=== PATIENT | female | born 1975 | race Caucasian/White ===

== ENCOUNTER → 2017-02-21 | Outpatient (CLI) | payer BC, OTHER ==
[~2017-02-21] MED LIST: ACYC800T57 PO; FLUO40CA PO; LORA10CA PO; OMEP-10 PO; SIMV40TA4 PO
== END ==
LOC: RAD 09:31
PROVIDERS: ATTEND Obstetrics & Gynecology
DX: Z12.31 Encounter for screening mammogram for malignant neoplasm of breast (principal)
CPT/HCPCS: 77067

== ENCOUNTER 2017-12-18 00:42 | Emergency (ER) | payer OTHER ==
[~2017-12-18] VITALS: Ht 152.4 cm; Wt 88.5 kg
--- OUTSIDE RECORDS SUMMARY | 2017-12-18 00:49 | XMS REPORT | CCD ---
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 Name Role Phone PP Unavailable CCM Unavailable Summary Purpose Interface Exchange Insurance Providers Payer name Policy type / Coverage type Covered libertarian ID Effective Begin Date Effective End Date [facility] [id number] Unknown Family History Family History data not found Social History Social History Element Codes Description Effective Dates Marital status Unknown 08/08/2014 Living arrangements Unknown House 08/08/2014 Education level Unknown College Graduate 08/08/2014 Employment Unknown 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 [employer] 08/08/2014 Allergies, Adverse Reactions, Alerts Substance Reaction Codes Entered Date Inactivated Date Status Erythromycin emesis RxNorm: 4053 08/08/2014 No Inactive Date Active PENICILLINS rash Unknown 08/08/2014 No Inactive Date Active Past Medical History Illness Codes Condition Status Onset Date Resolved Date Encounter for general adult medical examination without abnormal findings ICD-9: V70.0 ICD-10: Z00.00 Active 04/25/2017 Unknown Other obesity due to excess calories ICD-9: 278.00 ICD-10: E66.09 Active 04/25/2017 Unknown Acute laryngopharyngitis ICD-9: 465.0 ICD-10: J06.0 Active 10/20/2016 Unknown Otalgia, left ear ICD- 9: 388.70 ICD-10: H92.02 Active 10/20/2016 Unknown Other allergic rhinitis ICD-9: 477.8 ICD-10: J30.89 Active 10/16/2016 Unknown Otalgia, right ear ICD -9: 388.70 ICD-10: H92.01 Active 10/16/2016 Unknown Cough ICD-9: 786.2 ICD-10: R05 Active 07/10/2016 Unknown Mixed hyperlipidemia ICD-9: 272.2 ICD-10: E78.2 Active 07/10/2016 Unknown ELEV BL PRES W/O HYPERTN ICD-9: 796.2 Active 01/06/2015 Unknown Inflamed skin tag ICD- 9: 701.9 Active 01/01/2015 Unknown Abnormal menstrual periods ICD-9: 626.2 Active 08/08/2014 Unknown ESOPHAGEAL REFLUX ICD- 9: 530.81 Active 08/08/2014 Unknown Hiatal hernia ICD-9: 553.3 Active 08/08/2014 Unknown Missed periods ICD-9: 626.4 Active 08/08/2014 Unknown Problems Condition Codes Effective Dates Condition Status Encounter for general adult medical examination without abnormal findings ICD-9: V70.0 ICD-10: Z00.00 04/25/2017 Active Other obesity due to excess calories ICD-9: 278.00 ICD-10: E66.09 04/25/2017 Active Acute laryngopharyngitis ICD-9: 465.0 ICD-10: J06.0 10/20/2016 Active Otalgia, left ear ICD- 9: 388.70 ICD-10: H92.02 10/20/2016 Active Other allergic rhinitis ICD-9: 477.8 ICD-10: J30.89 10/16/2016 Active Otalgia, right ear ICD -9: 388.70 ICD-10: H92.01 10/16/2016 Active Cough ICD-9: 786.2 ICD-10: R05 07/10/2016 Active Mixed hyperlipidemia ICD-9: 272.2 ICD-10: E78.2 07/10/2016 Active ELEV BL PRES W/O HYPERTN ICD-9: 796.2 01/06/2015 Active Inflamed skin tag ICD- 9: 701.9 01/01/2015 Active Abnormal menstrual periods ICD-9: 626.2 08/08/2014 Active ESOPHAGEAL REFLUX ICD- 9: 530.81 08/08/2014 Active Hiatal hernia ICD-9: 553.3 08/08/2014 Active Missed periods ICD-9: 626.4 08/08/2014 Active Medications Medication Codes Instructions Start Date Stop Date Status Fill Instructions Prilosec 20 mg capsule,delayed release RxNorm: 468180 TAKE ONE CAPSULE BY MOUTH TWICE A DAY 10/06/2017 05/03/2018 Active Prilosec 20 mg capsule,delayed release RxNorm: 360007 TAKE ONE CAPSULE BY MOUTH TWICE A DAY 08/07/2017 09/05/2017 Inactive Prozac 40 mg capsule RxNorm: 944059 TAKE ONE CAPSULE BY MOUTH DAILY 06/12/2017 11/08/2017 Active Contrave 8 mg-90 mg tablet,extended release RxNorm: 8536642 2 Tablet(s) PO BID 04/25/2017 05/07/2017 Inactive simvastatin 40 mg tablet RxNorm: 850838 1 Tablet(s) PO QHS 01/201703/23/2018 Active [SAVINGS FOR NON-COVERED DRUGS -- BIN:[id number], PCN: ASPROD1, Group: XXXXX, ID # [id number], Questions: . THIS IS NOT INSURANCE.] Prozac 40 mg capsule RxNorm: 224586 TAKE ONE CAPSULE BY MOUTH DAILY 11/08/2016 05/06/2017 Inactive prednisone 10 mg tablet RxNorm: 896181 Tablet(s) PO 10/20/2016 04/24/2017 Inactive 6, 5,4,3,2,1 Flonase Allergy Relief 50 mcg/actuation nasal spray, suspension RxNorm: 8521691 1 [place] NASAL BID 10/17/2016 No Stop Date Active Kenalog 40 mg/mL suspension for injection RxNorm: 5745631 1 Milliliter(s) Inj 10/17/2016 10/17/2016 Inactive Zithromax Z-Kristofer 250 mg tablet RxNorm: 363722 1 Tablet(s) PO UD 10/12/2016 10/16/2016 Inactive zpack Prilosec 20 mg capsule,delayed release RxNorm: 790538 TAKE ONE CAPSULE BY MOUTH TWICE A DAY 08/30/2016 02/25/2017 Inactive Prozac 40 mg capsule RxNorm: 996936 TAKE ONE CAPSULE BY MOUTH DAILY 08/08/2016 11/05/2016 Inactive Zithromax Z-Kristofer 250 mg tablet RxNorm: 141131 1 Tablet(s) PO UD 07/11/2016 07/15/2016 Inactive zpack Prilosec 20 mg capsule,delayed release RxNorm: 435569 Capsule(s) TAKE ONE CAPSULE BY MOUTH TWICE A DAY 07/04/20162015 Inactive Prozac 40 mg capsule RxNorm: 989307 1 Capsule(s) PO daily 07/0408/02/2016 Inactive Prilosec 20 mg capsule,delayed release RxNorm: 079376 TAKE ONE CAPSULE BY MOUTH TWICE A DAY 01/11/2016 04/09/2016 Inactive simvastatin 40 mg tablet RxNorm: 797600 TAKE ONE TABLET BY MOUTH AT BEDTIME 12/23/2015 05/06/2016 Inactive Request already responded to by other means (e.g. phone or fax) simvastatin 40 mg tablet RxNorm: 041753 1 Tablet(s) PO QHS 06/17/2016 Inactive [SAVINGS FOR NON-COVERED DRUGS -- BIN:[id number], PCN: ASPROD1, Group: XXXXX, ID# [id number], Questions: . THIS IS NOT INSURANCE.] Prozac 40 mg capsule RxNorm: 233288 1 Capsule(s) PO daily 06/1906/12/2016 Inactive simvastatin 40 mg tablet RxNorm: 863355 1 Tablet(s) PO QHS 07/201507/31/2015 Inactive [SAVINGS FOR NON-COVERED DRUGS -- BIN:[id number], PCN: ASPROD1, Group: XXXXX, ID# [id number], Questions: . THIS IS NOT INSURANCE.] Prilosec 20 mg capsule,delayed release RxNorm: 876951 TAKE ONE CAPSULE BY MOUTH TWICE A DAY 12/04/2014 04/02/2015 Inactive Prilosec 20 mg capsule,delayed release RxNorm: 473876 1 Capsule(s) PO BID 12/02/2014 07/03/2016 Inactive [SAVINGS FOR NON-COVERED DRUGS -- BIN:[id number], PCN: ASPROD1, Group: XXXXX, ID# [id number], Questions: . THIS IS NOT INSURANCE.] Tamiflu 75 mg capsule RxNorm: 611098 Capsule(s) PO daily 201411/05/2014 Inactive Seasonale contraceptive 0.15 mg-30 mcg tablets,3 month dose pack RxNorm: 562528 1 Tablet(s) PO daily 08/11/20142015 Inactive Seasonale contraceptive 0.15 mg-30 mcg tablets,3 month dose pack RxNorm: 080816 1 Tablet(s) PO daily 08/11/20142013 Inactive Prilosec 20 mg capsule,delayed release RxNorm: 708202 1 Capsule(s) PO BID 08/08/2014 10/06/2014 Inactive [SAVINGS FOR UNINSURED PATIENTS -- BIN:[id number], PCN: ASPROD1, Group: [id number], ID# [id number], Process claim through [employer], for questions: . THIS IS NOT INSURANCE.] Victoza 2-Kristofer 0.6 mg/0.1 mL (18 mg/3 mL) subcutaneous pen injector RxNorm: 846217 0.6 Milligram(s) SQ daily No Start Date Active Centrum Complete oral RxNorm: 57249 oral No Start Date Active Xanax 0.25 mg tablet RxNorm: 704051 1/2 Tablet(s) PO daily No Start Date Active Phenergan 12.5 mg tablet RxNorm: 524221 1/2 Tablet(s) PO PRN No Start Date Active Prozac 40 mg capsule RxNorm: 396268 1 Capsule(s) PO daily No Start Date 06/18/2015 Inactive Fish Oil 1,000 mg capsule RxNorm: 3 Capsule(s) PO daily No Start Date 04/24/2017 Inactive simvastatin 40 mg tablet RxNorm: 356262 1 Tablet(s) PO QHS No Start Date 02/01/2015 Inactive Prilosec 20 mg capsule,delayed release RxNorm: 851283 1 Capsule(s) PO daily No Start Date 08/07/2014 Inactive Medication Administered Medication Codes Instructions Start Date Status Kenalog 40 mg/mL suspension for injection RxNorm: 3140302 1Milliliter 10/17/2016 No longer Active Immunizations Vaccine Codes Date Status Influenza CVX: 141 08/14/2016 completed PPD Unknown 01/08/2015 completed PPD Unknown 01/06/2015 completed Assessments Condition Codes Effective Dates Other obesity due to excess calories ICD-10: E66.09 ICD-9: 278.00 04/25/2017 Encounter for general adult medical examination without abnormal findings ICD-10: Z00.00 ICD-9: V70.0 04/25/2017 Otalgia, left ear ICD-10: H92.02 ICD-9: 388.70 10/20/2016 Acute laryngopharyngitis ICD-10: J06.0 ICD-9: 465.0 10/20/2016 Other allergic rhinitis ICD-10: J30.89 ICD-9: 477.8 10/20/2016 Otalgia, right ear ICD-10: H92.01 ICD-9: 388.70 10/17/2016 Cough ICD-10: R05 ICD-9: 786.2 07/11/2016 Mixed hyperlipidemia ICD-10: E78.2 ICD-9: 272.2 07/11/2016 ELEV BL PRES W/O HYPERTN ICD-9: 796.2 Inflamed skin tag ICD-9: 701.9 2014 ESOPHAGEAL REFLUX ICD-9: 530.81 2013 Missed periods ICD-9: 626.4 08/08/2014 Hiatal hernia ICD-9: 553.3 08/08/2014 Abnormal menstrual periods ICD-9: 626.2 08/08/2014 Reason For Visit Reason For Visit Effective Dates Notes weight gain/obesity 04/25/2017 sinus congestion 10/20/2016 earache 10/17/2016 cough 07/11/2016 skin lesion 01/01/2015 anxiety 08/08/2014 causes her chest discomfort, nausea, vomiting and diarrhea Results Observation Observation Code Item Item Code Result Date Comp Metabolic Bda132 NA 140 mEq/L 04/25/2017 Comp Metabolic Xyz656 K 3.9 mEq/L 04/25/2017 Comp Metabolic Rsl985 CL 107 mEq/L 04/25/2017 Comp Metabolic Frt238 CO2 22.0 mEq/L 04/25/2017 Comp Metabolic Wgv217 ANION GAP 15 04/25/2017 Comp Metabolic Ubp837 GLUCOSE 82 mg/dL 04/25/2017 Comp Metabolic Lbc723 Creat 0.7 mg/dL 04/25/2017 Comp Metabolic Tll842 eGFR 107 ml/min/1.73m2 04/25/2017 Comp Metabolic Pax351 BUN 10 mg/dL 04/25/2017 Comp Metabolic Pha001 B/C Ratio 15.4 Ratio 04/25/2017 Comp Metabolic Kjg176 CALCIUM 8.9 mg/dL 04/25/2017 Comp Metabolic Oxr155 ALK PHOS 73 U/L 04/25/2017 Comp Metabolic Jmg085 AST(SGOT) 16 U/L 04/25/2017 Comp Metabolic Imk308 ALT(SGPT) 12 U/L 04/25/2017 Comp Metabolic Rgw320 BILI T 0.3 mg/dL 04/25/2017 Comp Metabolic Mkc961 ALBUMIN 3.8 g/dL 04/25/2017 Comp Metabolic Jle623 TPRO 6.7 g/dL 04/25/2017 Comp Metabolic Gwg343 GLOB 2.9 g/dL 04/25/2017 Comp Metabolic Bwm431 A/G Ratio 1.3 Ratio 04/25/2017 Comp Metabolic Vnj220 Osmo 278 mOsmo 04/25/2017 Cbc With Differential Ord2 WBC 7.89 K/ul 04/25/2017 Cbc With Differential Ord2 RBC 4.73 M/ul 04/25/2017 Cbc With Differential Ord2 HGB 12.7 g/dl 04/25/2017 Cbc With Differential Ord2 Neut% 71.6 % 04/25/2017 Cbc With Differential Ord2 HCT 38.6 % 04/25/2017 Cbc With Differential Ord2 MCV 81.6 fl 04/25/2017 Cbc With Differential Ord2 Lymph% 20.0 % 04/25/2017 Cbc With Differential Ord2 MCH 26.8 pg 04/25/2017 Cbc With Differential Ord2 [place]% 5.7 % 04/25/2017 Cbc With Differential Ord2 MCHC 32.9 pg 04/25/2017 Cbc With Differential Ord2 Eos% 2.3 % 04/25/2017 Cbc With Differential Ord2 PLT 400 K/ul 04/25/2017 Cbc With Differential Ord2 Baso% 0.4 % 04/25/2017 Cbc With Differential Ord2 RDW 14.4 % 04/25/2017 Cbc With Differential Ord2 Neut ABS# 5.65 K/ul 04/25/2017 Cbc With Differential Ord2 Lymph ABS# 1.58 K/ul 04/25/2017 Cbc With Differential Ord2 [place] ABS# 0.5 K/ul 04/25/2017 Cbc With Differential Ord2 Eos ABS# 0.2 K/ul 04/25/2017 Cbc With Differential Ord2 Baso ABS# 0.0 K/ul 04/25/2017 Lipid Ord30 CHOL 183 mg/dL 04/25/2017 Lipid Ord30 HDL 53.0 mg/dl 04/25/2017 Lipid Ord30 TRIG 167 mg/dL 04/25/2017 Lipid Ord30 LDL 97 mg/dL 04/25/2017 Lipid Ord30 C/HDL 3.5 Ratio 04/25/2017 Tsh Ord6 hTSH II 2.40 uIU/mL 04/25/2017 Tsh Ord6 hTSH II 1.98 uIU/mL 07/11/2016 Lipid Ord30 CHOL 232 mg/dL 07/11/2016 Lipid Ord30 HDL 53.0 mg/dl 07/11/2016 Lipid Ord30 TRIG 157 mg/dL 07/11/2016 Lipid Ord30 LDL 148 mg/dL 07/11/2016 Lipid Ord30 C/HDL 4.4 Ratio 07/11/2016 Cbc With Differential Ord2 WBC 12.04 K/ul 07/11/2016 Cbc With Differential Ord2 RBC 5.05 M/ul 07/11/2016 Cbc With Differential Ord2 HGB 13.6 g/dl 07/11/2016 Cbc With Differential Ord2 Neut% 79.7 % 07/11/2016 Cbc With Differential Ord2 HCT 41.0 % 07/11/2016 Cbc With Differential Ord2 MCV 81.2 fl 07/11/2016 Cbc With Differential Ord2 Lymph% 12.5 % 07/11/2016 Cbc With Differential Ord2 MCH 26.9 pg 07/11/2016 Cbc With Differential Ord2 [place]% 6.9 % 07/11/2016 Cbc With Differential Ord2 MCHC 33.2 pg 07/11/2016 Cbc With Differential Ord2 Eos% 0.7 % 07/11/2016 Cbc With Differential Ord2 Baso% 0.2 % 07/11/2016 Cbc With Differential Ord2 PLT 372 K/ul 07/11/2016 Cbc With Differential Ord2 RDW 14.3 % 07/11/2016 Cbc With Differential Ord2 Neut ABS# 9.59 K/ul 07/11/2016 Cbc With Differential Ord2 Lymph ABS# 1.51 K/ul 07/11/2016 Cbc With Differential Ord2 [place] ABS# 0.8 K/ul 07/11/2016 Cbc With Differential Ord2 Eos ABS# 0.1 K/ul 07/11/2016 Cbc With Differential Ord2 Baso ABS# 0.0 K/ul 07/11/2016 Comp Metabolic Rhb415 NA 136 mEq/L 07/11/2016 Comp Metabolic Msr314 K 4.2 mEq/L 07/11/2016 Comp Metabolic Dya295 CL 104 mEq/L 07/11/2016 Comp Metabolic Xev996 CO2 20.0 mEq/L 07/11/2016 Comp Metabolic Amd968 ANION GAP 16 07/11/2016 Comp Metabolic Frs084 GLUCOSE 86 mg/dL 07/11/2016 Comp Metabolic Liw051 Creat 0.7 mg/dL 07/11/2016 Comp Metabolic Rpt270 eGFR 106 ml/min/1.73m2 07/11/2016 Comp Metabolic Lkr710 BUN 12 mg/dL 07/11/2016 Comp Metabolic Gdb883 B/C Ratio 18.2 Ratio 07/11/2016 Comp Metabolic Byn033 CALCIUM 9.3 mg/dL 07/11/2016 Comp Metabolic Erp194 ALK PHOS 79 U/L 07/11/2016 Comp Metabolic Sjk284 AST(SGOT) 19 U/L 07/11/2016 Comp Metabolic Vbk478 ALT(SGPT) 13 U/L 07/11/2016 Comp Metabolic Zil342 BILI T 0.3 mg/dL 07/11/2016 Comp Metabolic Mmo436 ALBUMIN 4.1 g/dL 07/11/2016 Comp Metabolic Rsy003 TPRO 7.5 g/dL 07/11/2016 Comp Metabolic Ggw984 GLOB 3.4 g/dL 07/11/2016 Comp Metabolic Cww146 A/G Ratio 1.2 Ratio 07/11/2016 Comp Metabolic Nqd807 Osmo 271 mOsmo 07/11/2016 PREG U 1153362 PREG U NEG 08/08/2014 Review of Systems System Result Effective Dates Constitutional No fatigue 04/25/2017 Constitutional No fever 04/25/2017 Constitutional No insomnia 04/25/2017 Eyes No eye discharge 04/25/2017 Eyes No eye erythema 04/25/2017 Ears/Nose/Throat/Neck No headache 2016 Cardiovascular No chest pain/pressure 09/2016 Cardiovascular No edema 04/25/2017 Cardiovascular No near-syncope/dizziness 04/25/2017 Cardiovascular No syncope 04/25/2017 Respiratory No productive sputum 2016 Respiratory No chest congestion 2016 Respiratory No chest tightness 2016 Respiratory No cough 04/25/2017 Respiratory No dyspnea 04/25/2017 Gastrointestinal No abdominal pain 2016 Gastrointestinal No constipation 2016 Gastrointestinal No diarrhea 04/25/2017 Genitourinary/Nephrology No breast complaint 04/25/2017 Genitourinary/Nephrology No dysuria 04/25 Genitourinary/Nephrology No hematuria 09/2016 Genitourinary/Nephrology No urinary urgency 04/25/2017 Genitourinary/Nephrology No vaginal discharge 04/25/2017 Musculoskeletal No joint complaint 2016 Neurologic No alteration of consciousness 04/25/2017 Constitutional recent illness 10/20/2016 Constitutional No chills 10/20/2016 Constitutional No diaphoresis 10/20/2016 Constitutional No fever 10/20/2016 Eyes No eye erythema 10/20/2016 Ears/Nose/Throat/Neck nasal allergies Ears/Nose/Throat/Neck nasal discharge Ears/Nose/Throat/Neck postnasal drip Ears/Nose/Throat/Neck sinus congestion Ears/Nose/Throat/Neck sore throat 2016 Cardiovascular No chest pain/pressure Cardiovascular No dyspnea 10/20/2016 Respiratory No dyspnea 10/20/2016 Dermatologic No rash 10/20/2016 Neurologic No alteration of consciousness 10/20/2016 Neurologic No mental status change 2016 Ears/Nose/Throat/Neck otalgia 10/20/2016 Constitutional recent illness 07/11/2016 Constitutional No anorexia 07/11/2016 Constitutional night sweats 07/11/2016 Constitutional No chills 07/11/2016 Constitutional diaphoresis 07/11/2016 Constitutional fatigue 07/11/2016 Constitutional No fever 07/11/2016 Constitutional No insomnia 07/11/2016 Constitutional No malaise 07/11/2016 Constitutional No weight loss 07/11/2016 Constitutional weight gain 07/11/2016 Eyes No eye discharge 07/11/2016 Eyes No eye erythema 07/11/2016 Ears/Nose/Throat/Neck No dizziness 2015 Ears/Nose/Throat/Neck headache 2015 Ears/Nose/Throat/Neck nasal discharge Ears/Nose/Throat/Neck No otalgia 2015 Ears/Nose/Throat/Neck sinus congestion Ears/Nose/Throat/Neck No sore throat Cardiovascular No chest pain/pressure Respiratory cough 07/11/2016 Gastrointestinal No abdominal pain 2015 Gastrointestinal No constipation 2015 Gastrointestinal No diarrhea 07/11/2016 Genitourinary/Nephrology No dysuria 07/11 Musculoskeletal No joint complaint 2015 Dermatologic No sores 07/11/2016 Neurologic No alteration of consciousness 07/11/2016 Psychiatric No anxiety 07/11/2016 Constitutional No recent illness 2014 Constitutional No anorexia 01/01/2015 Constitutional No night sweats 2014 Constitutional No chills 01/01/2015 Constitutional No diaphoresis 01/01/2015 Constitutional No fatigue 01/01/2015 Constitutional No fever 01/01/2015 Constitutional No insomnia 01/01/2015 Constitutional No malaise 01/01/2015 Constitutional weight loss 01/01/2015 Constitutional No weight gain 01/01/2015 Constitutional No fatigue 08/08/2014 Constitutional No fever 08/08/2014 Constitutional No insomnia 08/08/2014 Eyes No eye discharge 08/08/2014 Eyes No eye erythema 08/08/2014 Ears/Nose/Throat/Neck No headache 2013 Cardiovascular No chest pain/pressure Cardiovascular No edema 08/08/2014 Cardiovascular No near-syncope/dizziness 08/08/2014 Cardiovascular No syncope 08/08/2014 Respiratory No productive sputum 2013 Respiratory No chest congestion 2013 Respiratory No chest tightness 2013 Respiratory No cough 08/08/2014 Respiratory No dyspnea 08/08/2014 Gastrointestinal No abdominal pain 2013 Gastrointestinal No constipation 2013 Gastrointestinal No diarrhea 08/08/2014 Genitourinary/Nephrology No breast complaint 08/08/2014 Genitourinary/Nephrology No dysuria 08/08 Genitourinary/Nephrology No hematuria Genitourinary/Nephrology No urinary urgency 08/08/2014 Genitourinary/Nephrology No vaginal discharge 08/08/2014 Musculoskeletal No joint complaint 2013 Neurologic No alteration of consciousness 08/08/2014 Physical Exam Exam Name System Name Item Name Status Result Effective Dates Notes Full Exam - General 1994 Constitutional general appearance Development: well developed 04/25/2017 None Full Exam - General 1994 Constitutional general appearance Development: appears stated age 0804/25/2017 None Full Exam - General 1994 Constitutional general appearance Nourishment: obese 04/25/2017 None Full Exam - General 1994 Constitutional general appearance Hygiene/Attention to Grooming: good hygiene 04/25/2017 None Full Exam - General 1994 Eyes conjunctiva /eyelids Overall: conjunctiva clear 04/25/2017 None Full Exam - General 1994 Eyes conjunctiva /eyelids Overall: cornea clear 04/25/2017 None Full Exam - General 1994 Eyes conjunctiva /eyelids Overall: eyelids normal 04/25/2017 None Full Exam - General 1994 Eyes pupils and irises Overall: pupils equal, round, reactive to light and accomodation 04/25/2017 None Full Exam - General 1994 Ears/Nose/Throat otoscopic exam Overall: external auditory canals clear 04/25/2017 None Full Exam - General 1994 Ears/Nose/Throat otoscopic exam Overall: tympanic membranes clear 04/25/2017 None Full Exam - General 1995 Ears/Nose/Throat lips/teeth/gingiva Overall: benign lips 04/25/2017 None Full Exam - General 1994 Ears/Nose/Throat lips/teeth/gingiva Overall: normal dentition 04/25/2017 None Full Exam - General 1994 Ears/Nose/Throat oral cavity/pharynx/larynx Overall: oral mucosa clear 04/25/2017 None Full Exam - General 1994 Ears/Nose/Throat oral cavity/pharynx/larynx Overall: oropharyngeal mucosa clear 04/25/2017 None Full Exam - General 1994 Ears/Nose/Throat oral cavity/pharynx/larynx Overall: hypopharynx benign 04/25/2017 None Full Exam - General 1994 Ears/Nose/Throat oral cavity/pharynx/larynx Overall: no masses 04/25/2017 None Full Exam - General 1994 Respiratory auscultation Overall: breath sounds clear bilaterally 04/25/2017 None Full Exam - General 1994 Respiratory respiratory effort/rhythm Overall: no retractions 04/25/2017 None Full Exam - General 1994 Respiratory respiratory effort/rhythm Overall: normal rate 04/25/2017 None Full Exam - General 1994 Cardiovascular extremities Overall: no clubbing 04/25/2017 None Full Exam - General 1994 Cardiovascular auscultation of heart Overall: regular rate 04/25/2017 None Full Exam - General 1994 Cardiovascular auscultation of heart Overall: normal heart sounds 04/25/2017 None Full Exam - General 1994 Abdomen abdominal exam Overall: no tenderness 04/25/2017 None Full Exam - General 1994 Abdomen abdominal exam Overall: normal bowel sounds 04/25/2017 None Full Exam - General 1994 Lymphatic neck nodes Overall: anterior cervical chain benign 04/25/2017 None Full Exam - General 1994 Lymphatic neck nodes Overall: posterior cervical chain benign 04/25/2017 None Full Exam - General 1994 Musculoskeletal spine, ribs and pelvis Overall: spine benign 04/25/2017 None Full Exam - General 1994 Musculoskeletal spine, ribs and pelvis Overall: sacroiliac joint benign 04/25/2017 None Full Exam - General 1994 Musculoskeletal spine, ribs and pelvis Overall: good posture 04/25/2017 None Full Exam - General 1994 Musculoskeletal head and neck Overall: head atraumatic 04/25/2017 None Full Exam - General 1994 Musculoskeletal head and neck Overall: cervical spine benign 04/25/2017 None Full Exam - General 1994 Integument inspection of skin Overall: few scattered moles, no gross abnormalities 04/25/2017 None Full Exam - General 1994 Neurologic deep tendon reflexes Overall: deep tendon reflexes intact 04/25/2017 None Full Exam - General 1994 Neurologic cranial nerves Overall: crainial nerves 2 - 12 grossly intact 04/25/2017 None Full Exam - General 1994 Psychiatric orientation/consciousness Overall: oriented to person, place and time 04/25/2017 None Full Exam - General 1994 Psychiatric mood and affect Overall: normal mood and affect 04/25/2017 None Full Exam - ENT Constitutional general appearance Overall: well nourished 10/20/2016 None Full Exam - ENT Constitutional general appearance Overall: well developed 10/20/2016 None Full Exam - ENT Constitutional general appearance Overall: in no acute distress 10/20/2016 None Full Exam - ENT Ears/Nose/Throat otoscopic exam Overall: external auditory canals normal 10/20/2016 None Full Exam - ENT Ears/Nose/Throat otoscopic exam Left tympanic membrane: air -fluid level 10/20/2016 None Full Exam - ENT Ears/Nose/Throat otoscopic exam Right tympanic membrane: air-fluid level 10/20/2016 None Full Exam - ENT Ears/Nose/Throat lips/ teeth/gingiva Overall: benign lips 10/20/2016 None Full Exam - ENT Ears/Nose/Throat oropharynx Posterior Pharynx: clear post nasal drainage 10/20/2016 None Full Exam - ENT Respiratory inspection Overall: no retractions 10/20/2016 None Full Exam - ENT Respiratory inspection Overall: normal rate None Full Exam - ENT Respiratory auscultation Overall: breath sounds clear bilaterally 10/20/2016 None Full Exam - ENT Cardiovascular auscultation of heart Overall: regular rate 10/20/2016 None Full Exam - ENT Cardiovascular auscultation of heart Overall: normal heart sounds 10/20/2016 None Full Exam - ENT Lymphatic palpation of lymph nodes Overall: anterior cervical chain benign 10/20/2016 None Full Exam - ENT Lymphatic palpation of lymph nodes Overall: posterior cervical chain benign 10/20/2016 None Full Exam - ENT Neurologic mood and affect Overall: normal mood 10/20/2016 None Full Exam - ENT Neurologic mood and affect Overall: normal affect 10/20/2016 None Full Exam - ENT Neurologic orientation Overall: oriented to person, place and time 10/20/2016 None Full Exam - ENT Ears/Nose/Throat otoscopic exam Overall: external auditory canals normal 10/17/2016 None Full Exam - ENT Ears/Nose/Throat otoscopic exam Left tympanic membrane: air -fluid level 10/17/2016 None Full Exam - ENT Ears/Nose/Throat otoscopic exam Right tympanic membrane: air-fluid level 10/17/2016 None Full Exam - ENT Ears/Nose/Throat lips/ teeth/gingiva Overall: benign lips 10/17/2016 None Full Exam - ENT Ears/Nose/Throat oropharynx Overall: oral mucosa clear 10/17/2016 None Full Exam - ENT Ears/Nose/Throat oropharynx Posterior Pharynx: clear post nasal drainage 10/17/2016 None Full Exam - ENT Constitutional general appearance Overall: well nourished 07/11/2016 None Full Exam - ENT Constitutional general appearance Overall: well developed 07/11/2016 None Full Exam - ENT Constitutional general appearance Overall: in no acute distress 07/11/2016 None Full Exam - ENT Neurologic orientation Overall: oriented to person, place and time 07/11/2016 None Full Exam - ENT Lymphatic palpation of lymph nodes Overall: anterior cervical chain benign 07/11/2016 None Full Exam - ENT Lymphatic palpation of lymph nodes Overall: posterior cervical chain benign 07/11/2016 None Full Exam - ENT Cardiovascular auscultation of heart Overall: regular rate 07/11/2016 None Full Exam - ENT Cardiovascular auscultation of heart Overall: normal heart sounds 07/11/2016 None Full Exam - ENT Respiratory auscultation Overall: breath sounds clear bilaterally 07/11/2016 None Full Exam - ENT Respiratory inspection Overall: no retractions 07/11/2016 None Full Exam - ENT Respiratory inspection Overall: normal rate None Full Exam - ENT Ears/Nose/Throat otoscopic exam Overall: external auditory canals normal 07/11/2016 None Full Exam - ENT Ears/Nose/Throat otoscopic exam Overall: tympanic membranes normal 07/11/2016 None Full Exam - ENT Ears/Nose/Throat oropharynx Overall: oral mucosa clear 07/11/2016 None Full Exam - ENT Face and Head palpation Left maxillary sinus: nontender 07/11/2016 None Full Exam - ENT Face and Head palpation Right maxillary sinus: nontender 07/11/2016 None Full Exam - ENT Abdomen abdominal exam Overall: normal bowel sounds 07/11/2016 None Full Exam - Dermatology Constitutional general appearance Overall: well nourished 01/01/2015 None Full Exam - Dermatology Constitutional general appearance Overall: well developed 01/01/2015 None Full Exam - Dermatology Constitutional general appearance Overall: in no acute distress 01/01/2015 None Full Exam - Dermatology Constitutional general appearance Overall: of normal body habitus 01/01/2015 None Full Exam - Dermatology Constitutional general appearance Overall: well groomed 01/01/2015 None Full Exam - Dermatology Psychiatric orientation Overall: oriented to person, place and time 01/01/2015 None Full Exam - Dermatology Integument insp & palp - neck Location: on the right neck 01/01/2015 irritated skin tag x 3 Full Exam - Dermatology Integument insp & palp - neck Location: on the left neck 01/01/2015 irritated skin tag x 1 Full Exam - General 1994 Constitutional general appearance Development: appears stated age 1108/08/2014 None Full Exam - General 1994 Constitutional general appearance Development: well developed 08/08/2014 None Full Exam - General 1994 Constitutional general appearance Hygiene/Attention to Grooming: good hygiene 08/08/2014 None Full Exam - General 1994 Eyes conjunctiva /eyelids Overall: conjunctiva clear 08/08/2014 None Full Exam - General 1994 Eyes conjunctiva /eyelids Overall: cornea clear 08/08/2014 None Full Exam - General 1994 Eyes conjunctiva /eyelids Overall: eyelids normal 08/08/2014 None Full Exam - General 1994 Eyes pupils and irises Overall: pupils equal, round, reactive to light and accomodation 08/08/2014 None Full Exam - General 1994 Ears/Nose/Throat otoscopic exam Overall: external auditory canals clear 08/08/2014 None Full Exam - General 1994 Ears/Nose/Throat otoscopic exam Overall: tympanic membranes clear 08/08/2014 None Full Exam - General 1994 Ears/Nose/Throat lips/teeth/gingiva Overall: benign lips 08/08/2014 None Full Exam - General 1994 Ears/Nose/Throat lips/teeth/gingiva Overall: normal dentition 08/08/2014 None Full Exam - General 1994 Ears/Nose/Throat oral cavity/pharynx/larynx Overall: hypopharynx benign 08/08/2014 None Full Exam - General 1994 Ears/Nose/Throat oral cavity/pharynx/larynx Overall: no masses 08/08/2014 None Full Exam - General 1994 Ears/Nose/Throat oral cavity/pharynx/larynx Overall: oral mucosa clear 08/08/2014 None Full Exam - General 1994 Ears/Nose/Throat oral cavity/pharynx/larynx Overall: oropharyngeal mucosa clear 08/08/2014 None Full Exam - General 1994 Respiratory auscultation Overall: breath sounds clear bilaterally 08/08/2014 None Full Exam - General 1994 Respiratory respiratory effort/rhythm Overall: no retractions 08/08/2014 None Full Exam - General 1994 Respiratory respiratory effort/rhythm Overall: normal rate 08/08/2014 None Full Exam - General 1994 Cardiovascular extremities Overall: no clubbing 08/08/2014 None Full Exam - General 1994 Cardiovascular auscultation of heart Overall: normal heart sounds 08/08/2014 None Full Exam - General 1994 Cardiovascular auscultation of heart Overall: regular rate 08/08/2014 None Full Exam - General 1994 Abdomen abdominal exam Overall: no tenderness 08/08/2014 None Full Exam - General 1994 Abdomen abdominal exam Overall: normal bowel sounds 08/08/2014 None Full Exam - General 1994 Integument inspection of skin Overall: few scattered moles, no gross abnormalities 08/08/2014 None Full Exam - General 1994 Neurologic deep tendon reflexes Overall: deep tendon reflexes intact 08/08/2014 None Full Exam - General 1994 Neurologic cranial nerves Overall: crainial nerves 2 - 12 grossly intact 08/08/2014 None Full Exam - General 1994 Psychiatric orientation/consciousness Overall: oriented to person, place and time 08/08/2014 None Full Exam - General 1994 Psychiatric mood and affect Overall: normal mood and affect 08/08/2014 None Full Exam - General 1994 Constitutional general appearance Nourishment: obese 08/08/2014 None Full Exam - General 1994 Lymphatic neck nodes Overall: anterior cervical chain benign 08/08/2014 None Full Exam - General 1994 Lymphatic neck nodes Overall: posterior cervical chain benign 08/08/2014 None Full Exam - General 1994 Musculoskeletal head and neck Overall: cervical spine benign 08/08/2014 None Full Exam - General 1994 Musculoskeletal head and neck Overall: head atraumatic 08/08/2014 None Full Exam - General 1994 Musculoskeletal spine, ribs and pelvis Overall: good posture 08/08/2014 None Full Exam - General 1994 Musculoskeletal spine, ribs and pelvis Overall: sacroiliac joint benign 08/08/2014 None Full Exam - General 1994 Musculoskeletal spine, ribs and pelvis Overall: spine benign 08/08/2014 None Procedures Procedure Codes Date THER/PROPH/DIAG INJ SC/IM CPT-4: 66278 10/17/2016 TRIAMCINOLONE ACET INJ NOS CPT-4: J3301 10/17/2016 REMOVAL OF SKIN TAGS <W/15 CPT-4: 10023 01/01/2015 Vital Signs Date Vital 04/25/2017 Blood Pressure 1: 138/90 Code : 8480-6 BMI: 40.2 Code : 81427-1 Heart Rate 1 : 84 bpm Height: 5' SpO2: 98% Weight: 206 lbs 10/20/2016 Blood Pressure 1: 140/82 Code : 8480-6 BMI: 39.1 Code : 99516-6 Heart Rate 1 : 87 bpm Height: 5' SpO2: 97% Temperature: 37.2 (C) / 98.9 (F) Weight: 200 lbs 07/11/2016 Blood Pressure 1: 142/88 Code : 8480-6 BMI: 38.7 Code : 01493-5 Heart Rate 1 : 104 bpm Height: 5' SpO2: 96% Temperature: 36.7 (C) / 98.0 (F) Weight: 198 lbs 01/08/2015 Blood Pressure 1: 118/78 Code : 8480-6 01/06/2015 Blood Pressure 1: 132/80 Code : 8480-6 01/01/2015 Blood Pressure 1: 150/102 Code: 8480-6 Blood Pressure 2: 150/96 Code: 8480-6 BMI: 33.4 Code: 71612-6 Heart Rate 1: 71 bpm Height: 5' SpO2: 99% Weight: 171 lbs 08/08/2014 Blood Pressure 1: 136/70 Code : 8480-6 BMI: 40.8 Code : 67274-1 Heart Rate 1 : 84 bpm Height: 5' Weight: 209 lbs Functional Status No Functional Status data History of Present Illness Symptom Name Status Result Effective Date Notes weight gain/obesity Location globally 04/25/2017 None weight gain/obesity Quality chronic 04/25/2017 None weight gain/obesity Onset and Resolution ongoing 04/25/2017 None weight gain/obesity Onset of Symptom _ years ago 04/25/2017 None weight gain/obesity Weight Status has gained _ pounds in _weeks 04/25/2017 None weight gain/obesity Frequency of Episodes increasing 04/25/2017 None weight gain/obesity Diet is unchanged 04/25/2017 None weight gain/obesity Triggers unintentional weight gain 04/25/2017 None weight gain/obesity Pertinent Findings Denies dysphagia 04/25/2017 None weight gain/obesity Pertinent Findings Denies dyspnea 04/25/2017 None weight gain/obesity Pertinent Findings Denies edema 04/25/2017 None weight gain/obesity Pertinent Findings Denies vomiting 04/25/2017 None sinus congestion Location on both sides 10/20/2016 None sinus congestion Quality fullness 10/20/2016 None earache Location both ears 10/20/2016 None earache Onset and Resolution ongoing 10/20/2016 None earache Onset of Symptom _ weeks ago 10/20/2016 None earache Location right ear 10/17/2016 None earache Quality acute 10/17/2016 None earache Onset and Resolution ongoing 10/17/2016 None cough Location in the throat 07/11/2016 None cough Quality productive 07/11/2016 GREEN cough Onset and Resolution sudden in onset 07/11/2016 None cough Onset of Symptom 3 days ago 07/11/2016 None cough Frequency of Episodes hourly 07/11/2016 None cough Pertinent Findings chest discomfort 07/11/2016 None cough Pertinent Findings Denies fever 07/11/2016 None cough Pertinent Findings Denies dyspnea 07/11/2016 None cough Limitation on Activities does not limit activities 07/11/2016 None cough Triggers no known associated factors 07/11/2016 None skin lesion Location in the upper neck area 01/01/2015 right side of neck-skin tags and 1 on left neck skin lesion Pertinent Findings weight loss 01/01/2015 had gastric sleve- September 10, 2014 office procedure Procedure to be performed _ 01/01/2015 remove skin tags skin lesion Onset and Resolution ongoing 01/01/2015 None skin lesion Onset of Symptom during adulthood 01/01/2015 None skin lesion Frequency of Episodes increasing 01/01/2015 irritated skin tags x 3 right neck and x1 left neck skin lesion Triggers no known associated factors 01/01/2015 None anxiety Onset of Symptom _ weeks ago 08/08/2014 after EGD panic attacks- started on xanax nausea Onset and Resolution sudden in onset 08/08/2014 None nausea Significant Medical Conditions acid reflux 08/08/2014 None nausea Pertinent Findings Denies fever 08/08/2014 None nausea Pertinent Findings emesis 08/08/2014 at times with anxiety nausea Pertinent Findings Denies edema 08/08/2014 None depression Quality chronic 08/08/2014 None depression Onset and Resolution ongoing 08/08/2014 None depression Onset of Symptom during adulthood 08/08/2014 None depression Triggers no known associated factors 08/08/2014 None insomnia Quality chronic 08/08/2014 None Advance Directives No Advance Directive data Encounters Encounter Performer Location Codes Date ([id number]) PREV VISIT EST AGE 40-64 Diagnosis: Encounter for general adult medical examination without abnormal findings[ICD10: Z00.00] Diagnosis: Other obesity due to excess calories[ICD10: E66.09] Jeanine Dale MD, [facility] CPT-4: 21827 04/25/2017 [id number] EST. PATIENT, LEVEL III Diagnosis: Acute laryngopharyngitis[ICD10: J06.0] Diagnosis: Other allergic rhinitis[ICD10: J30.89] Diagnosis: Otalgia, left ear[ICD10: H92.02] Tere Dale MD, [facility] CPT- 4: 60234 10/20/2016 ([id number]) 16220 EST. PATIENT, LEVEL III Diagnosis: Mixed hyperlipidemia[ICD10: E78.2] Diagnosis: Cough[ICD10: R05] Jeanine Dale MD, [facility] CPT-4: 49649 07/11/2016 ([id number]) Miscellaneous no charge Diagnosis: ELEV BL PRES W/O HYPERTN[ICD9: 796.2] [facility] CPT-4: 72944 01/08/2015 ([id number]) Miscellaneous no charge Diagnosis: ELEV BL PRES W/O HYPERTN[ICD9: 796.2] [facility] CPT-4: 56770 01/06/2015 ([id number]) OFFICE VISIT, NEW - LEVEL 4 Diagnosis: Abnormal menstrual periods[ICD9: 626.2] Diagnosis: Hiatal hernia[ICD9: 553.3] Diagnosis: ESOPHAGEAL REFLUX[ICD9: 530.81] Diagnosis: Missed periods[ICD9: 626.4] [facility] CPT- 4: 13757 08/08/2014 Plan of Care Planned Activity Notes Codes Status Date Visit Plan: Well Adult - pt was counseled about diet, exercise, and encouraged to follow a heart healthy diet and increase activity level. The patient was instructed to RTC yearly for well adult exams and PRN for acute illnesses. The pt was also instructed to have yearly labs for check of cholesterol, thyroid, chem panel, CBC, and renal functioning. Obesity - chronic issue with this patient. The pt has been counseled about diet changes, calorie restriction, and need to exercise. Pt will RTC in one month for weight check. RX for contrave provided and instructed on use 04/25/2017 Appointment: Jeanine Cunningham WPtel: [phone] [phone] (15 min) Moderate 04/25/2017 Patient Education: Patient Medication Summary Completed 04/25/2017 Patient Education: Obesity Completed 04/25/2017 Visit Plan: URI - Pt advised to increase fluids, vitamin C. Discussed natural and expected course of this diagnosis and need to alert me if symptoms do not follow expected course, or if any worse. RX sent to patient' s pharmacy. Allergies - chronic - recommended pt to use allergy medication as prescribed. Pt has been counseled as to the appropriate use of the medication. Pt to call if allergy symptoms are not controlled with the medication. If using nasal spray, instructions as follows: Nasal spray- use twice daily, one spray per nostril twice daily, after 30 minutes, rinse out nose with saline spray.. Use opposite hand per nostril to spray in the nasal steroid allergy spray. 10/20/2016 Appointment: Tere Coello WPtel: [phone] [facility] (30 min) Complex 10/20/2016 Patient Education: Patient Medication Summary Completed 10/20/2016 Visit Plan: Allergies - chronic - recommended pt to use allergy medication as prescribed. Pt has been counseled as to the appropriate use of the medication. Pt to call if allergy symptoms are not controlled with the medication. If using nasal spray, instructions as follows: Nasal spray- use twice daily, one spray per nostril twice daily, after 30 minutes, rinse out nose with saline spray.. Use opposite hand per nostril to spray in the nasal steroid allergy spray. 10/17/2016 Appointment: Nurse Visit 10/17/2016 Patient Education: Patient Medication Summary Completed 10/17/2016 Visit Plan: Hyperlipidemia - pt has been counseled about appropriate diet, exercise, and need for low fat food choices. I have discussed the need for the patient to take medications as prescribed. If the patient has negative side effects from the medication, they are to CALL the office and not abruptly discontinue the medication without discussion with a practitioner in the office. We will check labs in 3-6 months for follow up on the patient's chronic medical problem and to assure normal liver response to medications. URI/ cough - Pt advised to increase fluids, vitamin C. Discussed natural and expected course of this diagnosis and need to alert me if symptoms do not follow expected course, or if any worse. RX sent to patient's pharmacy. 07/11/2016 Appointment: Jeanine Cunningham WPtel: [address] [place], [place] [phone] (30 min) [facility] 07/11/2016 Patient Education: Patient Medication Summary Completed 07/11/2016 Patient Education: Obesity Completed 07/11/2016 Appointment: Nurse Visit 01/08/2015 Patient Education: Patient Medication Summary Completed 01/08/2015 Appointment: Nurse Visit 01/06/2015 Patient Education: Patient Medication Summary Completed 01/06/2015 Visit Plan: Wound Instructions - Pt was instructed to keep the wound clean, wash with antibacterial soap, use triple antibiotic ointment, call if redness, pustular drainage, or any other acute concerns. 01/01/2015 Appointment: Surgical Procedure 01/01/2015 Patient Education: Patient Medication Summary Completed 01/01/2015 Appointment: Surgical Procedure 12/30/2014 Appointment: Lab Draw 12/24/2014 Visit Plan: Esophageal Reflux - the patient has been counseled against excessive intake of caffeine, spicy foods, peppermint, and cinnamon - all of which can exacerbate esophageal reflux. The patient is to take medications as prescribed and call the office if the symptoms are not improving. need release of information will do a urine test if test is negative, doctor will send out script for 3 month control. pt to increase prilosec to 20mg twice daily. I have recommended that the patient needs to make the appt with the surgeon for surgical fixation of the hiatal hernia and needs weight loss surgery as well. 08/08/2014 Appointment: Yeni Dale [facility]el: [phone] [facility] [id number] New Patient 08/08/2014 Patient Education: Patient Medication Summary Completed 08/08/2014 Instructions Comment . Hyperlipidemia - pt has been counseled about appropriate diet, exercise, and need for low fat food choices. I have discussed the need for the patient to take medications as prescribed. If the patient has negative side effects from the medication, they are to CALL the office and not abruptly discontinue the medication without discussion with a practitioner in the office. We will check labs in 3-6 months for follow up on the patient's chronic medical problem and to assure normal liver response to medications. URI/cough - Pt advised to increase fluids, vitamin C. Discussed natural and expected course of this diagnosis and need to alert me if symptoms do not follow expected course, or if any worse. RX sent to patient's pharmacy. . Well Adult - pt was counseled about diet, exercise, and encouraged to follow a heart healthy diet and increase activity level. The patient was instructed to RTC yearly for well adult exams and PRN for acute illnesses. The pt was also instructed to have yearly labs for check of cholesterol, thyroid, chem panel, CBC, and renal functioning. Obesity - chronic issue with this patient. The pt has been counseled about diet changes, calorie restriction, and need to exercise. Pt will RTC in one month for weight check. RX for contrave provided and instructed on use . Allergies - chronic - recommended pt to use allergy medication as prescribed. Pt has been counseled as to the appropriate use of the medication. Pt to call if allergy symptoms are not controlled with the medication. If using nasal spray, instructions as follows: Nasal spray- use twice daily, one spray per nostril twice daily, after 30 minutes, rinse out nose with saline spray.. Use opposite hand per nostril to spray in the nasal steroid allergy spray. . Wound Instructions - Pt was instructed to keep the wound clean, wash with antibacterial soap, use triple antibiotic ointment, call if redness, pustular drainage, or any other acute concerns. . URI - Pt advised to increase fluids, vitamin C. Discussed natural and expected course of this diagnosis and need to alert me if symptoms do not follow expected course, or if any worse. RX sent to patient's pharmacy. Allergies - chronic - recommended pt to use allergy medication as prescribed. Pt has been counseled as to the appropriate use of the medication. Pt to call if allergy symptoms are not controlled with the medication. If using nasal spray, instructions as follows: Nasal spray- use twice daily, one spray per nostril twice daily, after 30 minutes, rinse out nose with saline spray.. Use opposite hand per nostril to spray in the nasal steroid allergy spray. need release of information will do a urine test if test is negative, doctor will send out script for 3 month control. pt to increase prilosec to 20mg twice daily. . Esophageal Reflux - the patient has been counseled against excessive intake of caffeine, spicy foods, peppermint, and cinnamon - all of which can exacerbate esophageal reflux. The patient is to take medications as prescribed and call the office if the symptoms are not improving. need release of information will do a urine test if test is negative, doctor will send out script for 3 month control. pt to increase prilosec to 20mg twice daily. I have recommended that the patient needs to make the appt with the surgeon for surgical fixation of the hiatal hernia and needs weight loss surgery as well.
[2017-12-18] MEDS ORDERED: NS IV 1000 ML 1,000 ML IV SCH (01:23)
[2017-12-18] MEDS ORDERED: ONDANSETRON 4 MG/2 ML (SDV) Z0FRAN IVP ONE (01:30)
[2017-12-18] MEDS ORDERED: HYOSCYAMINE 0.125 MG (LEVSIN) TAB SL ONE (01:30)
[2017-12-18 01:37] LABS: BASOPHILS % (AUTO) 0 % (0-10); EOSINOPHILS # (AUTO) 0.1 10^3/uL (0.0-0.3); EOSINOPHILS % (AUTO) 1 % (0-10); HEMATOCRIT 43 % (35-52); HEMOGLOBIN 14.4 G/DL (11.5-16.0); LYMPHOCYTES % (AUTO) 11 % (12-44); MEAN CORPUSCULAR HEMOGLOBIN 27 PG (25-34); MEAN CORPUSCULAR HGB CONC 34 G/DL (32-36); MEAN CORPUSCULAR VOLUME 81 FL (80-99); MEAN PLATELET VOLUME 9.9 FL (7.4-10.4); MONOCYTES # (AUTO) 0.7 X 10^3 (0.0-1.0); MONOCYTES % (AUTO) 4 % (0-12); NEUTROPHILS # (AUTO) 15.2 X 10^3 (1.8-7.8); NEUTROPHILS % (AUTO) 85 % (42-75); PLATELET COUNT 462 10^3/uL (130-400); RED BLOOD COUNT 5.28 10^6/uL (4.35-5.85); RED CELL DISTRIBUTION WIDTH 14.3 % (10.0-14.5)
[2017-12-18 01:46] LABS: CLARITY,URINE CLEAR; COLOR,URINE YELLOW; GLUCOSE, URINE (UA) NEGATIVE (NEGATIVE); KETONES,URINE 1+ (NEGATIVE); LEUKOCYTE ESTERASE ,URINE 1+ (NEGATIVE); NITRITE,URINE NEGATIVE (NEGATIVE); PH,URINE 6 (5-9); PROTEIN,URINE 2+ (NEGATIVE); UROBILINOGEN,URINE 4 MG/DL (NORMAL)
[2017-12-18 01:47] LABS: BACTERIA,URINE LARGE /HPF; BILIRUBIN,URINE 1+ (NEGATIVE); WBC,URINE 0-2 /HPF
[2017-12-18 01:50] LABS: ALANINE AMINOTRANSFERASE 12 U/L (0-55); ALKALINE PHOSPHATASE 78 U/L (40-136); BILIRUBIN,TOTAL 0.4 MG/DL (0.1-1.0); BUN/CREATININE RATIO 13; CALCIUM 9.3 MG/DL (8.5-10.1); CARBON DIOXIDE 22 MMOL/L (21-32); CHLORIDE 106 MMOL/L (98-107); CREATININE SERUM 0.89 MG/DL (0.60-1.30); GFR ESTIMATED > 60; GLUCOSE 219 MG/DL (70-105); LIPASE 12 U/L (8-78); MAGNESIUM 2.1 MG/DL (1.8-2.4); POTASSIUM 3.4 MMOL/L (3.6-5.0); SODIUM 139 MMOL/L (135-145); TOTAL PROTEIN 7.5 GM/DL (6.4-8.2)
[2017-12-18 02:10] LABS: BAND NEUTROPHILS 1 %; LYMPHOCYTES % (MANUAL) 11 %; MONOCYTES % (MANUAL) 3 %; NEUTROPHILS % (MANUAL) 85 %; RBC MORPH NORMAL
[2017-12-18] MEDS ORDERED: KETOROLAC 30 MG/ML VIAL IVP ONE (02:15)
[2017-12-18] MEDS ORDERED: TETANUS,DIPTH,PERTUSS P/F (BOOSTRIX) 0.5 ML VIAL IM ONE (02:15)
[2017-12-18] MEDS ORDERED: RX-ONDANSETRON 4 MG ODT (ZOFRAN) PPK #4 SL STA (02:15)
[2017-12-18] MEDS ORDERED: CIPR-225 PO (02:26)
[2017-12-18] MEDS ORDERED: CLIN300C11 PO (02:26)
--- NOTE | 2017-12-18 02:26 | ED Abdominal Pain ---
General Chief Complaint: Abdominal/GI Problems Stated Complaint: N/V/D/ AB PAIN Nursing Triage Note: INTERMITTANT SHARP ABDOMINAL PAIN, NAUSEA/DIARRHEA Sepsis Screen: No Definite Risk Source of Information: Patient Exam Limitations: No Limitations History of Present Illness Date Seen by Provider: Dec 18, 2017 Time Seen by Provider: 01:13 Initial Comments Patient presents with recurrent diarrhea over the past several hours and nausea. She is concerned about her hydration status. She has had intermittent sharp abdominal pains in the lower abdomen as well. She is afebrile. She has not been vomiting. She is noted to be mildly tachycardic on assessment. Patient also has a dog bite on her middle left finger. This occurred yesterday when she was trying to break up a scuffle between 2 dogs. The dogs have been vaccinated. Allergies and Home Medications Allergies Coded Allergies: Penicillins (Verified Allergy, Mild, 01/26/13) Home Medications Ciprofloxacin HCl 500 Mg Tablet, 500 MG PO BID Prescribed by: IRAJ BATISTA on 12/18/17225 Clindamycin HCl 300 Mg Capsule, 300 MG PO TID Prescribed by: IRAJ BATISTA on 12/18/17225 Fluoxetine Hcl 40 Mg Capsule, 1 EACH PO DAILY, (Reported) Hyoscyamine Sulfate 0.125 Mg Tab.subl, 0.125 MG SL Q4H Prescribed by: IRAJ BATISTA on 12/18/17226 Omeprazole 20 Mg Capsule.dr, 20 MG PO DAILY, (Reported) Patient Home Medication List Home Medication List Reviewed: Yes Review of Systems Constitutional: no symptoms reported EENTM: No Symptoms Reported Respiratory: No Symptoms Reported Cardiovascular: No Symptoms Reported Gastrointestinal: See HPI Genitourinary: No Symptoms Reported Musculoskeletal: no symptoms reported Skin: see HPI Psychiatric/Neurological: No Symptoms Reported Endocrine: No Symptoms Reported Past Czzuokb-Deekib-Cxexqw Hx Patient Social History Alcohol Use: Denies Use Recreational Drug Use: No Smoking Status: Never a Smoker 2nd Hand Smoke Exposure: No Recent Foreign Travel: No Contact w/Someone Who Travel: No Recent Infectious Disease Expo: No Recent Hopitalizations: No Seasonal Allergies Seasonal Allergies: Yes Surgeries History of Surgeries: Yes (EAR TUBES, GASTRIC SLEEVE) Respiratory History of Respiratory Disorde: No Cardiovascular History of Cardiac Disorders: Yes Cardiac Disorders: High Cholesterol, Hypertension Neurological History of Neurological Disord: No Reproductive System : No ( CONTROL) Last Menstrual Period: Nov 03, 2017 Genitourinary History of Genitourinary Disor: No Gastrointestinal History of Gastrointestinal Di: Yes Gastrointestinal Disorders: Gastroesophageal Reflux Musculoskeletal History of Musculoskeletal Dis: No Endocrine History of Endocrine Disorders: No HEENT History of HEENT Disorders: No Cancer History of Cancer: No Psychosocial History of Psychiatric Problem: Yes Behavioral Health Disorders: Anxiety, Depression Integumentary History of Skin or Integumenta: Yes Skin/Integumentary Disorders: Eczema Blood Transfusions History of Blood Disorders: No Physical Exam Vital Signs VS - Last 72 Hours, by Label 12/18/17 12/18/17 12/18/17 00:50 02:47 02:54 Temp 98.1 98.1 98.1 Pulse 107 98 Resp 18 16 B/P (MAP) 154/86 (108) 162/94 (108) Pulse Ox 100 O2 Delivery Room Air Capillary Refill : Less Than 3 Seconds General Appearance: WD/WN, no apparent distress HEENT: PERRL/EOMI, normal ENT inspection, pharynx normal Neck: normal inspection Respiratory: lungs clear, normal breath sounds, no respiratory distress, no accessory muscle use Cardiovascular: no edema, no murmur, tachycardia Gastrointestinal: normal bowel sounds, soft, tenderness (mild tenderness in the lower abdomen) Extremities: normal inspection, no pedal edema, other (scabbed bite wounds on the left middle finger) Neurologic/Psychiatric: content analyst II-XII nml as tested, no motor/sensory deficits, alert, normal mood/affect, oriented x 3 Skin: normal color, warm/dry, other (the above) Progress/Results/Core Measures Results/Orders Lab Results Laboratory Tests Test 12/18/17 00:52 12/18/17 00:58 Range/Units White Blood Count 18.0 H 4.3-11.0 10^3/uL Red Blood Count 5.28 4.35-5.85 10^6/uL Hemoglobin 14.4 11.5-16.0 G/DL Hematocrit 43 35-52 % Mean Corpuscular Volume 81 80-99 FL Mean Corpuscular Hemoglobin 27 25-34 PG Mean Corpuscular Hemoglobin Concent 34 32-36 G/DL Red Cell Distribution Width 14.3 10.0-14.5 % Platelet Count 462 H 130-400 10^3/uL Mean Platelet Volume 9.9 7.4-10.4 FL Neutrophils (%) (Auto) 85 H 42-75 % Lymphocytes (%) (Auto) 11 L 12-44 % Monocytes (%) (Auto) 4 0-12 % Eosinophils (%) (Auto) 1 0-10 % Basophils (%) (Auto) 0 0-10 % Neutrophils # (Auto) 15.2 H 1.8-7.8 X 10^3 Lymphocytes # (Auto) 2.0 1.0-4.0 X 10^3 Monocytes # (Auto) 0.7 0.0-1.0 X 10^3 Eosinophils # (Auto) 0.1 0.0-0.3 10^3/uL Basophils # (Auto) 0.0 0.0-0.1 10^3/uL Neutrophils % (Manual) 85 % Lymphocytes % (Manual) 11 % Monocytes % (Manual) 3 % Band Neutrophils 1 % Blood Morphology Comment NORMAL Sodium Level 139 135-145 MMOL/L Potassium Level 3.4 L 3.6-5.0 MMOL/L Chloride Level 106 98-107 MMOL/L Carbon Dioxide Level 22 21-32 MMOL/L Anion Gap 11 5-14 MMOL/L Blood Urea Nitrogen 12 7-18 MG/DL Creatinine 0.89 0.60-1.30 MG/DL Estimat Glomerular Filtration Rate > 60 BUN/Creatinine Ratio 13 Glucose Level 219 H 70-105 MG/DL Calcium Level 9.3 8.5-10.1 MG/DL Magnesium Level 2.1 1.8-2.4 MG/DL Total Bilirubin 0.4 0.1-1.0 MG/DL Aspartate Amino Transf (AST/SGOT) 14 5-34 U/L Alanine Aminotransferase (ALT/SGPT) 12 0-55 U/L Alkaline Phosphatase 78 40-136 U/L Total Protein 7.5 6.4-8.2 GM/DL Albumin 4.0 3.2-4.5 GM/DL Lipase 12 8-78 U/L Serum Test, Qualitative NEGATIVE NEGATIVE Urine Color YELLOW Urine Clarity CLEAR Urine pH 6 5-9 Urine Specific [place] 1.030 H 1.016-1.022 Urine Protein 2+ H NEGATIVE Urine Glucose (UA) NEGATIVE NEGATIVE Urine Ketones 1+ H NEGATIVE Urine Nitrite NEGATIVE NEGATIVE Urine Bilirubin 1+ H NEGATIVE Urine Urobilinogen 4 H NORMAL MG/DL Urine Leukocyte Esterase 1+ H NEGATIVE Urine RBC (Auto) 4+ H NEGATIVE Urine RBC 5-10 H /HPF Urine WBC 0-2 /HPF Urine Squamous Epithelial Cells 10-25 H /HPF Urine Crystals NONE /LPF Urine Bacteria LARGE H /HPF Urine Casts NONE /LPF Urine Mucus MODERATE H /LPF Urine Culture Indicated YES Micro Results Microbiology 12/18/17 Urine Culture - Final, Complete Strep, Beta Hemolytic Group B My Orders Orders - IRAJ BUSTILLO MD Cbc With Automated Diff (12/18/17 01:23) Comprehensive Metabolic Panel (12/18/17 01:23) Hcg,Qualitative Serum (12/18/17 01:23) Lipase (12/18/17 01:23) Magnesium (12/18/17 01:23) Ua Culture If Indicated (12/18/17 01:23) Ondansetron Injection (Zofran Injectio (12/18/17 01:30) Hyoscyamine Sl Tablet (Levsin Sl Tablet) (12/18/17 01:30) Ns Iv 1000 Ml (Sodium Chloride 0.9%) (12/18/17 01:23) Manual Differential (12/18/17 00:52) Urine Culture (12/18/17 00:58) Dipht,Pertuss(Acell),Tet Adult (Boostrix (12/18/17 02:15) Rx-Ondansetron Po (Rx-Zofran Po) (12/18/17 02:15) Ketorolac Injection (Toradol Injection) (12/18/17 02:15) Iv Push Rn Support Services Ed (12/18/17 ) Vaccine Administration Single (12/18/17 ) Medications Given in ED Vital Signs/I&O Vital Sign - Last 12Hours 12/18/17 12/18/17 12/18/17 00:50 02:47 02:54 Temp 98.1 98.1 98.1 Pulse 107 98 Resp 18 16 B/P (MAP) 154/86 (108) 162/94 (108) Pulse Ox 100 O2 Delivery Room Air Blood Pressure Mean: 108 Point of Care Testing Urine -Bedside: Negative Progress Note : Progress Note Patient was treated with Zofran, Levsin, and IV fluids. This improved her GI symptoms. Toradol was given for pain. Boostrix tetanus booster was given for the dog bite. She was placed on prophylactic antibiotics. A take-home pack of Zofran was dispensed. Departure Impression Impression: Primary Impression: Diarrhea Qualified Codes: R19.7 - Diarrhea, unspecified Additional Impressions: Lower abdominal pain Dog bite Qualified Codes: W54.0XXA - Bitten by dog, initial encounter Nausea Disposition: 01 HOME, SELF-CARE Condition: Improved Departure-Patient Inst. Decision time for Depature: 02:21 Referrals: ANIKET NAVARRO MD (PCP/Family) Primary Care Physician Patient Instructions: Acute Abdomen (Belly Pain), Diarrhea in Adolescents and Adults Add. Discharge Instructions: Clear liquid diet until symptoms are improving. You may take Tylenol ( acetaminophen) and/or ibuprofen for pain. Dissolve Zofran (Zofran) under the tongue every 4 hours as needed for nausea and vomiting. Complete 5 days of antibiotics for prevention of infection from the dog bite. Fill the Levsin (hyoscyamine) prescription tomorrow if abdominal cramping and diarrhea continue. Return to care if symptoms are worsening. Monitor your wound from the dog bite for signs of infection such as increasing redness, swelling, increasing pain, fever, or puslike drainage. Return to care promptly.The symptoms. All discharge instructions reviewed with patient and/or family. Voiced understanding. Scripts Hyoscyamine Sulfate (Levsin-Sl) 0.125 Mg Tab.subl 0.125 MG SL Q4H, #10 TAB Prov: IRAJ BUSTILLO MD 12/18/17 Clindamycin HCl (Clindamycin HCl) 300 Mg Capsule 300 MG PO TID, #15 CAP Prov: IRAJ BUSTILLO MD 12/18/17 Ciprofloxacin HCl (Cipro) 500 Mg Tablet 500 MG PO BID, #10 TAB Prov: IRAJ BUSTILLO MD 12/18/17 Work/School Note: Work Release Form Date Seen in the Emergency Department: Dec 18, 2017 Return to Work: Dec 19, 2017 Restrictions: No Restrictions IRAJ BUSTILLO MD Dec 18, 2017 02:26
[2017-12-18] MEDS ORDERED: HYOS0.1283 SL (02:27)
[2017-12-18 02:54] VITALS: BP 162/94
== END 2017-12-18 02:51 | disposition home or self-care (01) ==
LOC: EDUNIT# 00:42 → ER 00:44
DX: T14.8XXA Other injury of unspecified body region, initial encounter (principal); R19.7 Diarrhea, unspecified; R10.30 Lower abdominal pain, unspecified; R11.2 Nausea with vomiting, unspecified; F41.9 Anxiety disorder, unspecified; F32.9 Major depressive disorder, single episode, unspecified; K21.9 Gastro-esophageal reflux disease without esophagitis; E78.00 Pure hypercholesterolemia, unspecified; I10 Essential (primary) hypertension; Z96.22 Myringotomy tube(s) status; Z98.84 Bariatric surgery status; Z88.0 Allergy status to penicillin; W54.0XXA Bitten by dog, initial encounter
CPT/HCPCS: 36415; 80053; 81000; 83690; 83735; 84703; 85007; 85027; 87088; 90471; 90715; 96361; 96374; 96375

== ENCOUNTER → 2018-01-10 | Outpatient (CLI) | payer OTHER ==
[~2018-01-10] MED LIST changes: +ALBE200T2 PO; +ALPR0.254 PO; +BIRTH CONTROL; +CIPR-225 PO; +CLIN300C11 PO; +FLUO40CA12 PO; +HYOS0.1283 SL; +IOHEXOL 350 MG/ML 100 ML (OMNIPAQUE 350) VIAL IV ONE; +L GA1CAP2 PO; +LACT1CAP87 PO; +LEVO1TBD PO; +LEVO500T80 PO; +LISI10TA2 PO; +LORA10TA7 PO; +METR500T PO; +MULT1CAP27 PO; +NS 250 ML (IVPB) BAG IV ONE; +OMEP20CA12 PO; +ONDA4TAB8 SL
--- NOTE | 2018-01-10 10:15 | Diagnostic Imaging Report ---
INDICATION: Lower abdominal pain x 6 weeks, history of gastric sleeve. TECHNIQUE: CT of the abdomen and pelvis was obtained with IV contrast bolus. COMPARISON: There are no prior studies for comparison. FINDINGS: The visualized portions of the lung bases are clear. There are no pleural fluid collections. There is no free intraperitoneal air. The liver shows no focal lesion. The gallbladder is unremarkable. The spleen, adrenals, and pancreas are normal in appearance. The kidneys bilaterally are unremarkable except for some cortical scarring in the right upper pole. There is no retroperitoneal mass or adenopathy. There is no ascites or abnormal fluid collection. There are postop changes in the stomach status post gastric sleeve procedure. There is no sign of bowel obstruction or focal bowel wall thickening. There are some uncomplicated diverticuli in the sigmoid colon. There is no adnexal mass. IMPRESSION: No acute abnormality is visualized in the abdomen or pelvis. There are uncomplicated diverticuli in the sigmoid colon. There is some mild cortical scarring in the right kidney. Dictated by: Dictated on workstation # [id number]
== END ==
LOC: RAD 08:03
PROVIDERS: ATTEND Nurse Practitioner Family
DX: K57.30 Diverticulosis of large intestine without perforation or abscess without bleeding (principal); N28.89 Other specified disorders of kidney and ureter; Z98.84 Bariatric surgery status
CPT/HCPCS: 74177

== ENCOUNTER 2018-01-23 14:14 | Inpatient (IN) | payer OTHER ==
[~2018-01-23] VITALS: Ht 152.4 cm; Wt 91.6 kg
[~2018-01-23 14:14] MED LIST changes: -ALBE200T2 PO; -ALPR0.254 PO; -BIRTH CONTROL; -FLUO40CA12 PO; -IOHEXOL 350 MG/ML 100 ML (OMNIPAQUE 350) VIAL IV ONE; -L GA1CAP2 PO; -LACT1CAP87 PO; -LEVO1TBD PO; -LEVO500T80 PO; -LISI10TA2 PO; -LORA10TA7 PO; -METR500T PO; -MULT1CAP27 PO; -NS 250 ML (IVPB) BAG IV ONE; -OMEP20CA12 PO; -ONDA4TAB8 SL
[2018-01-23 14:59] LABS: BASOPHILS % (AUTO) 0 % (0-10); EOSINOPHILS % (AUTO) 0 % (0-10); HEMATOCRIT 43 % (35-52); HEMOGLOBIN 14.6 G/DL (11.5-16.0); LYMPHOCYTES # (AUTO) 1.8 X 10^3 (1.0-4.0); LYMPHOCYTES % (AUTO) 9 % (12-44); MEAN CORPUSCULAR HEMOGLOBIN 27 PG (25-34); MEAN CORPUSCULAR HGB CONC 34 G/DL (32-36); MEAN CORPUSCULAR VOLUME 79 FL (80-99); MEAN PLATELET VOLUME 9.9 FL (7.4-10.4); MONOCYTES # (AUTO) 0.4 X 10^3 (0.0-1.0); MONOCYTES % (AUTO) 2 % (0-12); NEUTROPHILS # (AUTO) 17.4 X 10^3 (1.8-7.8); NEUTROPHILS % (AUTO) 89 % (42-75); PLATELET COUNT 498 10^3/uL (130-400); RED BLOOD COUNT 5.41 10^6/uL (4.35-5.85); RED CELL DISTRIBUTION WIDTH 14.4 % (10.0-14.5); WHITE BLOOD COUNT 19.7 10^3/uL (4.3-11.0)
[2018-01-23 15:03] LABS: BILIRUBIN,URINE NEGATIVE (NEGATIVE); CLARITY,URINE CLEAR; COLOR,URINE YELLOW; GLUCOSE, URINE (UA) NEGATIVE (NEGATIVE); KETONES,URINE 4+ (NEGATIVE); LEUKOCYTE ESTERASE ,URINE 1+ (NEGATIVE); NITRITE,URINE NEGATIVE (NEGATIVE); PH,URINE 5 (5-9); PROTEIN,URINE 2+ (NEGATIVE); UROBILINOGEN,URINE NORMAL (NORMAL)
[2018-01-23 15:11] LABS: ALANINE AMINOTRANSFERASE 11 U/L (0-55); ALKALINE PHOSPHATASE 71 U/L (40-136); BILIRUBIN,TOTAL 0.5 MG/DL (0.1-1.0); BUN/CREATININE RATIO 15; CALCIUM 9.3 MG/DL (8.5-10.1); CARBON DIOXIDE 14 MMOL/L (21-32); CHLORIDE 110 MMOL/L (98-107); CREATININE SERUM 0.74 MG/DL (0.60-1.30); GFR ESTIMATED > 60; GLUCOSE 112 MG/DL (70-105); LIPASE 8 U/L (8-78); POTASSIUM 3.8 MMOL/L (3.6-5.0); SODIUM 138 MMOL/L (135-145); TOTAL PROTEIN 7.8 GM/DL (6.4-8.2)
[2018-01-23 15:11] LABS: BACTERIA,URINE FEW /HPF; RBC,URINE 0-2 /HPF; WBC,URINE 0-2 /HPF
[2018-01-23 15:13] LABS: BAND NEUTROPHILS 2 %; BASOPHILS % (MANUAL) 0 %; EOSINOPHILS % (MANUAL) 0 %; LYMPHOCYTES % (MANUAL) 10 %; MONOCYTES % (MANUAL) 0 %; NEUTROPHILS % (MANUAL) 88 %; RBC MORPH NORMAL
[2018-01-23] MEDS ORDERED: fentaNYL INJECTION 100 MCG/2 ML AMP IVP STA (15:22)
[2018-01-23] MEDS ORDERED: NS IV 1000 ML 2,653.53 ML IV PRN (15:30)
[2018-01-23] MEDS ORDERED: ONDANSETRON 4 MG/2 ML (SDV) Z0FRAN IVP ONE (15:30)
[2018-01-23] MEDS ORDERED: NS 250 ML (IVPB) BAG IV ONE (15:30)
[2018-01-23] MEDS ORDERED: IOHEXOL 350 MG/ML 100 ML (OMNIPAQUE 350) VIAL IV ONE (15:30)
--- NOTE | 2018-01-23 16:11 | Diagnostic Imaging Report ---
PROCEDURE: CT abdomen and pelvis with contrast. TECHNIQUE: Multiple contiguous axial images were obtained through the abdomen and pelvis after administration of intravenous contrast. INDICATION: Left lower quadrant pain, sweating, diarrhea. COMPARISON: Exam compared with study of 01/10/2018. FINDINGS: Findings reflecting a significant adverse interval change with a long segment of mural edema, bowel wall thickening and edematous infiltration of the subtending mesentery of the jejunum at its mid to distal third. The distal small bowel and terminal ileum appeared normal. There is no pneumatosis. Some congestion of the vascular structures and the inflamed subtending mesentery. No arterial obstruction identified. There is no pneumatosis or free gas. No resultant obstruction. Findings suspicious for an infectious enteritis however segmental involvement by inflammatory bowel disease could not be excluded. There is a small volume of abdominal pelvic free fluid, also a new finding without loculated collection or abscess. Fluid-containing stomach mildly distended, duodenum nondilated. The large bowel is nonacute. The uterus, adnexa and urinary bladder unremarkable. The kidneys are unobstructed. Liver, gallbladder, spleen, adrenals and pancreas unremarkable. 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 IMPRESSION: 1. Long segment of active small bowel inflammation with wall thickening, mucosal hyperemia and congestion and inflammation of the subtending mesentery consistent with nonspecific enteritis suggestive of infectious disease or inflammatory bowel disease. No resultant obstruction, abscess or perforation however the development of small to moderate abdominal pelvic free fluid. 2. Distal small bowel and large bowel normal, fluid mildly distends the stomach. Dictated by: Dictated on workstation # [id number]
[2018-01-23] MEDS ORDERED: cefTRIAXone INJECTION 1,000 MG in NS (IVPB) 100 ML IV ONE (17:00)
[2018-01-23] MEDS ORDERED: metroNIDAZOLE 500MG/100ML IVPB 100 ML IV ONE (17:00)
--- NOTE | 2018-01-23 17:57 | ED Abdominal Pain ---
General Chief Complaint: Abdominal/GI Problems Stated Complaint: ABD PAIN/D/V Nursing Triage Note: COMPLAINS OF ABD PAIN N/V/D STARTING THIS AM. STATES SHE TOOK HER FLAGYL AND CIPRO BECAUSE SHE THOUGHT IT MIGHT BE HER DIVERTICULITIS AGAIN. ALSO TOOK ZOFRAN. Sepsis Screen: Possible Sepsis Risk Source of Information: Patient Exam Limitations: No Limitations History of Present Illness Date Seen by Provider: January 23, 2018 Time Seen by Provider: 17:57 Allergies and Home Medications Allergies Coded Allergies: Penicillins (Verified Allergy, Mild, 01/26/13) Home Medications Ciprofloxacin HCl 500 Mg Tablet, 500 MG PO BID Prescribed by: IRAJ BATISTA on 12/18/17225 Clindamycin HCl 300 Mg Capsule, 300 MG PO TID Prescribed by: IRAJ BATISTA on 12/18/17225 Fluoxetine Hcl 40 Mg Capsule, 1 EACH PO DAILY, (Reported) Hyoscyamine Sulfate 0.125 Mg Tab.subl, 0.125 MG SL Q4H Prescribed by: IRAJ BATISTA on 12/18/17226 Omeprazole 20 Mg Capsule.dr, 20 MG PO DAILY, (Reported) Past Zgnuvqe-Lgvoyk-Rwslsp Hx Patient Social History 2nd Hand Smoke Exposure: No Recent Foreign Travel: No Contact w/Someone Who Travel: No Recent Infectious Disease Expo: No Recent Hopitalizations: No Seasonal Allergies Seasonal Allergies: Yes Past Medical History Surgeries: Yes (EAR TUBES, GASTRIC SLEEVE) Respiratory: No Cardiac: Yes High Cholesterol, Hypertension Neurological: No Genitourinary: No Gastrointestinal: Yes Gastroesophageal Reflux Musculoskeletal: No Endocrine: No HEENT: No Cancer: No Psychosocial: Yes Anxiety, Depression Integumentary: Yes Eczema Blood Disorders: No Physical Exam Vital Signs Vital Signs - First Documented 01/23/18 14:21 Temp 94.1 Pulse 99 Resp 18 B/P (MAP) 150/103 (119) Pulse Ox 99 Capillary Refill : Less Than 3 Seconds Focused Exam Lactate Level 01/23/18 16:33: Lactic Acid Level 1.58 Lactic Acid Level Laboratory Tests Test 01/23/18 16:33 Lactic Acid Level 1.58 MMOL/L (0.50-2.00) Progress/Results/Core Measures Lab Results Laboratory Tests Test 01/23/18 14:36 01/23/18 14:50 5/1/18 16:33 Range/Units White Blood Count 19.7 H 4.3-11.0 10^3/uL Red Blood Count 5.41 4.35-5.85 10^6/uL Hemoglobin 14.6 11.5-16.0 G/DL Hematocrit 43 35-52 % Mean Corpuscular Volume 79 L 80-99 FL Mean Corpuscular Hemoglobin 27 25-34 PG Mean Corpuscular Hemoglobin Concent 34 32-36 G/DL Red Cell Distribution Width 14.4 10.0-14.5 % Platelet Count 498 H 130-400 10^3/uL Mean Platelet Volume 9.9 7.4-10.4 FL Neutrophils (%) (Auto) 89 H 42-75 % Lymphocytes (%) (Auto) 9 L 12-44 % Monocytes (%) (Auto) 2 0-12 % Eosinophils (%) (Auto) 0 0-10 % Basophils (%) (Auto) 0 0-10 % Neutrophils # (Auto) 17.4 H 1.8-7.8 X 10^3 Lymphocytes # (Auto) 1.8 1.0-4.0 X 10^3 Monocytes # (Auto) 0.4 0.0-1.0 X 10^3 Eosinophils # (Auto) 0.0 0.0-0.3 10^3/uL Basophils # (Auto) 0.0 0.0-0.1 10^3/uL Neutrophils % (Manual) 88 % Lymphocytes % (Manual) 10 % Monocytes % (Manual) 0 % Eosinophils % (Manual) 0 % Basophils % (Manual) 0 % Band Neutrophils 2 % Blood Morphology Comment NORMAL Sodium Level 138 135-145 MMOL/L Potassium Level 3.8 3.6-5.0 MMOL/L Chloride Level 110 H 98-107 MMOL/L Carbon Dioxide Level 14 L 21-32 MMOL/L Anion Gap 14 5-14 MMOL/L Blood Urea Nitrogen 11 7-18 MG/DL Creatinine 0.74 0.60-1.30 MG/DL Estimat Glomerular Filtration Rate > 60 BUN/Creatinine Ratio 15 Glucose Level 112 H 70-105 MG/DL Calcium Level 9.3 8.5-10.1 MG/DL Total Bilirubin 0.5 0.1-1.0 MG/DL Aspartate Amino Transf (AST/SGOT) 16 5-34 U/L Alanine Aminotransferase (ALT/SGPT) 11 0-55 U/L Alkaline Phosphatase 71 40-136 U/L C-Reactive Protein High Sensitivity 0.42 0.00-0.50 MG/DL Total Protein 7.8 6.4-8.2 GM/DL Albumin 4.0 3.2-4.5 GM/DL Lipase 8 8-78 U/L Urine Color YELLOW Urine Clarity CLEAR Urine pH 5 5-9 Urine Specific [place] 1.025 H 1.016-1.022 Urine Protein 2+ H NEGATIVE Urine Glucose (UA) NEGATIVE NEGATIVE Urine Ketones 4+ H NEGATIVE Urine Nitrite NEGATIVE NEGATIVE Urine Bilirubin NEGATIVE NEGATIVE Urine Urobilinogen NORMAL NORMAL MG/DL Urine Leukocyte Esterase 1+ H NEGATIVE Urine RBC (Auto) 3+ H NEGATIVE Urine RBC 0-2 /HPF Urine WBC 0-2 /HPF Urine Squamous Epithelial Cells 5-10 /HPF Urine Crystals NONE /LPF Urine Bacteria FEW H /HPF Urine Casts NONE /LPF Urine Mucus SMALL H /LPF Urine Culture Indicated NO Lactic Acid Level 1.58 0.50-2.00 MMOL/L My Orders Orders - GIANA GALDAMEZ Cbc With Automated Diff (01/23/18 14:50) Comprehensive Metabolic Panel (01/23/18 14:50) Hs C Reactive Protein (01/23/18 14:50) Lipase (01/23/18 14:50) Ua Culture If Indicated (01/23/18 14:50) Saline Lock/Iv-Start (01/23/18 14:50) Urine Bedside (01/23/18 14:50) Manual Differential (01/23/18 14:36) Lactic Acid Analyzer (01/23/18 15:22) Blood Culture (01/23/18 15:22) Ct Abdomen/Pelvis W (01/23/18 15:22) Fentanyl Injection (Sublimaze Injection (01/23/18 15:22) Ondansetron Injection (Zofran Injectio (01/23/18 15:30) Ns Iv 1000 Ml (Sodium Chloride 0.9%) (01/23/18 15:30) Iohexol Injection (Omnipaque 350 Mg/Ml 1 (01/23/18 15:30) Ns (Ivpb) (Sodium Chloride 0.9%) (01/23/18 15:30) Ceftriaxone Injection (Rocephin Injectio (01/23/18 17:00) Metronidazole 500mg/100ml Ivpb (Flagyl 5 (01/23/18 17:00) Medications Given in ED Current Medications Medications Dose Ordered Sig/Susan Route Start Time Stop Time Status Last Admin Dose Admin Iohexol 100 ml ONCE ONCE IV 01/23/18 15:30 01/23/18 15:31 DC 01/23/18 15:42 100 ML Metronidazole 100 ml @ 100 mls/hr ONCE ONCE IV 01/23/18 17:00 01/23/18 17:59 01/23/18 17:05 100 MLS/HR Ondansetron HCl 4 mg ONCE ONCE IVP 01/23/18 15:30 01/23/18 15:31 DC 01/23/18 15:38 4 MG Sodium Chloride 250 ml ONCE ONCE IV 01/23/18 15:30 01/23/18 15:31 DC 01/23/18 15:42 80 ML Sodium Chloride 2,653.53 ml @ 1,326.765 mls/hr PRN PRN IV 01/23/18 15:30 01/23/18 16:12 1,326.765 MLS/HR Vital Signs/I&O 01/23/18 14:21 Temp 94.1 Pulse 99 Resp 18 B/P (MAP) 150/103 (119) Pulse Ox 99 Blood Pressure Mean: 119 Urine -Bedside: Negative Departure Departure-Patient Inst. Referrals: ANIKET NAVARRO MD (PCP/Family) Primary Care Physician GIANA GALDAMEZ January 23, 2018 17:57
--- OUTSIDE RECORDS SUMMARY | 2018-01-23 18:41 | XMS REPORT | Continuity of Care Document ---
Author Author [facility] Address Unknown Phone Unavailable Allergies Active Description Code Type Severity Reaction Onset Reported/Identified Relationship to Patient Clinical Status Yes Penicillins [id number] Drug Allergy Mild N/A 01/26/2013 Medications There is no data. 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 01/26/2013 MARYAM HENRY MD Ot 782.0 SKIN SENSATION DISTURB 06/17/2014 JACE PHD, SHAYLA Fraser V71.09 OBSERVATION OF OTHER SUSPECTED MENTAL CONDITION 03/16/2015 NIECY DE LA CRUZ FACC, ALI FACP CCDS Ot 785.2 03/16/2015 NIECY DE LA CRUZ FACC, ALI FACP CCDS Ot 786.09 02/21/2017 NIECY DE LA CRUZ FACC, ALI FACP CCDS Ot 785.2 CARDIAC MURMURS NEC 02/21/2017 NIECY DE LA CRUZ FACC, ALI FACP CCDS Ot 786.09 RESPIRATORY ABNORM NEC 02/21/2017 NIECY DE LA CRUZ FACC, ALI FACP CCDS Ot 785.2 CARDIAC MURMURS NEC 02/21/2017 NIECY DE LA CRUZ FACC, ALI FACP CCDS Ot 786.09 RESPIRATORY ABNORM NEC 03/15/2017 JUAQUIN LEI DO Ot Z12.31 ENCNTR SCREEN MAMMOGRAM FOR MALIGNANT NE 12/18/2017 KENY DE LA CRUZ, IRAJ Perla Ot E78.00 PURE HYPERCHOLESTEROLEMIA, UNSPECIFIED 12/18/2017 IRAJ BUSTILLO MD Ot F32.9 MAJOR DEPRESSIVE DISORDER, SINGLE EPISOD 12/18/2017 IRAJ BUSTILLO MD, Ot F41.9 ANXIETY DISORDER, UNSPECIFIED 12/18/2017 IRAJ BUSTILLO MD Ot I10 ESSENTIAL (PRIMARY) HYPERTENSION 12/18/2017 IRAJ BUSTILLO MD Ot K21.9 GASTRO-ESOPHAGEAL REFLUX DISEASE WITHOUT 12/18/2017 IRAJ BUSTILLO MD Ot R10.30 LOWER ABDOMINAL PAIN, UNSPECIFIED 12/18/2017 IRAJ BUSTILLO MD Ot R11.2 NAUSEA WITH VOMITING, UNSPECIFIED 12/18/2017 IRAJ BUSTILLO MD Ot R19.7 DIARRHEA, UNSPECIFIED 12/18/2017 IRAJ BUSTILLO MD Ot T14.8XXA OTHER INJURY OF UNSPECIFIED BODY REGION, 12/18/2017 IRAJ BUSTILLO MD Ot W54.0XXA BITTEN BY DOG, INITIAL ENCOUNTER 12/18/2017 IRAJ BUSTILLO MD Ot Z88.0 ALLERGY STATUS TO PENICILLIN 12/18/2017 IRAJ BUSTILLO MD Ot Z96.22 MYRINGOTOMY TUBE(S) STATUS 12/18/2017 IRAJ BUSTILLO MD Ot Z98.84 BARIATRIC SURGERY STATUS 12/18/2017 NIECY DE LA CRUZ FACC, ALI FACP CCDS Ot 785.2 CARDIAC MURMURS NEC 12/18/2017 NIECY DE LA CRUZ FACC, ALI FACP CCDS Ot 786.09 RESPIRATORY ABNORM NEC 12/18/2017 JUAQUIN LEI DO Ot Z12.31 ENCNTR SCREEN MAMMOGRAM FOR MALIGNANT NE 12/20/2017 IRAJ BUSTILLO MD Ot E78.00 PURE HYPERCHOLESTEROLEMIA, UNSPECIFIED 12/20/2017 IRAJ BUSTILLO MD Ot F32.9 MAJOR DEPRESSIVE DISORDER, SINGLE EPISOD 12/20/2017 IRAJ BUSTILLO MD Ot F41.9 ANXIETY DISORDER, UNSPECIFIED 12/20/2017 IRAJ BUSTILLO MD Ot I10 ESSENTIAL (PRIMARY) HYPERTENSION 12/20/2017 IRAJ BUSTILLO MD Ot K21.9 GASTRO-ESOPHAGEAL REFLUX DISEASE WITHOUT 12/20/2017 IRAJ BUSTILLO MD Ot R10.30 LOWER ABDOMINAL PAIN, UNSPECIFIED 12/20/2017 IRAJ BUSTILLO MD Ot R11.2 NAUSEA WITH VOMITING, UNSPECIFIED 12/20/2017 IRAJ BUSTILLO MD Ot R19.7 DIARRHEA, UNSPECIFIED 12/20/2017 IRAJ BUSTILLO MD Ot T14.8XXA OTHER INJURY OF UNSPECIFIED BODY REGION, 12/20/2017 IRAJ BUSTILLO MD Ot W54.0XXA BITTEN BY DOG, INITIAL ENCOUNTER 12/20/2017 IRAJ BUSTILLO MD Ot Z88.0 ALLERGY STATUS TO PENICILLIN 12/20/2017 IRAJ BUSTILLO MD Ot Z96.22 MYRINGOTOMY TUBE(S) STATUS 12/20/2017 IRAJ BUSTILLO MD, Ot Z98.84 BARIATRIC SURGERY STATUS 01/09/2018 NIECY DE LA CRUZ FACC, ALI FACP CCDS Ot 785.2 CARDIAC MURMURS NEC 01/09/2018 NIECY DE LA CRUZ FACC, ALI FACP CCDS Ot 786.09 RESPIRATORY ABNORM NEC 01/09/2018 JUAQUIN LEI DO Ot Z12.31 ENCNTR SCREEN MAMMOGRAM FOR MALIGNANT NE 01/11/2018 YURIDIA SINGH CASHIER TUBE ROOM Ot K57.30 DVRTCLOS OF LG INT W/O PERFORATION OR AB 01/11/2018 YURIDIA SINGH CASHIER TUBE ROOM Ot N28.89 OTHER SPECIFIED DISORDERS OF KIDNEY AND 01/11/2018 YURIDIA SINGH CASHIER TUBE ROOM Ot Z98.84 BARIATRIC SURGERY STATUS 01/16/2018 YURIDIA SINGH CASHIER TUBE ROOM Ot K57.30 DVRTCLOS OF LG INT W/O PERFORATION OR AB 01/16/2018 YURIDIA SINGH CASHIER TUBE ROOM Ot N28.89 OTHER SPECIFIED DISORDERS OF KIDNEY AND 01/16/2018 YURIDIA SINGH CASHIER TUBE ROOM Ot Z98.84 BARIATRIC SURGERY STATUS Procedures Code Description [place] [id number] [facility] DIAGNOSTIC EVALUATION 06/17/2014 Results Test Result Range Complete blood count (CBC) with automated white blood cell (WBC) differential - 12/18/17 00:52 Blood leukocytes automated count (number/volume) 18.0 10*3/uL 4.3-11.0 Blood erythrocytes automated count (number/volume) 5.28 10*6/uL 4.35-5.85 Venous blood hemoglobin measurement (mass/volume) 14.4 g/dL 11.5-16.0 Blood hematocrit (volume fraction) 43 % 35-52 Automated erythrocyte mean corpuscular volume 81 [foz_us] 80-99 Automated erythrocyte mean corpuscular hemoglobin (mass per erythrocyte) 27 pg 25-34 Automated erythrocyte mean corpuscular hemoglobin concentration measurement ( mass/volume) 34 g/dL 32-36 Automated erythrocyte distribution width ratio 14.3 % 10.0-14.5 Automated blood platelet count (count/volume) 462 10*3/uL 130-400 Automated blood platelet mean volume measurement 9.9 [foz_us] 7.4-10.4 Automated blood neutrophils/100 leukocytes 85 % 42-75 Automated blood lymphocytes/100 leukocytes 11 % 12-44 Blood monocytes/100 leukocytes 4 % 0-12 Automated blood eosinophils/100 leukocytes 1 % 0-10 Automated blood basophils/100 leukocytes 0 % 0-10 Blood neutrophils automated count (number/volume) 15.2 10*3 1.8-7.8 Blood lymphocytes automated count (number/volume) 2.0 10*3 1.0-4.0 Blood monocytes automated count (number/volume) 0.7 10*3 0.0-1.0 Automated eosinophil count 0.1 10*3/uL 0.0-0.3 Automated blood basophil count (count/volume) 0.0 10*3/uL 0.0-0.1 Serum or plasma choriogonadotropin ( test) detection - 12/18/17 00:52 Serum or plasma choriogonadotropin ( test) detection NEGATIVE NEGATIVE Comprehensive metabolic panel - 12/18/17 00:52 Serum or plasma sodium measurement (moles/volume) 139 mmol/L 135-145 Serum or plasma potassium measurement (moles/volume) 3.4 mmol/L 3.6-5.0 Serum or plasma chloride measurement (moles/volume) 106 mmol/L 98-107 Carbon dioxide 22 mmol/L 21-32 Serum or plasma anion gap determination (moles/volume) 11 mmol/L 5-14 Serum or plasma urea nitrogen measurement (mass/volume) 12 mg/dL 7-18 Serum or plasma creatinine measurement (mass/volume) 0.89 mg/dL 0.60-1.30 Serum or plasma urea nitrogen/creatinine mass ratio 13 NRG Serum or plasma creatinine measurement with calculation of estimated glomerular filtration rate > NRG Serum or plasma glucose measurement (mass/volume) 219 mg/dL 70-105 Serum or plasma calcium measurement (mass/volume) 9.3 mg/dL 8.5-10.1 Serum or plasma total bilirubin measurement (mass/volume) 0.4 mg/dL 0.1-1.0 Serum or plasma alkaline phosphatase measurement (enzymatic activity/volume) 78 U/L 40-136 Serum or plasma aspartate aminotransferase measurement (enzymatic activity/ volume) 14 U/L 5-34 Serum or plasma alanine aminotransferase measurement (enzymatic activity/volume ) 12 U/L 0-55 Serum or plasma protein measurement (mass/volume) 7.5 g/dL 6.4-8.2 Serum or plasma albumin measurement (mass/volume) 4.0 g/dL 3.2-4.5 Magnesium - 12/18/17 00:52 Magnesium 2.1 mg/dL 1.8-2.4 Lipase - 12/18/17 00:52 Lipase 12 U/L 8-78 Blood manual differential performed detection - 12/18/17 00:52 Blood monocytes/100 leukocytes 3 % NRG Manual blood segmented neutrophils/100 leukocytes 85 % NRG Blood band neutrophils/100 leukocytes 1 % NRG Manual blood lymphocytes/100 leukocytes 11 % NRG Blood erythrocyte morphology finding identification NORMAL NRG Complete urinalysis with reflex to culture - 12/18/17 00:58 Urine color determination YELLOW NRG Urine clarity determination CLEAR NRG Urine pH measurement by test strip 6 5-9 Specific gravity of urine by test strip 1.030 1.016- 1.022 Urine protein assay by test strip, semi-quantitative 2+ NEGATIVE Urine glucose detection by automated test strip NEGATIVE NEGATIVE Erythrocytes detection in urine sediment by light microscopy 4+ NEGATIVE Urine ketones detection by automated test strip 1+ NEGATIVE Urine nitrite detection by test strip NEGATIVE NEGATIVE Urine total bilirubin detection by test strip 1+ NEGATIVE Urine urobilinogen measurement by automated test strip (mass/volume) 4 mg/dL NORMAL Urine leukocyte esterase detection by dipstick 1+ NEGATIVE Automated urine sediment erythrocyte count by microscopy (number/high power field) [HPF] NRG Automated urine sediment leukocyte count by microscopy (number/high power field ) [HPF] NRG Bacteria detection in urine sediment by light microscopy LARGE NRG Squamous epithelial cells detection in urine sediment by light microscopy 10-25 NRG Crystals detection in urine sediment by light microscopy NONE NRG Casts detection in urine sediment by light microscopy NONE NRG Mucus detection in urine sediment by light microscopy MODERATE NRG Complete urinalysis with reflex to culture YES NRG Bacterial urine culture - 12/18/17 00:58 Bacterial urine culture [id number] NRG COLONY COUNT <10,000 NRG FREE TEXT ENTRY 2 MIXED GRAM POSITIVE АЛЕКСАНДР NRG Complete blood count (CBC) with automated white blood cell (WBC) differential - 01/23/18 14:36 Blood leukocytes automated count (number/volume) 19.7 10*3/uL 4.3-11.0 Blood erythrocytes automated count (number/volume) 5.41 10*6/uL 4.35-5.85 Venous blood hemoglobin measurement (mass/volume) 14.6 g/dL 11.5-16.0 Blood hematocrit (volume fraction) 43 % 35-52 Automated erythrocyte mean corpuscular volume 79 [foz_us] 80-99 Automated erythrocyte mean corpuscular hemoglobin (mass per erythrocyte) 27 pg 25-34 Automated erythrocyte mean corpuscular hemoglobin concentration measurement ( mass/volume) 34 g/dL 32-36 Automated erythrocyte distribution width ratio 14.4 % 10.0-14.5 Automated blood platelet count (count/volume) 498 10*3/uL 130-400 Automated blood platelet mean volume measurement 9.9 [foz_us] 7.4-10.4 Automated blood neutrophils/100 leukocytes 89 % 42-75 Automated blood lymphocytes/100 leukocytes 9 % 12-44 Blood monocytes/100 leukocytes 2 % 0-12 Automated blood eosinophils/100 leukocytes 0 % 0-10 Automated blood basophils/100 leukocytes 0 % 0-10 Blood neutrophils automated count (number/volume) 17.4 10*3 1.8-7.8 Blood lymphocytes automated count (number/volume) 1.8 10*3 1.0-4.0 Blood monocytes automated count (number/volume) 0.4 10*3 0.0-1.0 Automated eosinophil count 0.0 10*3/uL 0.0-0.3 Automated blood basophil count (count/volume) 0.0 10*3/uL 0.0-0.1 Comprehensive metabolic panel - 01/23/18 14:36 Serum or plasma sodium measurement (moles/volume) 138 mmol/L 135-145 Serum or plasma potassium measurement (moles/volume) 3.8 mmol/L 3.6-5.0 Serum or plasma chloride measurement (moles/volume) 110 mmol/L 98-107 Carbon dioxide 14 mmol/L 21-32 Serum or plasma anion gap determination (moles/volume) 14 mmol/L 5-14 Serum or plasma urea nitrogen measurement (mass/volume) 11 mg/dL 7-18 Serum or plasma creatinine measurement (mass/volume) 0.74 mg/dL 0.60-1.30 Serum or plasma urea nitrogen/creatinine mass ratio 15 NRG Serum or plasma creatinine measurement with calculation of estimated glomerular filtration rate > NRG Serum or plasma glucose measurement (mass/volume) 112 mg/dL 70-105 Serum or plasma calcium measurement (mass/volume) 9.3 mg/dL 8.5-10.1 Serum or plasma total bilirubin measurement (mass/volume) 0.5 mg/dL 0.1-1.0 Serum or plasma alkaline phosphatase measurement (enzymatic activity/volume) 71 U/L 40-136 Serum or plasma aspartate aminotransferase measurement (enzymatic activity/ volume) 16 U/L 5-34 Serum or plasma alanine aminotransferase measurement (enzymatic activity/volume ) 11 U/L 0-55 Serum or plasma protein measurement (mass/volume) 7.8 g/dL 6.4-8.2 Serum or plasma albumin measurement (mass/volume) 4.0 g/dL 3.2-4.5 Lipase - 01/23/18 14:36 Lipase 8 U/L 8-78 Serum or plasma C reactive protein measurement (mass/volume) - 01/23/18 14:36 Serum or plasma C reactive protein measurement (mass/volume) 0.42 mg /dL 0.00-0.50 Blood manual differential performed detection - 01/23/18 14:36 Blood monocytes/100 leukocytes 0 % NRG Manual blood segmented neutrophils/100 leukocytes 88 % NRG Blood band neutrophils/100 leukocytes 2 % NRG Manual blood lymphocytes/100 leukocytes 10 % NRG Manual eosinophils/100 leukocytes in nose 0 % NRG Manual blood basophils/100 leukocytes 0 % NRG Blood erythrocyte morphology finding identification NORMAL NRG Complete urinalysis with reflex to culture - 01/23/18 14:50 Urine color determination YELLOW NRG Urine clarity determination CLEAR NRG Urine pH measurement by test strip 5 5-9 Specific gravity of urine by test strip 1.025 1.016- 1.022 Urine protein assay by test strip, semi-quantitative 2+ NEGATIVE Urine glucose detection by automated test strip NEGATIVE NEGATIVE Erythrocytes detection in urine sediment by light microscopy 3+ NEGATIVE Urine ketones detection by automated test strip 4+ NEGATIVE Urine nitrite detection by test strip NEGATIVE NEGATIVE Urine total bilirubin detection by test strip NEGATIVE NEGATIVE Urine urobilinogen measurement by automated test strip (mass/volume) NORMAL NORMAL Urine leukocyte esterase detection by dipstick 1+ NEGATIVE Automated urine sediment erythrocyte count by microscopy (number/high power field) [HPF] NRG Automated urine sediment leukocyte count by microscopy (number/high power field ) [HPF] NRG Bacteria detection in urine sediment by light microscopy FEW NRG Squamous epithelial cells detection in urine sediment by light microscopy 5-10 NRG Crystals detection in urine sediment by light microscopy NONE NRG Casts detection in urine sediment by light microscopy NONE NRG Mucus detection in urine sediment by light microscopy SMALL NRG Complete urinalysis with reflex to culture NO NRG Blood lactic acid measurement (moles/volume) - 01/23/18 16:33 Blood lactic acid measurement (moles/volume) 1.58 mmol/L 0.50-2.00 Encounters ACCT No. Visit Date/Time Discharge Status Pt. Type Provider Facility Loc./Unit Complaint [id number] 06/17/2014 10:22:00 06/17/2014 23:59:59 CLS Outpatient JACE PHD, SHAYLA A [id number] 2018 08:03:00 2018 23:59:59 CLS Outpatient YURIDIA SINGH [facility] RAD ABD PAIN,DIARRHEA [id number] 12/18/2017 00:44:00 12/18/2017 02:51:00 DIS Emergency KENY DE LA CRUZ, IRAJ Perla [facility] ER N/V/D/ AB PAIN [id number] 02/21/2017 09:31:00 02/21/2017 23:59:59 CLS Outpatient JUAQUIN LEI DO [facility] RAD Z12.39 BREAST CA SCREENING [id number] 07/15/2014 08:43:00 07/15/2014 23:59:59 CLS Outpatient NIECY DE LA CRUZ FACC, AUSTEN YEUNG CCDS [facility] CARD CARDIAC MURMUR, DYSPNEA [id number] 01/26/2013 19:31:00 01/26/2013 20:31:00 DIS Emergency CARL DE LA CRUZ, MARYAM Fraser [facility] ER L SIDED FACIAL NUMBNESS [id number] 01/23/2018 15:01:00 Document Registration
[2018-01-23 19:24] VITALS: BP 155/83
[2018-01-23] MEDS ORDERED: CATHETER FLUSH 10 ML SYR IV PRN (19:45)
[2018-01-23] MEDS ORDERED: morphine INJ 4 MG/ML 1 ML (VIAL/SYRINGE) IV PRN (19:45)
[2018-01-23] MEDS ORDERED: PROMETHAZINE INJ 25 MG/ML (PHENERGAN) AMP IV PRN (19:45)
[2018-01-23] MEDS ORDERED: ONDANSETRON 4 MG/2 ML (SDV) Z0FRAN IV PRN (19:45)
[2018-01-23] MEDS ORDERED: KETOROLAC 30 MG/ML VIAL IV PRN (19:45)
--- NOTE | 2018-01-23 20:05 | History & Physical-Surgical ---
History of Present Illness History of Present Illness Reason for visit/HPI CC abdominal pain and nausea. patient is a 43 year old female that has not been feeling well for about 2 months. She has had episodes of abdominal pain that have come and gone. Usually improving with antibiotics. She states pain is in lower abdomen more in the left lower quadrant. She states is a gnawing type pain that is constant when she is having issues. She just began having pain again last couple days. She has had associated nausea and emesis today and had diarrhea this morning. Not passing flatus or any more stools this afternoon. She denies fever sweats chills shortness of breath or chest pain. I reviewed her ct which she has thickening of segment of small bowel and some slight distention proximally and distal to thickening appears collapsed. Some fluid in abd/pelvis. Patient with elevated WBC which she has had.on last blood work. Patient with history of sleeve gastrectomy. Date of Admission January 23, 2018 at 18:36 Date Seen by Provider: January 23, 2018 Time Seen by Provider: 19:52 I consulted on this patient on 01/23/18 19:52 Attending Physician Pauline Givens DO Admitting Physician Aniket Dale MD Consult Allergies and Home Medications Allergies Coded Allergies: Penicillins (Verified Allergy, Mild, 01/26/13) Home Medications Albendazole 200 Mg Tablet, 400 MG PO DAILY Prescribed by: IVANIA ADAMS on 01/26/18 1039 Fluoxetine HCl 40 Mg Capsule, 40 MG PO DAILY, (Reported) Lactobacillus Acidophilus 1 Each Capsule, 1 EACH PO TID Prescribed by: ANIKET DALE on 01/26/18916 Levofloxacin 500 Mg Tablet, 500 MG PO DAILY@11 Prescribed by: ANIKET DALE on 01/26/18916 Levonorgestrel-Ethin Estradiol 1 Each Tbdspk.3mo, 1 TAB PO DAILY, (Reported) Lisinopril 10 Mg Tablet, 10 MG PO DAILY, (Reported) Loratadine 10 Mg Tablet, 10 MG PO DAILY PRN for ALLERGIES, (Reported) Metronidazole 500 Mg Tablet, 500 MG PO TID Prescribed by: ANIKET DALE on 01/26/18916 Omeprazole 20 Mg Capsule.dr, 20 MG PO DAILY, (Reported) Omeprazole 20 Mg Capsule.dr, 20 MG PO HS PRN for HEARTBURN, (Reported) Simvastatin 40 Mg Tablet, 40 MG PO HS HOLD THE SIMVASTATIN X 11 DAYS THEN RESTART ONCE DONE WITH ANTIBIOTICS Prescribed by: ANIKET DALE on 01/26/18 0917 l Gasseri/B Bifidum/B Longum 1 Each Capsule, 1 CAP PO DAILY, (Reported) Patient Home Medication List Home Medication List Reviewed: Yes Past Rxrlmmy-Ndmpgo-Mzfkhi Hx Patient Social History 2nd Hand Smoke Exposure: No Recent Foreign Travel: No Contact w/Someone Who Travel: No Recent Infectious Disease Expo: No Recent Hopitalizations: No Seasonal Allergies Seasonal Allergies: Yes Surgeries History of Surgeries: Yes (EAR TUBES, GASTRIC SLEEVE) Respiratory History of Respiratory Disorde: No Cardiovascular History of Cardiac Disorders: Yes Cardiac Disorders: High Cholesterol, Hypertension Neurological History of Neurological Disord: No Genitourinary History of Genitourinary Disor: No Gastrointestinal History of Gastrointestinal Di: Yes Gastrointestinal Disorders: Gastroesophageal Reflux Musculoskeletal History of Musculoskeletal Dis: No Endocrine History of Endocrine Disorders: No HEENT History of HEENT Disorders: No Cancer History of Cancer: No Psychosocial History of Psychiatric Problem: Yes Behavioral Health Disorders: Anxiety, Depression Integumentary History of Skin or Integumenta: Yes Skin/Integumentary Disorders: Eczema Blood Transfusions History of Blood Disorders: No Family Medical History Significant Family History: No Pertinent Family Hx Constitutional: no symptoms reported EENTM: no symptoms reported Respiratory: no symptoms reported Cardiovascular: no symptoms reported Gastrointestinal: see HPI Genitourinary: no symptoms reported Musculoskeletal: no symptoms reported Skin: no symptoms reported Psychiatric/Neurological: No Symptoms Reported All Other Systems Reviewed Negative Unless Noted: Yes (Negative excepted noted.) Physical Exam Vital Signs Capillary Refill : Less Than 3 Seconds General Appearance: No Apparent Distress (ng tube placed) HEENT: PERRL/EOMI Neck: Non Tender, Supple Respiratory: No Accessory Muscle Use, No Respiratory Distress Cardiovascular: Regular Rate, Rhythm Gastrointestinal: Soft, Tenderness (tender lower abdomen, no guarding or rebounding) Rectal: Deferred Back: Normal Inspection Extremity: Normal Inspection, Non Tender Neurologic/Psychiatric: Alert, Oriented x3, No Motor/Sensory Deficits, Normal Mood/Affect, wood model maker II-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 Need further testing. Assessment/Plan Abdominal pain b/l lower quadrants enteritis possibly causing obstruction leukocytosis plan npo, Ng tube, IV hydration On Levaquin, Flagyl Small bowel follow through in am repeat labs in am PAULINE GIVENS DO January 23, 2018 20:05
[2018-01-23] MEDS: NS W/KCL 20 MEQ/L 1,000 ML IV SCH (20:50)
[2018-01-23] MEDS: raNItidine 50 MG/NS 100 ML IVP IV SCH ×2 (20:50)
[2018-01-23] MEDS: LEVOFLOXACIN 500 MG/D5W 100 ML (PRE-MIX) IV SCH (21:08)
[2018-01-24] VITALS: BP 134/81
[2018-01-24] MEDS: metroNIDAZOLE 500 MG/100 ML IVPB (PRE-MIX) IV SCH ×3 (00:38→16:31)
[2018-01-24] MEDS: NS W/KCL 20 MEQ/L 1,000 ML IV SCH ×7 (02:47→23:50)
[2018-01-24 03:25] VITALS: BP 158/84
[2018-01-24 05:52] LABS: BASOPHILS % (AUTO) 0 % (0-10); EOSINOPHILS # (AUTO) 0.1 10^3/uL (0.0-0.3); EOSINOPHILS % (AUTO) 1 % (0-10); HEMATOCRIT 35 % (35-52); HEMOGLOBIN 11.5 G/DL (11.5-16.0); LYMPHOCYTES # (AUTO) 1.7 X 10^3 (1.0-4.0); LYMPHOCYTES % (AUTO) 17 % (12-44); MEAN CORPUSCULAR HEMOGLOBIN 27 PG (25-34); MEAN CORPUSCULAR HGB CONC 33 G/DL (32-36); MEAN CORPUSCULAR VOLUME 81 FL (80-99); MEAN PLATELET VOLUME 9.6 FL (7.4-10.4); MONOCYTES # (AUTO) 0.7 X 10^3 (0.0-1.0); MONOCYTES % (AUTO) 7 % (0-12); NEUTROPHILS # (AUTO) 7.7 X 10^3 (1.8-7.8); NEUTROPHILS % (AUTO) 75 % (42-75); PLATELET COUNT 362 10^3/uL (130-400); RED BLOOD COUNT 4.27 10^6/uL (4.35-5.85); RED CELL DISTRIBUTION WIDTH 14.3 % (10.0-14.5); WHITE BLOOD COUNT 10.1 10^3/uL (4.3-11.0)
[2018-01-24] MEDS: raNItidine 50 MG/NS 100 ML IVP IV SCH ×6 (06:20→21:40)
[2018-01-24 06:45] LABS: ALANINE AMINOTRANSFERASE 6 U/L (0-55); ALBUMIN 3.2 GM/DL (3.2-4.5); ALKALINE PHOSPHATASE 52 U/L (40-136); BILIRUBIN,TOTAL 0.4 MG/DL (0.1-1.0); BUN/CREATININE RATIO 8; CARBON DIOXIDE 18 MMOL/L (21-32); CHLORIDE 115 MMOL/L (98-107); CREATININE SERUM 0.59 MG/DL (0.60-1.30); GFR ESTIMATED > 60; GLUCOSE 82 MG/DL (70-105); POTASSIUM 3.9 MMOL/L (3.6-5.0); SODIUM 140 MMOL/L (135-145)
[2018-01-24 07:54] VITALS: BP 146/85
[2018-01-24] MEDS ORDERED: LORA10TA7 PO (08:49)
[2018-01-24] MEDS ORDERED: FLUO40CA12 PO (08:49)
[2018-01-24] MEDS ORDERED: OMEP20CA12 PO ×2 (08:49)
[2018-01-24] MEDS ORDERED: SIMV40TA4 PO (08:49)
[2018-01-24] MEDS ORDERED: LISI10TA2 PO (08:55)
[2018-01-24] MEDS ORDERED: L GA1CAP2 PO (08:55)
[2018-01-24] MEDS ORDERED: BIRTH CONTROL (08:57)
[2018-01-24] MEDS ORDERED: LEVO1TBD PO (09:09)
[2018-01-24] MEDS ORDERED: DIATRIZOATE MEGLUM/SODIUM 37% 120 ML (GASTROGRAFIN) NG ONE (09:45)
--- NOTE | 2018-01-24 09:50 | Diagnostic Imaging Report ---
INDICATION: Abnormal CT demonstrating small bowel enteritis one day earlier. This study is performed to evaluate for obstruction. TECHNIQUE: The patient was administered 120 mL of Gastrografin and 120 mL of water and serial radiography of the abdomen was performed. FINDINGS: The preliminary radiograph of the abdomen demonstrates the bowel gas pattern to be unremarkable. There is an NG tube in place. Postsurgical changes of a gastric sleeve procedure are seen. There is prompt passage of contrast into the small bowel. The proximal and mid small bowel loops are mildly dilated but no obstruction is seen. There is rapid transit of contrast into distal small bowel loops which are of normal caliber. There is filling of the colon and rectum. No obstructing lesion is detected. The visualized mucosal fold pattern is unremarkable. No definite stricture is seen. IMPRESSION: Unremarkable small bowel study. There is no evidence of small bowel obstruction. Dictated by: Dictated on workstation # [id number]
[2018-01-24] MEDS: LEVOFLOXACIN 500 MG/D5W 100 ML (PRE-MIX) IV SCH (10:00)
[2018-01-24 12:00] VITALS: BP 141/81
[2018-01-24 15:59] VITALS: BP 163/90
--- NOTE | 2018-01-24 16:16 | Progress Note ---
Subjective Date Seen by Provider: January 24, 2018 Time Seen by Provider: 13:00 Subjective/Events-last exam Patient feeling better today. She is passing gas and having bowel movements. Her small bowel follow-through was unremarkable and no obstruction. Patient having less pain and discomfort. Patient denies any fever sweats chills shortness of breath or chest pain. Focused Exam Lactate Level 01/23/18 16:33: Lactic Acid Level 1.58 Objective Exam Vital Signs Date Time Temp Pulse Resp B/P (MAP) Pulse Ox O2 Delivery O2 Flow Rate FiO2 01/24/18 15:59 98.2 75 18 163/90 (114) 98 Room Air 01/24/18 12:00 98.5 90 20 141/81 (101) 99 Room Air 01/24/18 07:54 98.6 91 18 146/85 (105) 99 Room Air 01/24/18 03:25 98.7 84 18 158/84 (108) 99 Room Air 01/24/18 00:00 99.0 90 18 134/81 (98) 98 Room Air 01/23/18 19:24 99.1 88 16 155/83 (107) 99 Room Air 01/23/18 19:11 98.9 82 18 153/101 96 I & O 01/24/18 07:00 Intake Total 1604 ml Output Total 2050 ml Balance -446 ml Capillary Refill : Less Than 3 Seconds General Appearance: No Apparent Distress (NG tube in place) HEENT: PERRL/EOMI Neck: Non Tender, Supple Respiratory: No Accessory Muscle Use, No Respiratory Distress Cardiovascular: Regular Rate, Rhythm Gastrointestinal: soft, tenderness (Minimal tenderness bilateral lower quadrants) Extremity: Normal Inspection, Non Tender Neurologic/Psychiatric: Alert, Oriented x3, No Motor/Sensory Deficits, Normal 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, 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7, Eosinophils # (Auto) 0.1, Basophils # (Auto) 0.0, Sodium Level 140, Potassium Level 3.9, Chloride Level 115H, Carbon Dioxide Level 18L, Anion Gap 7, Blood Urea Nitrogen 5L, Creatinine 0.59L, Estimat Glomerular Filtration Rate > 60, BUN /Creatinine Ratio 8, Glucose Level 82, Calcium Level 8.0L, Total Bilirubin 0.4, Aspartate Amino Transf (AST/SGOT) 13, Alanine Aminotransferase (ALT/SGPT) 6, Alkaline Phosphatase 52, Total Protein 6.0L, Albumin 3.2 Microbiology 01/23/18 Blood Culture - Preliminary, Resulted No growth Assessment/Plan Assessment/Plan Assessment/Plan Abdominal pain b/l lower quadrants enteritis possibly causing obstruction leukocytosis Small bowel follow-through unremarkable no obstruction. Continue on IV antibiotics and IV hydration Her leukocytosis is improving, enteritis present in the small bowel slight possibility of inflammatory bowel disease Continue conservative management. No surgical intervention at this time. Clinical Quality Measures DVT/VTE Risk/Contraindication: Risk Factor Score Per Nursin RFS Level Per Nursing on Admit: 2=Moderate PAULINE GIVENS DO January 24, 2018 16:16
[2018-01-24 20:06] VITALS: BP 152/80
[2018-01-25] VITALS: BP 125/62
[2018-01-25] MEDS: ACETAMINOPHEN 500 MG TAB (TYLENOL) PO PRN ×2 (01:10→13:43)
[2018-01-25] MEDS: metroNIDAZOLE 500 MG/100 ML IVPB (PRE-MIX) IV SCH ×3 (01:10→16:50)
[2018-01-25] MEDS: NS W/KCL 20 MEQ/L 1,000 ML IV SCH ×2 (01:11→07:10)
[2018-01-25] MEDS: raNItidine 50 MG/NS 100 ML IVP IV SCH ×2 (05:02)
[2018-01-25 07:23] LABS: HEMOGLOBIN 12.2 G/DL (11.5-16.0); MEAN PLATELET VOLUME 9.5 FL (7.4-10.4); RED BLOOD COUNT 4.6 10^6/uL (4.35-5.85); RED CELL DISTRIBUTION WIDTH 14.3 % (10.0-14.5); WHITE BLOOD COUNT 6.8 10^3/uL (4.3-11.0)
[2018-01-25 07:40] LABS: BUN/CREATININE RATIO 5; CALCIUM 9.2 MG/DL (8.5-10.1); CARBON DIOXIDE 20 MMOL/L (21-32); CHLORIDE 112 MMOL/L (98-107); CREATININE SERUM 0.66 MG/DL (0.60-1.30); GFR ESTIMATED > 60; GLUCOSE 90 MG/DL (70-105); POTASSIUM 4.3 MMOL/L (3.6-5.0); SODIUM 140 MMOL/L (135-145)
[2018-01-25 07:43] VITALS: BP 133/81
--- NOTE | 2018-01-25 08:39 | Consultation ---
History of Present Illness History of Present Illness Patient Consulted On(lida/time) 01/25/18 08:34 Date Seen by Provider: January 25, 2018 Time Seen by Provider: 08:35 Reason for Visit: ABDOMINAL PAIN History of Present Illness PT IS A 43 Y/O FEMALE WHO IS KNOWN TO ME FROM CLINIC. SHE APPARENTLY STARTED TO HAVE RECURRENT ABDOMINAL PAIN - SHE WAS SEEN IN THE OFFICE AROUND 01/05/18 FOR ABDOMINAL PAIN - HAD A CT SCAN A FEW DAYS LATER DUE TO CONCERN FOR RECURRENT DIVERTICULAR INFLAMMATION - HER CT SCAN DID NOT SHOW ANY SEVERE PROCESS IN THE ABDOMEN, SHE WAS STARTED ON ANTIBIOTICS ON THE DAY SHE WAS SEEN IN THE OFFICE AND HAD APPARENTLY HAD IMPROVEMENT IN HER SYMPTOMS UNTIL 01/23/18 WHEN SHE PRESENTED TO THE HOSPITAL. I WAS NOTIFIED OF THE PATIENT'S ADMISSION ON THE EVENING OF 01/24/[address] GIVENS CALLED ME FOR THE CONSULT. SHE REPORTS THAT SHE HAD EATEN OUT AT A [employer] [facility] ABOUT 8 WEEKS AGO - SHORTLY BEFORE ALL OF THIS STOMACH TROUBLE STARTED. SHE ALSO HAS EXPOSURE TO CHICKENS AND FARM FRESH EGGS FROM A FAMILY MEMBER. Allergies and Home Medications Allergies Coded Allergies: Penicillins (Verified Allergy, Mild, 01/26/13) Home Medications Fluoxetine HCl 40 Mg Capsule, 40 MG PO DAILY, (Reported) Levonorgestrel-Ethin Estradiol 1 Each Tbdspk.3mo, 1 TAB PO DAILY, (Reported) Lisinopril 10 Mg Tablet, 10 MG PO DAILY, (Reported) Loratadine 10 Mg Tablet, 10 MG PO DAILY PRN for ALLERGIES, (Reported) Omeprazole 20 Mg Capsule.dr, 20 MG PO DAILY, (Reported) Omeprazole 20 Mg Capsule.dr, 20 MG PO HS PRN for HEARTBURN, (Reported) Simvastatin 40 Mg Tablet, 40 MG PO HS, (Reported) l Gasseri/B Bifidum/B Longum 1 Each Capsule, 1 CAP PO DAILY, (Reported) Patient Home Medication List Home Medication List Reviewed: Yes Past Nrcrkrt-Afprze-Gbbvii Hx Past Med/Social Hx: Reviewed Nursing Past Med/Soc Hx, Reviewed and Corrections made Patient Social History Alcohol Use: Denies Use Recreational Drug Use: No Smoking Status: Never a Smoker 2nd Hand Smoke Exposure: No Recent Foreign Travel: No Contact w/Someone Who Travel: No Recent Infectious Disease Expo: No Recent Hopitalizations: No Physical Abuse: No Sexual Abuse: No Mistreated: No Fear: No Seasonal Allergies Seasonal Allergies: Yes Past Medical History Surgeries: Yes (EAR TUBES, GASTRIC SLEEVE) Respiratory: No Cardiac: Yes High Cholesterol, Hypertension Neurological: No : No Reproductive Disorders: No Female Reproductive Disorders: Denies Genitourinary: No Gastrointestinal: Yes Gastroesophageal Reflux Musculoskeletal: No Endocrine: No HEENT: No Cancer: No Psychosocial: Yes Anxiety, Depression Integumentary: Yes Eczema Blood Disorders: No Family Medical History Patient reports no known family medical history. Hypertension Review of Systems-General Constitutional: No chills, No fever; weakness EENTM: No hearing loss, No dental problems, No mouth pain, No throat pain, No throat swelling Respiratory: No cough, No dyspnea on exertion, No short of breath Cardiovascular: No chest pain, No edema, No palpitations Gastrointestinal: RUQ, LUQ, RLQ, LLQ, abdominal pain, diarrhea, nausea Genitourinary: no symptoms reported Musculoskeletal: no symptoms reported Skin: no symptoms reported Psychiatric/Neurological: Denies Anxiety, Denies Depressed; Weakness (DUE TO PAIN IN ABDOMEN) All Other Systems Reviewed Negative Unless Noted: Yes Physical Exam-General Problems Physical Exam Vital Signs Vital Signs - First Documented 01/23/18 01/23/18 14:21 19:24 Temp 94.1 Pulse 99 Resp 18 B/P (MAP) 150/103 (119) Pulse Ox 99 O2 Delivery Room Air Capillary Refill : Less Than 3 Seconds General Appearance: WD/WN, no apparent distress Eyes: Bilateral Eye Normal Inspection, Bilateral Eye PERRL, Bilateral Eye EOMI HEENT: PERRL/EOMI, pharynx normal Neck: non-tender, normal inspection Respiratory: chest non-tender, lungs clear, normal breath sounds, no respiratory distress Cardiovascular: regular rate, rhythm Gastrointestinal: abnormal bowel sounds, tenderness Extremities: normal range of motion, no pedal edema 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 SHE IS NOW WITHOUT NG TUBE, RECEIVING A CLEAR LIQUID DIET AND TOLERATING THIS WITHOUT SIGNIFICANT WORSENING OF HER ABDOMINAL DISCOMFORT. PT HAD [facility] ABOUT 8 WEEKS AGO - WILL CHECK OVA AND PARASITES, STOOL CULTURE AND START ON ANTIPROTOZOAL SHE HAS BEEN ON SEVERAL ROUNDS OF FLAGYL WITHOUT FULL IMPROVEMENT IN HER SYMPTOMS. I HAVE TALKED TO PHARMACY ABOUT GETTING THE MEDICATION TO THE PT - THEY WILL HAVE TO ORDER THE MEDICATION IN FROM A LOCAL PHARMACY TO BE ABLE TO GIVE IT TO THE PATIENT. LEUKOCYTOSIS - RESOLVED ABDOMINAL PAIN - IMPROVED NAUSEA - IMPROVED Admission Status: Inpatient Order (span 2 midnights) Reason for Inpatient Admission: PT WAS ADMITTED TO THE HOSPITAL DUE TO SEVERELY ELEVATED WHITE BLOOD CELL COUNT, NEED FOR NG TUBE DECOMPRESSION OF THE BOWEL AND IV ANTIBIOTICS. Clinical Quality Measures DVT/VTE Risk/Contraindication: Risk Factor Score Per Nursin RFS Level Per Nursing on Admit: 2=Moderate ANIKET NAVARRO MD January 25, 2018 08:39
[2018-01-25] MEDS ORDERED: lisINopril 10 MG (PRINIVIL) TABLET PO NR (09:28)
[2018-01-25] MEDS: LEVOFLOXACIN 500 MG TAB (LEVAQUIN) PO SCH (11:01)
[2018-01-25 12:00] VITALS: BP 147/82
[2018-01-25] MEDS: ALBENDAZOLE 200 MG PO SCH (13:33)
[2018-01-25 16:30] VITALS: BP 135/79
[2018-01-25] MEDS: FAMOTIDINE 20 MG (PEPCID) TABLET PO SCH (20:48)
--- NOTE | 2018-01-25 20:57 | Progress Note ---
Subjective Date Seen by Provider: January 25, 2018 Time Seen by Provider: 08:02 Subjective/Events-last exam Patient feeling better. Minimal discomfort in abdomen. Not having any nausea or emesis. WBC down. Denies fever sweats chills shortness of breath or chest pain. Focused Exam Lactate Level 01/23/18 16:33: Lactic Acid Level 1.58 Objective Exam Vital Signs Date Time Temp Pulse Resp B/P (MAP) Pulse Ox O2 Delivery O2 Flow Rate FiO2 01/25/18 16:30 98.4 93 16 135/79 (97) 98 Room Air 01/25/18 12:00 98.1 79 20 147/82 (103) 97 Room Air 01/25/18 07:43 98.0 77 20 133/81 (98) 98 Room Air 01/25/18 00:00 97.9 89 18 125/62 (83) 99 Room Air I & O 01/25/18 07:00 Intake Total 2190 ml Output Total 1800 ml Balance 390 ml Capillary Refill : Less Than 3 Seconds General Appearance: No Apparent Distress HEENT: PERRL/EOMI Neck: Non Tender, Supple Respiratory: No Accessory Muscle Use, No Respiratory Distress Cardiovascular: Regular Rate, Rhythm Gastrointestinal: tenderness (minimal b/l lower quadrant) Extremity: Normal Inspection, Non Tender Neurologic/Psychiatric: Alert, Oriented x3, No Motor/Sensory Deficits, Normal 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, 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 Norm as Tested Skin: Normal Color, Warm/Dry Lymphatic: No Adenopathy Results Lab Laboratory Tests 01/25/18 07:16: White Blood Count 6.8, Red Blood Count 4.60, Hemoglobin 12.2, Hematocrit 38, Mean Corpuscular Volume 82, Mean Corpuscular Hemoglobin 27, Mean Corpuscular Hemoglobin Concent 33, Red Cell Distribution Width 14.3, Platelet Count 361, Mean Platelet Volume 9.5, Sodium Level 140, Potassium Level 4.3, Chloride Level 112H, Carbon Dioxide Level 20L, Anion Gap 8, Blood Urea Nitrogen 3L, Creatinine 0.66, Estimat Glomerular Filtration Rate > 60, BUN/Creatinine Ratio 5, Glucose Level 90, Calcium Level 9.2 Microbiology 01/23/18 Blood Culture - Preliminary, Resulted No growth Assessment/Plan Assessment/Plan Assessment/Plan ENTERITIS LEUKOCYTOSIS ABDOMINAL PAIN B/L LOWER QUADRANT NAUSEA Patient improving. Tolerating diet. Continue abx Home likely tomorrow. Clinical Quality Measures DVT/VTE Risk/Contraindication: Risk Factor Score Per Nursin RFS Level Per Nursing on Admit: 2=Moderate PAULINE GIVENS DO January 25, 2018 20:57
[2018-01-25 23:58] VITALS: BP 130/77
[2018-01-26] MEDS: metroNIDAZOLE 500 MG/100 ML IVPB (PRE-MIX) IV SCH ×2 (00:51→08:17)
[2018-01-26] MEDS: ACETAMINOPHEN 500 MG TAB (TYLENOL) PO PRN (00:53)
[2018-01-26 08:07] VITALS: BP 133/90
[2018-01-26] MEDS: FAMOTIDINE 20 MG (PEPCID) TABLET PO SCH (08:16)
[2018-01-26] MEDS: NS W/KCL 20 MEQ/L 1,000 ML IV SCH (08:17)
[2018-01-26] MEDS ORDERED: lisINopril 10 MG (PRINIVIL) TABLET PO SCH (09:00)
[2018-01-26] MEDS ORDERED: FLUoxetine HCL 20 MG (PROzac) CAP PO SCH (09:00)
--- NOTE | 2018-01-26 09:12 | Discharge Summary ---
Diagnosis/Chief Complaint Date of Admission January 23, 2018 at 18:36 Date of Discharge Discharge Date: January 26, 2018 Discharge Time: 11:00 Admission Diagnosis Admission Diagnosis ENTERITIS LEUKOCYTOSIS ABDOMINAL PAIN NAUSEA Discharge Diagnosis ENTERITIS LEUKOCYTOSIS ABDOMINAL PAIN NAUSEA Reason Hospital Visit PT IS A 43 Y/O FEMALE WHO IS KNOWN TO ME FROM CLINIC. SHE APPARENTLY STARTED TO HAVE RECURRENT ABDOMINAL PAIN - SHE WAS SEEN IN THE OFFICE AROUND 01/05/18 FOR ABDOMINAL PAIN - HAD A CT SCAN A FEW DAYS LATER DUE TO CONCERN FOR RECURRENT DIVERTICULAR INFLAMMATION - HER CT SCAN DID NOT SHOW ANY SEVERE PROCESS IN THE ABDOMEN, SHE WAS STARTED ON ANTIBIOTICS ON THE DAY SHE WAS SEEN IN THE OFFICE AND HAD APPARENTLY HAD IMPROVEMENT IN HER SYMPTOMS UNTIL 01/23/18 WHEN SHE PRESENTED TO THE HOSPITAL. I WAS NOTIFIED OF THE PATIENT'S ADMISSION ON THE EVENING OF 01/24/[address] GIVENS CALLED ME FOR THE CONSULT. SHE REPORTS THAT SHE HAD EATEN OUT AT A [employer] [facility] ABOUT 8 WEEKS AGO - SHORTLY BEFORE ALL OF THIS STOMACH TROUBLE STARTED. SHE ALSO HAS EXPOSURE TO CHICKENS AND FARM FRESH EGGS FROM A FAMILY MEMBER. Discharge Summary Consultations DR. GIVENS Discharge Physical Examination Allergies: Coded Allergies: Penicillins (Verified Allergy, Mild, 01/26/13) Vitals & I&Os Vital Signs Date Time Temp Pulse Resp B/P (MAP) Pulse Ox O2 Delivery O2 Flow Rate FiO2 01/26/18 08:07 98.3 70 18 133/90 (104) 97 Room Air General Appearance: Alert, Oriented X3, Cooperative, No Acute Distress HEENT: Atraumatic, PERRLA, Mucous Memb Moist/Herald Respiratory: Clear to Auscultation, Normal Air Movement Cardiovascular: Regular Rate, Normal S1, Normal S2 Abdominal: Normal Bowel Sounds, Soft, Other (mildly diffusely ttp - improved from yesterday) Extremities: No Cyanosis Skin: No Rashes, No Breakdown Neuro: Normal Speech, Cranial Nerves 3-12 NL Psych/Mental Status: Mental Status NL, Mood NL Hospital Course ENTERITIS LEUKOCYTOSIS ABDOMINAL PAIN NAUSEA ENTERITIS - PT ADMITTED TO THE HOSPITAL, STARTED ON IV ANTIBIOTICS AND SHE HAD NG TUBE FOR DECOMPRESSION OF THE BOWEL. SHE IS NOW WITHOUT NG TUBE, RECEIVING A CLEAR LIQUID DIET AND TOLERATING THIS WITHOUT SIGNIFICANT WORSENING OF HER ABDOMINAL DISCOMFORT. PT HAD [facility] ABOUT 8 WEEKS AGO - OVA AND PARASITES, STOOL CULTURE - BOTH SEND ON 01/25/18 - WILL LIKELY HAVE RESULTS EARLY NEXT WEEK. MEANWHILE I HAVE DISCUSSED WITH THE SURGEON AND WE HAVE STARTED HER ON ANTIPROTOZOAL SHE HAS BEEN ON SEVERAL ROUNDS OF FLAGYL WITHOUT FULL IMPROVEMENT IN HER SYMPTOMS. PT WAS STARTED ON ANTIPROTOZOAL MEDICATION ON 01/25/18 AND WILL COMPLETE HER COURSE OF MEDICATIONS OUTPATIENT. DR. GIVENS WANTS PT ON ANOTHER 11 DAYS OF FLAGYL AND LEVAQUIN. LEUKOCYTOSIS - RESOLVED ABDOMINAL PAIN - IMPROVED NAUSEA - IMPROVED DISCUSSED WITH PT - CLEAR LIQUID DIET THROUGH WEEKEND - ON MONDAY CAN START ON SOFT/BLAND DIET AND SLOWLY ADVANCE TOLERATED. SHE WILL FOLLOW UP IN THE OFFICE WITH ME IN ABOUT 7-10 DAYS. Other pending tests STOOL CULTURE, OVA AND PARASITES Discharge Condition at discharge IMPROVED Instructions to patient/family Please see electronic discharge instructions given to patient. Discharge Medications Reviewed and agree with Discharge Medication list on patient's Discharge Instruction sheet Clinical Quality Measures DVT/VTE Risk/Contraindication: Risk Factor Score Per Nursin RFS Level Per Nursing on Admit: 2=Moderate ANIKET NAVARRO MD January 26, 2018 09:12
[2018-01-26] MEDS ORDERED: METR500T PO (09:17)
[2018-01-26] MEDS ORDERED: LACT1CAP87 PO (09:17)
[2018-01-26] MEDS ORDERED: ALBE200T2 PO ×2 (09:17→10:39)
[2018-01-26] MEDS ORDERED: LEVO500T80 PO (09:17)
[2018-01-26] MEDS ORDERED: SIMV40TA4 PO (09:17)
--- NOTE | 2018-01-26 09:20 | Discharge Inst-Complex ---
PDI Med Rec & Follow Up Appt. New Medications: Lactobacillus Acidophilus (Acidophilus Lactobacilli) 1 Each Capsule 1 EACH PO TID, #30 CAP Metronidazole (Flagyl) 500 Mg Tablet 500 MG PO TID, #33 TAB Albendazole (Albenza) 200 Mg Tablet 400 MG PO DAILY, #3 TAB Levofloxacin (Levofloxacin) 500 Mg Tablet 500 MG PO DAILY@11, #11 TAB Changed Medications: Simvastatin (Simvastatin) 40 Mg Tablet 40 MG PO HS, #30 TAB (Medication details modified) HOLD THE SIMVASTATIN X 11 DAYS THEN RESTART ONCE DONE WITH ANTIBIOTICS Continued Medications: Fluoxetine HCl (Prozac) 40 Mg Capsule 40 MG PO DAILY, CAP l Gasseri/B Bifidum/B Longum ([facility] Capsule) 1 Each Capsule 1 CAP PO DAILY, CAP Levonorgestrel-Ethin Estradiol (Jolessa 0.15 mg-0.03 mg Tablet) 1 Each Tbdspk.3mo 1 TAB PO DAILY, TAB Lisinopril (Lisinopril) 10 Mg Tablet 10 MG PO DAILY, TAB Loratadine (Loratadine) 10 Mg Tablet 10 MG PO DAILY PRN for ALLERGIES, TAB Omeprazole (Omeprazole) 20 Mg Capsule.dr 20 MG PO DAILY, CAP Omeprazole (Omeprazole) 20 Mg Capsule.dr 20 MG PO HS PRN for HEARTBURN, CAP Prescription: Transmitted to Pharmacy ([facility]) Patient Instructions: THE ANTIBIOTICS CAN CAUSE CONTROL TO BE INEFFECTIVE AND THUS INCREASE RISK OF . Activity, Diet and PDI Resume Normal Activity: Yes Discharge Diet: Other Diet (LIQUID DIET X 3 DAYS THEN ADVANCE TO BLAND DIET X 2 DAYS THEN ADVANCE TOLERATED) Diet for 24 Hours: No Alcohol, No [place] Foods, No Spicy Foods Driving Instructions: No Driving for 24 Hours Return to The Hospital For: ANY CONCERN FOR LIFETHREATENING ILLNESS OR INJURY OR ACUTE WORSENING OF CURRENT CONDITION Symptoms to Reoprt to : Appetite Changes, Pain Increased, Fever Over 101 Degrees F, Diarrhea(Persistant), Questions/Concerns, Shortness of Breath For Problems or Questions: Contact Your Physician, Go to Emergency Room Infection Signs and Symptoms: Temperature Above 101 F ANIKET NAVARRO MD January 26, 2018 09:20
--- NOTE | 2018-01-26 10:26 | Progress Note ---
Subjective Date Seen by Provider: January 26, 2018 Time Seen by Provider: 10:23 Subjective/Events-last exam feeling better. not having abdominal pain. some loose stools. no blood. denies n/v fever sweats chills shortness of breath or chest pain. Focused Exam Lactate Level 01/23/18 16:33: Lactic Acid Level 1.58 Objective Exam Vital Signs Date Time Temp Pulse Resp B/P (MAP) Pulse Ox O2 Delivery O2 Flow Rate FiO2 01/26/18 08:07 98.3 70 18 133/90 (104) 97 Room Air 01/25/18 23:58 98.2 85 19 130/77 (94) 97 Room Air 01/25/18 16:30 98.4 93 16 135/79 (97) 98 Room Air 01/25/18 12:00 98.1 79 20 147/82 (103) 97 Room Air I & O 01/26/18 07:00 Intake Total 2042 ml Balance 2042 ml Capillary Refill : Less Than 3 Seconds General Appearance: No Apparent Distress HEENT: PERRL/EOMI Neck: Non Tender, Supple Respiratory: No Accessory Muscle Use, No Respiratory Distress Cardiovascular: Regular Rate, Rhythm Gastrointestinal: non tender, soft Extremity: Normal Inspection, Non Tender Neurologic/Psychiatric: Alert, Oriented x3, No Motor/Sensory Deficits, Normal 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 Tolerating diet. Abx for total 14 days levaquin/flagyl Albendazole 2 more days Dc home today Discussed clear liquids for another day or two and then advance as tolerates. Clinical Quality Measures DVT/VTE Risk/Contraindication: Risk Factor Score Per Nursin RFS Level Per Nursing on Admit: 2=Moderate PAULINE GIVENS DO January 26, 2018 10:26
[2018-01-26] MEDS: ALBENDAZOLE 200 MG PO SCH (10:43)
[2018-01-26] MEDS: LEVOFLOXACIN 500 MG TAB (LEVAQUIN) PO SCH (11:04)
== END 2018-01-26 12:00 | disposition home or self-care (01) | DRG 387 ==
LOC: EDUNIT# 14:14 → ER 14:16 → 4TH 18:36
PROVIDERS: ADMIT Surgery; ATTEND Surgery
PROC: 0D9670Z Drainage of Stomach with Drainage Device, Via Natural or Artificial Opening (ICD-10-PCS; principal; 2018-01-23)
DX: K50.00 Crohn's disease of small intestine without complications (principal); I10 Essential (primary) hypertension; E78.00 Pure hypercholesterolemia, unspecified; K21.9 Gastro-esophageal reflux disease without esophagitis; F41.9 Anxiety disorder, unspecified; F32.9 Major depressive disorder, single episode, unspecified
CPT/HCPCS: 36415; 74177; 74250; 80048; 80053; 81000; 83605; 83690; 84703; 85007; 85025; 85027; 86141; 87040; 87045; 87046; 87328; 87329; 96365; 96367; 96375

== ENCOUNTER 2018-02-20 09:03 | Emergency (ER) | payer OTHER ==
[~2018-02-20] VITALS: Ht 152.4 cm; Wt 83.9 kg
[~2018-02-20 09:03] MED LIST changes: +ALBE200T2 PO; +BIRTH CONTROL; +FLUO40CA12 PO; +L GA1CAP2 PO; +LACT1CAP87 PO; +LEVO1TBD PO; +LEVO500T80 PO; +LISI10TA2 PO; +LORA10TA7 PO; +METR500T PO; +OMEP20CA12 PO
[2018-02-20] MEDS ORDERED: NS IV 1000 ML 1,000 ML IV ONE (09:21)
[2018-02-20] MEDS ORDERED: HYOSCYAMINE 0.125 MG (LEVSIN) TAB SL ONE (09:30)
[2018-02-20] MEDS ORDERED: ONDANSETRON 4 MG/2 ML (SDV) Z0FRAN IVP ONE (09:30)
[2018-02-20 09:35] LABS: CLARITY,URINE VERY CLOUDY; COLOR,URINE YELLOW; GLUCOSE, URINE (UA) NEGATIVE (NEGATIVE); KETONES,URINE 3+ (NEGATIVE); LEUKOCYTE ESTERASE ,URINE 1+ (NEGATIVE); NITRITE,URINE NEGATIVE (NEGATIVE); PH,URINE 6 (5-9); PROTEIN,URINE 2+ (NEGATIVE); UROBILINOGEN,URINE 1 MG/DL (NORMAL)
--- NOTE | 2018-02-20 09:35 | ED Abdominal Pain ---
General Chief Complaint: Abdominal/GI Problems Stated Complaint: ABD PAIN,DIARRHEA Nursing Triage Note: ARRIVED VIA AMB TO ROOM 07 CRYING. COMPLAINS OF ABD PAIN, NAUSEA, AND DIARRHEA SINCE SAT. Sepsis Screen: No Definite Risk Source of Information: Patient, Old Records Exam Limitations: No Limitations History of Present Illness Date Seen by Provider: February 20, 2018 Time Seen by Provider: 09:08 Initial Comments This 43-year-old woman presents to the emergency room with 4 days of nausea, vomiting, diarrhea, upper and central abdominal pain, and temperatures up to 100 . She has had multiple episodes, approximately 5 or 6 episodes in the past. She was admitted to this facility the end of December for similar symptoms and was found to have an enteritis on CT scan. She was dismissed on Flagyl and Levaquin. Symptoms improved until 4 days ago. She has worsening pain after eating or drinking. She took Imodium during this episode which did help her diarrhea. She had a soft bowel movement this morning. Patient presently rates her pain about a 4. It seems to wax and wane and is crampy in nature. She has had consultation with Dr. Givens but has not yet had endoscopy performed. She has history of gastric sleeve which is still in place. Her last oral consumption was a banana and Sprite around 07:00. Patient denied any significant exposure to poultry, reptiles, livestock or undercooked foods prior to onset of this episode. She does not have a significant exposure to children in diapers either. She denies any hematochezia. Allergies and Home Medications Allergies Coded Allergies: Penicillins (Verified Allergy, Mild, 01/26/13) Home Medications Albendazole 200 Mg Tablet, 400 MG PO DAILY Prescribed by: IVANIA ADAMS on 01/26/18 1039 Ciprofloxacin HCl 500 Mg Tablet, 500 MG PO BID Prescribed by: IRAJ BATISTA on 02/20/18 1147 Fluoxetine HCl 40 Mg Capsule, 40 MG PO DAILY, (Reported) Hyoscyamine Sulfate 0.125 Mg Tab.subl, 0.125 MG SL Q4H Prescribed by: IRAJ BATISTA on 02/20/18 1147 Lactobacillus Acidophilus 1 Each Capsule, 1 EACH PO TID Prescribed by: ANIKET NAVARRO on 01/26/18 0917 Levofloxacin 500 Mg Tablet, 500 MG PO DAILY@11 Prescribed by: ANIKET NAVARRO on 01/26/18916 Levonorgestrel-Ethin Estradiol 1 Each Tbdspk.3mo, 1 TAB PO DAILY, (Reported) Lisinopril 10 Mg Tablet, 10 MG PO DAILY, (Reported) Loratadine 10 Mg Tablet, 10 MG PO DAILY PRN for ALLERGIES, (Reported) Metronidazole 500 Mg Tablet, 500 MG PO TID Prescribed by: ANIKET NAVARRO on 01/26/18916 Omeprazole 20 Mg Capsule.dr, 20 MG PO DAILY, (Reported) Omeprazole 20 Mg Capsule.dr, 20 MG PO HS PRN for HEARTBURN, (Reported) Ondansetron 4 Mg Tab.rapdis, 4 MG SL Q4H PRN for NAUSEA/VOMITING-1ST LINE Prescribed by: IRAJ BATISTA on 02/20/18 114 Simvastatin 40 Mg Tablet, 40 MG PO HS HOLD THE SIMVASTATIN X 11 DAYS THEN RESTART ONCE DONE WITH ANTIBIOTICS Prescribed by: ANIKET NAVARRO on 01/26/18916 l Gasseri/B Bifidum/B Longum 1 Each Capsule, 1 CAP PO DAILY, (Reported) Patient Home Medication List Home Medication List Reviewed: Yes Review of Systems Constitutional: see HPI EENTM: No Symptoms Reported Respiratory: No Symptoms Reported Cardiovascular: No Symptoms Reported Gastrointestinal: See HPI Genitourinary: No Symptoms Reported Musculoskeletal: no symptoms reported Skin: no symptoms reported Psychiatric/Neurological: No Symptoms Reported Endocrine: No Symptoms Reported Hematologic/Lymphatic: No Symptoms Reported Past Sdqzvxw-Vefuyn-Fhyryg Hx Past Med/Social Hx: Reviewed and Corrections made Patient Social History Alcohol Use: Denies Use Recreational Drug Use: No Smoking Status: Never a Smoker 2nd Hand Smoke Exposure: No Recent Foreign Travel: No Contact w/Someone Who Travel: No Recent Infectious Disease Expo: No Recent Hopitalizations: No Seasonal Allergies Seasonal Allergies: Yes Past Medical History Surgeries: Yes (EAR TUBES, GASTRIC SLEEVE) Respiratory: No Cardiac: Yes High Cholesterol, Hypertension Neurological: No : No Last Menstrual Period: February 10, 2018 Reproductive Disorders: No Female Reproductive Disorders: Denies Genitourinary: No Gastrointestinal: Yes Gastroesophageal Reflux Musculoskeletal: No Endocrine: No HEENT: No Cancer: No Psychosocial: Yes Anxiety, Depression Integumentary: Yes Eczema Blood Disorders: No Family Medical History Reviewed and Corrections made Patient reports no known family medical history. Hypertension, Other Conditions/Hx (thyroid disease) Physical Exam Vital Signs Vital Signs - First Documented 02/20/18 09:07 Temp 98.0 Pulse 80 Resp 18 B/P (MAP) 163/119 (134) Pulse Ox 99 O2 Delivery Room Air Capillary Refill : Less Than 3 Seconds General Appearance: WD/WN, no apparent distress HEENT: PERRL/EOMI, normal ENT inspection, other (oropharynx somewhat dry) Neck: normal inspection Respiratory: lungs clear, normal breath sounds, no respiratory distress, no accessory muscle use Cardiovascular: regular rate, rhythm, no edema, no murmur Gastrointestinal: soft, abnormal bowel sounds (markedly decreased bowel sounds) , tenderness (across the upper abdomen) Extremities: normal inspection, no pedal edema 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, no motor/sensory deficits, alert, normal mood/affect, oriented x 3 Skin: normal color, warm/dry Progress/Results/Core Measures Results/Orders Lab Results Laboratory Tests Test 02/20/18 09:24 02/20/18 09:25 Range/Units White Blood Count 11.1 H 4.3-11.0 10^3/uL Red Blood Count 4.82 4.35-5.85 10^6/uL Hemoglobin 13.0 11.5-16.0 G/DL Hematocrit 38 35-52 % Mean Corpuscular Volume 79 L 80-99 FL Mean Corpuscular Hemoglobin 27 25-34 PG Mean Corpuscular Hemoglobin Concent 34 32-36 G/DL Red Cell Distribution Width 14.0 10.0-14.5 % Platelet Count 419 H 130-400 10^3/uL Mean Platelet Volume 9.5 7.4-10.4 FL Neutrophils (%) (Auto) 83 H 42-75 % Lymphocytes (%) (Auto) 12 12-44 % Monocytes (%) (Auto) 4 0-12 % Eosinophils (%) (Auto) 1 0-10 % Basophils (%) (Auto) 0 0-10 % Neutrophils # (Auto) 9.2 H 1.8-7.8 X 10^3 Lymphocytes # (Auto) 1.4 1.0-4.0 X 10^3 Monocytes # (Auto) 0.5 0.0-1.0 X 10^3 Eosinophils # (Auto) 0.1 0.0-0.3 10^3/uL Basophils # (Auto) 0.0 0.0-0.1 10^3/uL Erythrocyte Sedimentation Rate 17 0-20 MM/HR Sodium Level 140 135-145 MMOL/L Potassium Level 3.5 L 3.6-5.0 MMOL/L Chloride Level 109 H 98-107 MMOL/L Carbon Dioxide Level 21 21-32 MMOL/L Anion Gap 10 5-14 MMOL/L Blood Urea Nitrogen 8 7-18 MG/DL Creatinine 0.73 0.60-1.30 MG/DL Estimat Glomerular Filtration Rate > 60 BUN/Creatinine Ratio 11 Glucose Level 100 70-105 MG/DL Calcium Level 9.3 8.5-10.1 MG/DL Magnesium Level 2.0 1.8-2.4 MG/DL Total Bilirubin 0.3 0.1-1.0 MG/DL Aspartate Amino Transf (AST/SGOT) 19 5-34 U/L Alanine Aminotransferase (ALT/SGPT) 24 0-55 U/L Alkaline Phosphatase 68 40-136 U/L C-Reactive Protein High Sensitivity 0.97 H 0.00-0.50 MG/DL Total Protein 7.6 6.4-8.2 GM/DL Albumin 4.0 3.2-4.5 GM/DL Lipase 8 8-78 U/L TSH [place] Testing 2.32 0.35-4.94 UIU/ML Serum Test, Qualitative NEGATIVE NEGATIVE Urine Color YELLOW Urine Clarity VERY CLOUDY H Urine pH 6 5-9 Urine Specific [place] 1.025 H 1.016-1.022 Urine Protein 2+ H NEGATIVE Urine Glucose (UA) NEGATIVE NEGATIVE Urine Ketones 3+ H NEGATIVE Urine Nitrite NEGATIVE NEGATIVE Urine Bilirubin 1+ H NEGATIVE Urine Urobilinogen 1 NORMAL MG/DL Urine Leukocyte Esterase 1+ H NEGATIVE Urine RBC (Auto) 5+ H NEGATIVE Urine RBC 2-5 H /HPF Urine WBC 25-50 H /HPF Urine Squamous Epithelial Cells 25-50 H /HPF Urine Crystals NONE /LPF Urine Bacteria LARGE H /HPF Urine Casts NONE /LPF Urine Mucus NEGATIVE /LPF Urine Culture Indicated YES Micro Results Microbiology 02/20/18 Urine Culture - Preliminary, Resulted Sent To [facility] My Orders Orders - IRAJ BUSTILLO MD Ua Culture If Indicated (02/20/18 09:08) Cbc With Automated Diff (02/20/18 09:21) Comprehensive Metabolic Panel (02/20/18 09:21) Lipase (02/20/18 09:21) Magnesium (02/20/18 09:21) Saline Lock/Iv-Start (02/20/18 09:21) Ns Iv 1000 Ml (Sodium Chloride 0.9%) (02/20/18 09:21) Hyoscyamine Sl Tablet (Levsin Sl Tablet) (02/20/18 09:30) Ondansetron Injection (Zofran Injectio (02/20/18 09:30) Hs C Reactive Protein (02/20/18 09:26) Erythrocyte Sedimentation Rate (02/20/18 09:26) Hcg,Qualitative Serum (02/20/18:35) Thyroid Analyzer (02/20/18:35) Urine Culture (02/20/18 09:25) Medications Given in ED Vital Signs/I&O 02/20/18 02/20/18 09:07 12:01 Temp 98.0 Pulse 80 106 Resp 18 18 B/P (MAP) 163/119 (134) 142/87 Pulse Ox 99 98 O2 Delivery Room Air Room Air Blood Pressure Mean: 134 Progress Progress Note #1: Time: 09:42 Progress Note Patient was seen and examined. Labs were ordered along with a normal saline 1 L bolus. Nausea is being treated with Zofran, and cramping is being treated with Levsin. The remainder of her workup is pending lab results. Progress Note #2: Progress Note Patient was hydrated with IV fluids. Levsin and Zofran did improve her symptoms. Urine was suggestive of urinary tract infection but also appeared contaminated. Patient would like to wait for urine cultures before starting antibiotics as she did not have any frequency or dysuria. A prescription for Cipro was given to start if she develops dysuria or frequency. Medications for symptom management were prescribed. Patient was discharged home in improved and stable condition. Departure Impression Primary Impression: Nausea vomiting and diarrhea Additional Impressions: Upper abdominal pain Abdominal cramping Disposition: HOME, SELF-CARE Condition: Improved Departure-Patient Inst. Decision time for Depature: 11:40 Referrals: ANIKET NAVARRO MD (PCP/Family) Primary Care Physician Patient Instructions: Acute Abdomen (Belly Pain), Adult (DC) Add. Discharge Instructions: Drink plenty of clear liquids. Gradually advance your diet with small quantities of bland food as tolerated. Use Zofran as directed for nausea and vomiting. Use Levsin (hyoscyamine) as directed for cramping and diarrhea. Follow-up with your primary care provider and/or Dr. Givens. Because your having recurrent episodes of bowel issues, consider endoscopy (colonoscopy and EGD) for further evaluation. Your urine was suggestive of urinary tract infection but could be contaminated due to the diarrhea. Please follow-up on your urine culture on by contacting your primary care provider or the emergency room. If you develop urinary symptoms such as frequency or pain with urination prior to that then start the Cipro antibiotic as prescribed. Return to care if symptoms are worsening. All discharge instructions reviewed with patient and/or family. Voiced understanding. Scripts Ciprofloxacin HCl (Cipro) 500 Mg Tablet 500 MG PO BID, #14 TAB Prov: IRAJ BUSTILLO MD 02/20/18 Hyoscyamine Sulfate (Levsin-Sl) 0.125 Mg Tab.subl 0.125 MG SL Q4H, #10 TAB Prov: IRAJ BUSTILLO MD 02/20/18 Ondansetron (Zofran Odt) 4 Mg Tab.rapdis 4 MG SL Q4H PRN for NAUSEA/VOMITING-1ST LINE, #10 TAB Prov: IRAJ BUSTILLO MD 02/20/18 Copy Copies To 1: ANIKET NAVARRO MD Copies To 2: PAULINE GIVENS JOSHUA T MD February 20, 2018 09:35
[2018-02-20 09:36] LABS: BASOPHILS % (AUTO) 0 % (0-10); EOSINOPHILS # (AUTO) 0.1 10^3/uL (0.0-0.3); EOSINOPHILS % (AUTO) 1 % (0-10); HEMATOCRIT 38 % (35-52); LYMPHOCYTES # (AUTO) 1.4 X 10^3 (1.0-4.0); LYMPHOCYTES % (AUTO) 12 % (12-44); MEAN CORPUSCULAR HEMOGLOBIN 27 PG (25-34); MEAN CORPUSCULAR HGB CONC 34 G/DL (32-36); MEAN CORPUSCULAR VOLUME 79 FL (80-99); MEAN PLATELET VOLUME 9.5 FL (7.4-10.4); MONOCYTES # (AUTO) 0.5 X 10^3 (0.0-1.0); MONOCYTES % (AUTO) 4 % (0-12); NEUTROPHILS # (AUTO) 9.2 X 10^3 (1.8-7.8); NEUTROPHILS % (AUTO) 83 % (42-75); PLATELET COUNT 419 10^3/uL (130-400); RED BLOOD COUNT 4.82 10^6/uL (4.35-5.85); WHITE BLOOD COUNT 11.1 10^3/uL (4.3-11.0)
[2018-02-20 09:54] LABS: BACTERIA,URINE LARGE /HPF; BILIRUBIN,URINE 1+ (NEGATIVE); SQUAMOUS EPITHELIAL CELL,UR 25-50 /HPF; WBC,URINE 25-50 /HPF
[2018-02-20 09:56] LABS: ALANINE AMINOTRANSFERASE 24 U/L (0-55); ALKALINE PHOSPHATASE 68 U/L (40-136); BILIRUBIN,TOTAL 0.3 MG/DL (0.1-1.0); BUN/CREATININE RATIO 11; CALCIUM 9.3 MG/DL (8.5-10.1); CARBON DIOXIDE 21 MMOL/L (21-32); CHLORIDE 109 MMOL/L (98-107); CREATININE SERUM 0.73 MG/DL (0.60-1.30); GFR ESTIMATED > 60; GLUCOSE 100 MG/DL (70-105); LIPASE 8 U/L (8-78); POTASSIUM 3.5 MMOL/L (3.6-5.0); SODIUM 140 MMOL/L (135-145); TOTAL PROTEIN 7.6 GM/DL (6.4-8.2)
[2018-02-20 10:21] LABS: ERYTHROCYTE SEDIMENTATION RATE 17 MM/HR (0-20)
[2018-02-20] MEDS ORDERED: ONDA4TAB8 SL (11:47)
[2018-02-20] MEDS ORDERED: HYOS0.1283 SL (11:47)
[2018-02-20] MEDS ORDERED: CIPR-225 PO (11:47)
[2018-02-20 12:01] VITALS: BP 142/87
== END 2018-02-20 12:01 | disposition home or self-care (01) ==
LOC: EDUNIT# 09:03 → ER 09:05
DX: R10.10 Upper abdominal pain, unspecified (principal); R11.2 Nausea with vomiting, unspecified; R19.7 Diarrhea, unspecified; K21.9 Gastro-esophageal reflux disease without esophagitis; F41.9 Anxiety disorder, unspecified; F32.9 Major depressive disorder, single episode, unspecified; E78.00 Pure hypercholesterolemia, unspecified; I10 Essential (primary) hypertension; Z88.0 Allergy status to penicillin; Z96.22 Myringotomy tube(s) status; Z98.84 Bariatric surgery status; Z87.2 Personal history of diseases of the skin and subcutaneous tissue
CPT/HCPCS: 36415; 80053; 81000; 83690; 83735; 84443; 84703; 85025; 85652; 86141; 87088; 96361; 96374

== ENCOUNTER → 2018-03-05 | Outpatient (CLI) | payer OTHER ==
[~2018-03-05] MED LIST changes: +ALPR0.254 PO; +MULT1CAP27 PO; +ONDA4TAB8 SL
--- NOTE | 2018-03-05 11:13 | Diagnostic Imaging Report ---
INDICATION: Routine screening. COMPARISON: 02/21/2017. TECHNIQUE: 2D and 3D bilateral screening mammography was performed with CAD. FINDINGS: Scattered fibroglandular densities are identified bilaterally. No mass or malignant appearing microcalcifications are seen. The axillae are unremarkable. IMPRESSION: No mammographic features suspicious for malignancy are identified. ACR BI-RADS Category 1: Negative. Result letter will be mailed to the patient. Note: At least 10% of breast cancer is not imaged by mammography. Dictated by: Dictated on workstation # [id number]
== END ==
LOC: RAD 07:27
PROVIDERS: ATTEND Obstetrics & Gynecology
DX: Z12.31 Encounter for screening mammogram for malignant neoplasm of breast (principal)
CPT/HCPCS: 77067

== ENCOUNTER 2018-03-13 05:36 | Outpatient (CLI) | payer OTHER ==
[~2018-03-13] VITALS: Ht 152.4 cm; Wt 83.9 kg
[~2018-03-13 05:36] MED LIST changes: -ALPR0.254 PO; -MULT1CAP27 PO
[2018-03-13] MEDS ORDERED: MULT1CAP27 PO (12:37)
[2018-03-13] MEDS ORDERED: ALPR0.254 PO (12:37)
== END 2018-03-13 12:43 | disposition home or self-care (01) ==
LOC: PREOP 05:36
PROVIDERS: ATTEND Surgery
DX: Z01.818 Encounter for other preprocedural examination (principal)

== ENCOUNTER 2018-03-30 08:53 | Outpatient (RCR) | payer OTHER ==
[~2018-03-30 08:53] MED LIST changes: +ALPR0.254 PO; +MULT1CAP27 PO
== END 2018-04-24 | disposition home or self-care (01) ==
LOC: LAB 08:53
PROVIDERS: ATTEND Surgery
DX: R19.7 Diarrhea, unspecified (principal)
CPT/HCPCS: 82274; 87045; 87046; 87324; 87328; 87329; 87449

== ENCOUNTER 2018-08-23 02:35 | Emergency (ER) | payer OTHER ==
[~2018-08-23] VITALS: Ht 152.4 cm; Wt 83.9 kg
[2018-08-23] MEDS ORDERED: methylPREDNISolone 125 MG (Solu-MEDROL) VIAL IV STA (02:54)
[2018-08-23] MEDS ORDERED: FAMOTIDINE 20MG/2ML IV (PEPCID) IV STA (02:54)
[2018-08-23] MEDS ORDERED: diphenhydrAMINE 25 MG TAB (BENADRYL) PO ONE (03:00)
--- NOTE | 2018-08-23 03:45 | ED General ---
General Chief Complaint: Allergic Reaction Stated Complaint: SWOLLEN LIPS & SWOLLEN RT SIDE OF FACE Nursing Triage Note: FACIAL SWELLING Nursing Sepsis Screen: No Definite Risk Source of Information: Patient Exam Limitations: No Limitations History of Present Illness Date Seen by Provider: Aug 23, 2018 Time Seen by Provider: 02:45 Initial Comments PT ARRIVES VIA POV FROM HOME STATES SHE WENT TO BED AROUND 2100 AND WAS FINE, AND WOKE UP AT 0145 WITH SWELLING TO RIGHT SIDE OF FACE AND RIGHT SIDE OF LIPS. NO SWELLING OF TONGUE OR THROAT NO DIFFICULTY SWALLOWING OR BREATHING OR WHEEZING NO RASH OR ITCHING ANYWHERE STATES SHE HAS NOT TAKEN ANYTHING FOR SYMPTOMS STATES SHE HAS HAD A MILD COUGH AND CONGESTION LAST WEEK AND WAS SEEN AT DR. NAVARRO'S OFFICE ON Monday08/17/18 AND WAS DX WITH BILATERAL EAR INFECTIONS AND SINUS INFECTION. WAS GIVEN RX FOR ZITHROMAX STATES SHE TOOK IT FOR 4 DAYS, BUT DID NOT TAKE THE 5TH DAY DUE TO MUCH NAUSEA AND DIARRHEA ALSO STARTED TO HAVE SOME DISCOMFORT AND SLIGHT SWELLING TO RIGHT LABIAL/ VAGINAL AREA CALLED DR. NAVARRO'S OFFICE TODAY AND RX FOR PREDNISONE AND DIFLUCAN WERE CALLED IN. STATES SHE HAS NOT STARTED TAKING THE STEROID YET, BUT DID TAKE FIRST DOSE OF DIFLUCAN TONIGHT WHEN SHE WENT TO BED. PT HAS BEEN ON LISINOPRIL X 1 YEAR, WITH NO PROBLEMS AND NO DOSE CHANGES NO HISTORY OF SIMILAR NO NEW FOODS OR DRINKS. STATES SHE GOT HOME FROM WORK AT 1700, WENT TO [place] AND ATE [employer] AND [employer] DRESSING A SNACK TONIGHT--DID NOT HAVE A FULL DINNER. PCP: DR. NAVARRO Allergies and Home Medications Allergies Coded Allergies: Penicillins (Verified Allergy, Mild, 01/26/13) Home Medications Alprazolam 0.25 Mg Tablet, 0.5 TAB PO DAILY, (Reported) Fluoxetine HCl 40 Mg Capsule, 40 MG PO DAILY, (Reported) Levonorgestrel-Ethin Estradiol 1 Each Tbdspk.3mo, 1 TAB PO DAILY, (Reported) Lisinopril 10 Mg Tablet, 10 MG PO DAILY, (Reported) Omeprazole 20 Mg Capsule.dr, 20 MG PO DAILY, (Reported) Prednisone 20 Mg Tab, 40 MG PO DAILY Prescribed by: KAYLEIGH LOUIS on 08/23/18 0353 Simvastatin 40 Mg Tablet, 40 MG PO HS HOLD THE SIMVASTATIN X 11 DAYS THEN RESTART ONCE DONE WITH ANTIBIOTICS Prescribed by: ANIKET NAVARRO on 01/26/18 0917 Patient Home Medication List Home Medication List Reviewed: Yes Review of Systems Review of Systems Constitutional: no symptoms reported; No chills, No diaphoresis, No dizziness, No fever EENTM: see HPI, mouth swelling (RIGHT LIPS AND RIGHT SIDE OF FACE SWELLING. NO SWELLING ON INSIDE OF MOUTH OR THROAT. ); No nose congestion, No throat pain, No throat swelling Respiratory: no symptoms reported; No cough, No short of breath, No wheezing Cardiovascular: no symptoms reported Gastrointestinal: no symptoms reported, see HPI Genitourinary: no symptoms reported : No (LMP 2 MONTHS AGO--ON SAME OCP'S FOR LONG TIME, BUT THE LAST 2 MONTHS STARTED TAKING CONTINOUSLY AND NO PERIOD FOR 2 MONTHS. NO MISSED DOSES OF PILLS. ) Musculoskeletal: no symptoms reported Skin: see HPI Psychiatric/Neurological: No Symptoms Reported Hematologic/Lymphatic: No Symptoms Reported Immunological/Allergic: no symptoms reported Past Iazyxcq-Vzuivf-Gyxscg Hx Patient Social History Alcohol Use: Denies Use Recreational Drug Use: No Smoking Status: Never a Smoker 2nd Hand Smoke Exposure: No Recent Foreign Travel: No Contact w/Someone Who Travel: No Recent Infectious Disease Expo: No Recent Hopitalizations: No Immunizations Up To Date Tetanus Booster (TDap): Unknown Seasonal Allergies Seasonal Allergies: Yes Past Medical History Surgeries: Yes (BMT'S, T&A A SMALL CHILD; GASTRIC SLEEVE WITH HIATAL HERNIA REPAIR 2014) Abdominal, Adenoidectomy, Ear Surgery, Tonsillectomy Respiratory: No Cardiac: Yes High Cholesterol, Hypertension Neurological: No : No Reproductive Disorders: No Female Reproductive Disorders: Denies Sexually Transmitted Disease: No HIV/AIDS: No Genitourinary: No Gastrointestinal: Yes Gastroesophageal Reflux, Chronic Diarrhea, Hiatal Hernia Musculoskeletal: No Endocrine: No (OBESITY--S/P GASTRIC SLEEVE. ) HEENT: No (BMT'S AND T&A CHILD) Chronic Ear Infection, Tonsilitis Loss of Vision: Denies Hearing Impairment: Denies Cancer: No Psychosocial: Yes Anxiety, Depression Integumentary: Yes Eczema Blood Disorders: No Adverse Reaction/Blood Tranf: No (N/A) Family Medical History Patient reports no known family medical history. Hypertension, Other Conditions/Hx Physical Exam Vital Signs Vital Signs - First Documented 08/23/18 02:45 Temp 98.4 Pulse 84 Resp 18 B/P (MAP) 148/91 (110) Pulse Ox 97 O2 Delivery Room Air Capillary Refill : Less Than 3 Seconds Height, Weight, BMI Height: 5'0.00" Weight: 185lbs. 0.0oz. 83.161170br; 36.1 BMI Method:Stated General Appearance: No Apparent Distress, WD/WN HEENT: PERRL/EOMI, TMs Normal, Pharynx Normal, Other (MILD TO MODERATE SWELLING TO RIGHT UPPER> LOWER LIP, WITH SLIGHT SWELLING TO RIGHT CHEEK. NO INTRA-ORAL SWELLING ) Neck: Full Range of Motion, Normal Inspection, Non Tender, Supple Respiratory: Normal Breath Sounds, No Accessory Muscle Use, No Respiratory Distress Cardiovascular: Regular Rate, Rhythm, No Edema, No JVD, No Murmur, Normal Peripheral Pulses Gastrointestinal: Soft Extremity: Normal Capillary Refill, Normal Inspection, Normal Range of Motion, Non Tender, No Calf Tenderness, No Pedal Edema Neurologic/Psychiatric: Alert, Oriented x3, No Motor/Sensory Deficits, Normal Mood/Affect, event mgr II-XII Norm as Tested Skin: Normal Color, Warm/Dry; No Rash Progress/Results/Core Measures Suspected Sepsis Recent Fever Within 48 Hours: No Infection Criteria Present: Documented Infection New/Unexplained Altered Menta: No Sepsis Screen: No Definite Risk SIRS Temperature:98.4 Pulse: 84 Respiratory Rate: 18 Blood Pressure 148 /91 Mean: 110 Results/Orders My Orders Orders - KAYLEIGH LOUIS DO Saline Lock/Iv-Start (08/23/18 02:54) Methylprednisolone Sod Succ (Solu-Medrol (08/23/18 02:54) Diphenhydramine Tablet (Benadryl Tablet) (08/23/18 03:00) Famotidine Injection (Pepcid Injection) (08/23/18 02:54) Prednisone Tablet (Deltasone Tablet) (08/23/18 04:15) Medications Given in ED Current Medications Medications Dose Ordered Sig/Susan Route Start Time Stop Time Status Last Admin Dose Admin Diphenhydramine HCl 50 mg ONCE ONCE PO 08/23/18 03:00 08/23/18 03:01 DC 08/23/18 03:05 50 MG Prednisone 40 mg ONCE ONCE PO 08/23/18 04:15 08/23/18 04:16 DC 08/23/18 04:05 40 MG Vital Signs/I&O 08/23/18 02:45 Temp 98.4 Pulse 84 Resp 18 B/P (MAP) 148/91 (110) Pulse Ox 97 O2 Delivery Room Air Capillary Refill : Less Than 3 Seconds Blood Pressure Mean: 110 Progress Note : Progress Note 0400-NO SIGNIFICANT IMPROVEMENT IN SWELLING, BUT HAS NOT GOTTEN WORSE. PT DROVE SELF HERE. WILL ADD ORAL PREDNISONE. 0425--SWELLING IS STARTING TO GO DOWN SLIGHTLY PT FEELS COMFORTABLE GOING HOME. Departure Impression Primary Impression: Angioedema Disposition: HOME, SELF-CARE Condition: Improved Departure-Patient Inst. Referrals: ANIKET NAVARRO MD (PCP/Family) Primary Care Physician Patient Instructions: Angioedema (DC) Add. Discharge Instructions: STOP DIFLUCAN TAKE YOUR OTHER MEDICATIONS PRESCRIBED TAKE BENADRYL EVERY 4 HOURS FOR SWELLING LOTS OF CLEAR LIQUIDS NO NEW FOODS OR DRINKS OR MEDICATIONS. FOLLOW UP WITH DR. NAVARRO TOMORROW FOR FURTHER CARE, RETURN TO ER IF WORSE All discharge instructions reviewed with patient and/or family. Voiced understanding. Scripts Prednisone (Prednisone) 20 Mg Tab 40 MG PO DAILY, #6 TAB Prov: KAYLEIGH LOUIS DO 08/23/18 KAYLEIGH LOUIS DO Aug 23, 2018 03:45
[2018-08-23] MEDS ORDERED: PRD20T PO ×3 (03:53→10:31)
[2018-08-23] MEDS ORDERED: predniSONE 20 MG TAB PO ONE (04:15)
[2018-08-23 04:36] VITALS: BP 144/76
[2018-08-23] MEDS ORDERED: FLUC150T PO ×2 (10:31)
[2018-08-23] MEDS ORDERED: SIMV40TA4 PO ×2 (10:31)
[2018-08-23] MEDS ORDERED: TR025C15 TP ×2 (10:31)
[2018-08-23] MEDS ORDERED: ONDN4T PO ×2 (10:31)
[2018-08-23] MEDS ORDERED: LACT1CAP62 PO ×2 (10:34)
[2018-08-24] MEDS ORDERED: PRD20T PO ×2 (09:50)
[2018-08-24] MEDS ORDERED: METO-387 PO ×2 (09:50)
[2018-08-24] MEDS ORDERED: RANI150T46 PO ×2 (09:50)
[2018-08-24] MEDS ORDERED: DIPH25CA79 PO ×2 (09:50)
[2018-08-24] MEDS ORDERED: OMEP20CA12 PO ×2 (09:50)
== END 2018-08-23 04:30 | disposition home or self-care (01) ==
LOC: EDUNIT# 02:35 → ER 02:40
DX: T78.3XXA Angioneurotic edema, initial encounter (principal); E78.00 Pure hypercholesterolemia, unspecified; I10 Essential (primary) hypertension; K21.9 Gastro-esophageal reflux disease without esophagitis; E66.9 Obesity, unspecified; F41.9 Anxiety disorder, unspecified; F32.9 Major depressive disorder, single episode, unspecified; Z87.19 Personal history of other diseases of the digestive system; Z79.52 Long term (current) use of systemic steroids; Z88.0 Allergy status to penicillin; Z82.49 Family history of ischemic heart disease and other diseases of the circulatory system; Z68.38 Body mass index [BMI] 38.0-38.9, adult; Z90.89 Acquired absence of other organs; Z98.84 Bariatric surgery status; Z98.890 Other specified postprocedural states
CPT/HCPCS: 96374; 96375

== ENCOUNTER 2018-08-23 09:45 | Inpatient (IN) | payer OTHER ==
[2018-08-23] VITALS (7 sets, daily range): BP systolic 123–154; BP diastolic 70–98
[~2018-08-23] VITALS: Ht 152.4 cm; Wt 85.9 kg
[~2018-08-23 09:45] MED LIST changes: +PRD20T PO
[2018-08-23] MEDS ORDERED: EPINEPHrine INJECTION 1 MG/ML AMP IV PRN (10:00)
[2018-08-23] MEDS ORDERED: diphenhydrAMINE 50 MG/ML INJ (BENADRYL) IVP NR (10:02)
--- NOTE | 2018-08-23 10:04 | History & Physicial ---
History of Present Illness History of Present Illness Reason for visit/HPI PT IS A 43 Y/O FEMALE WHO IS KNOWN TO ME FROM CLINIC. SHE PRESENTED TO THE OFFICE THIS MORNING AFTER HAVING BEEN IN THE EMERGENCY DEPARTMENT EARLY THIS MORNING WITH SWELLING OF HER LIPS ON THE RIGHT. APPARENTLY SHE WENT TO BED, WOKE UP WITH HER MOUTH SWELLING MORE AND HER FAMILY ADVISED HER TO CALL THE OFFICE. THE NURSE PRACTITIONER EVALUATED HER IN THE OFFICE AND CALLED WITH ACUTE WORSENING OF THE ANGIOEDEMA. SHE WAS ADMITTED TO THE ICU FOR TREATMENT OF THE ANGIOEDEMA. SHE REPORTS THAT SHE TOOK HER DIFLUCAN AND NIGHT-TIME LISINOPRIL AND THEN WENT TO BED AND NOTICED SWELLING AROUDN 1AM, WENT TO THE ER AND WAS TREATED WITH STEROIDS, BENADRYL AND H2 SUNNY AND THEN DISCHARGED TO HOME. Date of Admission Aug 23, 2018 at 09:50 Date Seen by a Provider: Aug 23, 2018 Time Seen by a Provider: 09:50 I consulted on this patient on 08/23/18 10:00 Attending Physician Aniket Dale MD Admitting Physician Aniket Dale MD Consult Allergies and Home Medications Allergies Coded Allergies: lisinopril (Verified Allergy, Severe, ANAPHYLAXIS, 08/23/18) Penicillins (Verified Allergy, Mild, 08/23/18) Home Medications Diphenhydramine HCl 25 Mg Capsule, 25 MG PO TID Prescribed by: ANIKET DALE on 08/24/1850 Fluoxetine HCl 40 Mg Capsule, 40 MG PO DAILY, (Reported) Lactobacillus Acidophilus 1 Each Capsule, 1 CAP PO DAILY, (Reported) Levonorgestrel-Ethin Estradiol 1 Each Tbdspk.3mo, 1 TAB PO HS, (Reported) Metoprolol Succinate 25 Mg Tab.er.24h, 25 MG PO DAILY Prescribed by: ANIKET DALE on 08/24/18 0950 Omeprazole 20 Mg Capsule.dr, 20 MG PO DAILY hold until off of zantac Prescribed by: ANIKET DALE on 08/24/18 0950 Ondansetron HCl 4 Mg Tab, 4 MG PO Q6H PRN for NAUSEA/VOMITING-1ST LINE, ( Reported) Prednisone 20 Mg Tab, 20 MG PO UD 2 pills bid x 3 days and decrease by 1/2 pill twice a day until done with pills Prescribed by: ANIKET DALE on 08/24/18 0950 Ranitidine HCl 150 Mg Tablet, 150 MG PO BID Prescribed by: ANIKET DALE on 08/24/18 0950 Simvastatin 40 Mg Tablet, 40 MG PO HS, (Reported) Triamcinolone Acet 15 Gm Cr, TP BID PRN for DRY SKIN, (Reported) Patient Home Medication List Home Medication List Reviewed: Yes Past Ycdzzbv-Fzbccg-Okmbog Hx Patient Social History Marrital Status: Number of Children: 1 Number of living children: 1 Living Status: lives at home with spouse Employed/Student: employed Smoking Status: Never a Smoker 2nd Hand Smoke Exposure: No Physical Abuse Screen: No Sexual Abuse: No Recent Foreign Travel: No Contact w/other who traveled: No Recent Hopitalizations: No Recent Infectious Disease Expo: No Immunizations Up To Date Tetanus Booster (TDap): Unknown Seasonal Allergies Seasonal Allergies: Yes Surgeries Yes (BMT'S, T&A A SMALL CHILD; GASTRIC SLEEVE WITH HIATAL HERNIA REPAIR 2014) Abdominal, Adenoidectomy, Ear Surgery, Tonsillectomy Respiratory No Cardiovascular Yes High Cholesterol, Hypertension Neurological No Reproductive System Hx Reproductive Disorders: No Sexually Transmitted Disease: No HIV/AIDS: No Female Reproductive Disorders: Denies Genitourinary No Gastrointestinal Yes Gastroesophageal Reflux, Chronic Diarrhea, Hiatal Hernia Musculoskeletal No Endocrine History of Endocrine Disorders: No (OBESITY--S/P GASTRIC SLEEVE. ) HEENT History of HEENT Disorders: No (BMT'S AND T&A CHILD) HEENT Disorders: Chronic Ear Infection, Tonsilitis Loss of Vision: Denies Hearing Impairment: Denies Cancer No Psychosocial History of Psychiatric Problem: Yes Behavioral Health Disorders: Anxiety, Depression Integumentary History of Skin or Integumenta: Yes Skin/Integumentary Disorders: Eczema Blood Transfusions History of Blood Disorders: No Adverse Reaction to a Blood Tr: No (N/A) Reviewed Nursing Assessment Reviewed/Agree w Nursing PMH: Yes Family Medical History Significant Family History: Hypertension, Other Conditions/Hx Family Hx: Patient reports no known family medical history. Review of Systems Constitutional: No chills, No fever, No malaise; weakness EENTM: mouth swelling; No mouth pain, No nose pain, No throat pain, No throat swelling Respiratory: No cough, No dyspnea on exertion, No short of breath Cardiovascular: No chest pain, No palpitations Gastrointestinal: No abdominal pain, No constipation, No diarrhea, No nausea Genitourinary: no symptoms reported Musculoskeletal: No back pain, No muscle weakness Skin: No change in color, No lesions; other (swelling of lips) Psychiatric/Neurological: Denies Anxiety, Denies Depressed, Denies Weakness Physical Exam Vital Signs Vital Signs - First Documented 08/23/18 09:50 O2 Delivery Room Air Capillary Refill : Height, Weight, BMI Height: 5'0.00" Weight: 185lbs. 0.0oz. [id number]; 36.1 BMI Method:Stated General Appearance: No Apparent Distress, WD/WN Eyes: Bilateral Eye Normal Inspection, Bilateral Eye PERRL HEENT: Pharynx Normal, Other (upper and lower lip swelling with discoloration of skin around lips) Neck: Full Range of Motion, Supple Respiratory: Chest Non Tender, Lungs Clear, Normal Breath Sounds, No Respiratory Distress Cardiovascular: Regular Rate, Rhythm, No Edema Gastrointestinal: Normal Bowel Sounds, No Pulsatile Mass, Non Tender, Soft Rectal: Deferred Back: Normal Inspection Extremity: Normal Capillary Refill, Non Tender, No Calf Tenderness, No Pedal Edema Neurologic/Psychiatric: Alert, Oriented x3, No Motor/Sensory Deficits, Normal Mood/Affect Skin: Warm/Dry Lymphatic: No Adenopathy Assessment/Plan Assessment and Plan ANGIOEDEMA HYPERTENSION ANGIOEDEMA - PT TO BE ON IV STEROIDS - SOLUMEDROL 125MG Q 6 HOURS, BENADRYL 25MG IV Q 4 HOURS X 24 HOURS, AND IV PEPCID 20MG TID - MONITOR CLOSELY AND PT TO HAVE EPI IF NEEDED FOR ACUTE WORSENING OF ANGIOEDEMA. SUSPECT THIS IS DUE TO LISINOPRIL, SHE WILL HAVE TO HAVE THIS ADDED TO HER ALLERGY LIST. HYPERTENSION - MONITOR PRESSURES - HOLD MEDICATION - DC LISINOPRIL. Admission Diagnosis ANGIOEDEMA HYPERTENSION Admission Status: Inpatient Order (span 2 midnights) Reason for Inpatient Admission: acute angioedema, will require to be treated until symptoms resolve, unable to determine the rapidity with which pt will respond to treatment since she did not improve with treatment that was rendered in the emergency department. ANIKET DALE MD Aug 23, 2018 10:03
[2018-08-23] MEDS: NS IV 1000 ML 1,000 ML IV SCH ×2 (10:18→20:37)
[2018-08-23] MEDS: methylPREDNISolone 125 MG (Solu-MEDROL) VIAL IVP SCH ×3 (10:18→18:28)
[2018-08-23] MEDS: FAMOTIDINE 20MG/2ML IV (PEPCID) IVP SCH ×3 (10:18→21:00)
[2018-08-23] MEDS ORDERED: SIMV40TA4 PO ×2 (10:31)
[2018-08-23] MEDS ORDERED: PRD20T PO ×2 (10:31)
[2018-08-23] MEDS ORDERED: TR025C15 TP ×2 (10:31)
[2018-08-23] MEDS ORDERED: ONDN4T PO ×2 (10:31)
[2018-08-23] MEDS ORDERED: FLUC150T PO ×2 (10:31)
[2018-08-23] MEDS ORDERED: LACT1CAP62 PO ×2 (10:34)
[2018-08-23] MEDS ORDERED: EPINEPHrine INJECTION 1 MG/ML AMP IM PRN (11:30)
[2018-08-23] MEDS: diphenhydrAMINE 50 MG/ML INJ (BENADRYL) IVP SCH ×3 (13:52→23:08)
--- OUTSIDE RECORDS SUMMARY | 2018-08-24 00:35 | XMS REPORT | CCD ---
Author Author [facility] Organization [facility] Address [address] [place] [address] Phone Care Team Providers Care Sales Person Name Role Phone PP Unavailable CCM Unavailable Summary Purpose Interface Exchange Insurance Providers Payer name Policy type / Coverage type Covered democrat ID Effective Begin Date Effective End Date [facility] [id number] Unknown Family History Family History data not found Social History Social History Element Codes Description Effective Dates Marital status Unknown 08/08/2014 Living arrangements Unknown House 08/08/2014 Education level Unknown College Graduate 08/08/2014 Employment Unknown 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 [employer] 08/08/2014 Allergies, Adverse Reactions, Alerts Substance Reaction Codes Entered Date Inactivated Date Status * NO KNOWN FOOD ALLERGIES Unknown 08/08/2014 No Inactive Date Active Erythromycin emesis RxNorm: 4053 08/08/2014 No Inactive Date Active PENICILLINS rash, Unknown 08/08/2014 No Inactive Date Active Past Medical History Illness Codes Condition Status Onset Date Resolved Date Other acute sinusitis ICD-9: 461.8 ICD-10: J01.80 Active 08/17/2018 Unknown Other allergic rhinitis ICD-9: 477.8 ICD-10: J30.89 Active 10/16/2016 Unknown Essential (primary) hypertension ICD-9: 401.1 ICD-10: I10 Active 11/16/2017 Unknown Personal history of other infectious and parasitic diseases ICD-9: V12.09 ICD-10: Z86.19 Active 04/18/2018 Unknown Dysuria ICD-9: 788.1 ICD-10: R30.0 Active 03/02/2018 Unknown Generalized anxiety disorder ICD-9: 300.00 ICD-10: F41.1 Active 02/23/2018 Unknown Urinary tract infection, site not specified ICD-9: 599.0 ICD-10: N39.0 Active 02/23/2018 Unknown Candidiasis of vulva and vagina ICD-9: 112.1 ICD-10: B37.3 Active 02/01/2018 Unknown Generalized abdominal pain ICD-9: 789.07 ICD-10: R10.84 Active 01/05/2018 Unknown Diarrhea, unspecified ICD-9: 787.91 ICD-10: R19.7 Active 01/05/2018 Unknown Nausea ICD-9: 787.02 ICD-10: R11.0 Active 01/05/2018 Unknown Encounter for general adult medical examination without abnormal findings ICD-9: V70.0 ICD-10: Z00.00 Active 04/25/2017 Unknown Other obesity due to excess calories ICD-9: 278.00 ICD-10: E66.09 Active 04/25/2017 Unknown Acute laryngopharyngitis ICD-9: 465.0 ICD-10: J06.0 Active 10/20/2016 Unknown Otalgia, left ear ICD- 9: 388.70 ICD-10: H92.02 Active 10/20/2016 Unknown Otalgia, right ear ICD -9: 388.70 [...] Problems Condition Codes Effective Dates Condition Status Other acute sinusitis ICD-9: 461.8 ICD-10: J01.80 08/17/2018 Active Other allergic rhinitis ICD-9: 477.8 ICD-10: J30.89 10/16/2016 Active Essential (primary) hypertension ICD-9: 401.1 ICD-10: I10 11/16/2017 Active Personal history of other infectious and parasitic diseases ICD-9: V12.09 ICD-10: Z86.19 04/18/2018 Active Dysuria ICD-9: 788.1 ICD-10: R30.0 03/02/2018 Active Generalized anxiety disorder ICD-9: 300.00 ICD-10: F41.1 02/23/2018 Active Urinary tract infection, site not specified ICD-9: 599.0 ICD-10: N39.0 02/23/2018 Active Candidiasis of vulva and vagina ICD-9: 112.1 ICD-10: B37.3 02/01/2018 Active Generalized abdominal pain ICD-9: 789.07 ICD-10: R10.84 01/05/2018 Active Diarrhea, unspecified ICD-9: 787.91 ICD-10: R19.7 01/05/2018 Active Nausea ICD-9: 787.02 ICD-10: R11.0 01/05/2018 Active Encounter for general adult medical examination without abnormal findings ICD-9: V70.0 ICD-10: Z00.00 04/25/2017 Active Other obesity due to excess calories ICD-9: 278.00 ICD-10: E66.09 04/25/2017 Active Acute laryngopharyngitis ICD-9: 465.0 ICD-10: J06.0 10/20/2016 Active Otalgia, left ear ICD- 9: 388.70 ICD-10: H92.02 10/20/2016 Active Otalgia, right ear ICD -9: 388.70 [...] Start Date Stop Date Status Fill Instructions prednisone 20 mg tablet RxNorm: 811688 2 Tablet(s) PO daily 08/26/2018 Active Zofran 4 mg tablet RxNorm: 147796 1 Tablet(s) PO Q6 PRN 08/22 No Stop Date Active Diflucan 150 mg tablet RxNorm: 106082 1 Tablet(s) PO daily 08/26/2018 Active Diflucan 150 mg tablet RxNorm: 697251 1 Tablet(s) PO daily 08/21/2018 Inactive prednisone 20 mg tablet RxNorm: 874113 2 Tablet(s) PO daily 08/21/2018 Inactive triamcinolone acetonide 0.025 % topical cream RxNorm: 8657839 1 Application TOP BID 08/17/2018 No Stop Date Active Kenalog 40 mg/mL suspension for injection RxNorm: 2851433 1 Milliliter(s) Inj 08/17/2018 08/17/2018 Inactive Zithromax Z-Kristofer 250 mg tablet RxNorm: 295128 1 Tablet(s) PO UD 08/17/2018 08/21/2018 Inactive zpack simvastatin 40 mg tablet RxNorm: 208804 TAKE ONE TABLET BY MOUTH AT BEDTIME 07/23/2018 04/18/2019 Active lisinopril 10 mg tablet RxNorm: 363714 TAKE ONE TABLET BY MOUTH DAILY 06/04/2018 08/27/2019 Active Prozac 40 mg capsule RxNorm: 517221 TAKE ONE CAPSULE BY MOUTH DAILY 04/09/2018 10/05/2018 Active Xanax 0.25 mg tablet RxNorm: 712286 1/2 Tablet(s) PO BID as needed anxiety 02/23/2018 04/23/2018 Inactive Diflucan 150 mg tablet RxNorm: 522796 1 Tablet(s) PO daily 06/201802/07/2018 Inactive Cipro 500 mg tablet RxNorm: 173386 1 Tablet(s) PO BID 201702/01/2018 Inactive Flagyl 500 mg tablet RxNorm: 126476 1 Tablet(s) PO TID 201702/01/2018 Inactive Zofran 4 mg tablet RxNorm: 245434 1 Tablet(s) PO Q6 PRN 01/0508/21/2018 Inactive ketorolac 60 mg/2 mL intramuscular solution RxNorm: 760513 2 Milliliter(s) IM 01/05/2018 01/05/2018 Inactive Flagyl 500 mg tablet RxNorm: 948413 1 Tablet(s) PO TID 201701/14/2018 Inactive Cipro 500 mg tablet RxNorm: 945252 1 Tablet(s) PO BID 201701/14/2018 Inactive lisinopril 10 mg tablet RxNorm: 788614 TAKE ONE TABLET BY MOUTH DAILY 12/18/2017 06/03/2018 Inactive Prozac 40 mg capsule RxNorm: 762898 TAKE ONE CAPSULE BY MOUTH DAILY 11/27/2017 03/26/2018 Inactive lisinopril 10 mg tablet RxNorm: 022795 1 Tablet(s) PO daily 12/15/2017 Inactive Prilosec 20 mg capsule,delayed release RxNorm: 859999 TAKE ONE CAPSULE BY MOUTH TWICE A DAY 10/06/2017 05/03/2018 Inactive Prilosec 20 mg capsule,delayed release RxNorm: 453529 TAKE ONE CAPSULE BY MOUTH TWICE A DAY 08/07/2017 09/05/2017 Inactive Prozac 40 mg capsule RxNorm: 269253 TAKE ONE CAPSULE BY MOUTH DAILY 06/12/2017 11/08/2017 Inactive Contrave 8 mg-90 mg tablet,extended release RxNorm: 5575610 2 Tablet(s) PO BID 04/25/2017 05/07/2017 Inactive simvastatin 40 mg tablet RxNorm: 022987 1 Tablet(s) PO QHS 01/201703/23/2018 Inactive [SAVINGS FOR NON-COVERED DRUGS -- BIN:[id number], PCN: ASPROD1, Group: XXXXX, ID# [id number], Questions: . THIS IS NOT INSURANCE.] Prozac 40 mg capsule RxNorm: 777328 TAKE ONE CAPSULE BY MOUTH DAILY 11/08/2016 05/06/2017 Inactive prednisone 10 mg tablet RxNorm: 525300 Tablet(s) PO 10/20/2016 04/24/2017 Inactive 6, 5,4,3,2,1 Flonase Allergy Relief 50 mcg/actuation nasal spray, suspension RxNorm: 9745284 1 [place] NASAL BID 10/17/2016 No Stop Date Active Kenalog 40 mg/mL suspension for injection RxNorm: 5660879 1 Milliliter(s) Inj 10/17/2016 10/17/2016 Inactive Zithromax Z-Kristofer 250 mg tablet RxNorm: 250140 1 Tablet(s) PO UD 10/12/2016 10/16/2016 Inactive zpack Prilosec 20 mg capsule,delayed release RxNorm: 552907 TAKE ONE CAPSULE BY MOUTH TWICE A DAY 08/30/2016 02/25/2017 Inactive Prozac 40 mg capsule RxNorm: 743059 TAKE ONE CAPSULE BY MOUTH DAILY 08/08/2016 11/05/2016 Inactive Zithromax Z-Kristofer 250 mg tablet RxNorm: 098367 1 Tablet(s) PO UD 07/11/2016 07/15/2016 Inactive zpack Prilosec 20 mg capsule,delayed release RxNorm: 830141 Capsule(s) TAKE ONE CAPSULE BY MOUTH TWICE A DAY 07/04/20162015 Inactive Prozac 40 mg capsule RxNorm: 531098 1 Capsule(s) PO daily 07/0408/02/2016 Inactive Prilosec 20 mg capsule,delayed release RxNorm: 782833 TAKE ONE CAPSULE BY MOUTH TWICE A DAY 01/11/2016 04/09/2016 Inactive simvastatin 40 mg tablet RxNorm: 111712 TAKE ONE TABLET BY MOUTH AT BEDTIME 12/23/2015 05/06/2016 Inactive Request already responded to by other means (e.g. phone or fax) simvastatin 40 mg tablet RxNorm: 753902 1 Tablet(s) PO QHS 06/17/2016 Inactive [SAVINGS FOR NON-COVERED DRUGS -- BIN:[id number], PCN: ASPROD1, Group: XXXXX, ID# [email or web address], Questions: . THIS IS NOT INSURANCE.] Prozac 40 mg capsule RxNorm: 400230 1 Capsule(s) PO daily 06/1906/12/2016 Inactive simvastatin 40 mg tablet RxNorm: 843596 1 Tablet(s) PO QHS 07/201507/31/2015 Inactive [SAVINGS FOR NON-COVERED DRUGS -- BIN:[id number], PCN: ASPROD1, Group: XXXXX, ID# [id number], Questions: . THIS IS NOT INSURANCE.] Prilosec 20 mg capsule,delayed release RxNorm: 360576 TAKE ONE CAPSULE BY MOUTH TWICE A DAY 12/04/2014 04/02/2015 Inactive Prilosec 20 mg capsule,delayed release RxNorm: 524445 1 Capsule(s) PO BID 12/02/2014 07/03/2016 Inactive [SAVINGS FOR NON-COVERED DRUGS -- BIN:021498, PCN: ASPROD1, Group: XXXXX, ID# [id number], Questions: . THIS IS NOT INSURANCE.] Tamiflu 75 mg capsule RxNorm: 098211 Capsule(s) PO daily 201411/05/2014 Inactive Seasonale contraceptive 0.15 mg-30 mcg tablets,3 month dose pack RxNorm: 948060 1 Tablet(s) PO daily 08/11/20142015 Inactive Seasonale contraceptive 0.15 mg-30 mcg tablets,3 month dose pack RxNorm: 064030 1 Tablet(s) PO daily 08/11/20142013 Inactive Prilosec 20 mg capsule,delayed release RxNorm: 488571 1 Capsule(s) PO BID 08/08/2014 10/06/2014 Inactive [SAVINGS FOR UNINSURED PATIENTS -- BIN:068837, PCN: ASPROD1, Group: [id number], ID# [id number], Process claim through [employer], for questions: . THIS IS NOT INSURANCE.] Centrum Complete oral RxNorm: 04512 oral No Start Date Active Phenergan 12.5 mg tablet RxNorm: 006072 1/2 Tablet(s) PO PRN No Start Date Active Prozac 40 mg capsule RxNorm: 954830 1 Capsule(s) PO daily No Start Date 06/18/2015 Inactive Victoza 2-Kristofer 0.6 mg/0.1 mL (18 mg/3 mL) subcutaneous pen injector RxNorm: 812409 0.6 Milligram(s) SQ daily No Start Date Inactive Fish Oil 1,000 mg capsule RxNorm: 3 Capsule(s) PO daily No Start Date 04/24/2017 Inactive Xanax 0.25 mg tablet RxNorm: 929123 1/2 Tablet(s) PO daily No Start Date 02/22/2018 Inactive simvastatin 40 mg tablet RxNorm: 093010 1 Tablet(s) PO QHS No Start Date 02/01/2015 Inactive triamcinolone acetonide 0.025 % topical cream RxNorm: 2715679 1 Application TOP BID No Start Date 08/16/2018 Inactive Prilosec 20 mg capsule,delayed release RxNorm: 154061 1 Capsule(s) PO daily No Start Date 08/07/2014 Inactive Medication Administered Medication Codes Instructions Start Date Status Kenalog 40 mg/mL suspension for injection RxNorm: 6552787 1Milliliter 08/17/2018 No longer Active ketorolac 60 mg/2 mL intramuscular solution RxNorm: 713343 2Milliliter 01/05/2018 No longer Active Kenalog 40 mg/mL suspension for injection RxNorm: 2083204 1Milliliter 10/17/2016 No longer Active Immunizations Vaccine Codes Date Status Influenza CVX: 141 08/14/2016 completed PPD Unknown 01/08/2015 completed PPD Unknown 01/06/2015 completed Assessments Condition Codes Effective Dates Other acute sinusitis ICD-10: J01.80 ICD-9: 461.8 08/17/2018 Other allergic rhinitis ICD-10: J30.89 ICD-9: 477.8 08/17/2018 Essential (primary) hypertension ICD-10: I10 ICD-9: 401.1 04/18/2018 Personal history of other infectious and parasitic diseases ICD-10: Z86.19 ICD-9: V12.09 04/18/2018 Dysuria ICD-10: R30.0 ICD-9: 788.1 03/02/2018 Urinary tract infection, site not specified ICD-10: N39.0 ICD-9: 599.0 02/23/2018 Generalized anxiety disorder ICD-10: F41.1 ICD-9: 300.00 02/23/2018 Candidiasis of vulva and vagina ICD-10: B37.3 ICD-9: 112.1 02/01/2018 Generalized abdominal pain ICD-10: R10.84 ICD-9: 789.07 02/01/2018 Diarrhea, unspecified ICD-10: R19.7 ICD-9: 787.91 01/05/2018 Nausea ICD-10: R11.0 ICD-9: 787.02 01/05/2018 Encounter for general adult medical examination without abnormal findings ICD-10: Z00.00 ICD-9: V70.0 04/25/2017 Other obesity due to excess calories ICD-10: E66.09 ICD-9: 278.00 04/25/2017 Otalgia, left ear ICD-10: H92.02 ICD-9: 388.70 10/20/2016 Acute laryngopharyngitis ICD-10: J06.0 ICD-9: 465.0 10/20/2016 Otalgia, right ear ICD-10: H92.01 ICD-9: 388.70 10/17/2016 Mixed hyperlipidemia ICD-10: E78.2 ICD-9: 272.2 07/11/2016 Cough ICD-10: R05 ICD-9: 786.2 07/11/2016 ELEV BL PRES W/O HYPERTN ICD-9: 796.2 Inflamed skin tag ICD-9: 701.9 2014 ESOPHAGEAL REFLUX ICD-9: 530.81 2013 Abnormal menstrual periods ICD-9: 626.2 08/08/2014 Missed periods ICD-9: 626.4 08/08/2014 Hiatal hernia ICD-9: 553.3 08/08/2014 Reason For Visit Reason For Visit Effective Dates Notes sinus congestion 08/17/2018 diarrhea 04/18/2018 Hospital Follow Up 02/23/2018 Hospital Follow Up 02/01/2018 abdominal pain 01/05/2018 cough 11/29/2017 hypertension 11/16/2017 weight gain/obesity 04/25/2017 sinus congestion 10/20/2016 earache 10/17/2016 cough 07/11/2016 skin lesion 01/01/2015 anxiety 08/08/2014 causes her chest discomfort, nausea, vomiting and diarrhea Results Observation Observation Code Item Item Code Result Date Comp Metabolic Nud286 NA 140 mEq/L 04/25/2017 Comp Metabolic Daw764 K 3.9 mEq/L 04/25/2017 Comp Metabolic Xmf425 CL 107 mEq/L 04/25/2017 Comp Metabolic Frr113 CO2 22.0 mEq/L 04/25/2017 Comp Metabolic Kdx820 ANION GAP 15 04/25/2017 Comp Metabolic Yli636 GLUCOSE 82 mg/dL 04/25/2017 Comp Metabolic Kub457 Creat 0.7 mg/dL 04/25/2017 Comp Metabolic Bdc014 eGFR 107 ml/min/1.73m2 04/25/2017 Comp Metabolic Rli133 BUN 10 mg/dL 04/25/2017 Comp Metabolic Gle283 B/C Ratio 15.4 Ratio 04/25/2017 Comp Metabolic Dis061 CALCIUM 8.9 mg/dL 04/25/2017 Comp Metabolic Ytf797 ALK PHOS 73 U/L 04/25/2017 Comp Metabolic Fnx674 AST(SGOT) 16 U/L 04/25/2017 Comp Metabolic Ouj804 ALT(SGPT) 12 U/L 04/25/2017 Comp Metabolic Noj887 BILI T 0.3 mg/dL 04/25/2017 Comp Metabolic Cep248 ALBUMIN 3.8 g/dL 04/25/2017 Comp Metabolic Jii426 TPRO 6.7 g/dL 04/25/2017 Comp Metabolic Ihg641 GLOB 2.9 g/dL 04/25/2017 Comp Metabolic Csn331 A/G Ratio 1.3 Ratio 04/25/2017 Comp Metabolic Efm107 Osmo 278 mOsmo 04/25/2017 Cbc With Differential Ord2 WBC 7.89 K/ul 04/25/2017 Cbc With Differential Ord2 RBC 4.73 M/ul 04/25/2017 Cbc With Differential Ord2 HGB 12.7 g/dl 04/25/2017 Cbc With Differential Ord2 HCT 38.6 % 04/25/2017 Cbc With Differential Ord2 Neut% 71.6 % 04/25/2017 Cbc With Differential Ord2 Lymph% 20.0 % 04/25/2017 Cbc With Differential Ord2 MCV 81.6 fl 04/25/2017 Cbc With Differential Ord2 MCH 26.8 pg 04/25/2017 Cbc With Differential Ord2 Placer% 5.7 % 04/25/2017 Cbc With Differential Ord2 Eos% 2.3 % 04/25/2017 Cbc With Differential Ord2 MCHC 32.9 pg 04/25/2017 Cbc With Differential Ord2 Baso% 0.4 % 04/25/2017 Cbc With Differential Ord2 PLT 400 K/ul 04/25/2017 Cbc With Differential Ord2 Neut ABS# 5.65 K/ul 04/25/2017 Cbc With Differential Ord2 RDW 14.4 % 04/25/2017 Cbc With Differential Ord2 Lymph ABS# 1.58 K/ul 04/25/2017 Cbc With Differential Ord2 Placer ABS# 0.5 K/ul 04/25/2017 Cbc With Differential [...] 13.6 g/dl 07/11/2016 Cbc With Differential Ord2 HCT 41.0 % 07/11/2016 Cbc With Differential Ord2 Neut% 79.7 % 07/11/2016 Cbc With Differential Ord2 MCV 81.2 fl 07/11/2016 Cbc With Differential Ord2 Lymph% 12.5 % 07/11/2016 Cbc With Differential Ord2 Placer% 6.9 % 07/11/2016 Cbc With Differential Ord2 MCH 26.9 pg 07/11/2016 Cbc With Differential Ord2 MCHC 33.2 pg 07/11/2016 Cbc With Differential Ord2 Eos% 0.7 % 07/11/2016 Cbc With Differential Ord2 Baso% 0.2 % 07/11/2016 Cbc With Differential Ord2 PLT 372 K/ul 07/11/2016 Cbc With Differential Ord2 Neut ABS# 9.59 K/ul 07/11/2016 Cbc With Differential Ord2 RDW 14.3 % 07/11/2016 Cbc With Differential Ord2 Lymph ABS# 1.51 K/ul 07/11/2016 Cbc With Differential Ord2 Placer ABS# 0.8 K/ul 07/11/2016 Cbc With Differential Ord2 Eos ABS# 0.1 K/ul 07/11/2016 Cbc With Differential Ord2 Baso ABS# 0.0 K/ul 07/11/2016 Comp Metabolic Udg449 NA 136 mEq/L 07/11/2016 Comp Metabolic Cqr446 K 4.2 mEq/L 07/11/2016 Comp Metabolic Owg311 CL 104 mEq/L 07/11/2016 Comp Metabolic Bhq739 CO2 20.0 mEq/L 07/11/2016 Comp Metabolic Skc509 ANION GAP 16 07/11/2016 Comp Metabolic Dxd572 GLUCOSE 86 mg/dL 07/11/2016 Comp Metabolic Iyx767 Creat 0.7 mg/dL 07/11/2016 Comp Metabolic Myh075 eGFR 106 ml/min/1.73m2 07/11/2016 Comp Metabolic Elu695 BUN 12 mg/dL 07/11/2016 Comp Metabolic Brx919 B/C Ratio 18.2 Ratio 07/11/2016 Comp Metabolic Xmr572 CALCIUM 9.3 mg/dL 07/11/2016 Comp Metabolic Vrp224 ALK PHOS 79 U/L 07/11/2016 Comp Metabolic Svd491 AST(SGOT) 19 U/L 07/11/2016 Comp Metabolic Fzb895 ALT(SGPT) 13 U/L 07/11/2016 Comp Metabolic Qvq027 BILI T 0.3 mg/dL 07/11/2016 Comp Metabolic Rqe007 ALBUMIN 4.1 g/dL 07/11/2016 Comp Metabolic Mqo439 TPRO 7.5 g/dL 07/11/2016 Comp Metabolic Ram971 GLOB 3.4 g/dL 07/11/2016 Comp Metabolic Jki093 A/G Ratio 1.2 Ratio 07/11/2016 Comp Metabolic Emf968 Osmo 271 mOsmo 07/11/2016 PREG U 2062237 PREG U NEG 08/08/2014 Review of Systems System Result Effective Dates Constitutional recent illness 08/17/2018 Constitutional No chills 08/17/2018 Constitutional No diaphoresis 08/17/2018 Constitutional No fever 08/17/2018 Eyes No eye erythema 08/17/2018 Ears/Nose/Throat/Neck nasal allergies Ears/Nose/Throat/Neck nasal discharge Ears/Nose/Throat/Neck postnasal drip Ears/Nose/Throat/Neck sinus congestion Ears/Nose/Throat/Neck No sore throat Cardiovascular No chest pain/pressure Cardiovascular No dyspnea 08/17/2018 Respiratory No chest congestion 2017 Respiratory cough 08/17/2018 Respiratory No dyspnea 08/17/2018 Gastrointestinal No abdominal pain 2017 Gastrointestinal No constipation 2017 Gastrointestinal No diarrhea 08/17/2018 Gastrointestinal No nausea 08/17/2018 Gastrointestinal No vomiting 08/17/2018 Dermatologic No rash 08/17/2018 Neurologic No alteration of consciousness 08/17/2018 Neurologic No mental status change 2017 Constitutional recent illness 04/18/2018 Constitutional No anorexia 04/18/2018 Constitutional No night sweats 2017 Constitutional No chills 04/18/2018 Constitutional No diaphoresis 04/18/2018 Constitutional No fatigue 04/18/2018 Constitutional No fever 04/18/2018 Eyes No eye discharge 04/18/2018 Eyes No eye erythema 04/18/2018 Ears/Nose/Throat/Neck No dizziness 2017 Ears/Nose/Throat/Neck No headache 2017 Cardiovascular No chest pain/pressure Cardiovascular No dyspnea 04/18/2018 Respiratory No cough 04/18/2018 Gastrointestinal No abdominal pain 2017 Gastrointestinal No constipation 2017 Gastrointestinal No diarrhea 04/18/2018 Gastrointestinal No nausea 04/18/2018 Gastrointestinal No vomiting 04/18/2018 Genitourinary/Nephrology No dysuria 04/18 Neurologic No alteration of consciousness 04/18/2018 Psychiatric No anxiety 04/18/2018 Constitutional recent illness 02/23/2018 Constitutional No anorexia 02/23/2018 Constitutional No night sweats 2017 Constitutional No chills 02/23/2018 Constitutional No diaphoresis 02/23/2018 Constitutional No fatigue 02/23/2018 Constitutional No fever 02/23/2018 Constitutional No insomnia 02/23/2018 Constitutional No malaise 02/23/2018 Constitutional No weight gain 02/23/2018 Eyes No eye discharge 02/23/2018 Eyes No eye erythema 02/23/2018 Ears/Nose/Throat/Neck No dizziness 2017 Ears/Nose/Throat/Neck No headache 2017 Cardiovascular No chest pain/pressure 09/2017 Cardiovascular No dyspnea 02/23/2018 Respiratory No cough 02/23/2018 Gastrointestinal No constipation 2017 Gastrointestinal No diarrhea 02/23/2018 Gastrointestinal No nausea 02/23/2018 Gastrointestinal No vomiting 02/23/2018 Genitourinary/Nephrology No dysuria 02/23 Genitourinary/Nephrology No vaginal discharge 02/23/2018 Musculoskeletal No stiffness 02/23/2018 Dermatologic No rash 02/23/2018 Dermatologic No sores 02/23/2018 Neurologic No alteration of consciousness 02/23/2018 Psychiatric No anxiety 02/23/2018 Endocrine No dry or coarse skin 2017 Hematologic/Lymphatic No abnormal ecchymoses 02/23/2018 Gastrointestinal No abdominal pain 2017 Constitutional recent illness 02/01/2018 Constitutional No anorexia 02/01/2018 Constitutional No night sweats 2017 Constitutional No chills 02/01/2018 Constitutional No diaphoresis 02/01/2018 Constitutional No fatigue 02/01/2018 Constitutional No fever 02/01/2018 Constitutional No insomnia 02/01/2018 Constitutional No malaise 02/01/2018 Constitutional weight loss 02/01/2018 Constitutional No weight gain 02/01/2018 Eyes No eye discharge 02/01/2018 Eyes No eye erythema 02/01/2018 Ears/Nose/Throat/Neck No dizziness 2017 Ears/Nose/Throat/Neck No headache 2017 Cardiovascular No chest pain/pressure 06/2018 Cardiovascular No dyspnea 02/01/2018 Respiratory No cough 02/01/2018 Gastrointestinal No abdominal pain 2017 Gastrointestinal No constipation 2017 Gastrointestinal No diarrhea 02/01/2018 Gastrointestinal No vomiting 02/01/2018 Gastrointestinal No nausea 02/01/2018 Genitourinary/Nephrology No dysuria 02/01 Dermatologic No rash 02/01/2018 Dermatologic No sores 02/01/2018 Musculoskeletal No stiffness 02/01/2018 Neurologic No alteration of consciousness 02/01/2018 Psychiatric No anxiety 02/01/2018 Endocrine No dry or coarse skin 2017 Hematologic/Lymphatic No abnormal ecchymoses 02/01/2018 Genitourinary/Nephrology No vaginal discharge 02/01/2018 Constitutional recent illness 01/05/2018 Constitutional No anorexia 01/05/2018 Constitutional No night sweats 2017 Constitutional No chills 01/05/2018 Constitutional No diaphoresis 01/05/2018 Constitutional No fatigue 01/05/2018 Constitutional No fever 01/05/2018 Constitutional No insomnia 01/05/2018 Constitutional No malaise 01/05/2018 Constitutional No weight loss 01/05/2018 Constitutional No weight gain 01/05/2018 Eyes No eye discharge 01/05/2018 Eyes No eye erythema 01/05/2018 Ears/Nose/Throat/Neck No dental pain Cardiovascular No chest pain/pressure Cardiovascular No dyspnea 01/05/2018 Cardiovascular No edema 01/05/2018 Respiratory No cough 01/05/2018 Gastrointestinal abdominal pain 2017 Gastrointestinal No constipation 2017 Gastrointestinal diarrhea 01/05/2018 Gastrointestinal nausea 01/05/2018 Gastrointestinal No vomiting 01/05/2018 Gastrointestinal No gastroesophageal reflux 01/05/2018 Genitourinary/Nephrology No dysuria 01/05 Musculoskeletal No joint complaint 2017 Dermatologic No rash 01/05/2018 Neurologic No alteration of consciousness 01/05/2018 Constitutional recent illness 11/29/2017 Constitutional No chills 11/29/2017 Constitutional No diaphoresis 11/29/2017 Constitutional No fever 11/29/2017 Eyes No eye erythema 11/29/2017 Ears/Nose/Throat/Neck nasal allergies 03/2018 Ears/Nose/Throat/Neck nasal discharge 03/2018 Ears/Nose/Throat/Neck postnasal drip 03/2018 Ears/Nose/Throat/Neck sinus congestion Ears/Nose/Throat/Neck No sore throat 03/2018 Cardiovascular No chest pain/pressure 03/2018 Cardiovascular No dyspnea 11/29/2017 Respiratory No chest congestion 2017 Respiratory cough 11/29/2017 Respiratory No dyspnea 11/29/2017 Gastrointestinal No abdominal pain 2017 Gastrointestinal No constipation 2017 Gastrointestinal No diarrhea 11/29/2017 Gastrointestinal No nausea 11/29/2017 Gastrointestinal No vomiting 11/29/2017 Dermatologic No rash 11/29/2017 Neurologic No alteration of consciousness 11/29/2017 Neurologic No mental status change 2017 Constitutional No recent illness 2017 Constitutional No chills 11/16/2017 Constitutional No diaphoresis 11/16/2017 Constitutional No fever 11/16/2017 Eyes No eye erythema 11/16/2017 Ears/Nose/Throat/Neck No nasal discharge 11/16/2017 Ears/Nose/Throat/Neck No nasal allergies 11/16/2017 Cardiovascular No chest pain/pressure Cardiovascular hypertension 11/16/2017 Respiratory No cough 11/16/2017 Respiratory No chest congestion 2017 Gastrointestinal No abdominal pain 2017 Musculoskeletal No joint complaint 2017 Dermatologic No rash 11/16/2017 Neurologic No alteration of consciousness 11/16/2017 Neurologic No mental status change 2017 Constitutional No fatigue 04/25/2017 Constitutional No fever [...] Result Effective Dates Notes Full Exam - ENT Constitutional general appearance Overall: well nourished 08/17/2018 None Full Exam - ENT Constitutional general appearance Overall: well developed 08/17/2018 None Full Exam - ENT Constitutional general appearance Overall: in no acute distress 08/17/2018 None Full Exam - ENT Ears/Nose/Throat otoscopic exam Overall: external auditory canals normal 08/17/2018 None Full Exam - ENT Ears/Nose/Throat otoscopic exam Left tympanic membrane: air -fluid level 08/17/2018 None Full Exam - ENT Ears/Nose/Throat otoscopic exam Right tympanic membrane: air-fluid level 08/17/2018 None Full Exam - ENT Ears/Nose/Throat nasal mucosa, septum, turbinates Drainage: clear 08/17/2018 None Full Exam - ENT Ears/Nose/Throat nasal mucosa, septum, turbinates Drainage: yellow 08/17/2018 None Full Exam - ENT Ears/Nose/Throat lips/ teeth/gingiva Overall: benign lips 08/17/2018 None Full Exam - ENT Ears/Nose/Throat oropharynx Posterior Pharynx: clear post nasal drainage 08/17/2018 None Full Exam - ENT Face and Head palpation Left maxillary sinus: tender 08/17/2018 None Full Exam - ENT Face and Head palpation Right maxillary sinus: tender 08/17/2018 None Full Exam - ENT Respiratory inspection Overall: no retractions 08/17/2018 None Full Exam - ENT Respiratory inspection Overall: normal rate None Full Exam - ENT Respiratory auscultation Overall: breath sounds clear bilaterally 08/17/2018 None Full Exam - ENT Cardiovascular auscultation of heart Overall: regular rate 08/17/2018 None Full Exam - ENT Cardiovascular auscultation of heart Overall: normal heart sounds 08/17/2018 None Full Exam - ENT Lymphatic palpation of lymph nodes Overall: anterior cervical chain benign 08/17/2018 None Full Exam - ENT Lymphatic palpation of lymph nodes Overall: posterior cervical chain benign 08/17/2018 None Full Exam - ENT Neurologic mood and affect Overall: normal mood 08/17/2018 None Full Exam - ENT Neurologic mood and affect Overall: normal affect 08/17/2018 None Full Exam - ENT Neurologic orientation Overall: oriented to person, place and time 08/17/2018 None Full Exam - ENT Ears/Nose/Throat otoscopic exam Right tympanic membrane: bulging 08/17/2018 None Full Exam - General 1994 Constitutional general appearance Development: well developed 04/18/2018 None Full Exam - General 1994 Constitutional general appearance Development: appears stated age 0704/18/2018 None Full Exam - General 1994 Constitutional general appearance Hygiene/Attention to Grooming: good hygiene 04/18/2018 None Full Exam - General 1994 Eyes conjunctiva /eyelids Overall: conjunctiva clear 04/18/2018 None Full Exam - General 1994 Eyes conjunctiva /eyelids Overall: cornea clear 04/18/2018 None Full Exam - General 1994 Eyes conjunctiva /eyelids Overall: eyelids normal 04/18/2018 None Full Exam - General 1994 Eyes pupils and irises Overall: pupils equal, round, reactive to light and accomodation 04/18/2018 None Full Exam - General 1994 Ears/Nose/Throat otoscopic exam Overall: external auditory canals clear 04/18/2018 None Full Exam - General 1994 Ears/Nose/Throat otoscopic exam Overall: tympanic membranes clear 04/18/2018 None Full Exam - General 1994 Ears/Nose/Throat lips/teeth/gingiva Overall: benign lips 04/18/2018 None Full Exam - General 1994 Ears/Nose/Throat lips/teeth/gingiva Overall: normal dentition 04/18/2018 None Full Exam - General 1994 Ears/Nose/Throat oral cavity/pharynx/larynx Overall: oral mucosa clear 04/18/2018 None Full Exam - General 1994 Ears/Nose/Throat oral cavity/pharynx/larynx Overall: oropharyngeal mucosa clear 04/18/2018 None Full Exam - General 1994 Ears/Nose/Throat oral cavity/pharynx/larynx Overall: hypopharynx benign 04/18/2018 None Full Exam - General 1994 Ears/Nose/Throat oral cavity/pharynx/larynx Overall: no masses 04/18/2018 None Full Exam - General 1994 Respiratory auscultation Overall: breath sounds clear bilaterally 04/18/2018 None Full Exam - General 1994 Respiratory respiratory effort/rhythm Overall: no retractions 04/18/2018 None Full Exam - General 1994 Respiratory respiratory effort/rhythm Overall: normal rate 04/18/2018 None Full Exam - General 1994 Cardiovascular extremities Overall: no clubbing 04/18/2018 None Full Exam - General 1994 Cardiovascular auscultation of heart Overall: regular rate 04/18/2018 None Full Exam - General 1994 Cardiovascular auscultation of heart Overall: normal heart sounds 04/18/2018 None Full Exam - General 1994 Abdomen abdominal exam Overall: no tenderness 04/18/2018 None Full Exam - General 1994 Abdomen abdominal exam Overall: normal bowel sounds 04/18/2018 None Full Exam - General 1994 Musculoskeletal spine, ribs and pelvis Overall: good posture 04/18/2018 None Full Exam - General 1994 Musculoskeletal head and neck Overall: head atraumatic 04/18/2018 None Full Exam - General 1994 Musculoskeletal head and neck Overall: cervical spine benign 04/18/2018 None Full Exam - General 1994 Psychiatric orientation/consciousness Overall: oriented to person, place and time 04/18/2018 None Full Exam - General 1994 Psychiatric mood and affect Overall: normal mood and affect 04/18/2018 None Full Exam - General 1994 Constitutional general appearance Development: well developed 02/23/2018 None Full Exam - General 1994 Constitutional general appearance Development: appears stated age 0602/23/2018 None Full Exam - General 1994 Constitutional general appearance Hygiene/Attention to Grooming: good hygiene 02/23/2018 None Full Exam - General 1994 Eyes conjunctiva /eyelids Overall: conjunctiva clear 02/23/2018 None Full Exam - General 1994 Eyes conjunctiva /eyelids Overall: cornea clear 02/23/2018 None Full Exam - General 1994 Eyes conjunctiva /eyelids Overall: eyelids normal 02/23/2018 None Full Exam - General 1994 Eyes pupils and irises Overall: pupils equal, round, reactive to light and accomodation 02/23/2018 None Full Exam - General 1994 Ears/Nose/Throat otoscopic exam Overall: external auditory canals clear 02/23/2018 None Full Exam - General 1994 Ears/Nose/Throat otoscopic exam Overall: tympanic membranes clear 02/23/2018 None Full Exam - General 1994 Ears/Nose/Throat lips/teeth/gingiva Overall: benign lips 02/23/2018 None Full Exam - General 1994 Ears/Nose/Throat lips/teeth/gingiva Overall: normal dentition 02/23/2018 None Full Exam - General 1994 Ears/Nose/Throat oral cavity/pharynx/larynx Overall: oral mucosa clear 02/23/2018 None Full Exam - General 1994 Ears/Nose/Throat oral cavity/pharynx/larynx Overall: oropharyngeal mucosa clear 02/23/2018 None Full Exam - General 1994 Ears/Nose/Throat oral cavity/pharynx/larynx Overall: hypopharynx benign 02/23/2018 None Full Exam - General 1994 Ears/Nose/Throat oral cavity/pharynx/larynx Overall: no masses 02/23/2018 None Full Exam - General 1994 Respiratory auscultation Overall: breath sounds clear bilaterally 02/23/2018 None Full Exam - General 1994 Respiratory respiratory effort/rhythm Overall: no retractions 02/23/2018 None Full Exam - General 1994 Respiratory respiratory effort/rhythm Overall: normal rate 02/23/2018 None Full Exam - General 1994 Cardiovascular extremities Overall: no clubbing 02/23/2018 None Full Exam - General 1994 Cardiovascular auscultation of heart Overall: regular rate 02/23/2018 None Full Exam - General 1994 Cardiovascular auscultation of heart Overall: normal heart sounds 02/23/2018 None Full Exam - General 1994 Abdomen abdominal exam Overall: no tenderness 02/23/2018 None Full Exam - General 1994 Abdomen abdominal exam Overall: normal bowel sounds 02/23/2018 None Full Exam - General 1994 Lymphatic neck nodes Overall: anterior cervical chain benign 02/23/2018 None Full Exam - General 1994 Lymphatic neck nodes Overall: posterior cervical chain benign 02/23/2018 None Full Exam - General 1994 Musculoskeletal spine, ribs and pelvis Overall: spine benign 02/23/2018 None Full Exam - General 1994 Musculoskeletal spine, ribs and pelvis Overall: sacroiliac joint benign 02/23/2018 None Full Exam - General 1994 Musculoskeletal spine, ribs and pelvis Overall: good posture 02/23/2018 None Full Exam - General 1994 Musculoskeletal head and neck Overall: head atraumatic 02/23/2018 None Full Exam - General 1994 Musculoskeletal head and neck Overall: cervical spine benign 02/23/2018 None Full Exam - General 1994 Integument inspection of skin Overall: few scattered moles, no gross abnormalities 02/23/2018 None Full Exam - General 1994 Neurologic deep tendon reflexes Overall: deep tendon reflexes intact 02/23/2018 None Full Exam - General 1994 Neurologic cranial nerves Overall: crainial nerves 2 - 12 grossly intact 02/23/2018 None Full Exam - General 1994 Psychiatric orientation/consciousness Overall: oriented to person, place and time 02/23/2018 None Full Exam - General 1994 Psychiatric mood and affect Overall: normal mood and affect 02/23/2018 None Full Exam - General 1994 Constitutional general appearance Development: well developed 02/01/2018 None Full Exam - General 1994 Constitutional general appearance Development: appears stated age 0502/01/2018 None Full Exam - General 1994 Constitutional general appearance Hygiene/Attention to Grooming: good hygiene 02/01/2018 None Full Exam - General 1994 Eyes conjunctiva /eyelids Overall: conjunctiva clear 02/01/2018 None Full Exam - General 1994 Eyes conjunctiva /eyelids Overall: cornea clear 02/01/2018 None Full Exam - General 1994 Eyes conjunctiva /eyelids Overall: eyelids normal 02/01/2018 None Full Exam - General 1994 Eyes pupils and irises Overall: pupils equal, round, reactive to light and accomodation 02/01/2018 None Full Exam - General 1994 Ears/Nose/Throat otoscopic exam Overall: external auditory canals clear 02/01/2018 None Full Exam - General 1994 Ears/Nose/Throat otoscopic exam Overall: tympanic membranes clear 02/01/2018 None Full Exam - General 1994 Ears/Nose/Throat lips/teeth/gingiva Overall: benign lips 02/01/2018 None Full Exam - General 1994 Ears/Nose/Throat lips/teeth/gingiva Overall: normal dentition 02/01/2018 None Full Exam - General 1994 Ears/Nose/Throat oral cavity/pharynx/larynx Overall: oral mucosa clear 02/01/2018 None Full Exam - General 1994 Ears/Nose/Throat oral cavity/pharynx/larynx Overall: oropharyngeal mucosa clear 02/01/2018 None Full Exam - General 1994 Ears/Nose/Throat oral cavity/pharynx/larynx Overall: hypopharynx benign 02/01/2018 None Full Exam - General 1994 Ears/Nose/Throat oral cavity/pharynx/larynx Overall: no masses 02/01/2018 None Full Exam - General 1994 Respiratory auscultation Overall: breath sounds clear bilaterally 02/01/2018 None Full Exam - General 1994 Respiratory respiratory effort/rhythm Overall: no retractions 02/01/2018 None Full Exam - General 1994 Respiratory respiratory effort/rhythm Overall: normal rate 02/01/2018 None Full Exam - General 1994 Cardiovascular extremities Overall: no clubbing 02/01/2018 None Full Exam - General 1994 Cardiovascular auscultation of heart Overall: regular rate 02/01/2018 None Full Exam - General 1994 Cardiovascular auscultation of heart Overall: normal heart sounds 02/01/2018 None Full Exam - General 1994 Abdomen abdominal exam Overall: no tenderness 02/01/2018 None Full Exam - General 1994 Abdomen abdominal exam Overall: normal bowel sounds 02/01/2018 None Full Exam - General 1994 Lymphatic neck nodes Overall: anterior cervical chain benign 02/01/2018 None Full Exam - General 1994 Lymphatic neck nodes Overall: posterior cervical chain benign 02/01/2018 None Full Exam - General 1994 Musculoskeletal spine, ribs and pelvis Overall: spine benign 02/01/2018 None Full Exam - General 1994 Musculoskeletal spine, ribs and pelvis Overall: sacroiliac joint benign 02/01/2018 None Full Exam - General 1994 Musculoskeletal spine, ribs and pelvis Overall: good posture 02/01/2018 None Full Exam - General 1994 Musculoskeletal head and neck Overall: head atraumatic 02/01/2018 None Full Exam - General 1994 Musculoskeletal head and neck Overall: cervical spine benign 02/01/2018 None Full Exam - General 1994 Integument inspection of skin Overall: few scattered moles, no gross abnormalities 02/01/2018 None Full Exam - General 1994 Neurologic deep tendon reflexes Overall: deep tendon reflexes intact 02/01/2018 None Full Exam - General 1994 Neurologic cranial nerves Overall: crainial nerves 2 - 12 grossly intact 02/01/2018 None Full Exam - General 1994 Psychiatric orientation/consciousness Overall: oriented to person, place and time 02/01/2018 None Full Exam - General 1994 Psychiatric mood and affect Overall: normal mood and affect 02/01/2018 None Full Exam - General 1994 Constitutional general appearance Development: well developed 01/05/2018 None Full Exam - General 1994 Constitutional general appearance Development: appears stated age 0401/05/2018 None Full Exam - General 1994 Constitutional general appearance Hygiene/Attention to Grooming: good hygiene 01/05/2018 None Full Exam - General 1994 Eyes conjunctiva /eyelids Overall: conjunctiva clear 01/05/2018 None Full Exam - General 1994 Eyes conjunctiva /eyelids Overall: cornea clear 01/05/2018 None Full Exam - General 1994 Eyes conjunctiva /eyelids Overall: eyelids normal 01/05/2018 None Full Exam - General 1994 Eyes pupils and irises Overall: pupils equal, round, reactive to light and accomodation 01/05/2018 None Full Exam - General 1994 Ears/Nose/Throat otoscopic exam Overall: external auditory canals clear 01/05/2018 None Full Exam - General 1994 Ears/Nose/Throat otoscopic exam Overall: tympanic membranes clear 01/05/2018 None Full Exam - General 1994 Ears/Nose/Throat lips/teeth/gingiva Overall: benign lips 01/05/2018 None Full Exam - General 1994 Ears/Nose/Throat lips/teeth/gingiva Overall: normal dentition 01/05/2018 None Full Exam - General 1994 Ears/Nose/Throat oral cavity/pharynx/larynx Overall: oral mucosa clear 01/05/2018 None Full Exam - General 1994 Ears/Nose/Throat oral cavity/pharynx/larynx Overall: oropharyngeal mucosa clear 01/05/2018 None Full Exam - General 1994 Ears/Nose/Throat oral cavity/pharynx/larynx Overall: hypopharynx benign 01/05/2018 None Full Exam - General 1994 Ears/Nose/Throat oral cavity/pharynx/larynx Overall: no masses 01/05/2018 None Full Exam - General 1994 Respiratory auscultation Overall: breath sounds clear bilaterally 01/05/2018 None Full Exam - General 1994 Respiratory respiratory effort/rhythm Overall: no retractions 01/05/2018 None Full Exam - General 1994 Respiratory respiratory effort/rhythm Overall: normal rate 01/05/2018 None Full Exam - General 1994 Cardiovascular extremities Overall: no clubbing 01/05/2018 None Full Exam - General 1994 Cardiovascular auscultation of heart Overall: regular rate 01/05/2018 None Full Exam - General 1994 Cardiovascular auscultation of heart Overall: normal heart sounds 01/05/2018 None Full Exam - General 1994 Abdomen abdominal exam Overall: no tenderness 01/05/2018 None Full Exam - General 1994 Abdomen abdominal exam Overall: normal bowel sounds 01/05/2018 None Full Exam - General 1994 Lymphatic neck nodes Overall: anterior cervical chain benign 01/05/2018 None Full Exam - General 1994 Lymphatic neck nodes Overall: posterior cervical chain benign 01/05/2018 None Full Exam - General 1994 Musculoskeletal spine, ribs and pelvis Overall: spine benign 01/05/2018 None Full Exam - General 1994 Musculoskeletal spine, ribs and pelvis Overall: sacroiliac joint benign 01/05/2018 None Full Exam - General 1994 Musculoskeletal spine, ribs and pelvis Overall: good posture 01/05/2018 None Full Exam - General 1994 Musculoskeletal head and neck Overall: head atraumatic 01/05/2018 None Full Exam - General 1994 Musculoskeletal head and neck Overall: cervical spine benign 01/05/2018 None Full Exam - General 1994 Neurologic deep tendon reflexes Overall: deep tendon reflexes intact 01/05/2018 None Full Exam - General 1994 Neurologic cranial nerves Overall: crainial nerves 2 - 12 grossly intact 01/05/2018 None Full Exam - General 1994 Psychiatric orientation/consciousness Overall: oriented to person, place and time 01/05/2018 None Full Exam - General 1994 Psychiatric mood and affect Overall: normal mood and affect 01/05/2018 None Full Exam - General 1994 Abdomen abdominal exam Lower quadrant: tender to palpation 01/05/2018 None Full Exam - ENT Constitutional general appearance Overall: well nourished 11/29/2017 None Full Exam - ENT Constitutional general appearance Overall: well developed 11/29/2017 None Full Exam - ENT Constitutional general appearance Overall: in no acute distress 11/29/2017 None Full Exam - ENT Ears/Nose/Throat otoscopic exam Overall: external auditory canals normal 11/29/2017 None Full Exam - ENT Ears/Nose/Throat otoscopic exam Left tympanic membrane: air -fluid level 11/29/2017 None Full Exam - ENT Ears/Nose/Throat otoscopic exam Right tympanic membrane: air-fluid level 11/29/2017 None Full Exam - ENT Ears/Nose/Throat nasal mucosa, septum, turbinates Drainage: clear 11/29/2017 None Full Exam - ENT Ears/Nose/Throat nasal mucosa, septum, turbinates Drainage: yellow 11/29/2017 None Full Exam - ENT Ears/Nose/Throat lips/ teeth/gingiva Overall: benign lips 11/29/2017 None Full Exam - ENT Ears/Nose/Throat oropharynx Posterior Pharynx: clear post nasal drainage 11/29/2017 None Full Exam - ENT Face and Head palpation Left maxillary sinus: tender 11/29/2017 None Full Exam - ENT Face and Head palpation Right maxillary sinus: tender 11/29/2017 None Full Exam - ENT Respiratory inspection Overall: no retractions 11/29/2017 None Full Exam - ENT Respiratory inspection Overall: normal rate 03/2018 None Full Exam - ENT Respiratory auscultation Overall: breath sounds clear bilaterally 11/29/2017 None Full Exam - ENT Cardiovascular auscultation of heart Overall: regular rate 11/29/2017 None Full Exam - ENT Cardiovascular auscultation of heart Overall: normal heart sounds 11/29/2017 None Full Exam - ENT Lymphatic palpation of lymph nodes Overall: anterior cervical chain benign 11/29/2017 None Full Exam - ENT Lymphatic palpation of lymph nodes Overall: posterior cervical chain benign 11/29/2017 None Full Exam - ENT Neurologic mood and affect Overall: normal mood 11/29/2017 None Full Exam - ENT Neurologic mood and affect Overall: normal affect 11/29/2017 None Full Exam - ENT Neurologic orientation Overall: oriented to person, place and time 11/29/2017 None Full Exam - General 1994 Constitutional general appearance Overall: well developed 11/16/2017 None Full Exam - General 1994 Constitutional general appearance Overall: in no acute distress 11/16/2017 None Full Exam - General 1994 Constitutional general appearance Overall: well nourished 11/16/2017 None Full Exam - General 1994 Eyes conjunctiva /eyelids Overall: conjunctiva clear 11/16/2017 None Full Exam - General 1994 Eyes conjunctiva /eyelids Overall: cornea clear 11/16/2017 None Full Exam - General 1994 Eyes conjunctiva /eyelids Overall: eyelids normal 11/16/2017 None Full Exam - General 1994 Eyes pupils and irises Overall: pupils equal, round, reactive to light and accomodation 11/16/2017 None Full Exam - General 1994 Ears/Nose/Throat lips/teeth/gingiva Overall: benign lips 11/16/2017 None Full Exam - General 1994 Ears/Nose/Throat oral cavity/pharynx/larynx Overall: oral mucosa clear 11/16/2017 None Full Exam - General 1994 Ears/Nose/Throat oral cavity/pharynx/larynx Overall: oropharyngeal mucosa clear 11/16/2017 None Full Exam - General 1994 Respiratory auscultation Overall: breath sounds clear bilaterally 11/16/2017 None Full Exam - General 1994 Respiratory respiratory effort/rhythm Overall: no retractions 11/16/2017 None Full Exam - General 1994 Respiratory respiratory effort/rhythm Overall: normal rate 11/16/2017 None Full Exam - General 1994 Cardiovascular auscultation of heart Overall: regular rate 11/16/2017 None Full Exam - General 1994 Cardiovascular auscultation of heart Overall: normal heart sounds 11/16/2017 None Full Exam - General 1994 Musculoskeletal head and neck Overall: head atraumatic 11/16/2017 None Full Exam - General 1994 Musculoskeletal gait and station Overall: normal station 11/16/2017 None Full Exam - General 1994 Musculoskeletal gait and station Overall: normal gait 11/16/2017 None Full Exam - General 1994 Neurologic cranial nerves Overall: crainial nerves 2 - 12 grossly intact 11/16/2017 None Full Exam - General 1994 Psychiatric orientation/consciousness Overall: oriented to person, place and time 11/16/2017 None Full Exam - General 1994 Psychiatric mood and affect Overall: normal mood and affect 11/16/2017 None Full Exam - General 1994 Constitutional [...] General 1994 Ears/Nose/Throat lips/teeth/gingiva Overall: benign lips 04/25/2017 None [...] benign 08/08/2014 None Procedures Procedure Codes Date TRIAMCINOLONE ACET INJ NOS CPT-4: J3301 08/17/2018 THER/PROPH/DIAG INJ SC/IM CPT-4: 02474 08/17/2018 KETOROLAC TROMETHAMINE INJ CPT-4: J1885 01/05/2018 THER/PROPH/DIAG INJ SC/IM CPT-4: 12143 10/17/2016 TRIAMCINOLONE ACET INJ NOS CPT-4: J3301 10/17/2016 REMOVAL OF SKIN TAGS <W/15 CPT-4: 74818 01/01/2015 Vital Signs Date Vital 08/17/2018 Blood Pressure 1: 142/88 Code : 8480-6 BMI: 36.3 Code : 85824-9 Heart Rate 1 : 91 bpm Height: 5' SpO2: 98% Temperature: 37.1 (C) / 98.8 (F) Weight: 186 lbs 04/18/2018 Blood Pressure 1: 118/82 Code : 8480-6 BMI: 36.3 Code : 19983-4 Heart Rate 1 : 103 bpm Height: 5' SpO2: 99% Weight: 186 lbs 02/23/2018 Blood Pressure 1: 134/88 Code : 8480-6 BMI: 37.1 Code : 96555-2 Heart Rate 1 : 99 bpm Height: 5' SpO2: 97% Weight: 190 lbs 02/01/2018 Blood Pressure 1: 132/86 Code : 8480-6 BMI: 36.9 Code : 26198-0 Heart Rate 1 : 83 bpm Height: 5' SpO2: 99% Weight: 189 lbs 01/05/2018 Blood Pressure 1: 138/82 Code : 8480-6 BMI: 38.7 Code : 76253-7 Heart Rate 1 : 98 bpm Height: 5' SpO2: 98% Weight: 198 lbs 11/29/2017 Blood Pressure 1: 136/74 Code : 8480-6 BMI: 38.7 Code : 04239-2 Heart Rate 1 : 84 bpm Height: 5' SpO2: 98% Weight: 198 lbs 11/16/2017 Blood Pressure 1: 138/88 Code : 8480-6 BMI: 38.7 Code : 82325-8 Heart Rate 1 : 83 bpm Height: 5' SpO2: 98% Weight: 198 lbs 04/25/2017 Blood Pressure 1: 138/90 Code : 8480-6 BMI: 40.2 Code : 64539-7 Heart Rate 1 : 84 bpm Height: 5' SpO2: 98% Weight: 206 lbs 10/20/2016 Blood Pressure 1: 140/82 Code : 8480-6 BMI: 39.1 Code : 65694-7 Heart Rate 1 : 87 bpm Height: 5' SpO2: 97% Temperature: 37.2 (C) / 98.9 (F) Weight: 200 lbs 07/11/2016 Blood Pressure 1: 142/88 Code : 8480-6 BMI: 38.7 Code : 02296-6 Heart Rate 1 : 104 bpm Height: 5' SpO2: 96% Temperature: 36.7 (C) / 98.0 (F) Weight: 198 lbs 01/08/2015 Blood Pressure 1: 118/78 Code : 8480-6 01/06/2015 Blood Pressure 1: 132/80 Code : 8480-6 01/01/2015 Blood Pressure 1: 150/102 Code: 8480-6 Blood Pressure 2: 150/96 Code: 8480-6 BMI: 33.4 Code: 63312-9 Heart Rate 1: 71 bpm Height: 5' SpO2: 99% Weight: 171 lbs 08/08/2014 Blood Pressure 1: 136/70 Code : 8480-6 BMI: 40.8 Code : 61147-0 Heart Rate 1 : 84 bpm Height: 5' Weight: 209 lbs Functional Status No Functional Status data History of Present Illness Symptom Name Status Result Effective Date Notes sinus congestion Location frontal sinuses 08/17/2018 None sinus congestion Quality constant 08/17/2018 None sinus congestion Quality fullness 08/17/2018 None sinus congestion Quality pressure 08/17/2018 None sinus congestion Onset and Resolution sudden in onset 08/17/2018 None sinus congestion Onset of Symptom 5 days ago 08/17/2018 None sinus congestion Frequency of Episodes daily 08/17/2018 None sore throat Location diffusely 08/17/2018 None sore throat Quality aching 08/17/2018 None sore throat Quality constant 08/17/2018 None sore throat Quality burning 08/17/2018 None sore throat Onset and Resolution sudden in onset 08/17/2018 None sore throat Onset of Symptom 5 days ago 08/17/2018 None sore throat Frequency of Episodes daily 08/17/2018 None earache Location both ears 08/17/2018 None earache Onset and Resolution sudden in onset 08/17/2018 None earache Onset of Symptom 5 days ago 08/17/2018 None diarrhea Quality acute 04/18/2018 now resolved diarrhea Onset and Resolution sudden in onset 04/18/2018 None diarrhea Onset and Resolution resolved 04/18/2018 None diarrhea Onset of Symptom 3-4 weeks ago 04/18/2018 None Hospital Follow Up _ gastrointestinal complaints 02/23/2018 (abdominal pain, n/v /d, fever) Hospital Follow Up Quality acute illness 02/23/2018 None Hospital Follow Up Quality improving 02/23/2018 None Hospital Follow Up Alleviating Factors medication 02/23/2018 None Hospital Follow Up _ gastrointestinal complaints 02/01/2018 (abdominal pain and nausea) Hospital Follow Up Quality acute illness 02/01/2018 None Hospital Follow Up Quality improving 02/01/2018 None Hospital Follow Up Alleviating Factors medication 02/01/2018 None Hospital Follow Up Onset and Resolution resolved 02/01/2018 None Hospital Follow Up Severity severe 02/01/2018 None Hospital Follow Up Significant Medical Conditions acute illness 02/01/2018 None Hospital Follow Up Onset of Symptom _ weeks ago 02/01/2018 None abdominal pain Location diffusely 01/05/2018 None abdominal pain Location in the suprapubic area 01/05/2018 None abdominal pain Quality aching 01/05/2018 None abdominal pain Quality cramping 01/05/2018 None abdominal pain Quality constant 01/05/2018 None abdominal pain Onset and Resolution sudden in onset 01/05/2018 None abdominal pain Onset of Symptom 1 days ago 01/05/2018 None diarrhea Quality constant 01/05/2018 None diarrhea Onset and Resolution sudden in onset 01/05/2018 None diarrhea Onset of Symptom 1 days ago 01/05/2018 None abdominal pain Limitation on Activities moderately limits activities 01/05/2018 None abdominal pain Frequency of Episodes increasing 01/05/2018 None abdominal pain Triggers no known associated factors 01/05/2018 None abdominal pain Alleviating Factors medication 01/05/2018 None abdominal pain Pertinent Findings Denies abdominal distension 01/05/2018 None abdominal pain Pertinent Findings Denies back pain 01/05/2018 None abdominal pain Pertinent Findings Denies cough 01/05/2018 None abdominal pain Pertinent Findings Denies fever 01/05/2018 None abdominal pain Pertinent Findings nausea 01/05/2018 None cough Location in the throat 11/29/2017 None cough Quality constant 11/29/2017 None cough Quality hacking 11/29/2017 None cough Quality productive 11/29/2017 None cough Onset and Resolution sudden in onset 11/29/2017 None cough Onset of Symptom 2 weeks ago 11/29/2017 None cough Frequency of Episodes daily 11/29/2017 None sinus congestion Location frontal sinuses 11/29/2017 None sinus congestion Quality constant 11/29/2017 None sinus congestion Quality fullness 11/29/2017 None sinus congestion Onset and Resolution sudden in onset 11/29/2017 None hypertension Quality constant 11/16/2017 None hypertension Onset and Resolution gradual in onset 11/16/2017 None hypertension Onset of Symptom 1 years ago 11/16/2017 None weight gain/obesity Location globally 04/25/2017 None weight [...] data Encounters Encounter Performer Location Codes Date EST. PATIENT, LEVEL IV Diagnosis: Other acute sinusitis[ICD10: J01.80] Diagnosis: Other allergic rhinitis[ICD10: J30.89] [facility] CPT-4: 49341 08/17/2018 ([id number]) [id number] EST. PATIENT, LEVEL III Diagnosis: Essential (primary) hypertension[ICD10: I10] Diagnosis: Personal history of other infectious and parasitic diseases[ICD10: Z86.19] [facility] CPT-4: 44475 2017 ([id number]) 41485 EST. PATIENT, LEVEL III Diagnosis: Generalized anxiety disorder[ICD10: F41.1] Diagnosis: Urinary tract infection, site not specified[ICD10: N39.0] [facility] CPT-4: 95123 02/23/2018 ([id number]) 66091 EST. PATIENT, LEVEL III Diagnosis: Generalized abdominal pain[ICD10: R10.84] Diagnosis: Candidiasis of vulva and vagina[ICD10: B37.3] Jeanine Dale MD, [facility] CPT-4: 62497 02/01/2018 ([id number]) 58827 EST. PATIENT, LEVEL IV Diagnosis: Generalized abdominal pain[ICD10: R10.84] Diagnosis: Nausea[ICD10: R11.0] Diagnosis: Diarrhea, unspecified[ICD10: R19.7] Jeanine Dale MD, [facility] CPT-4: 86331 01/05/2018 [id number] EST. PATIENT, LEVEL IV Diagnosis: Other allergic rhinitis[ICD10: J30.89] Diagnosis: Essential (primary) hypertension[ICD10: I10] Tere Dale MD, [facility] CPT-4: 05627 11/29/2017 [id number] EST. PATIENT, LEVEL III Diagnosis: Essential (primary) hypertension[ICD10: I10] Tere Dale MD, [facility] CPT-4: 41720 11/16/2017 ([id number]) PREV VISIT EST AGE 40-64 Diagnosis: Encounter for general adult medical examination without abnormal findings[ICD10: Z00.00] Diagnosis: Other obesity due to excess calories[ICD10: E66.09] Jeanine Dale MD, [facility] CPT-4: 54419 04/25/2017 [id number] EST. PATIENT, LEVEL III Diagnosis: Acute laryngopharyngitis[ICD10: J06.0] Diagnosis: Other allergic rhinitis[ICD10: J30.89] Diagnosis: Otalgia, left ear[ICD10: H92.02] Tere Dale MD, [facility] CPT- 4: 93174 10/20/2016 ([id number]) 47305 EST. PATIENT, LEVEL III Diagnosis: Mixed hyperlipidemia[ICD10: E78.2] Diagnosis: Cough[ICD10: R05] Jeanine Dale MD, [facility] CPT-4: 45819 07/11/2016 ([id number]) Miscellaneous no charge Diagnosis: ELEV BL PRES W/O HYPERTN[ICD9: 796.2] Jeanine Dale MD, [facility] CPT-4: 57734 01/08/2015 ([id number]) Miscellaneous no charge Diagnosis: ELEV BL PRES W/O HYPERTN[ICD9: 796.2] [facility] CPT-4: 94119 01/06/2015 ([id number]) OFFICE VISIT, NEW - LEVEL 4 Diagnosis: Abnormal menstrual periods[ICD9: 626.2] Diagnosis: Hiatal hernia[ICD9: 553.3] Diagnosis: ESOPHAGEAL REFLUX[ICD9: 530.81] Diagnosis: Missed periods[ICD9: 626.4] [facility] CPT- 4: 35371 08/08/2014 Plan of Care Planned Activity Notes Codes Status Date Visit Plan: Sinusitis - Pt has acute infection - pain in face, maxillary region, Pt informed to use decongestant, RX given to patient, sinus rinses also recommended. Call if symptoms do not show improvement. Allergies - chronic - recommended pt to use allergy medication as prescribed. Pt has been counseled as to the appropriate use of the medication. Pt to call if allergy symptoms are not controlled with the medication. If using nasal spray , instructions as follows: Nasal spray- use twice daily, one spray per nostril twice daily, after 30 minutes, rinse out nose with saline spray.. Use opposite hand per nostril to spray in the nasal steroid allergy spray. 08/17/2018 Appointment: Te[facility] Coello [facility]el[facility] (15 min) Moderate 08/17/2018 Patient Education: Patient Medication Summary Completed 08/17/2018 Visit Plan: Hypertension - well controlled - continue with current medications, continue with no added salt diet. Pt has been encouraged to exercise daily. The pt has been advised to call the office if there are any acute concerns about change in blood pressure readings at home. Hx of Cdiff infection - recommended pt to get a refrigerated probiotic. Call if any symptoms of a return of the diarrhea. 04/18/2018 Appointment: [facility]eni Dale [facility]Ptel[facility] (15 min) Moderate 04/18/2018 Patient Education: Patient Medication Summary Completed 04/18/2018 Appointment: Lab Draw 03/02/2018 Patient Education: Patient Medication Summary Completed 03/02/2018 Visit Plan: UTI-finish abx-repeat UA 72 hours after abx complete Anxiety-continue prozac -rx for xanax to use prn -call if symptoms uncontrolled 02/23/2018 Appointment: Jeanine Cunningham WPtel: [facility] (30 min) Complex 02/23/2018 Patient Education: Patient Medication Summary Completed 02/23/2018 Appointment: Tere Coello WPtel: [facility] [place] [phone] [place] (15 min) Moderate 02/20/2018 Visit Plan: Abdominal xidd-avfsankcd-cuaaexga follow up- symptoms have resolved-patient to finish abx as directed-call if symptoms return Yeast infection-rx for diflucan -start after antibiotics complete 02/01/2018 Appointment: Jeanine Cunningham WPtel: [facility] [place] [phone] (30 min) Complex 02/01/2018 Patient Education: Patient Medication Summary Completed 02/01/2018 Visit Plan: Abdominal zixk-mghkhd-vbrikjyh-clear liquid advance to bland diet, low fat diet, start on probiotic, and rehydrate with gatorade-like product. Pt to call if feeling worse, diarrhea becomes bloody, or does not improve with above recommendations. RX sent to patient's pharmacy and instructed on use. ER over the weekend for worsening symptoms-will schedule CT abd/pelvis for recurrent abdominal pain. 01/05/2018 Appointment: Jeanine Cunningham WPtel: [facility] [address] [place] (30 min) Complex 01/05/2018 Patient Education: Patient Medication Summary Completed 01/05/2018 Visit Plan: Allergies - chronic - recommended [...] spray in the nasal steroid allergy spray. Hypertension - well controlled - continue with current medications, continue with no added salt diet. Pt has been encouraged to exercise daily. The pt has been advised to call the office if there are any acute concerns about change in blood pressure readings at home. 11/29/2017 Appointment: Tere Coello WPtel: [phone] [facility] (30 min) Complex 11/29/2017 Patient Education: Patient Medication Summary Completed 11/29/2017 Visit Plan: Hypertension - uncontrolled - the patient's medications have been modified as documented in the visit note. The patient has been counseled to cut back on salt in diet for a no added salt diet, low fat diet, start an exercise program with low weight bearing exercises and higher aerobic activity for heart health. The patient is to check blood pressure readings as an outpatient and either fax, call, or email the readings to the office next week for practitioner to review. The pt is to call for acute concerns. 11/16/2017 Appointment: Tere Coello WPtel: [phone] [facility] (15 min) Moderate 11/16/2017 Patient Education: Patient Medication Summary Completed 11/16/2017 Visit Plan: Well Adult - pt was [...] use 04/25/2017 Appointment: Jeanine Cunningham WPtel: [phone] [phone] [place] (15 min) Moderate 04/25/2017 Patient Education: Patient [...] allergy spray. 10/20/2016 Appointment: Tere Coello WPtel: [phone] [facility] (30 min) Complex 10/20/2016 Patient Education: [...] patient's pharmacy. 07/11/2016 Appointment: Jeanine Cunningham WPtel: [phone] [phone] [place] (30 min) Complex 07/11/2016 Patient Education: Patient Medication Summary Completed [...] as well. 08/08/2014 Appointment: Yeni Dale WPtel: [facility] New Patient 08/08/2014 Patient Education: Patient Medication Summary Completed 08/08/2014 Instructions Comment . Sinusitis - Pt has acute infection - pain in face, maxillary region, Pt informed to use decongestant, RX given to patient, sinus rinses also recommended. Call if symptoms do not show improvement. Allergies - chronic - recommended pt to [...] in the nasal steroid allergy spray. . Abdominal actd-hrevvm-ichmlktw-clear liquid advance to bland diet, low fat diet, start on probiotic, and rehydrate with gatorade-like product. Pt to call if feeling worse, diarrhea becomes bloody, or does not improve with above recommendations. RX sent to patient's pharmacy and instructed on use. ER over the weekend for worsening symptoms-will schedule CT abd/pelvis for recurrent abdominal pain. . Hyperlipidemia - pt has been counseled [...] any worse. RX sent to patient's pharmacy. diflucan 150mg daily -start after finished with levaquin . Abdominal cklm-grcozxqot-otheofer follow up-symptoms have resolved-patient to finish abx as directed-call if symptoms return Yeast infection-rx for diflucan -start after antibiotics complete . Well Adult - pt was counseled [...] drainage, or any other acute concerns. . Hypertension - uncontrolled - the patient's medications have been modified as documented in the visit note. The patient has been counseled to cut back on salt in diet for a no added salt diet, low fat diet, start an exercise program with low weight bearing exercises and higher aerobic activity for heart health. The patient is to check blood pressure readings as an outpatient and either fax , call, or email the readings to the office next week for practitioner to review. The pt is to call for acute concerns. . URI - Pt advised [...] in the nasal steroid allergy spray. . UTI-finish abx-repeat UA 72 hours after abx complete Anxiety-continue prozac -rx for xanax to use prn -call if symptoms uncontrolled need release of information will do a [...] and needs weight loss surgery as well. . Hypertension - well controlled - continue with current medications, continue with no added salt diet. Pt has been encouraged to exercise daily. The pt has been advised to call the office if there are any acute concerns about change in blood pressure readings at home. Hx of Cdiff infection - recommended pt to get a refrigerated probiotic. Call if any symptoms of a return of the diarrhea. . Allergies - chronic - recommended pt [...] spray in the nasal steroid allergy spray. Hypertension - well controlled - continue with current medications, continue with no added salt diet. Pt has been encouraged to exercise daily. The pt has been advised to call the office if there are any acute concerns about change in blood pressure readings at home.
--- OUTSIDE RECORDS SUMMARY | 2018-08-24 00:36 | XMS REPORT | CCD ---
Author Author [facility] Organization [facility] Address [address] [place] [address] Phone Care Team Providers Care Button Station Worker Name Role Phone PP Unavailable CCM Unavailable Summary Purpose Interface Exchange Insurance Providers Payer name Policy type / Coverage type Covered republican ID Effective Begin Date Effective End Date [facility] [id number] Unknown Family History Family History data not found Social History Social History Element Codes Description Effective Dates Marital status Unknown 08/08/2014 Living arrangements Unknown House 08/08/2014 Education level Unknown College Graduate 08/08/2014 Employment Unknown 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 [employer] 08/08/2014 Allergies, Adverse Reactions, Alerts Substance [...] Start Date Stop Date Status Fill Instructions triamcinolone acetonide 0.025 % topical cream RxNorm: 2006315 1 Application TOP BID 08/17/2018 No Stop Date Active Zithromax Z-Kristofer 250 mg tablet RxNorm: 833746 1 Tablet(s) PO UD 08/17/2018 08/21/2018 Inactive zpack Kenalog 40 mg/mL suspension for injection RxNorm: 8315509 1 Milliliter(s) Inj 08/17/2018 08/17/2018 Inactive simvastatin 40 mg tablet RxNorm: 933173 TAKE ONE TABLET BY MOUTH AT BEDTIME 07/23/2018 04/18/2019 Active lisinopril 10 mg tablet RxNorm: 140013 TAKE ONE TABLET BY MOUTH DAILY 06/04/2018 08/27/2019 Active Prozac 40 mg capsule RxNorm: 707929 TAKE ONE CAPSULE BY MOUTH DAILY 04/09/2018 10/05/2018 Active Xanax 0.25 mg tablet RxNorm: 961328 1/2 Tablet(s) PO BID as needed anxiety 02/23/2018 04/23/2018 Inactive Diflucan 150 mg tablet RxNorm: 791254 1 Tablet(s) PO daily 06/201802/07/2018 Inactive Cipro 500 mg tablet RxNorm: 502130 1 Tablet(s) PO BID 201702/01/2018 Inactive Flagyl 500 mg tablet RxNorm: 095880 1 Tablet(s) PO TID 201702/01/2018 Inactive Zofran 4 mg tablet RxNorm: 042298 1 Tablet(s) PO Q6 PRN 01/05 No Stop Date Active ketorolac 60 mg/2 mL intramuscular solution RxNorm: 193526 2 Milliliter(s) IM 01/05/2018 01/05/2018 Inactive Flagyl 500 mg tablet RxNorm: 784603 1 Tablet(s) PO TID 201701/14/2018 Inactive Cipro 500 mg tablet RxNorm: 103256 1 Tablet(s) PO BID 201701/14/2018 Inactive lisinopril 10 mg tablet RxNorm: 410884 TAKE ONE TABLET BY MOUTH DAILY 12/18/2017 06/03/2018 Inactive Prozac 40 mg capsule RxNorm: 231811 TAKE ONE CAPSULE BY MOUTH DAILY 11/27/2017 03/26/2018 Inactive lisinopril 10 mg tablet RxNorm: 103798 1 Tablet(s) PO daily 12/15/2017 Inactive Prilosec 20 mg capsule,delayed release RxNorm: 599687 TAKE ONE CAPSULE BY MOUTH TWICE A DAY 10/06/2017 05/03/2018 Inactive Prilosec 20 mg capsule,delayed release RxNorm: 555778 TAKE ONE CAPSULE BY MOUTH TWICE A DAY 08/07/2017 09/05/2017 Inactive Prozac 40 mg capsule RxNorm: 124011 TAKE ONE CAPSULE BY MOUTH DAILY 06/12/2017 11/08/2017 Inactive Contrave 8 mg-90 mg tablet,extended release RxNorm: 7498152 2 Tablet(s) PO BID 04/25/2017 05/07/2017 Inactive simvastatin 40 mg tablet RxNorm: 120170 1 Tablet(s) PO QHS 01/201703/23/2018 Inactive [SAVINGS FOR NON-COVERED DRUGS -- BIN:737145, PCN: ASPROD1, Group: XXXXX, ID# XXXXXXX, Questions: . THIS IS NOT INSURANCE.] Prozac 40 mg capsule RxNorm: 932326 TAKE ONE CAPSULE BY MOUTH DAILY 11/08/2016 05/06/2017 Inactive prednisone 10 mg tablet RxNorm: 716690 Tablet(s) PO 10/20/2016 04/24/2017 Inactive 6, 5,4,3,2,1 Flonase Allergy Relief 50 mcg/actuation nasal spray, suspension RxNorm: 2892910 1 [place] NASAL BID 10/17/2016 No Stop Date Active Kenalog 40 mg/mL suspension for injection RxNorm: 4328024 1 Milliliter(s) Inj 10/17/2016 10/17/2016 Inactive Zithromax Z-Kristofer 250 mg tablet RxNorm: 101755 1 Tablet(s) PO UD 10/12/2016 10/16/2016 Inactive zpack Prilosec 20 mg capsule,delayed release RxNorm: 237423 TAKE ONE CAPSULE BY MOUTH TWICE A DAY 08/30/2016 02/25/2017 Inactive Prozac 40 mg capsule RxNorm: 133799 TAKE ONE CAPSULE BY MOUTH DAILY 08/08/2016 11/05/2016 Inactive Zithromax Z-Kristofer 250 mg tablet RxNorm: 277477 1 Tablet(s) PO UD 07/11/2016 07/15/2016 Inactive zpack Prilosec 20 mg capsule,delayed release RxNorm: 082272 Capsule(s) TAKE ONE CAPSULE BY MOUTH TWICE A DAY 07/04/20162015 Inactive Prozac 40 mg capsule RxNorm: 138179 1 Capsule(s) PO daily 07/0408/02/2016 Inactive Prilosec 20 mg capsule,delayed release RxNorm: 567982 TAKE ONE CAPSULE BY MOUTH TWICE A DAY 01/11/2016 04/09/2016 Inactive simvastatin 40 mg tablet RxNorm: 926305 TAKE ONE TABLET BY MOUTH AT BEDTIME 12/23/2015 05/06/2016 Inactive Request already responded to by other means (e.g. phone or fax) simvastatin 40 mg tablet RxNorm: 248935 1 Tablet(s) PO QHS 06/17/2016 Inactive [SAVINGS FOR NON-COVERED DRUGS -- BIN:[id number], PCN: ASPROD1, Group: XXXXX, ID# [id number], Questions: . THIS IS NOT INSURANCE.] Prozac 40 mg capsule RxNorm: 470344 1 Capsule(s) PO daily 06/1906/12/2016 Inactive simvastatin 40 mg tablet RxNorm: 554503 1 Tablet(s) PO QHS 07/201507/31/2015 Inactive [SAVINGS FOR NON-COVERED DRUGS -- BIN:714355, PCN: ASPROD1, Group: XXXXX, ID# [id number], Questions: . THIS IS NOT INSURANCE.] Prilosec 20 mg capsule,delayed release RxNorm: 957454 TAKE ONE CAPSULE BY MOUTH TWICE A DAY 12/04/2014 04/02/2015 Inactive Prilosec 20 mg capsule,delayed release RxNorm: 635823 1 Capsule(s) PO BID 12/02/2014 07/03/2016 Inactive [SAVINGS FOR NON-COVERED DRUGS -- BIN:009226, PCN: ASPROD1, Group: XXXXX, ID# XXXXXXX, Questions: . THIS IS NOT INSURANCE.] Tamiflu 75 mg capsule RxNorm: 750939 Capsule(s) PO daily 201411/05/2014 Inactive Seasonale contraceptive 0.15 mg-30 mcg tablets,3 month dose pack RxNorm: 644929 1 Tablet(s) PO daily 08/11/20142015 Inactive Seasonale contraceptive 0.15 mg-30 mcg tablets,3 month dose pack RxNorm: 370402 1 Tablet(s) PO daily 08/11/20142013 Inactive Prilosec 20 mg capsule,delayed release RxNorm: 880383 1 Capsule(s) PO BID 08/08/2014 10/06/2014 Inactive [SAVINGS FOR UNINSURED PATIENTS -- BIN:934164, PCN: ASPROD1, Group: [id number], ID# [id number], Process claim through [employer], for questions: . THIS IS NOT INSURANCE.] Centrum Complete oral RxNorm: 79016 oral No Start Date Active Phenergan 12.5 mg tablet RxNorm: 604324 1/2 Tablet(s) PO PRN No Start Date Active Prozac 40 mg capsule RxNorm: 531600 1 Capsule(s) PO daily No Start Date 06/18/2015 Inactive Victoza 2-Kristofer 0.6 mg/0.1 mL (18 mg/3 mL) subcutaneous pen injector RxNorm: 643532 0.6 Milligram(s) SQ daily No Start Date Inactive Fish Oil 1,000 mg capsule RxNorm: 3 Capsule(s) PO daily No Start Date 04/24/2017 Inactive Xanax 0.25 mg tablet RxNorm: 506623 1/2 Tablet(s) PO daily No Start Date 02/22/2018 Inactive simvastatin 40 mg tablet RxNorm: 348422 1 Tablet(s) PO QHS No Start Date 02/01/2015 Inactive triamcinolone acetonide 0.025 % topical cream RxNorm: 0325454 1 Application TOP BID No Start Date 08/16/2018 Inactive Prilosec 20 mg capsule,delayed release RxNorm: 872289 1 Capsule(s) PO daily No Start Date 08/07/2014 Inactive Medication Administered Medication Codes Instructions Start Date Status Kenalog 40 mg/mL suspension for injection RxNorm: 8562393 1Milliliter 08/17/2018 No longer Active ketorolac 60 mg/2 mL intramuscular solution RxNorm: 103648 2Milliliter 01/05/2018 No longer Active Kenalog 40 mg/mL suspension for injection RxNorm: 5482563 1Milliliter 10/17/2016 No longer Active Immunizations Vaccine [...] Observation Code Item Item Code Result Date Lipid Ord30 CHOL 183 mg/dL 04/25/2017 Lipid Ord30 HDL 53.0 mg/dl 04/25/2017 Lipid Ord30 TRIG 167 mg/dL 04/25/2017 Lipid Ord30 LDL 97 mg/dL 04/25/2017 Lipid Ord30 C/HDL 3.5 Ratio 04/25/2017 Tsh Ord6 hTSH II 2.40 uIU/mL 04/25/2017 Cbc With Differential Ord2 WBC 7.89 K/ul 04/25/2017 Cbc With Differential Ord2 RBC 4.73 M/ul 04/25/2017 Cbc With Differential Ord2 HGB 12.7 g/dl 04/25/2017 Cbc With Differential Ord2 HCT 38.6 % 04/25/2017 Cbc With Differential Ord2 Neut% 71.6 % 04/25/2017 Cbc With Differential Ord2 Lymph% 20.0 % 04/25/2017 Cbc With Differential Ord2 MCV 81.6 fl 04/25/2017 Cbc With Differential Ord2 Canadian% 5.7 % 04/25/2017 Cbc With Differential Ord2 MCH 26.8 pg 04/25/2017 Cbc With Differential Ord2 Eos% 2.3 % 04/25/2017 Cbc With Differential Ord2 MCHC 32.9 pg 04/25/2017 Cbc With Differential Ord2 PLT 400 K/ul 04/25/2017 Cbc With Differential Ord2 Baso% 0.4 % 04/25/2017 Cbc With Differential Ord2 RDW 14.4 % 04/25/2017 Cbc With Differential Ord2 Neut ABS# 5.65 K/ul 04/25/2017 Cbc With Differential Ord2 Lymph ABS# 1.58 K/ul 04/25/2017 Cbc With Differential Ord2 Canadian ABS# 0.5 K/ul 04/25/2017 Cbc With Differential Ord2 Eos ABS# 0.2 K/ul 04/25/2017 Cbc With Differential Ord2 Baso ABS# 0.0 K/ul 04/25/2017 Comp Metabolic Mhr982 NA 140 mEq/L 04/25/2017 Comp Metabolic Obc804 K 3.9 mEq/L 04/25/2017 Comp Metabolic Pjt720 CL 107 mEq/L 04/25/2017 Comp Metabolic Qei368 CO2 22.0 mEq/L 04/25/2017 Comp Metabolic Zvn616 ANION GAP 15 04/25/2017 Comp Metabolic Xou389 GLUCOSE 82 mg/dL 04/25/2017 Comp Metabolic Huq189 Creat 0.7 mg/dL 04/25/2017 Comp Metabolic Twq397 eGFR 107 ml/min/1.73m2 04/25/2017 Comp Metabolic Tdc029 BUN 10 mg/dL 04/25/2017 Comp Metabolic Amg194 B/C Ratio 15.4 Ratio 04/25/2017 Comp Metabolic Rsk714 CALCIUM 8.9 mg/dL 04/25/2017 Comp Metabolic Pgk277 ALK PHOS 73 U/L 04/25/2017 Comp Metabolic Yqj547 AST(SGOT) 16 U/L 04/25/2017 Comp Metabolic Bzk517 ALT(SGPT) 12 U/L 04/25/2017 Comp Metabolic Izy618 BILI T 0.3 mg/dL 04/25/2017 Comp Metabolic Gdq053 ALBUMIN 3.8 g/dL 04/25/2017 Comp Metabolic Zaz711 TPRO 6.7 g/dL 04/25/2017 Comp Metabolic Kav663 GLOB 2.9 g/dL 04/25/2017 Comp Metabolic Dpo921 A/G Ratio 1.3 Ratio 04/25/2017 Comp Metabolic Sdy711 Osmo 278 mOsmo 04/25/2017 Tsh Ord6 hTSH II 1.98 uIU/mL 07/11/2016 Lipid Ord30 CHOL 232 mg/dL 07/11/2016 Lipid Ord30 HDL 53.0 mg/dl 07/11/2016 Lipid Ord30 TRIG 157 mg/dL 07/11/2016 Lipid Ord30 LDL 148 mg/dL 07/11/2016 Lipid Ord30 C/HDL 4.4 Ratio 07/11/2016 Comp Metabolic Gjt536 NA 136 mEq/L 07/11/2016 Comp Metabolic Qys520 K 4.2 mEq/L 07/11/2016 Comp Metabolic Xlj361 CL 104 mEq/L 07/11/2016 Comp Metabolic Hfi747 CO2 20.0 mEq/L 07/11/2016 Comp Metabolic Wdc887 ANION GAP 16 07/11/2016 Comp Metabolic Kyc674 GLUCOSE 86 mg/dL 07/11/2016 Comp Metabolic Gig495 Creat 0.7 mg/dL 07/11/2016 Comp Metabolic Wtl169 eGFR 106 ml/min/1.73m2 07/11/2016 Comp Metabolic Ecj431 BUN 12 mg/dL 07/11/2016 Comp Metabolic Qug852 B/C Ratio 18.2 Ratio 07/11/2016 Comp Metabolic Cxb332 CALCIUM 9.3 mg/dL 07/11/2016 Comp Metabolic Yem037 ALK PHOS 79 U/L 07/11/2016 Comp Metabolic Rty548 AST(SGOT) 19 U/L 07/11/2016 Comp Metabolic Rbt178 ALT(SGPT) 13 U/L 07/11/2016 Comp Metabolic Ljk737 BILI T 0.3 mg/dL 07/11/2016 Comp Metabolic Rfz128 ALBUMIN 4.1 g/dL 07/11/2016 Comp Metabolic Bsu481 TPRO 7.5 g/dL 07/11/2016 Comp Metabolic Izs133 GLOB 3.4 g/dL 07/11/2016 Comp Metabolic Ccu443 A/G Ratio 1.2 Ratio 07/11/2016 Comp Metabolic Dwq388 Osmo 271 mOsmo 07/11/2016 Cbc With Differential Ord2 WBC 12.04 [...] 26.9 pg 07/11/2016 Cbc With Differential Ord2 Canadian% 6.9 % 07/11/2016 Cbc With Differential Ord2 Eos% 0.7 % 07/11/2016 Cbc With Differential Ord2 MCHC 33.2 pg 07/11/2016 Cbc With Differential Ord2 Baso% 0.2 % 07/11/2016 Cbc With Differential Ord2 PLT 372 K/ul 07/11/2016 Cbc With Differential Ord2 RDW 14.3 % 07/11/2016 Cbc With Differential Ord2 Neut ABS# 9.59 K/ul 07/11/2016 Cbc With Differential Ord2 Lymph ABS# 1.51 K/ul 07/11/2016 Cbc With Differential Ord2 Canadian ABS# 0.8 K/ul 07/11/2016 Cbc With Differential Ord2 Eos ABS# 0.1 K/ul 07/11/2016 Cbc With Differential Ord2 Baso ABS# 0.0 K/ul 07/11/2016 PREG U [id number] PREG U NEG 08/08/2014 Review of Systems [...] CPT-4: J3301 08/17/2018 THER/PROPH/DIAG INJ SC/IM CPT-4: 81943 08/17/2018 KETOROLAC TROMETHAMINE INJ CPT-4: J1885 01/05/2018 THER/PROPH/DIAG INJ SC/IM CPT-4: 84521 10/17/2016 TRIAMCINOLONE ACET INJ NOS CPT-4: J3301 10/17/2016 REMOVAL OF SKIN TAGS <W/15 CPT-4: 04795 01/01/2015 Vital Signs Date Vital 08/17/2018 Blood Pressure 1: 142/88 Code : 8480-6 BMI: 36.3 Code : 76807-3 Heart Rate 1 : 91 bpm Height: 5' SpO2: 98% Temperature: 37.1 (C) / 98.8 (F) Weight: 186 lbs 04/18/2018 Blood Pressure 1: 118/82 Code : 8480-6 BMI: 36.3 Code : 73237-2 Heart Rate 1 : 103 bpm Height: 5' SpO2: 99% Weight: 186 lbs 02/23/2018 Blood Pressure 1: 134/88 Code : 8480-6 BMI: 37.1 Code : 08978-0 Heart Rate 1 : 99 bpm Height: 5' SpO2: 97% Weight: 190 lbs 02/01/2018 Blood Pressure 1: 132/86 Code : 8480-6 BMI: 36.9 Code : 87149-1 Heart Rate 1 : 83 bpm Height: 5' SpO2: 99% Weight: 189 lbs 01/05/2018 Blood Pressure 1: 138/82 Code : 8480-6 BMI: 38.7 Code : 53654-0 Heart Rate 1 : 98 bpm Height: 5' SpO2: 98% Weight: 198 lbs 11/29/2017 Blood Pressure 1: 136/74 Code : 8480-6 BMI: 38.7 Code : 59430-7 Heart Rate 1 : 84 bpm Height: 5' SpO2: 98% Weight: 198 lbs 11/16/2017 Blood Pressure 1: 138/88 Code : 8480-6 BMI: 38.7 Code : 88263-3 Heart Rate 1 : 83 bpm Height: 5' SpO2: 98% Weight: 198 lbs 04/25/2017 Blood Pressure 1: 138/90 Code : 8480-6 BMI: 40.2 Code : 91653-3 Heart Rate 1 : 84 bpm Height: 5' SpO2: 98% Weight: 206 lbs 10/20/2016 Blood Pressure 1: 140/82 Code : 8480-6 BMI: 39.1 Code : 45148-6 Heart Rate 1 : 87 bpm Height: 5' SpO2: 97% Temperature: 37.2 (C) / 98.9 (F) Weight: 200 lbs 07/11/2016 Blood Pressure 1: 142/88 Code : 8480-6 BMI: 38.7 Code : 23065-8 Heart Rate 1 : 104 bpm Height: 5' SpO2: 96% Temperature: 36.7 (C) / 98.0 (F) Weight: 198 lbs 01/08/2015 Blood Pressure 1: 118/78 Code : 8480-6 01/06/2015 Blood Pressure 1: 132/80 Code : 8480-6 01/01/2015 Blood Pressure 1: 150/102 Code: 8480-6 Blood Pressure 2: 150/96 Code: 8480-6 BMI: 33.4 Code: 66271-9 Heart Rate 1: 71 bpm Height: 5' SpO2: 99% Weight: 171 lbs 08/08/2014 Blood Pressure 1: 136/70 Code : 8480-6 BMI: 40.8 Code : 49200-4 Heart Rate 1 : 84 bpm Height: [...] Other allergic rhinitis[ICD10: J30.89] Tere Dale MD, [facility] CPT-4: 36623 08/17/2018 ([id number]) 67595 EST. PATIENT, LEVEL III Diagnosis: Essential (primary) hypertension[ICD10: I10] Diagnosis: Personal history of other infectious and parasitic diseases[ICD10: Z86.19] Yeni Dale MD, [facility] CPT-4: 25196 2017 ([id number]) 89118 EST. PATIENT, LEVEL III Diagnosis: Generalized anxiety disorder[ICD10: F41.1] Diagnosis: Urinary tract infection, site not specified[ICD10: N39.0] Jeanine Dale MD , [facility] CPT-4: 83055 02/23/2018 ([id number]) 71226 EST. PATIENT, LEVEL III Diagnosis: Generalized abdominal pain[ICD10: R10.84] Diagnosis: Candidiasis of vulva and vagina[ICD10: B37.3] Jeanine Dale MD, [facility] CPT-4: 65597 02/01/2018 ([id number]) 05760 EST. PATIENT, LEVEL IV Diagnosis: Generalized abdominal pain[ICD10: R10.84] Diagnosis: Nausea[ICD10: R11.0] Diagnosis: Diarrhea, unspecified[ICD10: R19.7] Jeanine Dale MD, [facility] CPT-4: 57720 01/05/2018 13417 EST. PATIENT, LEVEL IV Diagnosis: Other allergic rhinitis[ICD10: J30.89] Diagnosis: Essential (primary) hypertension[ICD10: I10] Tere Dale MD, [facility] CPT-4: 61534 11/29/2017 09417 EST. PATIENT, LEVEL III Diagnosis: Essential (primary) hypertension[ICD10: I10] [facility] CPT-4: 20220 11/16/2017 ([id number]) PREV VISIT EST AGE 40-64 Diagnosis: Encounter for general adult medical examination without abnormal findings[ICD10: Z00.00] Diagnosis: Other obesity due to excess calories[ICD10: E66.09] [facility] CPT-4: 31205 04/25/2017 93263 EST. PATIENT, LEVEL III Diagnosis: Acute laryngopharyngitis[ICD10: J06.0] Diagnosis: Other allergic rhinitis[ICD10: J30.89] Diagnosis: Otalgia, left ear[ICD10: H92.02] Tere Dale MD, [facility] CPT- 4: 50423 10/20/2016 ([id number]) 00615 EST. PATIENT, LEVEL III Diagnosis: Mixed hyperlipidemia[ICD10: E78.2] Diagnosis: Cough[ICD10: R05] Jeanine Dale MD, [facility] CPT-4: 81414 07/11/2016 ([id number]) Miscellaneous no charge Diagnosis: ELEV BL PRES W/O HYPERTN[ICD9: 796.2] [facility] CPT-4: 62378 01/08/2015 ([id number]) Miscellaneous no charge Diagnosis: ELEV BL PRES W/O HYPERTN[ICD9: 796.2] [facility] CPT-4: 13521 01/06/2015 ([id number]) OFFICE VISIT, NEW - LEVEL 4 Diagnosis: Abnormal menstrual periods[ICD9: 626.2] Diagnosis: Hiatal hernia[ICD9: 553.3] Diagnosis: ESOPHAGEAL REFLUX[ICD9: 530.81] Diagnosis: Missed periods[ICD9: 626.4] [facility] CPT- 4: 51132 08/08/2014 Plan of Care Planned Activity Notes [...] allergy spray. 08/17/2018 Appointment: Tere Coello WPtel: [phone] [phone] (15 min) Moderate 08/17/2018 Patient Education: Patient [...] the diarrhea. 04/18/2018 Appointment: Yeni Dale WPtel[facility] ([facility] Moderate 04/18/2018 Patient Education: Patient Medication Summary Completed 04/18/2018 Appointment: Lab Draw 03/02/2018 Patient Education: Patient Medication Summary Completed 03/02/2018 Visit Plan: UTI-finish abx-repeat UA 72 hours after abx complete Anxiety-continue prozac -rx for xanax to use prn -call if symptoms uncontrolled 02/23/2018 Appointment: Jeanine Cunningham WPtel: [phone] [place] (30 min) Complex 02/23/2018 Patient Education: Patient Medication Summary Completed 02/23/2018 Appointment: Tere Coello WPtel: [phone] [phone] (15 min) Moderate 02/20/2018 Visit Plan: Abdominal cxfn-mlqsubrbv-jvasmtkz follow up- symptoms have resolved-patient to finish abx as directed-call if symptoms return Yeast infection-rx for diflucan -start after antibiotics complete 02/01/2018 Appointment: Jeanine Cunningham WPtel: [phone] [phone] (30 min) Complex 02/01/2018 Patient Education: Patient Medication Summary Completed 02/01/2018 Visit Plan: Abdominal ygdg-aqxzlb-xyzmldjj-clear liquid advance to bland diet, low fat diet, start on probiotic, and rehydrate with gatorade-like product. Pt to call if feeling worse, diarrhea becomes bloody, or does not improve with above recommendations. RX sent to patient's pharmacy and instructed on use. ER over the weekend for worsening symptoms-will schedule CT abd/pelvis for recurrent abdominal pain. 01/05/2018 Appointment: Jeanine Cunningham WPtel: [phone] [phone] (30 min) Complex 01/05/2018 Patient Education: Patient [...] home. 11/29/2017 Appointment: Tere Coello WPtel: [phone] [phone] (30 min) Complex 11/29/2017 Patient Education: Patient [...] concerns. 11/16/2017 Appointment: Tere Coello WPtel: [phone] [phone] (15 min) Moderate 11/16/2017 Patient Education: Patient [...] use 04/25/2017 Appointment: Jeanine Cunningham WPtel: [phone] [phone] [place] (15 min) Moderate 04/25/2017 Patient Education: [...] spray. 10/20/2016 Appointment: Tere Coello WPtel: [phone] [facility] [place] (30 min) Complex 10/20/2016 Patient Education: Patient [...] patient's pharmacy. 07/11/2016 Appointment: Jeanine Cunningham WPtel: [address] [place], [place] [phone] (30 min) [facility] 07/11/2016 Patient Education: Patient Medication Summary Completed [...] well. 08/08/2014 App[facility]ment[phone] [facility] [place] New [facility] 08/08/2014 Patient Education: Patient Medication [...] the nasal steroid allergy spray. . Abdominal noff-eyxztl-zxmdxjmg-clear liquid advance to bland diet, low fat [...] -start after finished with levaquin . Abdominal eiob-sdypldiaf-hakkdywf follow up-symptoms have resolved-patient to finish abx [...]
[2018-08-24] MEDS: methylPREDNISolone 125 MG (Solu-MEDROL) VIAL IVP SCH ×2 (00:38→06:19)
--- OUTSIDE RECORDS SUMMARY | 2018-08-24 00:38 | XMS REPORT | CCD ---
Author Author [facility]eni [facility] Organization [facility] Address [address] [place] [address] Phone Care Team Providers Care Checkroom Chief Name Role Phone PP Unavailable CCM Unavailable Summary Purpose Interface Exchange Insurance Providers Payer name Policy type / Coverage type Covered constitution party ID Effective Begin Date Effective End Date [facility] [id number] Unknown Family History Family History data not found Social History Social History Element Codes Description Effective Dates Marital status Unknown 08/08/2014 Living arrangements Unknown House 08/08/2014 Education level Unknown College Graduate 08/08/2014 Employment Unknown 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 [employer] 08/08/2014 Allergies, Adverse Reactions, Alerts Substance [...] Start Date Stop Date Status Fill Instructions Kenalog 40 mg/mL suspension for injection RxNorm: 7788276 1 Milliliter(s) Inj 08/17/2018 08/17/2018 Inactive triamcinolone acetonide 0.025 % topical cream RxNorm: 4947008 1 Application TOP BID 08/17/2018 No Stop Date Active Zithromax Z-Kristofer 250 mg tablet RxNorm: 577496 1 Tablet(s) PO UD 08/17/2018 08/21/2018 Active zpack simvastatin 40 mg tablet RxNorm: 656040 TAKE ONE TABLET BY MOUTH AT BEDTIME 07/23/2018 04/18/2019 Active lisinopril 10 mg tablet RxNorm: 246069 TAKE ONE TABLET BY MOUTH DAILY 06/04/2018 08/27/2019 Active Prozac 40 mg capsule RxNorm: 591015 TAKE ONE CAPSULE BY MOUTH DAILY 04/09/2018 10/05/2018 Active Xanax 0.25 mg tablet RxNorm: 054087 1/2 Tablet(s) PO BID as needed anxiety 02/23/2018 04/23/2018 Inactive Diflucan 150 mg tablet RxNorm: 045188 1 Tablet(s) PO daily 06/201802/07/2018 Inactive Cipro 500 mg tablet RxNorm: 466602 1 Tablet(s) PO BID 201702/01/2018 Inactive Flagyl 500 mg tablet RxNorm: 565689 1 Tablet(s) PO TID 201702/01/2018 Inactive Zofran 4 mg tablet RxNorm: 342065 1 Tablet(s) PO Q6 PRN 01/05 No Stop Date Active ketorolac 60 mg/2 mL intramuscular solution RxNorm: 318522 2 Milliliter(s) IM 01/05/2018 01/05/2018 Inactive Flagyl 500 mg tablet RxNorm: 328909 1 Tablet(s) PO TID 201701/14/2018 Inactive Cipro 500 mg tablet RxNorm: 948820 1 Tablet(s) PO BID 201701/14/2018 Inactive lisinopril 10 mg tablet RxNorm: 135281 TAKE ONE TABLET BY MOUTH DAILY 12/18/2017 06/03/2018 Inactive Prozac 40 mg capsule RxNorm: 837853 TAKE ONE CAPSULE BY MOUTH DAILY 11/27/2017 03/26/2018 Inactive lisinopril 10 mg tablet RxNorm: 539067 1 Tablet(s) PO daily 12/15/2017 Inactive Prilosec 20 mg capsule,delayed release RxNorm: 972275 TAKE ONE CAPSULE BY MOUTH TWICE A DAY 10/06/2017 05/03/2018 Inactive Prilosec 20 mg capsule,delayed release RxNorm: 967496 TAKE ONE CAPSULE BY MOUTH TWICE A DAY 08/07/2017 09/05/2017 Inactive Prozac 40 mg capsule RxNorm: 138725 TAKE ONE CAPSULE BY MOUTH DAILY 06/12/2017 11/08/2017 Inactive Contrave 8 mg-90 mg tablet,extended release RxNorm: 9937504 2 Tablet(s) PO BID 04/25/2017 05/07/2017 Inactive simvastatin 40 mg tablet RxNorm: 290800 1 Tablet(s) PO QHS 01/201703/23/2018 Inactive [SAVINGS FOR NON-COVERED DRUGS -- BIN:474455, PCN: ASPROD1, Group: XXXXX, ID# XXXXXXX, Questions: . THIS IS NOT INSURANCE.] Prozac 40 mg capsule RxNorm: 624780 TAKE ONE CAPSULE BY MOUTH DAILY 11/08/2016 05/06/2017 Inactive prednisone 10 mg tablet RxNorm: 490174 Tablet(s) PO 10/20/2016 04/24/2017 Inactive 6, 5,4,3,2,1 Flonase Allergy Relief 50 mcg/actuation nasal spray, suspension RxNorm: 3589427 1 [place] NASAL BID 10/17/2016 No Stop Date Active Kenalog 40 mg/mL suspension for injection RxNorm: 9130801 1 Milliliter(s) Inj 10/17/2016 10/17/2016 Inactive Zithromax Z-Kristofer 250 mg tablet RxNorm: 399250 1 Tablet(s) PO UD 10/12/2016 10/16/2016 Inactive zpack Prilosec 20 mg capsule,delayed release RxNorm: 959946 TAKE ONE CAPSULE BY MOUTH TWICE A DAY 08/30/2016 02/25/2017 Inactive Prozac 40 mg capsule RxNorm: 415780 TAKE ONE CAPSULE BY MOUTH DAILY 08/08/2016 11/05/2016 Inactive Zithromax Z-Kristofer 250 mg tablet RxNorm: 108573 1 Tablet(s) PO UD 07/11/2016 07/15/2016 Inactive zpack Prilosec 20 mg capsule,delayed release RxNorm: 770108 Capsule(s) TAKE ONE CAPSULE BY MOUTH TWICE A DAY 07/04/20162015 Inactive Prozac 40 mg capsule RxNorm: 047074 1 Capsule(s) PO daily 07/0408/02/2016 Inactive Prilosec 20 mg capsule,delayed release RxNorm: 806395 TAKE ONE CAPSULE BY MOUTH TWICE A DAY 01/11/2016 04/09/2016 Inactive simvastatin 40 mg tablet RxNorm: 272686 TAKE ONE TABLET BY MOUTH AT BEDTIME 12/23/2015 05/06/2016 Inactive Request already responded to by other means (e.g. phone or fax) simvastatin 40 mg tablet RxNorm: 430622 1 Tablet(s) PO QHS 06/17/2016 Inactive [SAVINGS FOR NON-COVERED DRUGS -- BIN:854153, PCN: ASPROD1, Group: XXXXX, ID# [id number], Questions: . THIS IS NOT INSURANCE.] Prozac 40 mg capsule RxNorm: 613156 1 Capsule(s) PO daily 06/1906/12/2016 Inactive simvastatin 40 mg tablet RxNorm: 916564 1 Tablet(s) PO QHS 07/201507/31/2015 Inactive [SAVINGS FOR NON-COVERED DRUGS -- BIN:908623, PCN: ASPROD1, Group: XXXXX, ID# [id number], Questions: . THIS IS NOT INSURANCE.] Prilosec 20 mg capsule,delayed release RxNorm: 002339 TAKE ONE CAPSULE BY MOUTH TWICE A DAY 12/04/2014 04/02/2015 Inactive Prilosec 20 mg capsule,delayed release RxNorm: 096101 1 Capsule(s) PO BID 12/02/2014 07/03/2016 Inactive [SAVINGS FOR NON-COVERED DRUGS -- BIN:659809, PCN: ASPROD1, Group: XXXXX, ID# [id number], Questions: . THIS IS NOT INSURANCE.] Tamiflu 75 mg capsule RxNorm: 293777 Capsule(s) PO daily 201411/05/2014 Inactive Seasonale contraceptive 0.15 mg-30 mcg tablets,3 month dose pack RxNorm: 102818 1 Tablet(s) PO daily 08/11/20142015 Inactive Seasonale contraceptive 0.15 mg-30 mcg tablets,3 month dose pack RxNorm: 605846 1 Tablet(s) PO daily 08/11/20142013 Inactive Prilosec 20 mg capsule,delayed release RxNorm: 276707 1 Capsule(s) PO BID 08/08/2014 10/06/2014 Inactive [SAVINGS FOR UNINSURED PATIENTS -- BIN:244104, PCN: ASPROD1, Group: [id number], ID# [id number], Process claim through [employer], for questions: . THIS IS NOT INSURANCE.] Centrum Complete oral RxNorm: 87340 oral No Start Date Active Phenergan 12.5 mg tablet RxNorm: 467747 1/2 Tablet(s) PO PRN No Start Date Active Prozac 40 mg capsule RxNorm: 806290 1 Capsule(s) PO daily No Start Date 06/18/2015 Inactive Victoza 2-Kristofer 0.6 mg/0.1 mL (18 mg/3 mL) subcutaneous pen injector RxNorm: 409445 0.6 Milligram(s) SQ daily No Start Date Inactive Fish Oil 1,000 mg capsule RxNorm: 3 Capsule(s) PO daily No Start Date 04/24/2017 Inactive Xanax 0.25 mg tablet RxNorm: 068132 1/2 Tablet(s) PO daily No Start Date 02/22/2018 Inactive simvastatin 40 mg tablet RxNorm: 744382 1 Tablet(s) PO QHS No Start Date 02/01/2015 Inactive triamcinolone acetonide 0.025 % topical cream RxNorm: 9880051 1 Application TOP BID No Start Date 08/16/2018 Inactive Prilosec 20 mg capsule,delayed release RxNorm: 408640 1 Capsule(s) PO daily No Start Date 08/07/2014 Inactive Medication Administered Medication Codes Instructions Start Date Status Kenalog 40 mg/mL suspension for injection RxNorm: 7053892 1Milliliter 08/17/2018 Active ketorolac 60 mg/2 mL intramuscular solution RxNorm: 561136 2Milliliter 01/05/2018 No longer Active Kenalog 40 mg/mL suspension for injection RxNorm: 3659174 1Milliliter 10/17/2016 No longer Active Immunizations Vaccine [...] Item Item Code Result Date Comp Metabolic Bja456 NA 140 mEq/L 04/25/2017 Comp Metabolic Qdx987 K 3.9 mEq/L 04/25/2017 Comp Metabolic Dza526 CL 107 mEq/L 04/25/2017 Comp Metabolic Upg195 CO2 22.0 mEq/L 04/25/2017 Comp Metabolic Bvc587 ANION GAP 15 04/25/2017 Comp Metabolic Mpy975 GLUCOSE 82 mg/dL 04/25/2017 Comp Metabolic Ibh736 Creat 0.7 mg/dL 04/25/2017 Comp Metabolic Yvl197 eGFR 107 ml/min/1.73m2 04/25/2017 Comp Metabolic Mof223 BUN 10 mg/dL 04/25/2017 Comp Metabolic Ynq713 B/C Ratio 15.4 Ratio 04/25/2017 Comp Metabolic Xka122 CALCIUM 8.9 mg/dL 04/25/2017 Comp Metabolic Dge410 ALK PHOS 73 U/L 04/25/2017 Comp Metabolic Fwi654 AST(SGOT) 16 U/L 04/25/2017 Comp Metabolic Ijf976 ALT(SGPT) 12 U/L 04/25/2017 Comp Metabolic Ezh472 BILI T 0.3 mg/dL 04/25/2017 Comp Metabolic Eiv423 ALBUMIN 3.8 g/dL 04/25/2017 Comp Metabolic Pos280 TPRO 6.7 g/dL 04/25/2017 Comp Metabolic Yxe565 GLOB 2.9 g/dL 04/25/2017 Comp Metabolic Rpm246 A/G Ratio 1.3 Ratio 04/25/2017 Comp Metabolic Ytl187 Osmo 278 mOsmo 04/25/2017 Cbc With Differential [...] 26.8 pg 04/25/2017 Cbc With Differential Ord2 [place]% 5.7 % 04/25/2017 Cbc With Differential Ord2 MCHC 32.9 pg 04/25/2017 Cbc With Differential Ord2 Eos% 2.3 % 04/25/2017 Cbc With Differential Ord2 Baso% 0.4 % 04/25/2017 Cbc With Differential Ord2 PLT 400 K/ul 04/25/2017 Cbc With Differential Ord2 RDW 14.4 % 04/25/2017 Cbc With Differential Ord2 Neut ABS# 5.65 K/ul 04/25/2017 Cbc With Differential Ord2 Lymph ABS# 1.58 K/ul 04/25/2017 Cbc With Differential Ord2 [place] ABS# 0.5 K/ul 04/25/2017 Cbc With Differential [...] 41.0 % 07/11/2016 Cbc With Differential Ord2 Lymph% 12.5 % 07/11/2016 Cbc With Differential Ord2 MCV 81.2 fl 07/11/2016 Cbc With Differential Ord2 [place]% 6.9 % 07/11/2016 Cbc With Differential Ord2 [...] 1.51 K/ul 07/11/2016 Cbc With Differential Ord2 [place] ABS# 0.8 K/ul 07/11/2016 Cbc With Differential Ord2 Eos ABS# 0.1 K/ul 07/11/2016 Cbc With Differential Ord2 Baso ABS# 0.0 K/ul 07/11/2016 Comp Metabolic Uba367 NA 136 mEq/L 07/11/2016 Comp Metabolic Jhh491 K 4.2 mEq/L 07/11/2016 Comp Metabolic Asa233 CL 104 mEq/L 07/11/2016 Comp Metabolic Gng253 CO2 20.0 mEq/L 07/11/2016 Comp Metabolic Qvx809 ANION GAP 16 07/11/2016 Comp Metabolic Uvg763 GLUCOSE 86 mg/dL 07/11/2016 Comp Metabolic Fkh745 Creat 0.7 mg/dL 07/11/2016 Comp Metabolic Tjz756 eGFR 106 ml/min/1.73m2 07/11/2016 Comp Metabolic Kfm162 BUN 12 mg/dL 07/11/2016 Comp Metabolic Mnv711 B/C Ratio 18.2 Ratio 07/11/2016 Comp Metabolic Hua945 CALCIUM 9.3 mg/dL 07/11/2016 Comp Metabolic Bjn083 ALK PHOS 79 U/L 07/11/2016 Comp Metabolic Ufp257 AST(SGOT) 19 U/L 07/11/2016 Comp Metabolic Aqr881 ALT(SGPT) 13 U/L 07/11/2016 Comp Metabolic Afa855 BILI T 0.3 mg/dL 07/11/2016 Comp Metabolic Qfn027 ALBUMIN 4.1 g/dL 07/11/2016 Comp Metabolic Kxz892 TPRO 7.5 g/dL 07/11/2016 Comp Metabolic Jag338 GLOB 3.4 g/dL 07/11/2016 Comp Metabolic Zpc430 A/G Ratio 1.2 Ratio 07/11/2016 Comp Metabolic Usn730 Osmo 271 mOsmo 07/11/2016 PREG U 7334131 PREG U NEG 08/08/2014 Review of Systems [...] clear 11/16/2017 None Full Exam - General 1995 Ears/Nose/Throat oral cavity/pharynx/larynx Overall: oropharyngeal mucosa clear [...] None Full Exam - General 1995 Ears/Nose/Throat oral cavity/pharynx/larynx Overall: oropharyngeal mucosa clear [...] CPT-4: J3301 08/17/2018 THER/PROPH/DIAG INJ SC/IM CPT-4: 26373 08/17/2018 KETOROLAC TROMETHAMINE INJ CPT-4: J1885 01/05/2018 THER/PROPH/DIAG INJ SC/IM CPT-4: 91045 10/17/2016 TRIAMCINOLONE ACET INJ NOS CPT-4: J3301 10/17/2016 REMOVAL OF SKIN TAGS <W/15 CPT-4: 98710 01/01/2015 Vital Signs Date Vital 08/17/2018 Blood Pressure 1: 142/88 Code : 8480-6 BMI: 36.3 Code : 14539-0 Heart Rate 1 : 91 bpm Height: 5' SpO2: 98% Temperature: 37.1 (C) / 98.8 (F) Weight: 186 lbs 04/18/2018 Blood Pressure 1: 118/82 Code : 8480-6 BMI: 36.3 Code : 64199-8 Heart Rate 1 : 103 bpm Height: 5' SpO2: 99% Weight: 186 lbs 02/23/2018 Blood Pressure 1: 134/88 Code : 8480-6 BMI: 37.1 Code : 48610-7 Heart Rate 1 : 99 bpm Height: 5' SpO2: 97% Weight: 190 lbs 02/01/2018 Blood Pressure 1: 132/86 Code : 8480-6 BMI: 36.9 Code : 31694-0 Heart Rate 1 : 83 bpm Height: 5' SpO2: 99% Weight: 189 lbs 01/05/2018 Blood Pressure 1: 138/82 Code : 8480-6 BMI: 38.7 Code : 32226-3 Heart Rate 1 : 98 bpm Height: 5' SpO2: 98% Weight: 198 lbs 11/29/2017 Blood Pressure 1: 136/74 Code : 8480-6 BMI: 38.7 Code : 49156-2 Heart Rate 1 : 84 bpm Height: 5' SpO2: 98% Weight: 198 lbs 11/16/2017 Blood Pressure 1: 138/88 Code : 8480-6 BMI: 38.7 Code : 33589-6 Heart Rate 1 : 83 bpm Height: 5' SpO2: 98% Weight: 198 lbs 04/25/2017 Blood Pressure 1: 138/90 Code : 8480-6 BMI: 40.2 Code : 97426-1 Heart Rate 1 : 84 bpm Height: 5' SpO2: 98% Weight: 206 lbs 10/20/2016 Blood Pressure 1: 140/82 Code : 8480-6 BMI: 39.1 Code : 47982-5 Heart Rate 1 : 87 bpm Height: 5' SpO2: 97% Temperature: 37.2 (C) / 98.9 (F) Weight: 200 lbs 07/11/2016 Blood Pressure 1: 142/88 Code : 8480-6 BMI: 38.7 Code : 68425-0 Heart Rate 1 : 104 bpm Height: 5' SpO2: 96% Temperature: 36.7 (C) / 98.0 (F) Weight: 198 lbs 01/08/2015 Blood Pressure 1: 118/78 Code : 8480-6 01/06/2015 Blood Pressure 1: 132/80 Code : 8480-6 01/01/2015 Blood Pressure 1: 150/102 Code: 8480-6 Blood Pressure 2: 150/96 Code: 8480-6 BMI: 33.4 Code: 47143-1 Heart Rate 1: 71 bpm Height: 5' SpO2: 99% Weight: 171 lbs 08/08/2014 Blood Pressure 1: 136/70 Code : 8480-6 BMI: 40.8 Code : 42229-2 Heart Rate 1 : 84 bpm Height: [...] Other allergic rhinitis[ICD10: J30.89] Tere Dale MD, [facility] CPT-4: 50378 08/17/2018 ([id number]) 40687 EST. PATIENT, LEVEL III Diagnosis: Essential (primary) hypertension[ICD10: I10] Diagnosis: Personal history of other infectious and parasitic diseases[ICD10: Z86.19] Yeni Dale MD, [facility] CPT-4: 69092 2017 ([id number]) 00675 EST. PATIENT, LEVEL III Diagnosis: Generalized anxiety disorder[ICD10: F41.1] Diagnosis: Urinary tract infection, site not specified[ICD10: N39.0] Jeanine Dale MD , [facility] CPT-4: 21212 02/23/2018 ([id number]) 35571 EST. PATIENT, LEVEL III Diagnosis: Generalized abdominal pain[ICD10: R10.84] Diagnosis: Candidiasis of vulva and vagina[ICD10: B37.3] Jeanine Dale MD, [facility] CPT-4: 24003 02/01/2018 ([id number]) 51787 EST. PATIENT, LEVEL IV Diagnosis: Generalized abdominal pain[ICD10: R10.84] Diagnosis: Nausea[ICD10: R11.0] Diagnosis: Diarrhea, unspecified[ICD10: R19.7] Jeanine Dale MD, [facility] CPT-4: 24166 01/05/2018 29970 EST. PATIENT, LEVEL IV Diagnosis: Other allergic rhinitis[ICD10: J30.89] Diagnosis: Essential (primary) hypertension[ICD10: I10] Tere Dale MD, [facility] CPT-4: 87685 11/29/2017 23330 EST. PATIENT, LEVEL III Diagnosis: Essential (primary) hypertension[ICD10: I10] [facility] CPT-4: 68254 11/16/2017 ([id number]) PREV VISIT EST AGE 40-64 Diagnosis: Encounter for general adult medical examination without abnormal findings[ICD10: Z00.00] Diagnosis: Other obesity due to excess calories[ICD10: E66.09] [facility] CPT-4: 99739 04/25/2017 38749 EST. PATIENT, LEVEL III Diagnosis: Acute laryngopharyngitis[ICD10: J06.0] Diagnosis: Other allergic rhinitis[ICD10: J30.89] Diagnosis: Otalgia, left ear[ICD10: H92.02] Tere Dale MD, [facility] CPT- 4: 94796 10/20/2016 ([id number]) 25877 EST. PATIENT, LEVEL III Diagnosis: Mixed hyperlipidemia[ICD10: E78.2] Diagnosis: Cough[ICD10: R05] [facility] CPT-4: 37461 07/11/2016 ([id number]) Miscellaneous no charge Diagnosis: ELEV BL PRES W/O HYPERTN[ICD9: 796.2] [facility] CPT-4: 39333 01/08/2015 ([id number]) Miscellaneous no charge Diagnosis: ELEV BL PRES W/O HYPERTN[ICD9: 796.2] [facility] CPT-4: 47059 01/06/2015 ([id number]) OFFICE VISIT, NEW - LEVEL 4 Diagnosis: Abnormal menstrual periods[ICD9: 626.2] Diagnosis: Hiatal hernia[ICD9: 553.3] Diagnosis: ESOPHAGEAL REFLUX[ICD9: 530.81] Diagnosis: Missed periods[ICD9: 626.4] [facility] CPT- 4: 80649 08/08/2014 Plan of Care Planned Activity Notes Codes Status Date Patient Education: Patient Medication Summary Completed 08/17/2018 [facility] [phone] [facility] [place] (15 min) Moderate 04/18/2018 Patient Education: Patient Medication Summary Completed 04/18/2018 Appointment: Lab Draw 03/02/2018 Patient Education: Patient Medication Summary Completed 03/02/2018 Appointment: Jeanine Cunningham WPtel: [phone] [phone] [place] (30 min) Complex 02/23/2018 Patient Education: Patient Medication Summary Completed 02/23/2018 [facility]ment[facility] [phone] [facility] [place] (15 min) Moderate 02/20/2018 Appointment: Jeanine Cunningham WPtel: [phone] [phone] [place] (30 min) Complex 02/01/2018 Patient Education: Patient Medication Summary Completed 02/01/2018 App[facility]ment: [facility] [phone] [phone] [place] (30 min) Complex 01/05/2018 Patient Education: Patient Medication Summary Completed 01/05/2018 Appointment: [facility] [phone] [facility] [place] ([facility] min) Complex 11/29/2017 Patient Education: Patient Medication Summary Completed 11/29/2017 App[facility]ment[facility] [phone] [facility] [place] (15 min) Moderate 11/16/2017 Patient Education: Patient Medication Summary Completed 11/16/2017 Appointment: Jeanine Cunningham WPtel: [phone] [phone] [place] (15 min) Moderate 04/25/2017 Patient Education: Patient Medication Summary Completed 04/25/2017 Patient Education: Obesity Completed 04/25/2017 Appointment: Tere Coello WPtel: [phone] [facility] (30 min) Complex 10/20/2016 Patient Education: Patient Medication Summary Completed 10/20/2016 Appointment: Nurse Visit 10/17/2016 Patient Education: Patient Medication Summary Completed 10/17/2016 [facility]ment: [facility] [phone] [phone] (30 min) Complex 07/11/2016 Patient Education: Patient Medication Summary Completed 07/11/2016 Patient Education: Obesity Completed 07/11/2016 Appointment: Nurse Visit 01/08/2015 Patient Education: Patient Medication Summary Completed 01/08/2015 Appointment: Nurse Visit 01/06/2015 Patient Education: Patient Medication Summary Completed 01/06/2015 Appointment: Surgical Procedure 01/01/2015 Patient Education: Patient Medication Summary Completed 01/01/2015 Appointment: Surgical Procedure 12/30/2014 Appointment: Lab Draw 12/24/2014 Appointment: [facility]eni Dale [facility] New Patient 08/08/2014 Patient Education: Patient Medication Summary Completed 08/08/2014 Instructions No Instructions
--- OUTSIDE RECORDS SUMMARY | 2018-08-24 00:40 | XMS REPORT | CCD ---
Author Author [facility]eni Dale Organization [facility] Address [address] [place] [address] Phone Care Team Providers Care Epic Ambulatory Analyst Name Role Phone PP Unavailable CCM Unavailable Summary Purpose Interface Exchange Insurance Providers Payer name Policy type / Coverage type Covered constitution party ID Effective Begin Date Effective End Date [facility] [id number] Unknown Family History Family History data not found Social History Social History Element Codes Description Effective Dates Marital status Unknown 08/08/2014 Living arrangements Unknown House 08/08/2014 Education level Unknown College Graduate 08/08/2014 Employment Unknown 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 08/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 Allergies, Adverse Reactions, Alerts Substance [...] Kenalog 40 mg/mL suspension for injection RxNorm: 8391129 1 Milliliter(s) Inj 08/17/2018 08/17/2018 Inactive Zithromax Z-Kristofer 250 mg tablet RxNorm: 072908 1 Tablet(s) PO UD 08/17/2018 08/21/2018 Active zpack simvastatin 40 mg tablet RxNorm: 694589 TAKE ONE TABLET BY MOUTH AT BEDTIME 07/23/2018 04/18/2019 Active lisinopril 10 mg tablet RxNorm: 379962 TAKE ONE TABLET BY MOUTH DAILY 06/04/2018 08/27/2019 Active Prozac 40 mg capsule RxNorm: 786253 TAKE ONE CAPSULE BY MOUTH DAILY 04/09/2018 10/05/2018 Active Xanax 0.25 mg tablet RxNorm: 346201 1/2 Tablet(s) PO BID as needed anxiety 02/23/2018 04/23/2018 Inactive Diflucan 150 mg tablet RxNorm: 134294 1 Tablet(s) PO daily 06/201802/07/2018 Inactive Cipro 500 mg tablet RxNorm: 795685 1 Tablet(s) PO BID 201702/01/2018 Inactive Flagyl 500 mg tablet RxNorm: 958204 1 Tablet(s) PO TID 201702/01/2018 Inactive Zofran 4 mg tablet RxNorm: 910001 1 Tablet(s) PO Q6 PRN 01/05 No Stop Date Active ketorolac 60 mg/2 mL intramuscular solution RxNorm: 691026 2 Milliliter(s) IM 01/05/2018 01/05/2018 Inactive Flagyl 500 mg tablet RxNorm: 549998 1 Tablet(s) PO TID 201701/14/2018 Inactive Cipro 500 mg tablet RxNorm: 089551 1 Tablet(s) PO BID 201701/14/2018 Inactive lisinopril 10 mg tablet RxNorm: 898041 TAKE ONE TABLET BY MOUTH DAILY 12/18/2017 06/03/2018 Inactive Prozac 40 mg capsule RxNorm: 249086 TAKE ONE CAPSULE BY MOUTH DAILY 11/27/2017 03/26/2018 Inactive lisinopril 10 mg tablet RxNorm: 264546 1 Tablet(s) PO daily 12/15/2017 Inactive Prilosec 20 mg capsule,delayed release RxNorm: 857181 TAKE ONE CAPSULE BY MOUTH TWICE A DAY 10/06/2017 05/03/2018 Inactive Prilosec 20 mg capsule,delayed release RxNorm: 634170 TAKE ONE CAPSULE BY MOUTH TWICE A DAY 08/07/2017 09/05/2017 Inactive Prozac 40 mg capsule RxNorm: 956429 TAKE ONE CAPSULE BY MOUTH DAILY 06/12/2017 11/08/2017 Inactive Contrave 8 mg-90 mg tablet,extended release RxNorm: 2534211 2 Tablet(s) PO BID 04/25/2017 05/07/2017 Inactive simvastatin 40 mg tablet RxNorm: 994711 1 Tablet(s) PO QHS 01/201703/23/2018 Inactive [SAVINGS FOR NON-COVERED DRUGS -- BIN:[id number], PCN: ASPROD1, Group: XXXXX, ID# [id number], Questions: . THIS IS NOT INSURANCE.] Prozac 40 mg capsule RxNorm: 658697 TAKE ONE CAPSULE BY MOUTH DAILY 11/08/2016 05/06/2017 Inactive prednisone 10 mg tablet RxNorm: 340000 Tablet(s) PO 10/20/2016 04/24/2017 Inactive 6, 5,4,3,2,1 Flonase Allergy Relief 50 mcg/actuation nasal spray, suspension RxNorm: 2934189 1 [place] NASAL BID 10/17/2016 No Stop Date Active Kenalog 40 mg/mL suspension for injection RxNorm: 8241779 1 Milliliter(s) Inj 10/17/2016 10/17/2016 Inactive Zithromax Z-Kristofer 250 mg tablet RxNorm: 886864 1 Tablet(s) PO UD 10/12/2016 10/16/2016 Inactive zpack Prilosec 20 mg capsule,delayed release RxNorm: 572288 TAKE ONE CAPSULE BY MOUTH TWICE A DAY 08/30/2016 02/25/2017 Inactive Prozac 40 mg capsule RxNorm: 482483 TAKE ONE CAPSULE BY MOUTH DAILY 08/08/2016 11/05/2016 Inactive Zithromax Z-Kristofer 250 mg tablet RxNorm: 601491 1 Tablet(s) PO UD 07/11/2016 07/15/2016 Inactive zpack Prilosec 20 mg capsule,delayed release RxNorm: 199694 Capsule(s) TAKE ONE CAPSULE BY MOUTH TWICE A DAY 07/04/20162015 Inactive Prozac 40 mg capsule RxNorm: 261047 1 Capsule(s) PO daily 07/0408/02/2016 Inactive Prilosec 20 mg capsule,delayed release RxNorm: 023753 TAKE ONE CAPSULE BY MOUTH TWICE A DAY 01/11/2016 04/09/2016 Inactive simvastatin 40 mg tablet RxNorm: 818211 TAKE ONE TABLET BY MOUTH AT BEDTIME 12/23/2015 05/06/2016 Inactive Request already responded to by other means (e.g. phone or fax) simvastatin 40 mg tablet RxNorm: 632065 1 Tablet(s) PO QHS 06/17/2016 Inactive [SAVINGS FOR NON-COVERED DRUGS -- BIN:461999, PCN: ASPROD1, Group: XXXXX, ID# [id number], Questions: . THIS IS NOT INSURANCE.] Prozac 40 mg capsule RxNorm: 829373 1 Capsule(s) PO daily 06/1906/12/2016 Inactive simvastatin 40 mg tablet RxNorm: 923455 1 Tablet(s) PO QHS 07/201507/31/2015 Inactive [SAVINGS FOR NON-COVERED DRUGS -- BIN:991549, PCN: ASPROD1, Group: XXXXX, ID# [id number], Questions: . THIS IS NOT INSURANCE.] Prilosec 20 mg capsule,delayed release RxNorm: 471832 TAKE ONE CAPSULE BY MOUTH TWICE A DAY 12/04/2014 04/02/2015 Inactive Prilosec 20 mg capsule,delayed release RxNorm: 550341 1 Capsule(s) PO BID 12/02/2014 07/03/2016 Inactive [SAVINGS FOR NON-COVERED DRUGS -- BIN:926564, PCN: ASPROD1, Group: XXXXX, ID# [id number], Questions: . THIS IS NOT INSURANCE.] Tamiflu 75 mg capsule RxNorm: 812987 Capsule(s) PO daily 201411/05/2014 Inactive Seasonale contraceptive 0.15 mg-30 mcg tablets,3 month dose pack RxNorm: 796877 1 Tablet(s) PO daily 08/11/20142015 Inactive Seasonale contraceptive 0.15 mg-30 mcg tablets,3 month dose pack RxNorm: 269662 1 Tablet(s) PO daily 08/11/20142013 Inactive Prilosec 20 mg capsule,delayed release RxNorm: 636915 1 Capsule(s) PO BID 08/08/2014 10/06/2014 Inactive [SAVINGS FOR UNINSURED PATIENTS -- BIN:279183, PCN: ASPROD1, Group: [id number], ID# [id number], Process claim through [employer], for questions: . THIS IS NOT INSURANCE.] Centrum Complete oral RxNorm: 80670 oral No Start Date Active Phenergan 12.5 mg tablet RxNorm: 045121 1/2 Tablet(s) PO PRN No Start Date Active Prozac 40 mg capsule RxNorm: 120105 1 Capsule(s) PO daily No Start Date 06/18/2015 Inactive Victoza 2-Kristofer 0.6 mg/0.1 mL (18 mg/3 mL) subcutaneous pen injector RxNorm: 109561 0.6 Milligram(s) SQ daily No Start Date Inactive Fish Oil 1,000 mg capsule RxNorm: 3 Capsule(s) PO daily No Start Date 04/24/2017 Inactive Xanax 0.25 mg tablet RxNorm: 364655 1/2 Tablet(s) PO daily No Start Date 02/22/2018 Inactive simvastatin 40 mg tablet RxNorm: 182324 1 Tablet(s) PO QHS No Start Date 02/01/2015 Inactive Prilosec 20 mg capsule,delayed release RxNorm: 024721 1 Capsule(s) PO daily No Start Date 08/07/2014 Inactive Medication Administered Medication Codes Instructions Start Date Status Kenalog 40 mg/mL suspension for injection RxNorm: 5204598 1Milliliter 08/17/2018 Active ketorolac 60 mg/2 mL intramuscular solution RxNorm: 704922 2Milliliter 01/05/2018 No longer Active Kenalog 40 mg/mL suspension for injection RxNorm: 5879392 1Milliliter 10/17/2016 No longer Active Immunizations Vaccine [...] Item Item Code Result Date Comp Metabolic Ncp272 NA 140 mEq/L 04/25/2017 Comp Metabolic Cin468 K 3.9 mEq/L 04/25/2017 Comp Metabolic Vci484 CL 107 mEq/L 04/25/2017 Comp Metabolic Adw046 CO2 22.0 mEq/L 04/25/2017 Comp Metabolic Mcy653 ANION GAP 15 04/25/2017 Comp Metabolic Ywk209 GLUCOSE 82 mg/dL 04/25/2017 Comp Metabolic Apt916 Creat 0.7 mg/dL 04/25/2017 Comp Metabolic Ijk161 eGFR 107 ml/min/1.73m2 04/25/2017 Comp Metabolic Wxq041 BUN 10 mg/dL 04/25/2017 Comp Metabolic Xlz293 B/C Ratio 15.4 Ratio 04/25/2017 Comp Metabolic Yub691 CALCIUM 8.9 mg/dL 04/25/2017 Comp Metabolic Ibo371 ALK PHOS 73 U/L 04/25/2017 Comp Metabolic Ton094 AST(SGOT) 16 U/L 04/25/2017 Comp Metabolic Awj508 ALT(SGPT) 12 U/L 04/25/2017 Comp Metabolic Oyj473 BILI T 0.3 mg/dL 04/25/2017 Comp Metabolic Xuq207 ALBUMIN 3.8 g/dL 04/25/2017 Comp Metabolic Ddr356 TPRO 6.7 g/dL 04/25/2017 Comp Metabolic Zoy804 GLOB 2.9 g/dL 04/25/2017 Comp Metabolic Zmh759 A/G Ratio 1.3 Ratio 04/25/2017 Comp Metabolic Kgc885 Osmo 278 mOsmo 04/25/2017 Cbc With Differential [...] 26.8 pg 04/25/2017 Cbc With Differential Ord2 [place]% 5.7 % 04/25/2017 Cbc With Differential Ord2 [...] 1.58 K/ul 04/25/2017 Cbc With Differential Ord2 [place] ABS# 0.5 K/ul 04/25/2017 Cbc With Differential [...] 81.2 fl 07/11/2016 Cbc With Differential Ord2 [place]% 6.9 % 07/11/2016 Cbc With Differential Ord2 [...] 1.51 K/ul 07/11/2016 Cbc With Differential Ord2 [place] ABS# 0.8 K/ul 07/11/2016 Cbc With Differential Ord2 Eos ABS# 0.1 K/ul 07/11/2016 Cbc With Differential Ord2 Baso ABS# 0.0 K/ul 07/11/2016 Comp Metabolic Yfp610 NA 136 mEq/L 07/11/2016 Comp Metabolic Bck166 K 4.2 mEq/L 07/11/2016 Comp Metabolic Una303 CL 104 mEq/L 07/11/2016 Comp Metabolic Xjn433 CO2 20.0 mEq/L 07/11/2016 Comp Metabolic Ask555 ANION GAP 16 07/11/2016 Comp Metabolic Orx700 GLUCOSE 86 mg/dL 07/11/2016 Comp Metabolic Hui963 Creat 0.7 mg/dL 07/11/2016 Comp Metabolic Rae121 eGFR 106 ml/min/1.73m2 07/11/2016 Comp Metabolic Kcb359 BUN 12 mg/dL 07/11/2016 Comp Metabolic Nka299 B/C Ratio 18.2 Ratio 07/11/2016 Comp Metabolic Xlh247 CALCIUM 9.3 mg/dL 07/11/2016 Comp Metabolic Has775 ALK PHOS 79 U/L 07/11/2016 Comp Metabolic Flp463 AST(SGOT) 19 U/L 07/11/2016 Comp Metabolic Nfn113 ALT(SGPT) 13 U/L 07/11/2016 Comp Metabolic Gwd522 BILI T 0.3 mg/dL 07/11/2016 Comp Metabolic Rcn417 ALBUMIN 4.1 g/dL 07/11/2016 Comp Metabolic Vdm825 TPRO 7.5 g/dL 07/11/2016 Comp Metabolic Qvt991 GLOB 3.4 g/dL 07/11/2016 Comp Metabolic Wtl816 A/G Ratio 1.2 Ratio 07/11/2016 Comp Metabolic Ups279 Osmo 271 mOsmo 07/11/2016 PREG U 1002662 PREG U NEG 08/08/2014 Review of Systems [...] time 11/29/2017 None Full Exam - General 1995 Constitutional general appearance Overall: well developed 11/16/2017 None Full Exam - General 1995 Constitutional general appearance Overall: in no acute distress 11/16/2017 None Full Exam - General 1995 Constitutional general appearance Overall: well nourished 11/16/2017 None Full Exam - General 1995 Eyes conjunctiva /eyelids Overall: conjunctiva clear 11/16/2017 None Full Exam - General 1994 Eyes conjunctiva /eyelids Overall: cornea clear 11/16/2017 None Full Exam - General 1994 Eyes conjunctiva /eyelids Overall: eyelids normal 11/16/2017 None Full Exam - General 1994 Eyes pupils and irises Overall: pupils equal, round, reactive to light and accomodation 11/16/2017 None Full Exam - General 1995 Ears/Nose/Throat lips/teeth/gingiva Overall: benign lips 11/16/2017 None Full Exam - General 1995 Ears/Nose/Throat oral cavity/pharynx/larynx Overall: oral mucosa clear [...] CPT-4: J3301 08/17/2018 THER/PROPH/DIAG INJ SC/IM CPT-4: 82759 08/17/2018 KETOROLAC TROMETHAMINE INJ CPT-4: J1885 01/05/2018 THER/PROPH/DIAG INJ SC/IM CPT-4: 17813 10/17/2016 TRIAMCINOLONE ACET INJ NOS CPT-4: J3301 10/17/2016 REMOVAL OF SKIN TAGS <W/15 CPT-4: 14651 01/01/2015 Vital Signs Date Vital 08/17/2018 Blood Pressure 1: 142/88 Code : 8480-6 BMI: 36.3 Code : 12740-7 Heart Rate 1 : 91 bpm Height: 5' SpO2: 98% Temperature: 37.1 (C) / 98.8 (F) Weight: 186 lbs 04/18/2018 Blood Pressure 1: 118/82 Code : 8480-6 BMI: 36.3 Code : 43167-0 Heart Rate 1 : 103 bpm Height: 5' SpO2: 99% Weight: 186 lbs 02/23/2018 Blood Pressure 1: 134/88 Code : 8480-6 BMI: 37.1 Code : 20527-4 Heart Rate 1 : 99 bpm Height: 5' SpO2: 97% Weight: 190 lbs 02/01/2018 Blood Pressure 1: 132/86 Code : 8480-6 BMI: 36.9 Code : 35990-9 Heart Rate 1 : 83 bpm Height: 5' SpO2: 99% Weight: 189 lbs 01/05/2018 Blood Pressure 1: 138/82 Code : 8480-6 BMI: 38.7 Code : 92266-6 Heart Rate 1 : 98 bpm Height: 5' SpO2: 98% Weight: 198 lbs 11/29/2017 Blood Pressure 1: 136/74 Code : 8480-6 BMI: 38.7 Code : 17641-4 Heart Rate 1 : 84 bpm Height: 5' SpO2: 98% Weight: 198 lbs 11/16/2017 Blood Pressure 1: 138/88 Code : 8480-6 BMI: 38.7 Code : 71821-5 Heart Rate 1 : 83 bpm Height: 5' SpO2: 98% Weight: 198 lbs 04/25/2017 Blood Pressure 1: 138/90 Code : 8480-6 BMI: 40.2 Code : 01053-6 Heart Rate 1 : 84 bpm Height: 5' SpO2: 98% Weight: 206 lbs 10/20/2016 Blood Pressure 1: 140/82 Code : 8480-6 BMI: 39.1 Code : 83438-6 Heart Rate 1 : 87 bpm Height: 5' SpO2: 97% Temperature: 37.2 (C) / 98.9 (F) Weight: 200 lbs 07/11/2016 Blood Pressure 1: 142/88 Code : 8480-6 BMI: 38.7 Code : 83710-9 Heart Rate 1 : 104 bpm Height: 5' SpO2: 96% Temperature: 36.7 (C) / 98.0 (F) Weight: 198 lbs 01/08/2015 Blood Pressure 1: 118/78 Code : 8480-6 01/06/2015 Blood Pressure 1: 132/80 Code : 8480-6 01/01/2015 Blood Pressure 1: 150/102 Code: 8480-6 Blood Pressure 2: 150/96 Code: 8480-6 BMI: 33.4 Code: 53910-1 Heart Rate 1: 71 bpm Height: 5' SpO2: 99% Weight: 171 lbs 08/08/2014 Blood Pressure 1: 136/70 Code : 8480-6 BMI: 40.8 Code : 56929-3 Heart Rate 1 : 84 bpm Height: [...] data Encounters Encounter Performer Location Codes Date 39238 EST. PATIENT, LEVEL IV Diagnosis: Other acute sinusitis[ICD10: J01.80] Diagnosis: Other allergic rhinitis[ICD10: J30.89] Tere Dale MD, [facility] CPT-4: 02686 08/17/2018 ([id number]) 32340 EST. PATIENT, LEVEL III Diagnosis: Essential (primary) hypertension[ICD10: I10] Diagnosis: Personal history of other infectious and parasitic diseases[ICD10: Z86.19] Yeni Dale MD, [facility] CPT-4: 55465 2017 ([id number]) 46045 EST. PATIENT, LEVEL III Diagnosis: Generalized anxiety disorder[ICD10: F41.1] Diagnosis: Urinary tract infection, site not specified[ICD10: N39.0] Jeanine Dale MD , [facility] CPT-4: 76843 02/23/2018 ([id number]) 63924 EST. PATIENT, LEVEL III Diagnosis: Generalized abdominal pain[ICD10: R10.84] Diagnosis: Candidiasis of vulva and vagina[ICD10: B37.3] Jeanine Dale MD, [facility] CPT-4: 81438 02/01/2018 ([id number]) 77163 EST. PATIENT, LEVEL IV Diagnosis: Generalized abdominal pain[ICD10: R10.84] Diagnosis: Nausea[ICD10: R11.0] Diagnosis: Diarrhea, unspecified[ICD10: R19.7] Jeanine Dale MD, [facility] CPT-4: 00876 01/05/2018 50330 EST. PATIENT, LEVEL IV Diagnosis: Other allergic rhinitis[ICD10: J30.89] Diagnosis: Essential (primary) hypertension[ICD10: I10] Tere Dale MD, [facility] CPT-4: 11174 11/29/2017 96638 EST. PATIENT, LEVEL III Diagnosis: Essential (primary) hypertension[ICD10: I10] [facility] CPT-4: 37967 11/16/2017 ([id number]) PREV VISIT EST AGE 40-64 Diagnosis: Encounter for general adult medical examination without abnormal findings[ICD10: Z00.00] Diagnosis: Other obesity due to excess calories[ICD10: E66.09] [facility] CPT-4: 39750 04/25/2017 84677 EST. PATIENT, LEVEL III Diagnosis: Acute laryngopharyngitis[ICD10: J06.0] Diagnosis: Other allergic rhinitis[ICD10: J30.89] Diagnosis: Otalgia, left ear[ICD10: H92.02] [facility] CPT- 4: 22042 10/20/2016 ([id number]) 30339 EST. PATIENT, LEVEL III Diagnosis: Mixed hyperlipidemia[ICD10: E78.2] Diagnosis: Cough[ICD10: R05] [facility] CPT-4: 64498 07/11/2016 ([id number]) Miscellaneous no charge Diagnosis: ELEV BL PRES W/O HYPERTN[ICD9: 796.2] [facility] CPT-4: 50342 01/08/2015 ([id number]) Miscellaneous no charge Diagnosis: ELEV BL PRES W/O HYPERTN[ICD9: 796.2] [facility] CPT-4: 04356 01/06/2015 ([id number]) OFFICE VISIT, NEW - LEVEL 4 Diagnosis: Abnormal menstrual periods[ICD9: 626.2] Diagnosis: Hiatal hernia[ICD9: 553.3] Diagnosis: ESOPHAGEAL REFLUX[ICD9: 530.81] Diagnosis: Missed periods[ICD9: 626.4] [facility] CPT- 4: 01851 08/08/2014 Plan of Care Planned Activity Notes Codes Status Date Patient Education: Patient Medication Summary Completed 08/17/2018 Appointment: [facility] Dale [facility] [place] (15 min) Moderate 04/18/2018 Patient Education: Patient Medication Summary Completed 04/18/2018 Appointment: Lab Draw 03/02/2018 Patient Education: Patient Medication Summary Completed 03/02/2018 Appointment: Jeanine Cunningham WPtel: [phone] [phone] [place] (30 min) Complex 02/23/2018 Patient Education: Patient Medication Summary Completed 02/23/2018 Appointment: Tere Coello WPtel: [phone] [facility] [place] (15 min) Moderate 02/20/2018 Appointment: Jeanine Cunningham WPtel: [phone] [phone] [place] (30 min) Complex 02/01/2018 Patient Education: Patient Medication Summary Completed 02/01/2018 Appointment: Jeanine Cunningham WPtel: [phone] [place] (30 min) Complex 01/05/2018 Patient Education: Patient Medication Summary Completed 01/05/2018 [phone] [facility] [place] ([facility] [place] Complex 11/29/2017 Patient Education: Patient Medication Summary Completed 11/29/2017 Appointment: Te[facility] Coello [facility] [place] (15 min) Moderate 11/16/2017 Patient Education: Patient Medication Summary Completed 11/16/2017 Appointment: Jean[facility] Cunningham [phone] [place] (15 min) Moderate 04/25/2017 Patient Education: Patient Medication Summary Completed 04/25/2017 Patient Education: Obesity Completed 04/25/2017 [facility] [phone] [facility] [place] ([place]) Complex 10/20/2016 Patient Education: Patient Medication Summary Completed 10/20/2016 Appointment: Nurse Visit 10/17/2016 Patient Education: Patient Medication Summary Completed 10/17/2016 [facility] [phone] [phone] (30 min) Complex 07/11/2016 Patient Education: Patient Medication Summary Completed 07/11/2016 Patient Education: Obesity Completed 07/11/2016 Appointment: Nurse Visit 01/08/2015 Patient Education: Patient Medication Summary Completed 01/08/2015 Appointment: Nurse Visit 01/06/2015 Patient Education: Patient Medication Summary Completed 01/06/2015 Appointment: Surgical Procedure 01/01/2015 Patient Education: Patient Medication Summary Completed 01/01/2015 Appointment: Surgical Procedure 12/30/2014 Appointment: Lab Draw 12/24/2014 App[facility]ment[facility] [phone] [facility] New Patient 08/08/2014 Patient Education: Patient Medication Summary Completed 08/08/2014 Instructions No Instructions
--- OUTSIDE RECORDS SUMMARY | 2018-08-24 00:41 | XMS REPORT | CCD ---
Author Author [facility] Address [address] [place] [address] Phone Care Team Providers Care Rn Social Work Name Role Phone PP Unavailable CCM Unavailable Summary Purpose Interface Exchange Insurance Providers Payer name Policy type / Coverage type Covered democrat ID Effective Begin Date Effective End Date [facility] [id number] Unknown Family History Family History data not found Social History Social History Element Codes Description Effective Dates Marital status Unknown 08/08/2014 Living arrangements Unknown House 08/08/2014 Education level Unknown College Graduate 08/08/2014 Employment Unknown 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 [employer] 08/08/2014 Allergies, Adverse Reactions, Alerts Substance Reaction Codes Entered Date Inactivated Date Status * NO KNOWN FOOD ALLERGIES Unknown 08/08/2014 No Inactive Date Active Erythromycin emesis RxNorm: 4053 08/08/2014 No Inactive Date Active PENICILLINS rash, Unknown 08/08/2014 No Inactive Date Active Past Medical History Illness Codes Condition Status Onset Date Resolved Date Essential (primary) hypertension ICD-9: 401.1 ICD-10: I10 [...] ICD-9: 787.02 ICD-10: R11.0 Active 01/05/2018 Unknown Other allergic rhinitis ICD-9: 477.8 ICD-10: J30.89 Active 10/16/2016 Unknown Encounter for general adult medical examination [...] Problems Condition Codes Effective Dates Condition Status Essential (primary) hypertension ICD-9: 401.1 ICD-10: I10 [...] Nausea ICD-9: 787.02 ICD-10: R11.0 01/05/2018 Active Other allergic rhinitis ICD-9: 477.8 ICD-10: J30.89 10/16/2016 Active Encounter for general adult medical examination [...] Start Date Stop Date Status Fill Instructions simvastatin 40 mg tablet RxNorm: 383943 TAKE ONE TABLET BY MOUTH AT BEDTIME 07/23/2018 04/18/2019 Active lisinopril 10 mg tablet RxNorm: 151710 TAKE ONE TABLET BY MOUTH DAILY 06/04/2018 08/27/2019 Active Prozac 40 mg capsule RxNorm: 359765 TAKE ONE CAPSULE BY MOUTH DAILY 04/09/2018 10/05/2018 Active Xanax 0.25 mg tablet RxNorm: 731650 1/2 Tablet(s) PO BID as needed anxiety 02/23/2018 04/23/2018 Inactive Diflucan 150 mg tablet RxNorm: 187813 1 Tablet(s) PO daily 06/201802/07/2018 Inactive Cipro 500 mg tablet RxNorm: 074058 1 Tablet(s) PO BID 201702/01/2018 Inactive Flagyl 500 mg tablet RxNorm: 059708 1 Tablet(s) PO TID 201702/01/2018 Inactive Zofran 4 mg tablet RxNorm: 068896 1 Tablet(s) PO Q6 PRN 01/05 No Stop Date Active ketorolac 60 mg/2 mL intramuscular solution RxNorm: 318631 2 Milliliter(s) IM 01/05/2018 01/05/2018 Inactive Flagyl 500 mg tablet RxNorm: 764631 1 Tablet(s) PO TID 201701/14/2018 Inactive Cipro 500 mg tablet RxNorm: 468180 1 Tablet(s) PO BID 201701/14/2018 Inactive lisinopril 10 mg tablet RxNorm: 427137 TAKE ONE TABLET BY MOUTH DAILY 12/18/2017 06/03/2018 Inactive Prozac 40 mg capsule RxNorm: 399412 TAKE ONE CAPSULE BY MOUTH DAILY 11/27/2017 03/26/2018 Inactive lisinopril 10 mg tablet RxNorm: 753883 1 Tablet(s) PO daily 12/15/2017 Inactive Prilosec 20 mg capsule,delayed release RxNorm: 902060 TAKE ONE CAPSULE BY MOUTH TWICE A DAY 10/06/2017 05/03/2018 Inactive Prilosec 20 mg capsule,delayed release RxNorm: 292751 TAKE ONE CAPSULE BY MOUTH TWICE A DAY 08/07/2017 09/05/2017 Inactive Prozac 40 mg capsule RxNorm: 828583 TAKE ONE CAPSULE BY MOUTH DAILY 06/12/2017 11/08/2017 Inactive Contrave 8 mg-90 mg tablet,extended release RxNorm: 4563284 2 Tablet(s) PO BID 04/25/2017 05/07/2017 Inactive simvastatin 40 mg tablet RxNorm: 322885 1 Tablet(s) PO QHS 01/201703/23/2018 Inactive [SAVINGS FOR NON-COVERED DRUGS -- BIN:542308, PCN: ASPROD1, Group: XXXXX, ID# XXXXXXX, Questions: . THIS IS NOT INSURANCE.] Prozac 40 mg capsule RxNorm: 536843 TAKE ONE CAPSULE BY MOUTH DAILY 11/08/2016 05/06/2017 Inactive prednisone 10 mg tablet RxNorm: 331112 Tablet(s) PO 10/20/2016 04/24/2017 Inactive 6, 5,4,3,2,1 Flonase Allergy Relief 50 mcg/actuation nasal spray, suspension RxNorm: 0234173 1 [place] NASAL BID 10/17/2016 No Stop Date Active Kenalog 40 mg/mL suspension for injection RxNorm: 1331927 1 Milliliter(s) Inj 10/17/2016 10/17/2016 Inactive Zithromax Z-Kristofer 250 mg tablet RxNorm: 533970 1 Tablet(s) PO UD 10/12/2016 10/16/2016 Inactive zpack Prilosec 20 mg capsule,delayed release RxNorm: 623768 TAKE ONE CAPSULE BY MOUTH TWICE A DAY 08/30/2016 02/25/2017 Inactive Prozac 40 mg capsule RxNorm: 767117 TAKE ONE CAPSULE BY MOUTH DAILY 08/08/2016 11/05/2016 Inactive Zithromax Z-Kristofer 250 mg tablet RxNorm: 782738 1 Tablet(s) PO UD 07/11/2016 07/15/2016 Inactive zpack Prilosec 20 mg capsule,delayed release RxNorm: 334670 Capsule(s) TAKE ONE CAPSULE BY MOUTH TWICE A DAY 07/04/20162015 Inactive Prozac 40 mg capsule RxNorm: 459564 1 Capsule(s) PO daily 07/0408/02/2016 Inactive Prilosec 20 mg capsule,delayed release RxNorm: 950849 TAKE ONE CAPSULE BY MOUTH TWICE A DAY 01/11/2016 04/09/2016 Inactive simvastatin 40 mg tablet RxNorm: 076876 TAKE ONE TABLET BY MOUTH AT BEDTIME 12/23/2015 05/06/2016 Inactive Request already responded to by other means (e.g. phone or fax) simvastatin 40 mg tablet RxNorm: 912477 1 Tablet(s) PO QHS 06/17/2016 Inactive [SAVINGS FOR NON-COVERED DRUGS -- BIN:747897, PCN: ASPROD1, Group: XXXXX, ID# [id number], Questions: . THIS IS NOT INSURANCE.] Prozac 40 mg capsule RxNorm: 851029 1 Capsule(s) PO daily 06/1906/12/2016 Inactive simvastatin 40 mg tablet RxNorm: 749425 1 Tablet(s) PO QHS 07/201507/31/2015 Inactive [SAVINGS FOR NON-COVERED DRUGS -- BIN:092907, PCN: ASPROD1, Group: XXXXX, ID# [id number], Questions: . THIS IS NOT INSURANCE.] Prilosec 20 mg capsule,delayed release RxNorm: 921571 TAKE ONE CAPSULE BY MOUTH TWICE A DAY 12/04/2014 04/02/2015 Inactive Prilosec 20 mg capsule,delayed release RxNorm: 634424 1 Capsule(s) PO BID 12/02/2014 07/03/2016 Inactive [SAVINGS FOR NON-COVERED DRUGS -- BIN:575150, PCN: ASPROD1, Group: XXXXX, ID# [id number], Questions: . THIS IS NOT INSURANCE.] Tamiflu 75 mg capsule RxNorm: 019137 Capsule(s) PO daily 201411/05/2014 Inactive Seasonale contraceptive 0.15 mg-30 mcg tablets,3 month dose pack RxNorm: 190122 1 Tablet(s) PO daily 08/11/20142015 Inactive Seasonale contraceptive 0.15 mg-30 mcg tablets,3 month dose pack RxNorm: 678290 1 Tablet(s) PO daily 08/11/20142013 Inactive Prilosec 20 mg capsule,delayed release RxNorm: 767678 1 Capsule(s) PO BID 08/08/2014 10/06/2014 Inactive [SAVINGS FOR UNINSURED PATIENTS -- BIN:629843, PCN: ASPROD1, Group: [id number], ID# [id number], Process claim through [employer], for questions: . THIS IS NOT INSURANCE.] Centrum Complete oral RxNorm: 86856 oral No Start Date Active Phenergan 12.5 mg tablet RxNorm: 771751 1/2 Tablet(s) PO PRN No Start Date Active Prozac 40 mg capsule RxNorm: 036382 1 Capsule(s) PO daily No Start Date 06/18/2015 Inactive Victoza 2-Kristofer 0.6 mg/0.1 mL (18 mg/3 mL) subcutaneous pen injector RxNorm: 206007 0.6 Milligram(s) SQ daily No Start Date Inactive Fish Oil 1,000 mg capsule RxNorm: 3 Capsule(s) PO daily No Start Date 04/24/2017 Inactive Xanax 0.25 mg tablet RxNorm: 221588 1/2 Tablet(s) PO daily No Start Date 02/22/2018 Inactive simvastatin 40 mg tablet RxNorm: 046853 1 Tablet(s) PO QHS No Start Date 02/01/2015 Inactive Prilosec 20 mg capsule,delayed release RxNorm: 397174 1 Capsule(s) PO daily No Start Date 08/07/2014 Inactive Medication Administered Medication Codes Instructions Start Date Status ketorolac 60 mg/2 mL intramuscular solution RxNorm: 617800 2Milliliter 01/05/2018 No longer Active Kenalog 40 mg/mL suspension for injection RxNorm: 6997733 1Milliliter 10/17/2016 No longer Active Immunizations Vaccine Codes Date Status Influenza CVX: 141 08/14/2016 completed PPD Unknown 01/08/2015 completed PPD Unknown 01/06/2015 completed Assessments Condition Codes Effective Dates Essential (primary) hypertension ICD-10: I10 ICD-9: 401.1 [...] 01/05/2018 Nausea ICD-10: R11.0 ICD-9: 787.02 01/05/2018 Other allergic rhinitis ICD-10: J30.89 ICD-9: 477.8 11/29/2017 Encounter for general adult medical examination without [...] Visit Reason For Visit Effective Dates Notes diarrhea 04/18/2018 Hospital Follow Up 02/23/2018 Hospital Follow Up 02/01/2018 abdominal pain 01/05/2018 cough 11/29/2017 hypertension 11/16/2017 weight gain/obesity 04/25/2017 sinus congestion 10/20/2016 earache 10/17/2016 cough 07/11/2016 skin lesion 01/01/2015 anxiety 08/08/2014 causes her chest discomfort, nausea, vomiting and diarrhea Results Observation Observation Code Item Item Code Result Date Comp Metabolic Htm479 NA 140 mEq/L 04/25/2017 Comp Metabolic Gku657 K 3.9 mEq/L 04/25/2017 Comp Metabolic Ove757 CL 107 mEq/L 04/25/2017 Comp Metabolic Cxt837 CO2 22.0 mEq/L 04/25/2017 Comp Metabolic Rwd156 ANION GAP 15 04/25/2017 Comp Metabolic Rqw546 GLUCOSE 82 mg/dL 04/25/2017 Comp Metabolic Tmc007 Creat 0.7 mg/dL 04/25/2017 Comp Metabolic Ghk322 eGFR 107 ml/min/1.73m2 04/25/2017 Comp Metabolic Pur094 BUN 10 mg/dL 04/25/2017 Comp Metabolic Bis146 B/C Ratio 15.4 Ratio 04/25/2017 Comp Metabolic Roz002 CALCIUM 8.9 mg/dL 04/25/2017 Comp Metabolic Stf936 ALK PHOS 73 U/L 04/25/2017 Comp Metabolic Mph636 AST(SGOT) 16 U/L 04/25/2017 Comp Metabolic Wca268 ALT(SGPT) 12 U/L 04/25/2017 Comp Metabolic Gpz143 BILI T 0.3 mg/dL 04/25/2017 Comp Metabolic Aax661 ALBUMIN 3.8 g/dL 04/25/2017 Comp Metabolic Xif990 TPRO 6.7 g/dL 04/25/2017 Comp Metabolic Zrb381 GLOB 2.9 g/dL 04/25/2017 Comp Metabolic Jkd322 A/G Ratio 1.3 Ratio 04/25/2017 Comp Metabolic Cgb636 Osmo 278 mOsmo 04/25/2017 Cbc With Differential [...] 26.8 pg 04/25/2017 Cbc With Differential Ord2 [place]% 5.7 % 04/25/2017 Cbc With Differential Ord2 [...] 1.58 K/ul 04/25/2017 Cbc With Differential Ord2 [place] ABS# 0.5 K/ul 04/25/2017 Cbc With Differential [...] 26.9 pg 07/11/2016 Cbc With Differential Ord2 [place]% 6.9 % 07/11/2016 Cbc With Differential Ord2 MCHC 33.2 pg 07/11/2016 Cbc With Differential Ord2 Eos% 0.7 % 07/11/2016 Cbc With Differential Ord2 PLT 372 K/ul 07/11/2016 Cbc With Differential Ord2 Baso% 0.2 % 07/11/2016 Cbc With Differential Ord2 RDW 14.3 % 07/11/2016 Cbc With Differential Ord2 Neut ABS# 9.59 K/ul 07/11/2016 Cbc With Differential Ord2 Lymph ABS# 1.51 K/ul 07/11/2016 Cbc With Differential Ord2 [place] ABS# 0.8 K/ul 07/11/2016 Cbc With Differential Ord2 Eos ABS# 0.1 K/ul 07/11/2016 Cbc With Differential Ord2 Baso ABS# 0.0 K/ul 07/11/2016 Comp Metabolic Gve975 NA 136 mEq/L 07/11/2016 Comp Metabolic Fcv171 K 4.2 mEq/L 07/11/2016 Comp Metabolic Iox480 CL 104 mEq/L 07/11/2016 Comp Metabolic Sew273 CO2 20.0 mEq/L 07/11/2016 Comp Metabolic Xjo899 ANION GAP 16 07/11/2016 Comp Metabolic Gxm290 GLUCOSE 86 mg/dL 07/11/2016 Comp Metabolic Yef615 Creat 0.7 mg/dL 07/11/2016 Comp Metabolic Obq092 eGFR 106 ml/min/1.73m2 07/11/2016 Comp Metabolic Tcv099 BUN 12 mg/dL 07/11/2016 Comp Metabolic Jux184 B/C Ratio 18.2 Ratio 07/11/2016 Comp Metabolic Bar648 CALCIUM 9.3 mg/dL 07/11/2016 Comp Metabolic Ixj220 ALK PHOS 79 U/L 07/11/2016 Comp Metabolic Mxy363 AST(SGOT) 19 U/L 07/11/2016 Comp Metabolic Ssw037 ALT(SGPT) 13 U/L 07/11/2016 Comp Metabolic Pci918 BILI T 0.3 mg/dL 07/11/2016 Comp Metabolic Zbl779 ALBUMIN 4.1 g/dL 07/11/2016 Comp Metabolic Lmf067 TPRO 7.5 g/dL 07/11/2016 Comp Metabolic Fvq291 GLOB 3.4 g/dL 07/11/2016 Comp Metabolic Wro084 A/G Ratio 1.2 Ratio 07/11/2016 Comp Metabolic Jbx259 Osmo 271 mOsmo 07/11/2016 PREG U 6046833 PREG U NEG 08/08/2014 Review of Systems System Result Effective Dates Constitutional recent illness 04/18/2018 Constitutional No anorexia [...] benign 08/08/2014 None Procedures Procedure Codes Date KETOROLAC TROMETHAMINE INJ CPT-4: J1885 01/05/2018 THER/PROPH/DIAG INJ SC/IM CPT-4: 98597 10/17/2016 TRIAMCINOLONE ACET INJ NOS CPT-4: J3301 10/17/2016 REMOVAL OF SKIN TAGS <W/15 CPT-4: 55730 01/01/2015 Vital Signs Date Vital 04/18/2018 Blood Pressure 1: 118/82 Code : 8480-6 BMI: 36.3 Code : 17184-3 Heart Rate 1 : 103 bpm Height: 5' SpO2: 99% Weight: 186 lbs 02/23/2018 Blood Pressure 1: 134/88 Code : 8480-6 BMI: 37.1 Code : 91353-6 Heart Rate 1 : 99 bpm Height: 5' SpO2: 97% Weight: 190 lbs 02/01/2018 Blood Pressure 1: 132/86 Code : 8480-6 BMI: 36.9 Code : 70930-3 Heart Rate 1 : 83 bpm Height: 5' SpO2: 99% Weight: 189 lbs 01/05/2018 Blood Pressure 1: 138/82 Code : 8480-6 BMI: 38.7 Code : 00611-3 Heart Rate 1 : 98 bpm Height: 5' SpO2: 98% Weight: 198 lbs 11/29/2017 Blood Pressure 1: 136/74 Code : 8480-6 BMI: 38.7 Code : 65854-5 Heart Rate 1 : 84 bpm Height: 5' SpO2: 98% Weight: 198 lbs 11/16/2017 Blood Pressure 1: 138/88 Code : 8480-6 BMI: 38.7 Code : 17520-5 Heart Rate 1 : 83 bpm Height: 5' SpO2: 98% Weight: 198 lbs 04/25/2017 Blood Pressure 1: 138/90 Code : 8480-6 BMI: 40.2 Code : 45388-1 Heart Rate 1 : 84 bpm Height: 5' SpO2: 98% Weight: 206 lbs 10/20/2016 Blood Pressure 1: 140/82 Code : 8480-6 BMI: 39.1 Code : 47140-4 Heart Rate 1 : 87 bpm Height: 5' SpO2: 97% Temperature: 37.2 (C) / 98.9 (F) Weight: 200 lbs 07/11/2016 Blood Pressure 1: 142/88 Code : 8480-6 BMI: 38.7 Code : 99759-5 Heart Rate 1 : 104 bpm Height: 5' SpO2: 96% Temperature: 36.7 (C) / 98.0 (F) Weight: 198 lbs 01/08/2015 Blood Pressure 1: 118/78 Code : 8480-6 01/06/2015 Blood Pressure 1: 132/80 Code : 8480-6 01/01/2015 Blood Pressure 1: 150/102 Code: 8480-6 Blood Pressure 2: 150/96 Code: 8480-6 BMI: 33.4 Code: 33921-9 Heart Rate 1: 71 bpm Height: 5' SpO2: 99% Weight: 171 lbs 08/08/2014 Blood Pressure 1: 136/70 Code : 8480-6 BMI: 40.8 Code : 18687-2 Heart Rate 1 : 84 bpm Height: 5' Weight: 209 lbs Functional Status No Functional Status data History of Present Illness Symptom Name Status Result Effective Date Notes diarrhea Quality acute 04/18/2018 now resolved diarrhea [...] data Encounters Encounter Performer Location Codes Date ([id number]) 04607 EST. PATIENT, LEVEL III Diagnosis: Essential (primary) hypertension[ICD10: I10] Diagnosis: Personal history of other infectious and parasitic diseases[ICD10: Z86.19] [facility] CPT-4: 05810 2017 ([id number]) 83762 EST. PATIENT, LEVEL III Diagnosis: Generalized anxiety disorder[ICD10: F41.1] Diagnosis: Urinary tract infection, site not specified[ICD10: N39.0] [facility] CPT-4: 66566 02/23/2018 ([id number]) 15752 EST. PATIENT, LEVEL III Diagnosis: Generalized abdominal pain[ICD10: R10.84] Diagnosis: Candidiasis of vulva and vagina[ICD10: B37.3] Jeanine Dale MD, [facility] CPT-4: 21059 02/01/2018 ([id number]) 66413 EST. PATIENT, LEVEL IV Diagnosis: Generalized abdominal pain[ICD10: R10.84] Diagnosis: Nausea[ICD10: R11.0] Diagnosis: Diarrhea, unspecified[ICD10: R19.7] Jeanine Dale MD, [facility] CPT-4: 89317 01/05/2018 [id number] EST. PATIENT, LEVEL IV Diagnosis: Other allergic rhinitis[ICD10: J30.89] Diagnosis: Essential (primary) hypertension[ICD10: I10] Tere Dale MD, [facility] CPT-4: 95333 11/29/2017 [id number] EST. PATIENT, LEVEL III Diagnosis: Essential (primary) hypertension[ICD10: I10] Tere Dale MD, [facility] CPT-4: 20354 11/16/2017 ([id number]) PREV VISIT EST AGE 40-64 Diagnosis: Encounter for general adult medical examination without abnormal findings[ICD10: Z00.00] Diagnosis: Other obesity due to excess calories[ICD10: E66.09] Jeanine Dale MD, [facility] CPT-4: 62324 04/25/2017 92045 EST. PATIENT, LEVEL III Diagnosis: Acute laryngopharyngitis[ICD10: J06.0] Diagnosis: Other allergic rhinitis[ICD10: J30.89] Diagnosis: Otalgia, left ear[ICD10: H92.02] Tere Dale MD, [facility] CPT- 4: 55196 10/20/2016 ([id number]) 03163 EST. PATIENT, LEVEL III Diagnosis: Mixed hyperlipidemia[ICD10: E78.2] Diagnosis: Cough[ICD10: R05] Jeanine Dale MD, [facility] CPT-4: 27347 07/11/2016 ([id number]) Miscellaneous no charge Diagnosis: ELEV BL PRES W/O HYPERTN[ICD9: 796.2] Jeanine Dale MD, [facility] CPT-4: 13132 01/08/2015 ([id number]) Miscellaneous no charge Diagnosis: ELEV BL PRES W/O HYPERTN[ICD9: 796.2] [facility] CPT-4: 42025 01/06/2015 ([id number]) OFFICE VISIT, NEW - LEVEL 4 Diagnosis: Abnormal menstrual periods[ICD9: 626.2] Diagnosis: Hiatal hernia[ICD9: 553.3] Diagnosis: ESOPHAGEAL REFLUX[ICD9: 530.81] Diagnosis: Missed periods[ICD9: 626.4] [facility] CPT- 4: 58488 08/08/2014 Plan of Care Planned Activity Notes Codes Status Date Visit Plan: Hypertension - well controlled - [...] the diarrhea. 04/18/2018 Appointment: Yeni Dale WPtel: [address] [place], [place] [phone] (15 min) Moderate 04/18/2018 Patient Education: Patient Medication Summary Completed 04/18/2018 Appointment: Lab Draw 03/02/2018 Patient Education: Patient Medication Summary Completed 03/02/2018 Visit Plan: UTI-finish abx-repeat UA 72 hours after abx complete Anxiety-continue prozac -rx for xanax to use prn -call if symptoms uncontrolled 02/23/2018 Appointment: Jeanine Cunningham WPtel: [address] [place], [place] [phone] [place] (30 min) Complex 02/23/2018 Patient Education: Patient Medication Summary Completed 02/23/2018 Appointment: Tere Coello WPtel: [address] [place], [place] [phone] (15 min) Moderate 02/20/2018 Visit Plan: Abdominal ohfx-rgusodwby-lidkutks follow up- symptoms have resolved-patient to finish abx as directed-call if symptoms return Yeast infection-rx for diflucan -start after antibiotics complete 02/01/2018 Appointment: Jeanine Cunningham WPtel: [phone] [phone] (30 min) Complex 02/01/2018 Patient Education: Patient Medication Summary Completed 02/01/2018 Visit Plan: Abdominal rveh-levkhm-sirnerxp-clear liquid advance to bland diet, low fat diet, start on probiotic, and rehydrate with gatorade-like product. Pt to call if feeling worse, diarrhea becomes bloody, or does not improve with above recommendations. RX sent to patient's pharmacy and instructed on use. ER over the weekend for worsening symptoms-will schedule CT abd/pelvis for recurrent abdominal pain. 01/05/2018 Appointment: Jeanine Cunningham WPtel: [phone] [phone] (30 min) Complex 01/05/2018 Patient Education: Patient [...] at home. 11/29/2017 Appointment: Tere Coello WPtel: [phone] [phone] (30 min) Complex 11/29/2017 Patient Education: Patient [...] concerns. 11/16/2017 Appointment: Tere Coello WPtel: [phone] [facility] (15 min) Moderate 11/16/2017 Patient Education: Patient [...] use 04/25/2017 Appointment: Jeanine Cunningham WPtel: [phone] (15 min) Moderate 04/25/2017 Patient Education: Patient [...] spray. 10/20/2016 Appointment: Tere Coello WPtel: [phone] [phone] (30 min) Complex 10/20/2016 Patient [...] patient's pharmacy. 07/11/2016 Appointment: Jeanine Cunningham WPtel[phone] (30 min) [facility] 07/11/2016 Patient Education: Patient Medication Summary [...] as well. 08/08/2014 Appointment: [facility]eni Dale [facility]Ptel[facility] [facility] 08/08/2014 Patient Education: Patient Medication Summary Completed 08/08/2014 Instructions Comment . Abdominal dguz-qqdozd-wrzqjorj-clear liquid advance to bland diet, low fat [...] -start after finished with levaquin . Abdominal vdub-utkmkabdy-dvetzaaj follow up-symptoms have resolved-patient to finish abx [...]
--- OUTSIDE RECORDS SUMMARY | 2018-08-24 00:43 | XMS REPORT | Continuity of Care Document ---
Author Author [facility] [place] Address Unknown Phone Unavailable Allergies Active Description Code Type Severity Reaction Onset Reported/Identified Relationship to Patient Clinical Status Yes Penicillins [id number] Drug Allergy Mild N/A 01/26/2013 Medications There [...] CCDS Ot 786.09 RESPIRATORY ABNORM NEC 12/18/2017 JAUQUIN LEI DO Ot Z12.31 ENCNTR SCREEN MAMMOGRAM [...] OTHER INJURY OF UNSPECIFIED BODY REGION, 12/20/2017 KENY DE LA CRUZ, IRAJ Perla Ot W54.0XXA BITTEN BY DOG, INITIAL ENCOUNTER 12/20/2017 KENY DE LA CRUZ, IRAJ Perla Ot Z88.0 ALLERGY STATUS TO PENICILLIN 12/20/2017 KENY DE LA CRUZ, IRAJ Perla Ot Z96.22 MYRINGOTOMY TUBE(S) STATUS 12/20/2017 IRAJ BUSTILLO MD Ot Z98.84 BARIATRIC SURGERY STATUS 01/09/2018 NIECY DE LA CRUZ FACC, ALI FACP CCDS Ot 785.2 CARDIAC MURMURS NEC 01/09/2018 NIECY DE LA CRUZ FACC, ALI FACP CCDS Ot 786.09 RESPIRATORY ABNORM NEC 01/09/2018 JUAQUIN LEI DO Ot Z12.31 ENCNTR SCREEN MAMMOGRAM FOR MALIGNANT NE 01/11/2018 YURIDIA SINGH ACID SUPERVISOR Ot K57.30 DVRTCLOS OF LG INT W/O PERFORATION OR AB 01/11/2018 YURIDIA SINGH ACID SUPERVISOR Ot N28.89 OTHER SPECIFIED DISORDERS OF KIDNEY AND 01/11/2018 YURIDIA SINGH ACID SUPERVISOR Ot Z98.84 BARIATRIC SURGERY STATUS 01/16/2018 YURIDIA SINGH ACID SUPERVISOR Ot K57.30 DVRTCLOS OF LG INT W/O PERFORATION OR AB 01/16/2018 YURIDIA SINGH ACID SUPERVISOR Ot N28.89 OTHER SPECIFIED DISORDERS OF KIDNEY AND 01/16/2018 YURIDIA SINGH ACID SUPERVISOR Ot Z98.84 BARIATRIC SURGERY STATUS 01/26/2018 PAULINE GIVENS DO Ot E78.00 PURE HYPERCHOLESTEROLEMIA, UNSPECIFIED 01/26/2018 PAULINE GIVENS DO Ot F32.9 MAJOR DEPRESSIVE DISORDER, SINGLE EPISOD 01/26/2018 PAULINE GIVENS DO Ot F41.9 ANXIETY DISORDER, UNSPECIFIED 01/26/2018 PAULINE GIVENS DO Ot I10 ESSENTIAL (PRIMARY) HYPERTENSION 01/26/2018 PAULINE GIVENS DO Ot K21.9 GASTRO-ESOPHAGEAL REFLUX DISEASE WITHOUT 01/26/2018 PAULINE GIVENS DO Ot K52.9 NONINFECTIVE GASTROENTERITIS AND COLITIS 01/26/2018 PAULINE GIVENS DO Ot K56.609 UNSP INTESTNL OBST, UNSP TO PARTIAL V 01/26/2018 GIVENS DO, PAULINE D Ot E78.00 PURE HYPERCHOLESTEROLEMIA, UNSPECIFIED 01/26/2018 GIVENS DOPAULINE D Ot F32.9 MAJOR DEPRESSIVE DISORDER, SINGLE EPISOD 01/26/2018 GIVENS DOTALIBTT D Ot F41.9 ANXIETY DISORDER, UNSPECIFIED 01/26/2018 GIVENS DO PAULINE D Ot I10 ESSENTIAL (PRIMARY) HYPERTENSION 01/26/2018 GIVENS DO PAULINE D Ot K21.9 GASTRO-ESOPHAGEAL REFLUX DISEASE WITHOUT 01/26/2018 GIVENS DO, PAULINE D Ot 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 01/26/2018 GIVENS DOTALIBTT D Ot K52.9 NONINFECTIVE GASTROENTERITIS AND COLITIS 01/26/2018 GIVENS DOTALIBTT D Ot K56.609 UNSP INTESTNL OBST, UNSP TO PARTIAL V 02/20/2018 NIECY DE LA CRUZ FACC, ALI FACP CCDS Ot 785.2 CARDIAC MURMURS NEC 02/20/2018 NIECY DE LA CRUZ FACC, ALI FACP CCDS Ot 786.09 RESPIRATORY ABNORM NEC 02/20/2018 JUAQUIN LEI DO Ot Z12.31 ENCNTR SCREEN MAMMOGRAM FOR MALIGNANT NE 02/20/2018 YURIDIA SINGH ACID SUPERVISOR Ot K57.30 DVRTCLOS OF LG INT W/O PERFORATION OR AB 02/20/2018 YURIDIA SINGH ACID SUPERVISOR Ot N28.89 OTHER SPECIFIED DISORDERS OF KIDNEY AND 02/20/2018 YURIDIA SINGH ACID SUPERVISOR Ot Z98.84 BARIATRIC SURGERY STATUS 02/20/2018 KENY DE LA CRUZ, IRAJ Perla Ot E78.00 PURE HYPERCHOLESTEROLEMIA, UNSPECIFIED 02/20/2018 IRAJ BUSTILLO MD Ot F32.9 MAJOR DEPRESSIVE DISORDER, SINGLE EPISOD 02/20/2018 IRAJ BUSTILLO MD Ot F41.9 ANXIETY DISORDER, UNSPECIFIED 02/20/2018 IRAJ BUSTILLO MD Ot I10 ESSENTIAL (PRIMARY) HYPERTENSION 02/20/2018 IRAJ BUSTILLO MD Ot K21.9 GASTRO-ESOPHAGEAL REFLUX DISEASE WITHOUT 02/20/2018 IRAJ BUSTILLO MD Ot R10.10 UPPER ABDOMINAL PAIN, UNSPECIFIED 02/20/2018 IRAJ BUSTILLO MD Ot R11.2 NAUSEA WITH VOMITING, UNSPECIFIED 02/20/2018 IRAJ BUSTILLO MD Ot R19.7 DIARRHEA, UNSPECIFIED 02/20/2018 IRAJ BUSTILLO MD Ot Z87.2 PERSONAL HISTORY OF DISEASES OF THE SKIN 02/20/2018 IRAJ BUSTILLO MD Ot Z88.0 ALLERGY STATUS TO PENICILLIN 02/20/2018 IRAJ BUSTILLO MD Ot Z96.22 MYRINGOTOMY TUBE(S) STATUS 02/20/2018 IRAJ BUSTILLO MD Ot Z98.84 BARIATRIC SURGERY STATUS 02/22/2018 IRAJ BUSTILLO MD Ot E78.00 PURE HYPERCHOLESTEROLEMIA, UNSPECIFIED 02/22/2018 IRAJ BUSTILLO MD Ot F32.9 MAJOR DEPRESSIVE DISORDER, SINGLE EPISOD 02/22/2018 IARJ BUSTILLO MD Ot F41.9 ANXIETY DISORDER, UNSPECIFIED 02/22/2018 IRAJ BUSTILLO MD Ot I10 ESSENTIAL (PRIMARY) HYPERTENSION 02/22/2018 IRAJ BUSTILLO MD Ot K21.9 GASTRO-ESOPHAGEAL REFLUX DISEASE WITHOUT 02/22/2018 IRAJ BUSTILLO MD Ot R10.10 UPPER ABDOMINAL PAIN, UNSPECIFIED 02/22/2018 IRAJ BUSTILLO MD Ot R11.2 NAUSEA WITH VOMITING, UNSPECIFIED 02/22/2018 IRAJ BUSTILLO MD Ot R19.7 DIARRHEA, UNSPECIFIED 02/22/2018 IRAJ BUSTILLO MD Ot Z87.2 PERSONAL HISTORY OF DISEASES OF THE SKIN 02/22/2018 IRAJ BUSTILLO MD Ot Z88.0 ALLERGY STATUS TO PENICILLIN 02/22/2018 IRAJ BUSTILLO MD Ot Z96.22 MYRINGOTOMY TUBE(S) STATUS 02/22/2018 IRAJ BUSTILLO MD Ot Z98.84 BARIATRIC SURGERY STATUS 03/06/2018 JUAQUIN ELI DO Ot Z12.31 ENCNTR SCREEN MAMMOGRAM FOR MALIGNANT NE 03/06/2018 JUAQUIN LEI DO Ot Z12.31 ENCNTR SCREEN MAMMOGRAM FOR MALIGNANT NE 03/13/2018 PAULINE GIVENS DO Ot Z01.818 ENCOUNTER FOR OTHER PREPROCEDURAL EXAMIN 03/13/2018 PAULINE GIVENS DO Ot Z01.818 ENCOUNTER FOR OTHER PREPROCEDURAL EXAMIN 03/14/2018 YURIDIA SINGH Ot K57.30 DVRTCLOS OF LG INT W/O PERFORATION OR AB 03/14/2018 YURIDIA SINGH Ot N28.89 OTHER SPECIFIED DISORDERS OF KIDNEY AND 03/14/2018 YURIDIA SINGHP Ot Z98.84 BARIATRIC SURGERY STATUS 03/20/2018 PAULINE GIVENS DO Ot I10 ESSENTIAL (PRIMARY) HYPERTENSION 03/20/2018 PAULINE GIVENS DO Ot K21.9 GASTRO-ESOPHAGEAL REFLUX DISEASE WITHOUT 03/20/2018 PAULINE GIVENS DO Ot K44.9 DIAPHRAGMATIC HERNIA WITHOUT OBSTRUCTION 03/20/2018 PAULINE GIVENS DO Ot K52.9 NONINFECTIVE GASTROENTERITIS AND COLITIS 03/20/2018 PAULINE GIVENS DO Ot 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 03/20/2018 PAULINE GIVENS DO Ot Z98.84 BARIATRIC SURGERY STATUS 03/21/2018 Ot 626.2 03/21/2018 NIECY DE LA CRUZ FACC, ALI FACP CCDS Ot 785.2 CARDIAC MURMURS NEC 03/21/2018 NIECY DE LA CRUZ FACC, ALI FACP CCDS Ot 786.09 RESPIRATORY ABNORM NEC 03/21/2018 JUAQUIN LEI DO Ot Z12.31 ENCNTR SCREEN MAMMOGRAM FOR MALIGNANT NE 03/21/2018 YURIDIA SINGH Ot K57.30 DVRTCLOS OF LG INT W/O PERFORATION OR AB 03/21/2018 YURIDIA SINGHP Ot N28.89 OTHER SPECIFIED DISORDERS OF KIDNEY AND 03/21/2018 YURIDIA SINGHP Ot Z98.84 BARIATRIC SURGERY STATUS 03/21/2018 JUAQUIN LEI DO Ot Z12.31 ENCNTR SCREEN MAMMOGRAM FOR MALIGNANT NE 03/29/2018 JUAQUIN LEI DO Ot Z12.31 ENCNTR SCREEN MAMMOGRAM FOR MALIGNANT NE 03/30/2018 NIECY DE LA CRUZ FACC, ALI FACP CCDS Ot 785.2 CARDIAC MURMURS NEC 03/30/2018 NIECY DE LA CRUZ FACC, ALI FACP CCDS Ot 786.09 RESPIRATORY ABNORM NEC 03/30/2018 DO SHI JUAQUIN C Ot Z12.31 ENCNTR SCREEN MAMMOGRAM FOR MALIGNANT NE 03/30/2018 YURIDIA SINGHP Ot K57.30 DVRTCLOS OF LG INT W/O PERFORATION OR AB 03/30/2018 YURIDIA SINGH ACID SUPERVISOR Ot N28.89 OTHER SPECIFIED DISORDERS OF KIDNEY AND 03/30/2018 YURIDIA SINGH ACID SUPERVISOR Ot Z98.84 BARIATRIC SURGERY STATUS 03/30/2018 DO DO, JUAQUIN C Ot Z12.31 ENCNTR SCREEN MAMMOGRAM FOR MALIGNANT NE 04/24/2018 PAULINE GIVENS DO Ot R19.7 DIARRHEA, UNSPECIFIED 07/11/2018 NIECY DE LA CRUZ FACC, ALI FACP CCDS Ot 785.2 CARDIAC MURMURS NEC 07/11/2018 NIECY WAGNERC, ALI FACP CCDS Ot 786.09 RESPIRATORY ABNORM NEC 07/11/2018 DO SHI JUAQUIN C Ot Z12.31 ENCNTR SCREEN MAMMOGRAM FOR MALIGNANT NE 07/11/2018 YURIDIA SINGH Ot K57.30 DVRTCLOS OF LG INT W/O PERFORATION OR AB 07/11/2018 YURIDIA SINGHP Ot N28.89 OTHER SPECIFIED DISORDERS OF KIDNEY AND 07/11/2018 YURIDIA SINGHP Ot Z98.84 BARIATRIC SURGERY STATUS 07/11/2018 DO SHI JUAQUIN C Ot Z12.31 ENCNTR SCREEN MAMMOGRAM FOR MALIGNANT NE 07/11/2018 PAULINE GIVENS DO Ot R19.7 DIARRHEA, UNSPECIFIED Procedures Code [place] [address] PSYCH DIAGNOSTIC EVALUATION 06/17/2014 [id number] DRAINAGE OF STOMACH WITH DRAINAGE DEVICE 01/23/2018 Results Test Result Range Complete blood count [...] culture - 12/18/17 00:58 Bacterial urine culture [id number] NRG COLONY COUNT <10,000 NRG FREE TEXT [...] urinalysis with reflex to culture NO NRG Bacterial blood culture - 01/23/18 16:22 Bacterial blood culture NG NRG Blood lactic acid measurement (moles/volume) - 01/23/18 16:33 Blood lactic acid measurement (moles/volume) 1.58 mmol/L 0.50-2.00 Bacterial blood culture - 01/23/18 16:33 Bacterial blood culture NG NRG Complete blood count (CBC) with automated white blood cell (WBC) differential - 01/24/18 05:36 Blood leukocytes automated count (number/volume) 10.1 10*3/uL 4.3-11.0 Blood erythrocytes automated count (number/volume) 4.27 10*6/uL 4.35-5.85 Venous blood hemoglobin measurement (mass/volume) 11.5 g/dL 11.5-16.0 Blood hematocrit (volume fraction) 35 % 35-52 Automated erythrocyte mean corpuscular volume 81 [foz_us] 80-99 Automated erythrocyte mean corpuscular hemoglobin (mass per erythrocyte) 27 pg 25-34 Automated erythrocyte mean corpuscular hemoglobin concentration measurement ( mass/volume) 33 g/dL 32-36 Automated erythrocyte distribution width ratio 14.3 % 10.0-14.5 Automated blood platelet count (count/volume) 362 10*3/uL 130-400 Automated blood platelet mean volume measurement 9.6 [foz_us] 7.4-10.4 Automated blood neutrophils/100 leukocytes 75 % 42-75 Automated blood lymphocytes/100 leukocytes 17 % 12-44 Blood monocytes/100 leukocytes 7 % 0-12 Automated blood eosinophils/100 leukocytes 1 % 0-10 Automated blood basophils/100 leukocytes 0 % 0-10 Blood neutrophils automated count (number/volume) 7.7 10*3 1.8-7.8 Blood lymphocytes automated count (number/volume) 1.7 10*3 1.0-4.0 Blood monocytes automated count (number/volume) 0.7 10*3 0.0-1.0 Automated eosinophil count 0.1 10*3/uL 0.0-0.3 Automated blood basophil count (count/volume) 0.0 10*3/uL 0.0-0.1 Comprehensive metabolic panel - 01/24/18 05:36 Serum or plasma sodium measurement (moles/volume) 140 mmol/L 135-145 Serum or plasma potassium measurement (moles/volume) 3.9 mmol/L 3.6-5.0 Serum or plasma chloride measurement (moles/volume) 115 mmol/L 98-107 Carbon dioxide 18 mmol/L 21-32 Serum or plasma anion gap determination (moles/volume) 7 mmol/L 5-14 Serum or plasma urea nitrogen measurement (mass/volume) 5 mg/dL 7-18 Serum or plasma creatinine measurement (mass/volume) 0.59 mg/dL 0.60-1.30 Serum or plasma urea nitrogen/creatinine mass ratio 8 NRG Serum or plasma creatinine measurement with calculation of estimated glomerular filtration rate > NRG Serum or plasma glucose measurement (mass/volume) 82 mg/dL 70-105 Serum or plasma calcium measurement (mass/volume) 8.0 mg/dL 8.5-10.1 Serum or plasma total bilirubin measurement (mass/volume) 0.4 mg/dL 0.1-1.0 Serum or plasma alkaline phosphatase measurement (enzymatic activity/volume) 52 U/L 40-136 Serum or plasma aspartate aminotransferase measurement (enzymatic activity/ volume) 13 U/L 5-34 Serum or plasma alanine aminotransferase measurement (enzymatic activity/volume ) 6 U/L 0-55 Serum or plasma protein measurement (mass/volume) 6.0 g/dL 6.4-8.2 Serum or plasma albumin measurement (mass/volume) 3.2 g/dL 3.2-4.5 Automated blood complete blood count (hemogram) panel - 01/25/18 07:16 Blood leukocytes automated count (number/volume) 6.8 10*3/uL 4.3-11.0 Blood erythrocytes automated count (number/volume) 4.60 10*6/uL 4.35-5.85 Venous blood hemoglobin measurement (mass/volume) 12.2 g/dL 11.5-16.0 Blood hematocrit (volume fraction) 38 % 35-52 Automated erythrocyte mean corpuscular volume 82 [foz_us] 80-99 Automated erythrocyte mean corpuscular hemoglobin (mass per erythrocyte) 27 pg 25-34 Automated erythrocyte mean corpuscular hemoglobin concentration measurement ( mass/volume) 33 g/dL 32-36 Automated erythrocyte distribution width ratio 14.3 % 10.0-14.5 Automated blood platelet count (count/volume) 361 10*3/uL 130-400 Automated blood platelet mean volume measurement 9.5 [foz_us] 7.4-10.4 Whole blood basic metabolic panel - 01/25/18 07:16 Serum or plasma sodium measurement (moles/volume) 140 mmol/L 135-145 Serum or plasma potassium measurement (moles/volume) 4.3 mmol/L 3.6-5.0 Serum or plasma chloride measurement (moles/volume) 112 mmol/L 98-107 Carbon dioxide 20 mmol/L 21-32 Serum or plasma anion gap determination (moles/volume) 8 mmol/L 5-14 Serum or plasma urea nitrogen measurement (mass/volume) 3 mg/dL 7-18 Serum or plasma creatinine measurement (mass/volume) 0.66 mg/dL 0.60-1.30 Serum or plasma urea nitrogen/creatinine mass ratio 5 NRG Serum or plasma creatinine measurement with calculation of estimated glomerular filtration rate > NRG Serum or plasma glucose measurement (mass/volume) 90 mg/dL 70-105 Serum or plasma calcium measurement (mass/volume) 9.2 mg/dL 8.5-10.1 [id number] - 01/25/18 11:57 [id number] Specimen held 5 days if further workup is needed. NRG Stool bacteria identification by culture - 01/25/18 11:57 NOT CULTURED VIBRIOTYERS VIBRIO AND YERSINIA NOT ROUTINELY CULTURED FOR IN THIS LAB NRG NEGATIVE FOR 0157 NEGATIVE FOR E COLI 0157 NRG NEGATIVE FOR CAMPY NEGATIVE FOR CAMPYLOBACTER NRG NEGATIVE FOR SHIGELLA NEGATIVE FOR SHIGELLA NRG NEGATIVE FOR SALMONELLA NEGATIVE FOR SALMONELLA NRG Complete blood count (CBC) with automated white blood cell (WBC) differential - 02/20/18 09:24 Blood leukocytes automated count (number/volume) 11.1 10*3/uL 4.3-11.0 Blood erythrocytes automated count (number/volume) 4.82 10*6/uL 4.35-5.85 Venous blood hemoglobin measurement (mass/volume) 13.0 g/dL 11.5-16.0 Blood hematocrit (volume fraction) 38 % 35-52 Automated erythrocyte mean corpuscular volume 79 [foz_us] 80-99 Automated erythrocyte mean corpuscular hemoglobin (mass per erythrocyte) 27 pg 25-34 Automated erythrocyte mean corpuscular hemoglobin concentration measurement ( mass/volume) 34 g/dL 32-36 Automated erythrocyte distribution width ratio 14.0 % 10.0-14.5 Automated blood platelet count (count/volume) 419 10*3/uL 130-400 Automated blood platelet mean volume measurement 9.5 [foz_us] 7.4-10.4 Automated blood neutrophils/100 leukocytes 83 % 42-75 Automated blood lymphocytes/100 leukocytes 12 % 12-44 Blood monocytes/100 leukocytes 4 % 0-12 Automated blood eosinophils/100 leukocytes 1 % 0-10 Automated blood basophils/100 leukocytes 0 % 0-10 Blood neutrophils automated count (number/volume) 9.2 10*3 1.8-7.8 Blood lymphocytes automated count (number/volume) 1.4 10*3 1.0-4.0 Blood monocytes automated count (number/volume) 0.5 10*3 0.0-1.0 Automated eosinophil count 0.1 10*3/uL 0.0-0.3 Automated blood basophil count (count/volume) 0.0 10*3/uL 0.0-0.1 Serum or plasma choriogonadotropin ( test) detection - 02/20/18 09:24 Serum or plasma choriogonadotropin ( test) detection NEGATIVE NEGATIVE Comprehensive metabolic panel - 02/20/18 09:24 Serum or plasma sodium measurement (moles/volume) 140 mmol/L 135-145 Serum or plasma potassium measurement (moles/volume) 3.5 mmol/L 3.6-5.0 Serum or plasma chloride measurement (moles/volume) 109 mmol/L 98-107 Carbon dioxide 21 mmol/L 21-32 Serum or plasma anion gap determination (moles/volume) 10 mmol/L 5-14 Serum or plasma urea nitrogen measurement (mass/volume) 8 mg/dL 7-18 Serum or plasma creatinine measurement (mass/volume) 0.73 mg/dL 0.60-1.30 Serum or plasma urea nitrogen/creatinine mass ratio 11 NRG Serum or plasma creatinine measurement with calculation of estimated glomerular filtration rate > NRG Serum or plasma glucose measurement (mass/volume) 100 mg/dL 70-105 Serum or plasma calcium measurement (mass/volume) 9.3 mg/dL 8.5-10.1 Serum or plasma total bilirubin measurement (mass/volume) 0.3 mg/dL 0.1-1.0 Serum or plasma alkaline phosphatase measurement (enzymatic activity/volume) 68 U/L 40-136 Serum or plasma aspartate aminotransferase measurement (enzymatic activity/ volume) 19 U/L 5-34 Serum or plasma alanine aminotransferase measurement (enzymatic activity/volume ) 24 U/L 0-55 Serum or plasma protein measurement (mass/volume) 7.6 g/dL 6.4-8.2 Serum or plasma albumin measurement (mass/volume) 4.0 g/dL 3.2-4.5 Magnesium - 02/20/18 09:24 Magnesium 2.0 mg/dL 1.8-2.4 Lipase - 02/20/18 09:24 Lipase 8 U/L 8-78 Serum or plasma C reactive protein measurement (mass/volume) - 02/20/18 09:24 Serum or plasma C reactive protein measurement (mass/volume) 0.97 mg /dL 0.00-0.50 Serum or plasma thyrotropin measurement by detection limit <=0.05 miu/l (units/ volume) - 02/20/18 09:24 Serum or plasma thyrotropin measurement by detection limit <=0.05 miu/l (units/ volume) 2.32 u[iU]/mL 0.35-4.94 Erythrocyte sedimentation rate by westergren method - 02/20/18 09:24 Erythrocyte sedimentation rate by westergren method 17 mm 0-20 Complete urinalysis with reflex to culture - 02/20/18 09:25 Urine color determination YELLOW NRG Urine clarity determination VERY CLOUDY NRG Urine pH measurement by test strip 6 5-9 Specific gravity of urine by test strip 1.025 1.016- 1.022 Urine protein assay by test strip, semi-quantitative 2+ NEGATIVE Urine glucose detection by automated test strip NEGATIVE NEGATIVE Erythrocytes detection in urine sediment by light microscopy 5+ NEGATIVE Urine ketones detection by automated test strip 3+ NEGATIVE Urine nitrite detection by test strip NEGATIVE NEGATIVE Urine total bilirubin detection by test strip 1+ NEGATIVE Urine urobilinogen measurement by automated test strip (mass/volume) 1 mg/dL NORMAL Urine leukocyte esterase detection by dipstick 1+ NEGATIVE Automated urine sediment erythrocyte count by microscopy (number/high power field) [HPF] NRG Automated urine sediment leukocyte count by microscopy (number/high power field ) [HPF] NRG Bacteria detection in urine sediment by light microscopy LARGE NRG Squamous epithelial cells detection in urine sediment by light microscopy 25-50 NRG Crystals detection in urine sediment by light microscopy NONE NRG Casts detection in urine sediment by light microscopy NONE NRG Mucus detection in urine sediment by light microscopy NEGATIVE NRG Complete urinalysis with reflex to culture YES NRG Bacterial urine culture - 02/20/18 09:25 Bacterial urine culture SEE COMMEN NRG COLONY COUNT . NRG Urine beta human chorionic gonadotropin (hCG) measurement - 03/20/18 07:50 Urine beta human chorionic gonadotropin (hCG) measurement NEGATIVE NEGATIVE Stool occult blood screen - 03/30/18 11:44 Stool gastrointestinal hemoglobin detection POSITIVE NEGATIVE C DIFFICILE AG + TOXIN A/B. - 03/30/18 11:44 SPECIAL CONTACT SPECIAL CONTACT PRECAUTIONS NEEDED NRG RESULTS POSITIVE FOR ANTIGEN AND TOXIN A/B NRG [id number] - 03/30/18 11:44 Stool bacteria identification by culture - 03/30/18 11:44 Stool bacteria identification by culture N2 NRG Encounters ACCT No. Visit Date/Time Discharge Status Pt. Type Provider Facility Loc./Unit Complaint [id number] 06/17/2014 10:22:00 06/17/2014 23:59:59 CLS Outpatient JACE BOYLE, SHAYLA Fraser [id number] 06/25/2018 00:12:00 06/25/2018 23:59:59 CLS Preadmit PAULINE GIVENS DO [facility] LAB DIARRHEA [id number] 03/30/2018 08:53:00 04/24/2018 00:01:00 DIS Outpatient PAULINE GIVENS DO [facility] LAB DIARRHEA [id number] 03/20/2018 07:39:00 03/20/2018 10:49:00 DIS Outpatient PAULINE GIVENS DO [facility] ENDO DIARRHEA/GERD [id number] 03/13/2018 05:36:00 03/13/2018 12:43:00 DIS Outpatient PAULINE GIVENS DO [facility] PREOP COLONOSCOPY/EGD [id number] 03/05/2018 07:27:00 03/05/2018 23:59:59 CLS Outpatient JUAQUIN LEI DO [facility] RAD ENCOUNTER FOR SCREENING MAMMOGRAM FOR BREAST CANCE [id number] 02/20/2018 09:05:00 02/20/2018 12:01:00 DIS Emergency IRAJ BUSTILLO MD [facility] ER ABD PAIN,DIARRHEA [id number] 01/23/2018 18:36:00 01/26/2018 12:00:00 DIS Inpatient PAULINE GIVENS DO [facility] 4TH SEPSIS;ENTERITIS WITH SBO ,VOMUME DEPLETION [id number] 2018 08:03:00 2018 23:59:59 CLS Outpatient YURIDIA SINGH [facility] RAD ABD PAIN,DIARRHEA [id number] 12/18/2017 00:44:00 12/18/2017 02:51:00 DIS Emergency IRAJ BUSTILLO MD [facility] ER N/V/D/ AB PAIN [id number] 02/21/2017 09:31:00 02/21/2017 23:59:59 CLS Outpatient JUAQUIN LEI DO [facility] RAD Z12.39 BREAST CA SCREENING [id number] 07/15/2014 08:43:00 07/15/2014 23:59:59 CLS Outpatient NIECY DE LA CRUZ FACC, AUSTEN YEUNG CCDS [facility] CARD CARDIAC MURMUR, DYSPNEA [id number] 01/26/2013 19:31:00 01/26/2013 20:31:00 DIS Emergency MARYAM HENRY MD [facility] ER L SIDED FACIAL NUMBNESS [id number] 02/14/2008 09:50:00 Document Registration
[2018-08-24] MEDS: diphenhydrAMINE 50 MG/ML INJ (BENADRYL) IVP SCH ×2 (02:29→06:19)
[2018-08-24 05:32] VITALS: BP 136/80
[2018-08-24] MEDS: NS IV 1000 ML 1,000 ML IV SCH (06:19)
[2018-08-24] MEDS: FAMOTIDINE 20MG/2ML IV (PEPCID) IVP SCH (08:08)
[2018-08-24 09:44] VITALS: BP 136/80
[2018-08-24] MEDS ORDERED: PRD20T PO ×2 (09:50)
[2018-08-24] MEDS ORDERED: OMEP20CA12 PO ×2 (09:50)
[2018-08-24] MEDS ORDERED: RANI150T46 PO ×2 (09:50)
[2018-08-24] MEDS ORDERED: METO-387 PO ×2 (09:50)
[2018-08-24] MEDS ORDERED: DIPH25CA79 PO ×2 (09:50)
--- NOTE | 2018-08-24 09:51 | Discharge Inst-Complex ---
PDI Med Rec & Follow Up Appt. New Medications: Diphenhydramine HCl (Benadryl) 25 Mg Capsule 25 MG PO TID, #20 CAP Metoprolol Succinate (Metoprolol Succinate) 25 Mg Tab.er.24h 25 MG PO DAILY, #30 TAB 6 Refills Prednisone (Prednisone) 20 Mg Tab 20 MG PO UD, #40 TAB 2 pills bid x 3 days and decrease by 1/2 pill twice a day until done with pills Ranitidine HCl (Zantac) 150 Mg Tablet 150 MG PO BID, #30 TAB Changed Medications: Omeprazole (Omeprazole) 20 Mg Capsule.dr 20 MG PO DAILY, #90 CAP 3 Refills (Changed from: Refills: ) hold until off of zantac Continued Medications: Fluoxetine HCl (Prozac) 40 Mg Capsule 40 MG PO DAILY, CAP Lactobacillus Acidophilus (Probiotic) 1 Each Capsule 1 CAP PO DAILY, CAP Levonorgestrel-Ethin Estradiol (Jolessa 0.15 mg-0.03 mg Tablet) 1 Each Tbdspk.3mo 1 TAB PO HS, TAB Ondansetron HCl (Zofran) 4 Mg Tab 4 MG PO Q6H PRN for NAUSEA/VOMITING-1ST LINE, TAB Simvastatin (Simvastatin) 40 Mg Tablet 40 MG PO HS, TAB Triamcinolone Acet (Triamcinolone Acetonide 0.025%) 15 Gm Cr TP BID PRN for DRY SKIN, TUBE Discontinued Medications: Fluconazole (Diflucan) 150 Mg Tablet 150 MG PO DAILY for 5 Days, TAB 5 DAY THERAPY FILLED 08-22-18 Lisinopril (Lisinopril) 10 Mg Tablet 10 MG PO DAILY, TAB Prednisone (Prednisone) 20 Mg Tab 40 MG PO DAILY for 5 Days, TAB FILLED #10 TABS 08-22-18 TAKES 2 (20MG) TABLETS Prescription: Transmitted to Pharmacy Patient Instructions: destroy the lisinopril and diflucan or take them to the pharmacy to have them destroyed Activity, Diet and PDI Resume Normal Activity: Yes Discharge Diet: Regular Diet Driving Instructions: You May Drive May Return to Work/School/Day: May Return to Work (on 08/27/18) Symptoms to Reoprt to : Appetite Changes, Numbness/Tingling, Swelling Increased, Pain/Pressure in Chest, Dizziness/Fainting, Shortness of Breath For Problems or Questions: Contact Your Physician, Go to Emergency Room ANIKET NAVARRO MD Aug 24, 2018 09:51
--- NOTE | 2018-08-24 09:53 | Discharge Summary ---
Diagnosis/Chief Complaint Date of Admission Aug 23, 2018 at 09:50 Date of Discharge Discharge Date: Aug 24, 2018 Discharge Time: 949 Admission Diagnosis Admission Diagnosis ANGIOEDEMA HYPERTENSION Discharge Diagnosis ANGIOEDEMA HYPERTENSION Reason Hospital Visit pt admitted with angioedema, was treated in the er at 1 this morning, discharged at 3am with stable symptoms, then her lips started swelling more at home and she presented to the office with severe lip swelling and was then admitted to the hospital for acute angioedema with need for iv treatment. Discharge Summary Discharge Physical Examination Allergies: Coded Allergies: lisinopril (Verified Allergy, Severe, ANAPHYLAXIS, 08/23/18) Penicillins (Verified Allergy, Mild, 08/23/18) Vitals & I&Os Vital Signs Date Time Temp Pulse Resp B/P (MAP) Pulse Ox O2 Delivery O2 Flow Rate FiO2 08/24/18 09:44 70 17 136/80 96 Room Air 08/24/18 07:25 98.6 General Appearance: Alert, Oriented X3, Cooperative, No Acute Distress HEENT: Atraumatic, PERRLA, EOMI, Mucous Memb Moist/[place] Respiratory: Clear to Auscultation, Normal Air Movement Cardiovascular: Regular Rate Abdominal: Normal Bowel Sounds, Soft Extremities: No Clubbing, No Cyanosis Skin: No Rashes, No Breakdown Neuro: Normal Speech, Cranial Nerves 3-12 NL Psych/Mental Status: Mental Status NL, Mood NL Hospital Course ANGIOEDEMA HYPERTENSION ANGIOEDEMA - PT TO BE ON IV STEROIDS - SOLUMEDROL 125MG Q 6 HOURS, BENADRYL 25MG IV Q 4 HOURS X 24 HOURS, AND IV PEPCID 20MG TID - MONITOR CLOSELY AND PT TO HAVE EPI IF NEEDED FOR ACUTE WORSENING OF ANGIOEDEMA. SUSPECT THIS IS DUE TO LISINOPRIL, SHE WILL HAVE TO HAVE THIS ADDED TO HER ALLERGY LIST. pt discharged on benadryl 25mg po tid x 3 days then prn zantac 150mg bid x 5 days then prn and prednisone 60mg bid x 3 days then decrease by 1/2 pill bid until medication is finished HYPERTENSION - MONITOR PRESSURES - - DC LISINOPRIL. and start on metoprolol xl 25mg daily rtc in the next 1 week from dc Discharge Condition at discharge symptoms resolved Instructions to patient/family Please see electronic discharge instructions given to patient. Discharge Medications Reviewed and agree with Discharge Medication list on patient's Discharge Instruction sheet Clinical Quality Measures DVT/VTE Risk/Contraindication: Risk Factor Score Per Nursin RFS Level Per Nursing on Admit: 2=Moderate ANIKET NAVARRO MD Aug 24, 2018 09:53
[2018-08-24] MEDS ORDERED: diphenhydrAMINE 50 MG/ML INJ (BENADRYL) IV PRN (14:00)
== END 2018-08-24 09:58 | disposition home or self-care (01) | DRG 916 ==
LOC: ICU 09:50
PROVIDERS: ADMIT Family Medicine; ATTEND Family Medicine
DX: T78.3XXA Angioneurotic edema, initial encounter (principal); I10 Essential (primary) hypertension; E78.00 Pure hypercholesterolemia, unspecified; K21.9 Gastro-esophageal reflux disease without esophagitis; K52.9 Noninfective gastroenteritis and colitis, unspecified; F41.9 Anxiety disorder, unspecified; F32.9 Major depressive disorder, single episode, unspecified; Z88.0 Allergy status to penicillin; Z88.8 Allergy status to other drugs, medicaments and biological substances; Z98.84 Bariatric surgery status

== ENCOUNTER → 2019-03-29 | Outpatient (CLI) | payer OTHER ==
[~2019-03-29] MED LIST changes: +DIPH25CA79 PO; +FLUC150T PO; +LACT1CAP62 PO; +METO-387 PO; +ONDN4T PO; +RANI150T46 PO; +TR025C15 TP
--- NOTE | 2019-03-30 07:52 | Diagnostic Imaging Report ---
Digital mammogram. Bilateral screening with 3-D tomosynthesis and CAD. The study was compared to prior exams of 03/05/2018 and 02/21/2017. At this time there are no current complaints. The current study was also evaluated with a Computer Aided Detection (CAD) system. FINDINGS: There are scattered fibroglandular densities in both breasts which could obscure a lesion. Overall, there does not appear to have been any significant change when compared to the prior exam. No primary or secondary sign of malignancy is noted. IMPRESSION: There is no radiographic evidence for malignancy. ACR BI-RADS Category 1: Negative. Result letter will be mailed to the patient. Note: At least 10% of breast cancer is not imaged by mammography. Dictated by: Dictated on workstation # [id number]
== END ==
LOC: RAD 07:05
PROVIDERS: ATTEND Obstetrics & Gynecology
DX: Z12.31 Encounter for screening mammogram for malignant neoplasm of breast (principal)
CPT/HCPCS: 77067

== ENCOUNTER → 2019-04-12 | Outpatient (CLI) | payer OTHER ==
--- NOTE | 2019-04-12 08:12 | Diagnostic Imaging Report ---
PROCEDURE: CT abdomen and pelvis without contrast. TECHNIQUE: Multiple contiguous axial images were obtained through the abdomen and pelvis without the use of intravenous contrast. Auto Exposure Controls were utilized during the CT exam to meet ALARA standards for radiation dose reduction. INDICATION: Microhematuria. Comparison made with prior examination 01/23/2018. FINDINGS: The heart size is normal. The lung bases are clear. The liver is normal in size without focal lesions. Gallbladder is unremarkable. There is no biliary ductal dilatation. Spleen is normal. Pancreas and adrenal glands are unremarkable. The kidneys are normal in appearance. Specifically, there is no evidence of nephrolithiasis or obstructive uropathy. The aorta is nonaneurysmal. Bowel gas pattern is nonspecific. There is no free air. There is no ascites. There are no focal inflammatory changes. The appendix is normal. There is no pelvic mass or adenopathy. There are minimal degenerative changes in the spine. There are some scattered mildly enlarged lymph nodes in the right lower quadrant which are nonspecific. IMPRESSION: Scattered subcentimeter lymph nodes in the right lower quadrant which are nonspecific, however, may reflect mesenteric adenitis. Recommend clinical correlation. Otherwise unremarkable noncontrast CT abdomen and pelvis. Specifically, there is no evidence of nephrolithiasis, obstructive uropathy or appendicitis. Dictated by: Dictated on workstation # [id number]
== END ==
LOC: RAD 07:26
PROVIDERS: ATTEND Urology
DX: R31.29 Other microscopic hematuria (principal); Z87.440 Personal history of urinary (tract) infections
CPT/HCPCS: 74176

== ENCOUNTER → 2021-10-19 | Outpatient (CLI) | payer BC, OTHER ==
[~2021-10-19] MED LIST changes: +ALBE200T13 PO; -ALBE200T2 PO; +ALPR.25T PO; -ALPR0.254 PO; +CLIN-144 PO; -CLIN300C11 PO; -LEVO500T80 PO; +LEVO500T81 PO; -LISI10TA2 PO; +LISI10TA25 PO; -METO-387 PO; +MTP25TSR PO; -OMEP20CA12 PO; +OMEP20CA18 PO; +RANI-613 PO; -RANI150T46 PO; +SIMV40TA25 PO
--- NOTE | 2021-10-19 14:26 | Diagnostic Imaging Report ---
INDICATION: Routine screening. COMPARISON is made with prior mammograms from 03/29/2019 and 03/05/2018. 2-D and 3-D bilateral screening mammography was performed with CAD. Scattered fibroglandular densities are identified bilaterally. The parenchymal pattern is stable. No mass or malignant-appearing microcalcifications are seen. Axillae are unremarkable. IMPRESSION: BI-RADS Category 1 No mammographic features suspicious for malignancy are identified. ACR BI-RADS Category 1: Negative. Result letter will be mailed to the patient. Note: At least 10% of breast cancer is not imaged by mammography. Dictated by: Dictated on workstation # [id number]
== END ==
LOC: RAD 08:30
PROVIDERS: ATTEND Nurse Practitioner Family
DX: Z12.31 Encounter for screening mammogram for malignant neoplasm of breast (principal)
CPT/HCPCS: 77063; 77067

== ENCOUNTER → 2022-03-29 | Outpatient (CLI) | payer BC ==
[~2022-03-29] VITALS: Ht 152.4 cm; Wt 90.0 kg
[~2022-03-29] MED LIST changes: +DOCU100C37 PO; +HYDR-34 PO; +IBUP-844 PO; +MULT-228 PO; +OMEG-154 PO; +SIME80TA16 PO
== END | disposition home or self-care (01) ==
LOC: PREOP 05:30
PROVIDERS: ATTEND Obstetrics & Gynecology
DX: Z01.818 Encounter for other preprocedural examination (principal)

== ENCOUNTER 2022-04-04 05:59 | Day surgery (SDC) | payer BC ==
[2022-04-04] VITALS (8 sets, daily range): BP systolic 102–164; BP diastolic 47–88
[~2022-04-04] VITALS: Ht 152 cm; Wt 90.0 kg
[~2022-04-04 05:59] MED LIST changes: -DOCU100C37 PO; -HYDR-34 PO; -IBUP-844 PO; -SIME80TA16 PO
[2022-04-04] MEDS ORDERED: ONDANSETRON 4 MG/2 ML (SDV) Z0FRAN IV ONE (06:30)
[2022-04-04] MEDS ORDERED: ceFAZolin 2 GM IV Premixed 50 ML IV ONE (06:30)
[2022-04-04] MEDS ORDERED: SCOPOLAMINE 1.5 MG (TRANSDERM-SCOP) PATCH TOP ONE (06:30)
[2022-04-04] MEDS ORDERED: metroNIDAZOLE 500MG/100ML IVPB 100 ML IV ONE (06:30)
[2022-04-04] MEDS ORDERED: FAMOTIDINE 20MG/2ML IV (PEPCID) IV ONE (06:30)
[2022-04-04 06:43] LABS: BASOPHILS % (AUTO) 0 % (0-10); EOSINOPHILS # (AUTO) 0.1 10^3/uL (0.0-0.3); EOSINOPHILS % (AUTO) 1 % (0-10); HEMATOCRIT 40 % (35-52); LYMPHOCYTES # (AUTO) 2.5 10^3/uL (1.0-4.0); LYMPHOCYTES % (AUTO) 28 % (12-44); MEAN CORPUSCULAR HEMOGLOBIN 27 pg (25-34); MEAN CORPUSCULAR HGB CONC 32 g/dL (32-36); MEAN CORPUSCULAR VOLUME 85 fL (80-99); MEAN PLATELET VOLUME 9.6 fL (9.0-12.2); MONOCYTES # (AUTO) 0.6 10^3/uL (0.0-1.0); MONOCYTES % (AUTO) 7 % (0-12); NEUTROPHILS # (AUTO) 5.4 10^3/uL (1.8-7.8); NEUTROPHILS % (AUTO) 63 % (42-75); PLATELET COUNT 355 10^3/uL (130-400); WHITE BLOOD COUNT 8.7 10^3/uL (4.3-11.0)
[2022-04-04] MEDS ORDERED: BUPIVACAINE 0.25% 30 ML (SENSORCAINE) VIAL ONE (06:54)
[2022-04-04] MEDS ORDERED: ONDANSETRON 4 MG/2 ML (SDV) Z0FRAN ONE (06:57)
[2022-04-04] MEDS ORDERED: fentaNYL INJ 100 MCG/2 ML AMP ONE (06:57)
[2022-04-04] MEDS ORDERED: LIDOCAINE PF 2% 5 ML (XYLOCAINE) VIAL ONE (06:57)
[2022-04-04] MEDS ORDERED: proPOfol 200 MG/20 ML (DIPRIVAN) VIAL IV ONE (06:57)
[2022-04-04] MEDS ORDERED: GLYCOPYRROLATE 0.2 MG/ML (ROBINUL) 2 ML VIAL ONE (06:57)
[2022-04-04] MEDS ORDERED: MIDAZOLAM 2 MG/2 ML (VERSED) VIAL ONE (06:58)
[2022-04-04] MEDS ORDERED: ROCURONIUM 50 MG/5 ML (ZEMURON) VIAL IV ONE (06:58)
[2022-04-04] MEDS ORDERED: NEOSTIGMINE (BLOXIVERZ ) 1 MG/1ML 10 ML VIAL ONE (07:01)
[2022-04-04] MEDS: LACTATED RINGERS 1,000 ML IV PRN ×2 (07:04→07:30)
[2022-04-04] MEDS ORDERED: HYDROmorphone 2 MG/ML VIAL (DILAUDID) ONE (08:28)
[2022-04-04] MEDS ORDERED: SEVOFLURANE (ULTANE) 15 ML INHAL SOLN ONE (08:33)
[2022-04-04] MEDS ORDERED: HYDROmorphone 2 MG/ML VIAL (DILAUDID) IV PRN (08:45)
[2022-04-04] MEDS ORDERED: ANTACID SUSP 30 ML UDC (MYLANTA) PO PRN (08:45)
[2022-04-04] MEDS ORDERED: ONDANSETRON 4 MG/2 ML (SDV) Z0FRAN IV PRN (08:45)
[2022-04-04] MEDS ORDERED: ZOLPIDEM 5 MG (AMBIEN) TAB PO PRN (08:45)
[2022-04-04] MEDS ORDERED: SIMETHICONE 80 MG (MYLICON) CHEW PO PRN (08:45)
[2022-04-04] MEDS ORDERED: HYDROcodone/APAP 7.5 MG/325 MG (LORTAB, LORCET PLUS) TABLET PO PRN (08:45)
[2022-04-04] MEDS ORDERED: LACTATED RINGERS 1,000 ML IV SCH (08:45)
[2022-04-04] MEDS ORDERED: DOCUSATE SODIUM 100 MG (COLACE) CAP PO PRN (08:45)
[2022-04-04] MEDS ORDERED: CHLORASEPTIC LOZENGE MM PRN (08:45)
[2022-04-04] MEDS ORDERED: KETOROLAC 30 MG/ML VIAL ONE (08:47)
--- NOTE | 2022-04-04 08:47 | Discharge Inst-Women's Service ---
Discharge Inst-Women's Serv Depart Medication/Instructions New, Converted or Re-Newed RX: Transmitted to Pharmacy Problems Reviewed?: Yes Consults/Follow Up Additional Follow Up: Yes Activity Activity: Activity as Tolerated Driving Instructions: You May Drive NO SMOKING: NO SMOKING Nothing Inside Vagina: No Douching, No [place], No Tampons Diet Discharge Diet: No Restrictions Symptoms to Report to : Bleeding Excessive, Pain Increased, Fever Over 101 Degrees F, Vaginal Bleeding Increase, Questions/Concerns For Any Problems or Questions: Contact Your Physician Skin/Wound Care Infection Signs and Symptoms: Increased Redness, Foul Odor of Wound, Increased Drainage, Skin Itchy or Has a Rash, Increased Swelling, Temperature Above 101 F Operative Area Clean and Dry: Keep Incision Clean/Dry Stitches/[place]/Dermabond: Dermabond, Care of Stitches Bathing Instructions: RAMON Ro DO Apr 04, 2022 08:47
[2022-04-04] MEDS: KETOROLAC 30 MG/ML VIAL IVP PRN ×2 (08:50→15:27)
[2022-04-04] MEDS ORDERED: HYDR-34 PO (08:51)
[2022-04-04] MEDS ORDERED: DOCU100C37 PO (08:51)
[2022-04-04] MEDS ORDERED: IBUP-844 PO (08:51)
[2022-04-04] MEDS ORDERED: SIME80TA16 PO (08:51)
[2022-04-04] MEDS ORDERED: CEPACOL SORE THROAT-COUGH LOZENGE PO PRN (10:45)
--- NOTE | 2022-04-04 13:05 | Anesthesia-General Post-Op ---
General Patient Condition Mental Status/LOC: Same as Preop Cardiovascular: Satisfactory Nausea/Vomiting: Absent Respiratory: Satisfactory Pain: Controlled Complications: Absent Post Op Complications Complications None Follow Up Care/Instructions Patient Instructions None needed. Anesthesia/Patient Condition Patient Condition Patient was doing well in PACU this morning, no complaints, stable vital signs, no apparent adverse anesthesia problems. No complications noted per nursing staff. RIGOBERTO BENITEZ DO Apr 04, 2022 13:05
--- NOTE | 2022-04-04 18:48 | OPERATIVE REPORT ---
DATE OF SERVICE: PREOPERATIVE DIAGNOSES: 1. A 47-year-old female with recurrent cervical dysplasia. 2. Fibroid uterus POSTOPERATIVE DIAGNOSES: 1. A 47-year-old female with recurrent cervical dysplasia. 2. Fibroid uterus. PROCEDURE: Robotic-assisted total laparoscopic hysterectomy with bilateral salpingectomy. SURGEON: Eddi Bauer DO HYDRAULIC SPINNER: Rut Jackson DNP, was necessary for manipulation and retraction throughout the procedure. ANESTHESIA: General endotracheal. ESTIMATED BLOOD LOSS: Minimal. URINE OUTPUT: 75 mL clear at the end of the procedure. FLUIDS: 1600 mL lactated Ringer's solution. FINDINGS: A bulky hyperemic-appearing uterus with multiple subserosal and intramural fibroids identified on gross inspection. Grossly normal appearing bilateral ovaries, grossly normal appearing bilateral fallopian tubes, grossly normal appearing external female genitalia, and upper abdominal anatomy. SPECIMEN SENT: Uterus, bilateral fallopian tubes. INDICATIONS FOR PROCEDURE: This 47-year-old female is a patient who had sought care in my office for definitive treatment due to ongoing issues with recurrent cervical dysplasia. She also had fibroid uterus and heavy periods. Fibroids have been identified on the uterus for approximately the last year to two years. They had been stable; however, due to recurrent cervical dysplasia, the patient was undergoing some type of invasive examination every 6 to 12 months. The patient has now become exhausted with this process and wishes to proceed with more definitive measures for ongoing issues with cervical dysplasia and the patient did not desire any further childbearing. I discussed with the patient hysterectomy as definitive measure. Risks of procedure were discussed with the patient in detail including risk of bleeding, infection, damage to surrounding structures including, but not limited to bowel, bladder, ureter, kidneys, possible need for reoperation, postoperative complications that may occur, recovery timeframe, risk from anesthesia and even . After everything was discussed with the patient in detail, consent was obtained, the patient was taken to the operating room. OPERATIVE REPORT IN DETAIL: Once in the operating room, general anesthesia was found to be adequate, she was placed in dorsal lithotomy position, prepped and draped in normal sterile fashion. A timeout was performed. A Kurtz catheter was placed using sterile technique. A weighted speculum inserted to the patient's vagina. Right angle retractor was used to visualize the cervix, which was grasped at 12 o'clock position using a long Allis clamp. An 0 Vicryl suture was then placed through the anterior lip of the cervix, which offers excellent manipulation of the cervix at that point, using the Vicryl suture. I then gently sound the uterine cavity, depth was found to be approximately 7 cm. I placed 6 cm Starla uterine manipulator tip and 3 cm colpotomy ring into the vagina. The manipulator tip was advanced into the uterus where the balloon was deployed. The colpotomy ring was advanced around the vaginal fornix, which offers excellent bimanual manipulation. I then removed all the instruments from the patient's vagina, performed change of gloves, turned my attention to the abdomen where infraumbilically I infiltrated this area using 0.25% Marcaine to make an 8 mm incision with a knife. I then subcostally I introduced a Veress needle at the midclavicular line on the left side until intraperitoneal placement was confirmed using saline drop test. An opening pressure of 4 mmHg was noted, proceeded to max pressure of 15 mmHg, at which point I introduced an 8 mm blunt da Karime laparoscopic trocar through the infraumbilical incision until intraperitoneal placement was confirmed using the da Karime laparoscope. There was no evidence of damage upon my entry site. I then briefly scanned the upper abdominal anatomy. I am able to visualize the Veress entry site, which no damage appears to have occurred at this site as well and the Veress was removed at that point. I then placed the patient in steep Trendelenburg where I am able to visualize all my pelvic anatomy as defined in my findings above. I placed two lateral trocars. These were both approximately 8 cm lateral to my infraumbilical trocar. They were placed in similar fashion by infiltrating the skin using 0.25% Marcaine and make an 8 mm incision with a knife and directing a trocar under direct visualization of the laparoscope. Once both of these trocars were in place, I had the patient placed in steep Trendelenburg and bringing the da Karime robot and docked in appropriate fashion, placing the SynchroSeal device in left hand and monopolar justice in the right hand. I performed the following dissection bilaterally starting at the uteroovarian ligament, I sealed and transected this using the SynchroSeal device. I then created a window in the mesosalpinx. I took this laterally using the SynchroSeal device, amputating fallopian tube from the mesosalpinx and its surrounding blood supply. I then grasped the round ligament, which I sealed and transected using the SynchroSeal device. I then grasped the entire broad ligament, which I sealed and transected using the SynchroSeal device down to the level of the lower uterine segment, at which point I the anterior and posterior leaflets of the broad ligament. Anterior leaflet was taken around the anterior vaginal fornix. The posterior leaflet was taken around the posterior vaginal fornix. This allows me to skeletonize the uterine vessels laterally, which I sealed and transected using the SynchroSeal device. I then created a colpotomy at 12 o'clock position using monopolar justice and took this circumferentially around the vaginal fornix amputating the cervix away from the vagina. The entire specimen was then removed through the vagina. I then closed the vaginal cuff using 2-0 V-Loc in a running fashion. There was no active bleeding noted from any of my dissection planes after doing so. I then undocked the da Karime robot and proceeded with remainder of the case laparoscopically. I copiously irrigated the pelvis using normal saline. Once again, there was no active bleeding noted from any of my dissection planes. I covered the planes of dissection and the vaginal cuff using Surgiflo hemostatic agent after which again, there was no active bleeding noted. I then had the patient taken out of steep Trendelenburg where I removed the lateral trocars under direct visualization of the laparoscope. The infraumbilical trocar was left in place to release insufflation and to introduce 10 mL of 0.25% Marcaine into peritoneal cavity for postoperative pain management. I then removed this trocar as well. The skin was reapproximated using 4-0 Monocryl in interrupted subcuticular stitches. Dermabond was applied to the incisions and Band-Aids were placed over the incisions as well. Kurtz catheter was left in place. The patient tolerated the procedure well and was taken to recovery area in stable condition. Lap and sponge counts were correct at the end of procedure. Instrument count was correct as well. Two grams of Ancef and 500 mg of Flagyl were given preoperatively for infection prophylaxis. Job ID: [id number] DocumentID: [id number] Dictated Date: 04/04/2022 11:01:23 Industrial Engineering Director Date: 04/04/2022 18:47:59 Dictated By: EDDI BAUER DO
[2022-04-09] MEDS ORDERED: IBUPROFEN 600 MG (MOTRIN) TAB PO PRN (06:00)
== END 2022-04-04 15:55 | disposition home or self-care (01) ==
LOC: SDC 05:59 → WS 10:07 → SDC 15:55
PROVIDERS: ATTEND Obstetrics & Gynecology
DX: D25.2 Subserosal leiomyoma of uterus (principal); N83.8 Other noninflammatory disorders of ovary, fallopian tube and broad ligament
CPT/HCPCS: 36415; 84703; 85025; 86850; 86900; 86901; 87081

== ENCOUNTER → 2023-05-05 | Outpatient (CLI) | payer OTHER ==
[~2023-05-05] MED LIST changes: +DOCU100C37 PO; +HYDR-34 PO; +IBUP-844 PO; -L GA1CAP2 PO; +LEVO-55 PO; -LEVO500T81 PO; +PHILLIPS' COLO1 EAC1 PO; +SIME80TA16 PO
--- NOTE | 2023-05-05 13:10 | Diagnostic Imaging Report ---
Indication: Routine screening. Comparison is made with prior mammograms of 10/19/2021 and 03/29/2019. 2-D and 3-D bilateral screening mammography was performed with CAD. Scattered fibroglandular densities are identified bilaterally. The parenchymal pattern is stable. No mass or malignant-appearing microcalcifications are seen. Axillae are unremarkable. IMPRESSION: BI-RADS Category 1 No mammographic features suspicious for malignancy are identified. ACR BI-RADS Category 1: Negative. Result letter will be mailed to the patient. Note: At least 10% of breast cancer is not imaged by mammography. Dictated by: Dictated on workstation # [id number]
== END ==
LOC: RAD 08:15
PROVIDERS: ATTEND Nurse Practitioner Family
DX: Z12.31 Encounter for screening mammogram for malignant neoplasm of breast (principal)
CPT/HCPCS: 77063; 77067